=== PATIENT | female | born 1950 | race Caucasian/White ===

== ENCOUNTER 2017-01-13 18:08 | Inpatient (IN) | payer OTHER, MEDICARE ==
[2017-01-13] VITALS (9 sets, daily range): BP systolic 81–109; BP diastolic 54–76; PULSE 100–119; RESP 22–26; TEMP 99.2; O2SAT 84–100
[~2017-01-13] VITALS: Ht 162.6 cm; Wt 91.0 kg
--- NOTE | 2017-01-13 18:31 | PD ---
HPI Chief Complaint: Respiratory Distress Time Seen by Provider: 18:31 Travel History International Travel<30 days: No Contact w/Intl Traveler<30days: No Traveled to known affect area: No History of Present Illness HPI 66-year-old female came to the emergency room with history of shortness of breath. Patient has had 2 hospitalizations at [facility] each for over a week and was recently sent to [facility] where she started developing shortness of breath. Her oxygen saturation was 84% on room air. She was brought in getting oxygen via nonrebreather. She is unable to finish a sentence and one breath. No history of chest pain. Her temperature in the ER was 99.9. Patient is tachycardic. She is awake however and answering questions. She appears to be in distress. Going through the paperwork that came from the rehabilitation patient recently has been diagnosed with UTI. Also chest x-ray done yesterday which showed a pneumonia. Her white count was 18,000 from a blood work that was done yesterday. [facility] Past Medical History Narrative Medical List of her past medical, surgical, social and family history was reviewed from the paperwork that was [facility] from the [facility]. Social History Tobacco Use: No Allergies-Medications (Allergen,Severity, Reaction): Coded Allergies: Contrast Media (Verified Allergy, Severe, respiratory distress, 01/13/17) Penicillin (Verified Allergy, Intermediate, rash, 01/13/17) Uncoded Allergies: cefepime (Allergy, Intermediate, Rash, 01/15/17) pruritic rash Comments List of her allergies reviewed from the nursing note. Reported Meds & Prescriptions Reported Meds & Active Scripts Active Reported Hydroxyzine HCl 25 Mg Tab 25 Mg PO Q6HR PRN 7 Days Nystatin Liq 100,000 unit/ml Susp 5 Ml SWISH-SWAL QID Start: 01/14/2017 x5 days Acidophilus (Lactobacillus Acidophilus) 1 Each Tablet 1 Tab PO BID 5 Days Duoneb (Ipratropium-Albuterol Neb) 0.5-2.5 Mg/3 Ml Neb 3 Ml NEB Q4HR PRN Levaquin (Levofloxacin) 500 Mg Tablet 500 Mg PO DAILY 5 Days Azithromycin 500 Mg Tab 500 Mg PO DAILY Hydrocortisone Topical 1% Cream 1 Applic TOPICAL BID Apply to rash on chest and groin Losartan-Hydrochlorothiazide 50-12.5 Mg Tab 2 Tab PO DAILY Diphenhydramine (Diphenhydramine HCl) 25 Mg Cap 25 Mg PO Q8HR PRN Ativan (Lorazepam) 0.5 Mg Tab 0.5 Mg PO Q8H 7 Days Ventolin Hfa 18 GM Inh (Albuterol Sulfate) 90 Mcg/Act Aer 2 Puff INH Q6H PRN Dulcolax Supp (Bisacodyl) 10 Mg Supp 10 Mg RECTAL IN AM PRN Milk of Magnesia Liq (Magnesium Hydroxide) 400 Mg/5 Ml Susp 30 Ml PO HS PRN Tylenol (Acetaminophen) 325 Mg Tab 650 Mg PO Q4H PRN Enema Disposable (Sodium Phosphates) 1 Ramandeep Ramandeep 1 Applic RECTAL ONCE PRN Citroma Liq (Magnesium Citrate) 300 Ml Liq 296 Ml PO IN AM PRN Lowry (Hydrocodone-Acetaminophen) 10-325 Mg Tab 1 Tab PO Q4H PRN 3 Days Pravastatin 40 Mg Tab 40 Mg PO DAILY Narrative Medication Awaiting for the nurse to do the med reconciliation. Review of Systems Except as stated in HPI: all other systems reviewed are Neg Physical Exam Narrative GENERAL: Awake, alert, significant respiratory distress, anxious SKIN: Focused skin assessment warm/dry. HEAD: Atraumatic. Normocephalic. EYES: Pupils equal and round. No scleral icterus. No injection or drainage. ENT: No nasal bleeding or discharge. Mucous membranes pink and moist. NECK: Trachea midline. No JVD. CARDIOVASCULAR: Regular rate and rhythm. Tachycardia. No murmur appreciated. RESPIRATORY: Moderate respiratory distress. Tachypnea. Decreased air entry bilaterally with fine crackles . GASTROINTESTINAL: Abdomen soft, non-tender, nondistended. Hepatic and splenic margins not palpable. MUSCULOSKELETAL: No obvious deformities. No clubbing. No cyanosis. No edema. NEUROLOGICAL: Awake and alert. No obvious cranial nerve deficits. Motor grossly within normal limits. Normal speech. PSYCHIATRIC: Appropriate mood and affect; insight and judgment normal. Data Data Last Documented VS Orders Complete Blood Count With Diff (01/13/17 18:38) Comprehensive Metabolic Panel (01/13/17 18:38) Lactic Acid Sepsis Protocol (01/13/17 18:38) Urinalysis - C+S If Indicated (01/13/17 18:38) Blood Culture (01/13/17 18:38) Chest, Single Ap (01/13/17 18:38) Blood Glucose (7/3/17 18:38) Ecg Monitoring (01/13/17 18:38) Iv Access Insert/Monitor (01/13/17 18:38) Oximetry (01/13/17 18:38) Oxygen Administration (01/13/17 18:38) Vancomycin Inj (Vancomycin Inj) (01/13/17 18:38) Aztreonam Inj (Azactam Inj) (01/13/17 18:38) Azithromycin Inj (Zithromax Inj) (01/13/17 18:38) Sodium Chlor 0.9% 1000 Ml Inj (Ns 1000 M (01/13/17 18:45) Sodium Chlor 0.9% 1000 Ml Inj (Ns 1000 M (01/13/17 18:45) Arterial Blood Gas (Abg) (01/13/17 ) Acetaminophen (Tylenol) (01/13/17 18:45) Urine Culture (01/13/17 20:08) Admit Order (Ed Use Only) (01/13/17 20:56) MDM Medical Decision Making Medical Screen Exam Complete: Yes Emergency Medical Condition: Yes Medical Record Reviewed: Yes Differential Diagnosis Pneumonia, sepsis, UTI Narrative Course 6:51 PM I started her on sepsis protocol. Awaiting for the blood test results to come back. Case will be signed over to the oncoming ER physician. Patient will require admission given her hypoxia and her clinical condition. Procedures EKG Prior to Arrival: Jos Driver MD Jan 13, 2017 18:31
[2017-01-13] MEDS ORDERED: AZITHROMYCIN INJ 500 MG in SODIUM CHLOR 0.9% 250 ML INJ 250 ML IV STA (18:38)
[2017-01-13] MEDS ORDERED: AZTREONAM INJ 2,000 MG in SODIUM CHLORIDE 0.9% INJ 100 ML IV STA (18:38)
[2017-01-13] MEDS ORDERED: VANCOMYCIN INJ 1 MG in SODIUM CHLOR 0.9% 250 ML INJ 250 ML IV STA (18:38)
[2017-01-13] MEDS ORDERED: ACETAMINOPHEN 325 MG TAB PO ONE (18:45)
[2017-01-13] MEDS ORDERED: SODIUM CHLOR 0.9% 1000 ML INJ 1,000 ML IV ONE ×2 (18:45)
[2017-01-13] MEDS ORDERED: DULC10SU3 RECTAL (19:15)
[2017-01-13] MEDS ORDERED: PRAV40TA2 PO (19:15)
[2017-01-13] MEDS ORDERED: HYDR-3366 PO (19:15)
[2017-01-13] MEDS ORDERED: LACTTAB5 PO (19:15)
[2017-01-13] MEDS ORDERED: LEVA500T20 PO (19:15)
[2017-01-13] MEDS ORDERED: DIPH25CA PO (19:15)
[2017-01-13] MEDS ORDERED: AZIT500T2 PO (19:15)
[2017-01-13] MEDS ORDERED: NYST1000 SWISH-SWAL (19:15)
[2017-01-13] MEDS ORDERED: IPRASOL NEB (19:15)
[2017-01-13] MEDS ORDERED: HYDR1CRE TOPICAL (19:15)
[2017-01-13] MEDS ORDERED: VENTAER INH (19:15)
[2017-01-13] MEDS ORDERED: HYDR-3133 PO (19:15)
[2017-01-13] MEDS ORDERED: TYLE325T PO (19:15)
[2017-01-13] MEDS ORDERED: LORA-392 PO (19:15)
[2017-01-13] MEDS ORDERED: MILKSUS PO (19:15)
[2017-01-13] MEDS ORDERED: CITRSOL4 PO (19:15)
[2017-01-13] MEDS ORDERED: LOSA50TA2 PO (19:15)
[2017-01-13] MEDS ORDERED: ENEMENE5 RECTAL (19:15)
[2017-01-13 19:26] LABS: AUTOMATED NEUTROPHIL # 20.4 TH/MM3 (1.8-7.7); BASOPHIL % 0.2 % (0.0-2.0); EOSINOPHIL # 0.3 TH/MM3 (0-0.4); EOSINOPHIL % 1.4 % (0.0-4.0); HEMATOCRIT 30.1 % (35.0-46.0); LYMPH % 4.6 % (9.0-44.0); MEAN CELL VOLUME 82.8 FL (80.0-100.0); MEAN CORPUSCULAR HEMOGLOBIN 26.9 PG (27.0-34.0); MEAN CORPUSCULAR HGB CONC 32.5 % (32.0-36.0); MONO % 2.5 % (0.0-8.0); NEUT % 91.3 % (16.0-70.0); PLATELET COUNT 254 TH/MM3 (150-450); RED BLOOD COUNT 3.63 MIL/MM3 (4.00-5.30); RED CELL DISTRIBUTION WIDTH 14.7 % (11.6-17.2); WHITE BLOOD COUNT 22.4 TH/MM3 (4.0-11.0)
[2017-01-13 19:29] LABS: HEMO FLAGS AUTO DIFF
--- NOTE | 2017-01-13 19:31 | PD ---
Physical Exam Narrative General: The patient is a well-developed well-nourished female, with some conversational dyspnea noted, otherwise in no acute distress. Head and Neck exam: Head is normocephalic atraumatic. Eyes: EOMI, pupils are equal round and reactive to light. Nose: Midline septum with pink mucous membranes Mouth: Dentition unremarkable. Moist mucus membranes. Posterior oropharynx is not erythematous. No tonsillar hypertrophy. Uvula midline. Airway patent. Neck: No palpable lymphadenopathy. No nuchal rigidity. No thyromegaly. Cardiovascular: Sinus tachycardia in the low 100s to 1 teens without murmurs, gallops, or rubs. No pulse deficit to the extremities and simultaneous auscultation and palpation of her radial artery. Lungs: Crackles audible in bilateral lung bases, no wheezes or rhonchi audible. Patient has a frequent dry sounding cough on exam. Abdomen: Soft, without tenderness to palpation in all 4 quadrants of the abdomen. No guarding, rebound, or rigidity. Normal bowel sounds are audible. No tenderness on palpation of McBurney's point. Extremities: No clubbing, cyanosis, or edema. 2+ pulses in all 4 extremities. No calf tenderness on palpation. Back: No costovertebral angle tenderness to palpation. Neurologic Exam: Grossly nonfocal. Skin Exam: The patient has erythematous papules noted along her chest, upper back, abdomen, legs that appear consistent with urticaria. She reports that she 's had this rash over the last couple of weeks. She reports that it is itchy. Intact skin that is warm and dry. Data Data Last Documented VS Vital Signs Date Time Temp Pulse Resp B/P Pulse Ox O2 Delivery O2 Flow Rate FiO2 01/13/17 19:23 111 24 98/70 100 Non-Rebreather 01/13/17 18:47 99.2 01/13/17 18:47 15 Orders Complete Blood Count With Diff (01/13/17 18:38) Comprehensive Metabolic Panel (01/13/17 18:38) Lactic Acid Sepsis Protocol (01/13/17 18:38) Urinalysis - C+S If Indicated (01/13/17 18:38) Blood Culture (01/13/17 18:38) Chest, Single Ap (01/13/17 18:38) Blood Glucose (01/13/17 18:38) Ecg Monitoring (01/13/17 18:38) Iv Access Insert/Monitor (01/13/17 18:38) Oximetry (01/13/17 18:38) Oxygen Administration (01/13/17 18:38) Vancomycin Inj (Vancomycin Inj) (01/13/17 18:38) Aztreonam Inj (Azactam Inj) (01/13/17 18:38) Azithromycin Inj (Zithromax Inj) (01/13/17 18:38) Sodium Chlor 0.9% 1000 Ml Inj (Ns 1000 M (01/13/17 18:45) Sodium Chlor 0.9% 1000 Ml Inj (Ns 1000 M (01/13/17 18:45) Arterial Blood Gas (Abg) (01/13/17 ) Acetaminophen (Tylenol) (01/13/17 18:45) Urine Culture (01/13/17 20:08) Admit Order (Ed Use Only) (01/13/17 20:56) Labs Laboratory Tests Test 01/13/17 01/13/17 18:45 20:08 White Blood Count 22.4 TH/MM3 Red Blood Count 3.63 MIL/MM3 Hemoglobin 9.8 GM/DL Hematocrit 30.1 % Mean Corpuscular Volume 82.8 FL Mean Corpuscular Hemoglobin 26.9 PG Mean Corpuscular Hemoglobin 32.5 % Concent Red Cell Distribution Width 14.7 % Platelet Count 254 TH/MM3 Mean Platelet Volume 8.9 FL Neutrophils (%) (Auto) 91.3 % Lymphocytes (%) (Auto) 4.6 % Monocytes (%) (Auto) 2.5 % Eosinophils (%) (Auto) 1.4 % Basophils (%) (Auto) 0.2 % Neutrophils # (Auto) 20.4 TH/MM3 Lymphocytes # (Auto) 1.0 TH/MM3 Monocytes # (Auto) 0.6 TH/MM3 Eosinophils # (Auto) 0.3 TH/MM3 Basophils # (Auto) 0.0 TH/MM3 CBC Comment AUTO DIFF Differential Total Cells 100 Counted Neutrophils % (Manual) 79 % Band Neutrophils % 9 % Lymphocytes % 7 % Monocytes % 1 % Eosinophils % 2 % Neutrophils # (Manual) 20.2 TH/MM3 Metamyelocytes 2 % Differential Comment FINAL DIFF MANUAL Platelet Estimate NORMAL Platelet Morphology Comment NORMAL Red Cell Morphology Comment NORMAL Sodium Level 135 MEQ/L Potassium Level 3.7 MEQ/L Chloride Level 96 MEQ/L Carbon Dioxide Level 28.1 MEQ/L Anion Gap 11 MEQ/L Blood Urea Nitrogen 42 MG/DL Creatinine 1.35 MG/DL Estimat Glomerular Filtration 39 ML/MIN Rate Random Glucose 108 MG/DL Calcium Level 8.6 MG/DL Total Bilirubin 0.5 MG/DL Aspartate Amino Transf 158 U/L (AST/SGOT) Alanine Aminotransferase 264 U/L (ALT/SGPT) Alkaline Phosphatase 200 U/L Total Protein 6.5 GM/DL Albumin 2.1 GM/DL Urine Color RED Urine Turbidity CLOUDY Urine pH 5.5 Urine Specific [place] 1.021 Urine Protein 100 mg/dL Urine Glucose (UA) NEG mg/dL Urine Ketones NEG mg/dL Urine Occult Blood LARGE Urine Nitrite NEG Urine Bilirubin NEG Urine Urobilinogen 2.0 MG/DL Urine Leukocyte Esterase LARGE Urine RBC /hpf Urine WBC /hpf Urine Squamous Epithelial 15 /hpf Cells Urine Transitional Epithelial 3 /hpf Cells Urine Amorphous Sediment RARE Urine Bacteria OCC /hpf Urine Hyaline Casts 10 /lpf Urine Mucus MANY /lpf Urine Yeast (Budding) MANY Microscopic Urinalysis Comment CATH-CULTURE IND Lactic Acid Level 1.7 mmol/L [facility] Medical Record Reviewed: Yes Supervised Visit with SADIQ: No Interpretation(s) Last Impressions Chest X-Ray 01/13/17 1378 Signed Impressions: Service Date/Time: Friday, January 13, 2017 18:51 - CONCLUSION: Patchy bilateral areas of peripheral partially consolidative infiltrate in both lungs. No evidence of pleural effusion. Walter Lopez MD Narrative Course During the course of the patients emergency department visit, the patients history, examination, and differential diagnosis were reviewed with the patient. The patient had IV access obtained and blood work sent for analysis. The patient was placed on a washhouse hand with oximetry and blood pressure monitoring. An ECG was ordered. A sepsis workup was started with a suspected service source of pneumonia. The patient was initially provided a 2 L normal saline IV fluid bolus, Azactam, azithromycin, and vancomycin was started given the patient's penicillin allergy. The patients laboratory studies were reviewed and remarkable for a white count of 22.4, hemoglobin 9.8, platelets 254 with a left shift, neutrophil predominance at 91.3, CMP is remarkable for sodium of 135, chloride 96, BUN 42, creatinine 1.35, glucose 108, AST 158, ALT 264, alkaline phosphatase 200, albumin 2.1, lactic acid 1.7, urinalysis shows 100 protein, large occult blood, large leukocyte esterase, innumerable rbc's and wbc's, 15 squamous epithelial cells, occasional bacteria many yeast culture indicated. The patient has had a chronic indwelling Mercedes catheter and also has a history of recently diagnosed bladder cancer. We will await further culture of the urine in order to decide on further treatment measures. Radiology studies were reviewed and remarkable for patchy bilateral areas of for full partially consolidated infiltrate in both lungs, no evidence of pleural effusion. The patients results were discussed with the patient, including the plan of care. I explained that further testing and/ or monitoring is indicated based on the patients history, examination, and/ or laboratory findings. Therefore, I recommended admission for additional evaluation. The patient expressed understanding and was agreeable with this plan. The patient was admitted to the hospital in guarded condition and [facility] Sepsis Criteria SIRS Criteria (2 or more): Heart rate over 90, RR > 20 or PaCO2 < 32, WBC > 33746, < 4000 or > 10% bands Sepsis Criteria (SIRS+source): Infect source susp/known Criteria Outcome: Meets SIRS criteria, Meets sepsis criteria Physician Communication Physician Communication The patient's case is discussed with Dr. Knight who did agree to admit the patient for further evaluation and treatment at this time. Diagnosis Primary Impression: Sepsis Qualified Code: A41.9 - Sepsis, due to unspecified organism Additional Impression: Pneumonia Qualified Code: J18.9 - Pneumonia of both lungs due to infectious organism, unspecified part of lung Admitting Information Admitting Physician Requests: Admit Jeanie Chadwick MD Jan 13, 2017 19:31
--- NOTE | 2017-01-13 19:41 | RADRPT ---
EXAM DATE/TIME: 01/13/2017 18:51 [place] COMPARISON: No previous studies available for comparison. INDICATIONS : Shortness of breath. MEDICAL HISTORY : None. SURGICAL HISTORY : None. ENCOUNTER: Initial ACUITY: 1 day PAIN SCORE: 5/10 LOCATION: Bilateral chest FINDINGS: The examination is abnormal, demonstrating patchy areas of partially consolidative and partially inte rstitial infiltrates in the peripheral one third of both lungs. No evidence of peribronchial thicken ing. The heart is normal size. Both hemidiaphragms are well delineated. CONCLUSION: Patchy bilateral areas of peripheral partially consolidative infiltrate in both lungs. No evidence o f pleural effusion. Walter Lopez MD on January 13, 2017 at 19:37 Board Certified Radiologist. This report was verified electronically.
[2017-01-13 20:01] LABS: ALT (GPT) 264 U/L (10-53); AST (GOT) 158 U/L (15-37); BICARBONATE 28.1 MEQ/L (21.0-32.0); BLOOD UREA NITROGEN 42 MG/DL (7-18); GLOMERULAR FILTRATION RATE 39 ML/MIN (>89)
[2017-01-13 20:12] LABS: BANDS 9 % (0-6); EOSINOPHILS 2 % (0-4); METAMYELOCYTES 2 % (0-1); NEUTROPHIL # MANUAL DIFF 20.2 TH/MM3 (1.8-7.7); POLYS (SEG NEUTROPHILS) 79 % (16-70); WBC DIFF SAMPLE 100
[2017-01-13 20:13] LABS: PLATELET ESTIMATE SMEAR NORMAL (NORMAL); PLATELET MORPHOLOGY NORMAL (NORMAL); SCAN/DIFF FINAL DIFF MANUAL
[2017-01-13 20:37] LABS: ALKALINE PHOSPHATASE 200 U/L (45-117); ANION GAP 11 MEQ/L (5-15); CHLORIDE 96 MEQ/L (98-107); POTASSIUM 3.7 MEQ/L (3.5-5.1); SODIUM (NA) 135 MEQ/L (136-145); TOTAL BILIRUBIN ADULT 0.5 MG/DL (0.2-1.0)
[2017-01-13 20:39] LABS: BACTERIA, URINE OCC /hpf; BLOOD, URINE LARGE (NEG); GLUCOSE,URINE NEG (NEG); HYALINE CAST, URINE 10 /lpf (RARE); KETONE, URINE NEG (NEG); MUCUS URINE MANY /lpf (OCC); NITRITE,URINE NEG (NEG); PH, URINE 5.5 (5.0-8.5); SQUAMOUS EPITHELIAL CELL URINE 15 /hpf (0-5); TRANSITIONAL EPI CELLS, URINE 3 /hpf; URINE COLOR RED (YELLW/STRAW)
[2017-01-13 20:40] LABS: COMMENT (UR) CATH-CULTURE IND; CULTURE IF INDICATED CATH CULTURE IND
[2017-01-13] MEDS: DOCUSATE SODIUM 50 MG/SENNA 8.6 MG TAB PO SCH (21:00)
[2017-01-13] MEDS ORDERED: SODIUM CHLORIDE 0.9% FLUSH 10 ML FLUSH IV FLUSH PRN (21:00)
[2017-01-13] MEDS ORDERED: ONDANSETRON HCL 4 MG/2 ML VIAL IVP PRN (21:00)
[2017-01-13] MEDS ORDERED: SENNOSIDES 8.6 MG TAB PO PRN (21:00)
[2017-01-13] MEDS ORDERED: BISACODYL 10 MG SUPP RECTAL PRN (21:00)
[2017-01-13] MEDS ORDERED: ACETAMINOPHEN 325 MG TAB PO PRN (21:00)
[2017-01-13] MEDS ORDERED: MAGNESIUM HYDROXIDE SUSP 30 ML CUP PO PRN (21:00)
[2017-01-13] MEDS ORDERED: Vancomycin Consult Pharmacy 1 EA OTHER SCH (21:00)
[2017-01-13] MEDS ORDERED: LACTULOSE SYRUP 20 GM/30 ML CUP PO PRN (21:00)
[2017-01-13] MEDS: NYSTATIN SUSP 500,000 U/5 ML CUP SWISH-SWAL SCH (21:00)
--- NOTE | 2017-01-13 21:11 | HHI.HP ---
HPI Service [facility] Primary Care Physician Unknown Admission Diagnosis Pneumonia failed outpatient management Diagnoses: (1) Sepsis Diagnosis: Principal (2) PNA (pneumonia) Diagnosis: Principal (3) UTI (urinary tract infection) Diagnosis: Principal (4) Renal insufficiency Diagnosis: Principal Travel History International Travel<30 Days: No Contact w/Intl Traveler <30 Da: No Traveled to Known Affected Are: No History of Present Illness This is a 66-year-old female with a PMH of HTN and Bladder CA who was sent to the ER from [facility] secondary to complaints of SOB. Patient recently hospitalized on 2 separate occasions to for similar complaints, found to have PNA, currently on treatment w/ Levaquin/Zithro at Rehab. Today, pt w/ worsening SOB. Upon EMS arrival, noted to be hypoxic w/ O2 sat 85%, Temp 99.9. On arrival, BP 95/68, HR 119, O2 sat 84% on RA, Temp 99.2. Currently on NRM w/ O2 sat 100%, BP 109/76, HR 108. WBC 22.4, bandemia 9%. Creatinine 1.35 , no previous labs for comparison. Lactic acid normal at 1.7. Mild elevated. UA positive for UTI, hematuria, chronic secondary to Bladder CA. CXR with patchy bilateral areas of consolidation. S/p Blood Cultures/Urine Culture, Vanc /Azactam/Zithro in ER. Review of Systems Except as stated in HPI: all other systems reviewed are Neg ROS: 14 point review of systems otherwise negative. Past Family Social History Past Medical History PMH: HTN and Bladder CA Past Surgical History PAST SURGICAL HISTORY: Mastectomy, Left Elbow Surgery Allergies: Coded Allergies: Contrast Media (Verified Allergy, Severe, respiratory distress, 01/13/17) Penicillin (Verified Allergy, Intermediate, rash, 01/13/17) Family History PAST FAMILY HISTORY: Reviewed. No h/o DM or CAD Social History PAST SOCIAL HISTORY: Negative for alcohol, tobacco or drugs. Physical Exam Vital Signs Vital Signs Date Time Temp Pulse Resp B/P Pulse Ox O2 Delivery O2 Flow Rate FiO2 01/13/17 19:23 111 24 98/70 100 Non-Rebreather 01/13/17 18:47 99.2 119 22 95/68 100 Non-Rebreather 01/13/17 18:47 100 Non-Rebreather 15 01/13/17 18:32 99.2 119 24 95/68 100 Non-Rebreather 01/13/17 18:32 119 24 100 Non-Rebreather 01/13/17 18:29 99.2 119 24 95/68 84 Physical Exam PE: GENERAL: Pleasant middle-aged white female in no acute distress, currently on NRM, dyspnea w/ speech. HEENT: PERRLA, EOMI. No scleral icterus or conjunctival pallor. No lid lag or facial droop. CARDIOVASCULAR: Regular rate and rhythm. No obvious murmurs to auscultation. No chest tenderness to palpation. RESPIRATORY: No obvious rhonchi or wheezing. Clear to auscultation. Decreased breath sounds equal bilaterally. GASTROINTESTINAL: Abdomen soft, non-tender, nondistended. BS normal. MUSCULOSKELETAL: Extremities without clubbing, cyanosis, or edema. No obvious deformities. NEUROLOGICAL: Awake, alert and oriented x4. No focal neurologic deficits. Moving both upper and lower extremities spontaneously. Laboratory Laboratory Tests Test 01/13/17 01/13/17 18:45 20:08 White Blood Count 22.4 Red Blood Count 3.63 Hemoglobin 9.8 Hematocrit 30.1 Mean Corpuscular Volume 82.8 Mean Corpuscular Hemoglobin 26.9 Mean Corpuscular Hemoglobin 32.5 Concent Red Cell Distribution Width 14.7 Platelet Count 254 Mean Platelet Volume 8.9 Neutrophils (%) (Auto) 91.3 Lymphocytes (%) (Auto) 4.6 Monocytes (%) (Auto) 2.5 Eosinophils (%) (Auto) 1.4 Basophils (%) (Auto) 0.2 Neutrophils # (Auto) 20.4 Lymphocytes # (Auto) 1.0 Monocytes # (Auto) 0.6 Eosinophils # (Auto) 0.3 Basophils # (Auto) 0.0 CBC Comment AUTO DIFF Differential Total Cells 100 Counted Neutrophils % (Manual) 79 Band Neutrophils % 9 Lymphocytes % 7 Monocytes % 1 Eosinophils % 2 Neutrophils # (Manual) 20.2 Metamyelocytes 2 Differential Comment FINAL DIFF MANUAL Platelet Estimate NORMAL Platelet Morphology Comment NORMAL Red Cell Morphology Comment NORMAL Sodium Level 135 Potassium Level 3.7 Chloride Level 96 Carbon Dioxide Level 28.1 Anion Gap 11 Blood Urea Nitrogen 42 Creatinine 1.35 Estimat Glomerular Filtration 39 Rate Random Glucose 108 Calcium Level 8.6 Total Bilirubin 0.5 Aspartate Amino Transf 158 (AST/SGOT) Alanine Aminotransferase 264 (ALT/SGPT) Alkaline Phosphatase 200 Total Protein 6.5 Albumin 2.1 Urine Color RED Urine Turbidity CLOUDY Urine pH 5.5 Urine Specific [place] 1.021 Urine Protein 100 Urine Glucose (UA) NEG Urine Ketones NEG Urine Occult Blood LARGE Urine Nitrite NEG Urine Bilirubin NEG Urine Urobilinogen 2.0 Urine Leukocyte Esterase LARGE Urine RBC Urine WBC Urine Squamous Epithelial 15 Cells Urine Transitional Epithelial 3 Cells Urine Amorphous Sediment RARE Urine Bacteria OCC Urine Hyaline Casts 10 Urine Mucus MANY Urine Yeast (Budding) MANY Microscopic Urinalysis Comment CATH-CULTURE IND Lactic Acid Level 1.7 Date/Time Procedure Status Source Growth 01/13/17 20:08 Urine Culture Received Urine Catheterized Urine Pending 01/13/17 18:50 Aerobic Blood Culture Received Blood Peripheral Pending 01/13/17 18:50 Anaerobic Blood Culture Received Blood Peripheral Pending Result Diagram: 01/13/17 [id number] Assessment and Plan Problem List: (1) Sepsis ICD Code: A41.9 Status: Acute (2) PNA (pneumonia) ICD Code: J18.9 Status: Acute (3) UTI (urinary tract infection) ICD Code: N39.0 Status: Acute (4) Renal insufficiency ICD Code: N28.9 Status: Acute Assessment and Plan A/P: 1. Sepsis: Temp 99.9, HR 111, WBC 22.1, Bandemia 9%. Lactic Acid normal. Source-PNA/UTI. S/p Blood/Urine Cultures, Vanc/Azactam/Zithro in ER. Follow up cultures, continue w/ IV Abx, IVF for hydration. 2. PNA: Recurrent. Multiple admissions to for recurrent PNA, currently on Levaquin/Zithro PO at Rehab, Failed Outpt Tx, continue w/ IV Abx, DuoNeb q4 and q2hr prn. Continue O2 as needed, wean as tolerated. 3. UTI: U/a w/ UTI, however h/o Bladder CA w/ recurrent UTI/Hematuria. Will continue w/ IV Abx, follow cultures to eval for true infection. 4. Renal Insufficiency: Creatinine 1.35, no previous labs for comparison. IVF for hydration, repeat labs in am. 5. DVT Prophylaxis: SCD/Teds. 6. Social work for d/c planning as needed. 7. Case discussed w/ ER physician at length. Physician Certification 2 Midnight Certification Type: Admission for Inpatient Services Order for Inpatient Services The services are ordered in accordance with Medicare regulations or non- Medicare payer requirements, as applicable. In the case of services not specified as inpatient-only, they are appropriately provided as inpatient services in accordance with the 2-midnight benchmark. Estimated LOS (days): 2 days is the estimated time the patient will need to remain in the hospital, assuming treatment plan goals are met and no additional complications. Post-Hospital Plan: Not yet determined Problem Qualifiers (1) Sepsis: Qualified Code: A41.9 - Sepsis, due to unspecified organism Vivian Knight MD Jan 13, 2017 21:11
[2017-01-13] MEDS ORDERED: RESP: ALBUTEROL 2.5 MG/IPRATROPIUM 0.5 MG NEB (PRN) NEB (21:15)
[2017-01-13] MEDS ORDERED: VANCOMYCIN 1,000 MG/NS 250 ML IV ONE ×4 (22:00→23:30)
[2017-01-13] MEDS ORDERED: CHLORHEXIDINE GLUCONATE 2 % 1 PACK (2 CLOTHS)(extra cloths) TOPICAL PRN (22:15)
[2017-01-13] MEDS: LORazepam 0.5 MG TAB PO SCH (23:04)
[2017-01-13] MEDS: SODIUM CHLOR 0.9% 1000 ML INJ 1,000 ML IV SCH (23:05)
[2017-01-13] MEDS: SODIUM CHLORIDE 0.9% FLUSH 10 ML FLUSH IV FLUSH SCH (23:06)
[2017-01-13 23:24] LABS: BLOOD GAS BASE EXCESS 2.3 mmol/L (-2-2); BLOOD GAS CARBOXYHEMOGLOBIN 1.1 % (0-4); BLOOD GAS HCO3 25 mmol/L (22-26); BLOOD GAS METHEMOGLOBIN 0.5 % (0-2); BLOOD GAS O2 HGB SATURATION 98 % (90-100); BLOOD GAS OXYGEN CONTENT 13.5 Vol % (12.0-20.0); BLOOD GAS PCO2 31 mmHg (38-42); BLOOD GAS PO2 235 mmHG (61-120); BLOOD GAS TOTAL HGB 9.4 G/DL (12.0-16.0); TEMP CORR TO 98.6
[2017-01-13 23:25] LABS: CRITICAL VALUE YES; DRAW SITE RT RADIAL; FIO2 100 %; LITER FLOW 15 L/M; NUMBER OF ARTERIAL PUNCTURES 1; OXYGEN DEVICE NRB; STAT YES; ULNAR PULSE PRESENT
[2017-01-14] VITALS (14 sets, daily range): BP systolic 91–112; BP diastolic 59–71; PULSE 97–109; RESP 23–32; TEMP 98.2–99; O2SAT 88–100
[2017-01-14] MEDS: POTASSIUM CHLORIDE INJ 10 MEQ in DEXT 5%-NACL 0.9% 1000 ML INJ 1,000 ML IV SCH (01:00)
[2017-01-14] MEDS: CHLORHEXIDINE GLUCONATE 2 % 1 PACK (2 CLOTHS)(taper/protocol) TOPICAL SCH ×2 (01:18→23:30)
[2017-01-14] MEDS ORDERED: FAMOTIDINE 20 MG TAB PO ONE (02:00)
[2017-01-14 05:27] LABS: AUTOMATED NEUTROPHIL # 18.9 TH/MM3 (1.8-7.7); BASOPHIL % 0.1 % (0.0-2.0); EOSINOPHIL # 0.3 TH/MM3 (0-0.4); EOSINOPHIL % 1.6 % (0.0-4.0); HEMATOCRIT 26.1 % (35.0-46.0); LYMPH % 2.2 % (9.0-44.0); LYMPHOCYTE # 0.4 TH/MM3 (1.0-4.8); MEAN CELL VOLUME 83.1 FL (80.0-100.0); MEAN CORPUSCULAR HGB CONC 32.5 % (32.0-36.0); MONO % 2.1 % (0.0-8.0); PLATELET COUNT 199 TH/MM3 (150-450); RED BLOOD COUNT 3.15 MIL/MM3 (4.00-5.30); RED CELL DISTRIBUTION WIDTH 14.9 % (11.6-17.2); WHITE BLOOD COUNT 20.1 TH/MM3 (4.0-11.0)
[2017-01-14 05:30] LABS: HEMO FLAGS AUTO DIFF
[2017-01-14 06:10] LABS: ALKALINE PHOSPHATASE 158 U/L (45-117); ALT (GPT) 206 U/L (10-53); ANION GAP 8 MEQ/L (5-15); AST (GOT) 138 U/L (15-37); BICARBONATE 27.6 MEQ/L (21.0-32.0); BLOOD UREA NITROGEN 33 MG/DL (7-18); CHLORIDE 106 MEQ/L (98-107); GLOMERULAR FILTRATION RATE 59 ML/MIN (>89); POTASSIUM 3.3 MEQ/L (3.5-5.1); SODIUM (NA) 142 MEQ/L (136-145); TOTAL BILIRUBIN ADULT 0.4 MG/DL (0.2-1.0)
[2017-01-14] MEDS: RESP: ALBUTEROL 2.5 MG/IPRATROPIUM 0.5 MG NEB (SCH) NEB ×4 (07:25→19:57)
[2017-01-14 07:27] LABS: BANDS 14 % (0-6); EOSINOPHILS 1 % (0-4); METAMYELOCYTES 1 % (0-1); MYELOCYTES 2 % (0-0); NEUTROPHIL # MANUAL DIFF 19.7 TH/MM3 (1.8-7.7); POLYS (SEG NEUTROPHILS) 81 % (16-70); WBC DIFF SAMPLE 100
[2017-01-14 07:28] LABS: SCAN/DIFF FINAL DIFF MANUAL
[2017-01-14] MEDS: PRAVASTATIN SOD 40 MG TAB PO SCH (08:03)
[2017-01-14] MEDS: CEFEPIME INJ 1,000 MG in SODIUM CHLORIDE 0.9% INJ 100 ML IV SCH ×2 (08:03→20:30)
[2017-01-14] MEDS: LORazepam 0.5 MG TAB PO SCH ×3 (08:03→20:30)
[2017-01-14] MEDS: DOCUSATE SODIUM 50 MG/SENNA 8.6 MG TAB PO SCH ×2 (08:04→20:30)
[2017-01-14] MEDS: NYSTATIN SUSP 500,000 U/5 ML CUP SWISH-SWAL SCH ×4 (08:04→20:29)
[2017-01-14] MEDS: SODIUM CHLORIDE 0.9% FLUSH 10 ML FLUSH IV FLUSH SCH ×2 (08:04→20:30)
[2017-01-14] MEDS: SODIUM CHLOR 0.9% 1000 ML INJ 1,000 ML IV SCH (08:06)
[2017-01-14] MEDS: VANCOMYCIN INJ 1,250 MG in SODIUM CHLOR 0.9% 250 ML INJ 250 ML IV SCH ×2 (11:55→23:29)
--- NOTE | 2017-01-14 11:56 | HHI.PR ---
Subjective Remarks feeling better, no difficulty swallowing, "food better than [facility]" on home 02- having some minimal dry cough history of bladder cancer- on chronic mcgee got some records from OP- CT scan of chest October 2016-- right upper lobe nodule - PET scan done but no report on record - LFTs normal from OP 10/2016 Objective Vitals Vital Signs Date Time Temp Pulse Resp B/P Pulse Ox O2 Delivery O2 Flow Rate FiO2 01/14/17 10:00 103 01/14/17 08:00 98.4 109 27 91/60 99 01/14/17 08:00 109 01/14/17 07:31 95 Nasal Cannula 5.00 01/14/17 06:00 100 01/14/17 04:00 98.9 99 32 111/71 100 01/14/17 04:00 99 01/14/17 02:00 97 01/14/17 00:00 100 01/14/17 00:00 99.0 100 23 112/67 88 01/13/17 22:30 100 01/13/17 22:00 105 01/13/17 21:52 99.2 108 24 109/76 100 01/13/17 21:13 104 26 81/54 100 Non-Rebreather 01/13/17 19:23 111 24 98/70 100 Non-Rebreather 01/13/17 19:20 100 Non-Rebreather 15.00 01/13/17 18:47 99.2 119 22 95/68 100 Non-Rebreather 01/13/17 18:47 100 Non-Rebreather 15 01/13/17 18:32 99.2 119 24 95/68 100 Non-Rebreather 01/13/17 18:32 119 24 100 Non-Rebreather 01/13/17 18:29 99.2 119 24 95/68 84 I/O 01/13/17 01/13/17 01/13/17 01/14/17 01/14/17 01/14/17 07:00 15:00 23:00 07:00 15:00 23:00 Intake Total 251 ml 1236 ml Output Total 250 ml 1100 ml Balance 1 ml 136 ml Intake Oral 100 ml 150 ml IV Total 151 ml 1086 ml Output Urine Total 250 ml 1100 ml Result Diagram: 01/14/17 0434 01/14/17 0434 Imaging Last Impressions Chest X-Ray 01/13/17 1838 Signed Impressions: Service Date/Time: Friday, January 13, 2017 18:51 - CONCLUSION: Patchy bilateral areas of peripheral partially consolidative infiltrate in both lungs. No evidence of pleural effusion. Walter Lopez MD Objective Remarks awake and alert no acute distress anicteric lungs- no wheezes, decreased breath sounds regular rhythm- abdomen soft nontender extremities no edema mcgee in place Urinary Catheter: Yes Assessment to: Continue Mcgee insert reason: Obstruction/Retention Date of Insertion: Jan 11, 2017 A/P Problem List: (1) Sepsis ICD Code: A41.9 Status: Acute (2) PNA (pneumonia) ICD Code: J18.9 Status: Acute (3) UTI (urinary tract infection) ICD Code: N39.0 Status: Acute (4) Renal insufficiency ICD Code: N28.9 Status: Acute Assessment and Plan 66 years old female recently diagnosed with Bladder cancer Sepsis: Lactic Acid normal. Source-PNA/UTI. S/p Blood/Urine Cultures, Acute Respiratory failure on chronic- increase Fi02 requirement- place on Venti mask to keep sats greater than 90%. get stat ABG PNA: Recurrent. Multiple admissions to for recurrent PNA, currently on Levaquin/Zithro PO at Rehab, Failed Outpt Tx, continue w/ IV Abx, DuoNeb q4 and q2hr prn. Continue O2 as needed, Consult Dr. Ivory- known to him Last CT thorax showed upper right upper nodule- PET scan was done but second page of final report not available get a repeat CT- to evaluate UTI: U/a w/ UTI, h/o Bladder CA w/ recurrent UTI/Hematuria. with History of Bladder Cancer Will continue w/ IV Abx- Vanco/Cefepime follow cultures - pending- ID consult FF by Dr. Kaiser as OP states was referred to an Oncologist - she will have family bring in info- sounds like referred to Dr. Corbett -ff by Oncology-. cannot get treatment started with Pneumonia Renal Insufficiency: Creatinine 1.35, no previous labs for comparison. IVF for hydration, ff Elevated LFTs- secondary to sepsis cannot r/o mets - her last labs from 10/2016- normal LFTS -states she had a recent CTscan done at [place]- - only chest CT done -will try to get results if not repeat here ff labs Oncology consult DVT Prophylaxis: SCD/Teds. - Yasnox had several CTs done as OP- recently [place] - will try to get records Problem Qualifiers (1) Sepsis: Qualified Code: A41.9 - Sepsis, due to unspecified organism Paul Cummings MD Jan 14, 2017 11:56
[2017-01-14] MEDS ORDERED: POTASSIUM CHLOR 10 MEQ PREMIX 100 ML IV ONE (12:00)
[2017-01-14] MEDS ORDERED: NS + KCL 20 MEQ INJ 1,000 ML IV SCH (12:00)
[2017-01-14] MEDS ORDERED: POTASSIUM CHLORIDE 20 MEQ CONTROLLED RELEASE TAB PO ONE ×2 (21:00)
[2017-01-15] VITALS (19 sets, daily range): BP systolic 81–108; BP diastolic 55–73; PULSE 88–109; RESP 20–25; TEMP 97.9–98.8; O2SAT 83–100
[2017-01-15] MEDS: LORazepam 0.5 MG TAB PO SCH ×3 (06:14→22:09)
[2017-01-15 06:22] LABS: AUTOMATED NEUTROPHIL # 19.7 TH/MM3 (1.8-7.7); BASOPHIL % 0.1 % (0.0-2.0); EOSINOPHIL # 0.5 TH/MM3 (0-0.4); EOSINOPHIL % 2.1 % (0.0-4.0); HEMATOCRIT 26.9 % (35.0-46.0); LYMPH % 3.5 % (9.0-44.0); LYMPHOCYTE # 0.7 TH/MM3 (1.0-4.8); MEAN CELL VOLUME 83.9 FL (80.0-100.0); MEAN CORPUSCULAR HEMOGLOBIN 26.4 PG (27.0-34.0); MEAN CORPUSCULAR HGB CONC 31.4 % (32.0-36.0); MONO % 2.7 % (0.0-8.0); NEUT % 91.6 % (16.0-70.0); PLATELET COUNT 177 TH/MM3 (150-450); RED BLOOD COUNT 3.21 MIL/MM3 (4.00-5.30); RED CELL DISTRIBUTION WIDTH 14.9 % (11.6-17.2); WHITE BLOOD COUNT 21.6 TH/MM3 (4.0-11.0)
[2017-01-15 06:24] LABS: HEMO FLAGS AUTO DIFF
[2017-01-15 06:45] LABS: BICARBONATE 25.8 MEQ/L (21.0-32.0); POTASSIUM 3.6 MEQ/L (3.5-5.1); TOTAL BILIRUBIN ADULT 0.4 MG/DL (0.2-1.0)
[2017-01-15 08:19] LABS: BANDS 2 % (0-6); EOSINOPHILS 1 % (0-4); METAMYELOCYTES 1 % (0-1); NEUTROPHIL # MANUAL DIFF 21.4 TH/MM3 (1.8-7.7); PLATELET ESTIMATE SMEAR NORMAL (NORMAL); PLATELET MORPHOLOGY NORMAL (NORMAL); POLYS (SEG NEUTROPHILS) 96 % (16-70); SCAN/DIFF FINAL DIFF MANUAL; WBC DIFF SAMPLE 100
[2017-01-15] MEDS: DOCUSATE SODIUM 50 MG/SENNA 8.6 MG TAB PO SCH ×2 (08:20→21:00)
[2017-01-15] MEDS: CEFEPIME INJ 1,000 MG in SODIUM CHLORIDE 0.9% INJ 100 ML IV SCH (08:20)
[2017-01-15] MEDS: SODIUM CHLORIDE 0.9% FLUSH 10 ML FLUSH IV FLUSH SCH ×2 (08:20→21:05)
[2017-01-15] MEDS: PRAVASTATIN SOD 40 MG TAB PO SCH (08:20)
[2017-01-15] MEDS: RESP: ALBUTEROL 2.5 MG/IPRATROPIUM 0.5 MG NEB (SCH) NEB ×4 (09:05→20:22)
[2017-01-15] MEDS ORDERED: PHARMACY ORDERED LAB ONE (10:45)
[2017-01-15] MEDS: VANCOMYCIN INJ 1,250 MG in SODIUM CHLOR 0.9% 250 ML INJ 250 ML IV SCH (10:47)
[2017-01-15] MEDS: NYSTATIN SUSP 500,000 U/5 ML CUP SWISH-SWAL SCH ×4 (10:47→21:05)
[2017-01-15] MEDS: POTASSIUM CHLORIDE INJ 10 MEQ in DEXT 5%-NACL 0.9% 1000 ML INJ 1,000 ML IV SCH ×2 (10:48→12:45)
--- NOTE | 2017-01-15 16:15 | HHI.PR ---
Subjective Remarks patient desaturates easily-- cough thick whitish Objective Vitals Vital Signs Date Time Temp Pulse Resp B/P Pulse Ox O2 Delivery O2 Flow Rate FiO2 01/15/17 14:00 100 01/15/17 12:00 98.3 93 95/65 100 01/15/17 12:00 93 01/15/17 11:00 96 01/15/17 11:00 96 99/62 100 01/15/17 10:00 107 01/15/17 10:00 107 94/69 96 01/15/17 09:09 97 Partial Rebreather 12.00 01/15/17 09:01 97 01/15/17 09:00 105 95 01/15/17 09:00 105 01/15/17 08:00 96 Nasal Cannula 5.00 01/15/17 08:00 88 01/15/17 08:00 98.8 88 22 93/64 96 01/15/17 06:00 94 01/15/17 04:00 98.3 101 25 108/73 92 01/15/17 04:00 101 01/15/17 02:00 101 01/15/17 00:00 98.0 100 23 106/67 93 01/15/17 00:00 100 01/14/17 22:00 108 01/14/17 20:00 99 01/14/17 20:00 98.2 99 26 101/65 100 01/14/17 19:57 93 High Flow Nasal Cannula 5.00 01/14/17 19:00 92 Nasal Cannula 6.00 01/14/17 18:00 105 I/O 01/14/17 01/14/17 01/14/17 01/15/17 01/15/17 01/15/17 07:00 15:00 23:00 07:00 15:00 23:00 Intake Total 1236 ml 734 ml 260 ml 780 ml 1177 ml Output Total 1100 ml 475 ml 400 ml 375 ml 375 ml Balance 136 ml 259 ml -140 ml 405 ml 802 ml Intake Oral 150 ml 240 ml 150 ml 100 ml 150 ml IV Total 1086 ml 494 ml 110 ml 680 ml 1027 ml Output Urine Total 1100 ml 475 ml 400 ml 375 ml 375 ml # Bowel Movements 0 Result Diagram: 01/15/17 0606 01/15/17 0606 Imaging Last Impressions Chest X-Ray 01/13/17 1838 Signed Impressions: Service Date/Time: Friday, January 13, 2017 18:51 - CONCLUSION: Patchy bilateral areas of peripheral partially consolidative infiltrate in both lungs. No evidence of pleural effusion. Walter Lopez MD Objective Remarks awake and alert no acute distress anicteric lungs- no wheezes, decreased breath sounds regular rhythm- abdomen soft nontender extremities no edema mcgee in place Urinary Catheter: No Mcgee insert reason: Prolonged Immobilization Date of Insertion: Jan 11, 2017 A/P Problem List: (1) Sepsis ICD Code: A41.9 Status: Acute (2) PNA (pneumonia) ICD Code: J18.9 Status: Acute (3) UTI (urinary tract infection) ICD Code: N39.0 Status: Acute (4) Renal insufficiency ICD Code: N28.9 Status: Acute Assessment and Plan 66 years old female recently diagnosed with Bladder cancer Acute Respiratory failure- increase Fi02 requiremnt- good sats at 50% consult her corrective therapist- Dr. Ivory Sepsis: Source-PNA/UTI. PNA: Recurrent. Multiple admissions to for recurrent PNA, currently on Levaquin/Zithro PO at Rehab, Failed Outpt Tx, continue w/ IV Abx, DuoNeb q4 and q2hr prn. ID consult UTI: U/a w/ UTI, h/o Bladder CA w/ recurrent UTI- now Funguria Will continue w/ IV Abx- Vanco/Cefepime follow cultures - pending FF by Dr. Kaiser as OP states was referred to an Oncologist - she will have family bring in info- sounds like referred to Dr. Corbett-ff by Oncology-. -ID consult Renal Insufficiency: Creatinine 1.35, no previous labs for comparison. IVF for hydration, ff Elevated LFTs- secondary to sepsis cannot r/o mets -states she had a recent CTscan done at [place] -will try to get results if not repeat here f-get CT of abdomen pelvis and lungs DC statins Oncology consult= Dr. Corbett GI consult - difficulty swallowing + elevated LFTs DVT Prophylaxis: SCD/Teds. - Lovenox had several CTs done as OP- recently [place] - will try to get records Problem Qualifiers (1) Sepsis: Qualified Code: A41.9 - Sepsis, due to unspecified organism Paul Cummings MD Jan 15, 2017 16:15
[2017-01-15 16:48] LABS: BLOOD GAS BASE EXCESS 0.3 mmol/L (-2-2); BLOOD GAS CARBOXYHEMOGLOBIN 1.6 % (0-4); BLOOD GAS HCO3 24 mmol/L (22-26); BLOOD GAS METHEMOGLOBIN 0.9 % (0-2); BLOOD GAS O2 HGB SATURATION 86 % (90-100); BLOOD GAS OXYGEN CONTENT 9.5 Vol % (12.0-20.0); BLOOD GAS PCO2 32 mmHg (38-42); BLOOD GAS PO2 52 mmHg (61-120); BLOOD GAS TOTAL HGB 7.8 G/DL (12.0-16.0); CRITICAL VALUE YES; OXYGEN DEVICE Venti Mask; TEMP CORR TO 98.6
[2017-01-15 16:49] LABS: DRAW SITE RT RADIAL; FIO2 50 %; LITER FLOW 6 L/M; NUMBER OF ARTERIAL PUNCTURES 1; STAT NO; ULNAR PULSE PRESENT
[2017-01-15] MEDS: ENOXAPARIN SODIUM 40 MG/0.4 ML SYRINGE SQ SCH (17:03)
--- NOTE | 2017-01-15 17:46 | PD.ID.CON ---
History of Present Illness Service ID Consult Requested By Dr Cummings Reason for Consult PNA Primary Care Physician Unknown Diagnoses: History of Present Illness 66 yo female a former smoker, quit few mos ago pt was hospitalized in [facility] recently with peumonia she was treated with abx and released to rehab on Levaquine/azithrobut developped resp distress was sent to ER She has patchy infilatrates on CXR She requires non rebreather and stil appears short of breath No fever, + significantr lewukocytosis She is unable to expectorate She also co itchy rash, h/o PCN allergy She was recently diagnosed with bladder cancer, but has not been sstarted on chemo yet Review of Systems Respiratory: COMPLAINS OF: Cough, Shortness of breath Genitourinary: COMPLAINS OF: Hematuria Integumentary: COMPLAINS OF: Pruritus, Rash Except as stated in HPI: all other systems reviewed are Neg Past Family Social History Allergies: Coded Allergies: Contrast Media (Verified Allergy, Severe, respiratory distress, 01/13/17) Penicillin (Verified Allergy, Intermediate, rash, 01/13/17) Past Medical History HTN and Bladder CA Past Surgical History Mastectomy, Left Elbow Surgery Active Ordered Medications Medications where reviewed in EMR Antibiotics Include: vancomycin cefepime Family History Reviewed. NOn contributory Social History tobacco + 1 ppd since 20s, until October 2016 Negative for alcohol, or drugs. Physical Exam Vital Signs Vital Signs Date Time Temp Pulse Resp B/P Pulse Ox O2 Delivery O2 Flow Rate FiO2 01/15/17 16:00 90 01/15/17 16:00 98.7 90 20 105/64 99 01/15/17 15:00 91 94/55 93 01/15/17 14:00 100 01/15/17 14:00 100 81/57 90 01/15/17 13:00 109 95/63 83 01/15/17 12:00 98.3 93 95/65 100 01/15/17 12:00 93 01/15/17 11:00 96 01/15/17 11:00 96 99/62 100 01/15/17 10:00 107 01/15/17 10:00 107 94/69 96 01/15/17 09:09 97 Partial Rebreather 12.00 01/15/17 09:01 97 01/15/17 09:00 105 95 01/15/17 09:00 105 01/15/17 08:00 96 Nasal Cannula 5.00 01/15/17 08:00 88 01/15/17 08:00 98.8 88 22 93/64 96 01/15/17 06:00 94 01/15/17 04:00 98.3 101 25 108/73 92 01/15/17 04:00 101 01/15/17 02:00 101 01/15/17 00:00 98.0 100 23 106/67 93 01/15/17 00:00 100 01/14/17 22:00 108 01/14/17 20:00 99 01/14/17 20:00 98.2 99 26 101/65 100 01/14/17 19:57 93 High Flow Nasal Cannula 5.00 01/14/17 19:00 92 Nasal Cannula 6.00 01/14/17 18:00 105 Physical Exam CONSTITUTIONAL/GENERAL: This is an adequately nourished patient, in no apparent distress. TUBES/LINES/DRAINS: SKIN: No jaundice, , or lesions. . Skin temperature appropriate. Not diaphoretic. Diffuse macular rash, confluent on abdomen but salso prominiet on torso, upper and lower extremeties; + pruritic HEAD: Atraumatic. Normocephalic. EYES: Pupils equal and round and reactive. Extraocular motions intact. No scleral icterus. No injection or drainage. Fundi not examined. ENT: Hearing grossly normal. Nose without bleeding or purulent drainage. Oral mucosae dry without visible erythema, exudates, masses, or lesions. Por dentition NECK: Trachea midline. Supple, nontender. CARDIOVASCULAR: Regular rate and rhythm without murmurs, gallops, or rubs. No JVD. Peripheral pulses symmetric. RESPIRATORY/CHEST: Symmetric, unlabored respirations. Breath sounds equal bilaterally. Scattered rhonchi. to auscultation. GASTROINTESTINAL: Abdomen soft, non-tender, nondistended. No hepato-splenomegaly , or palpable masses. No guarding. Bowel sounds present. GENITOURINARY: Without palpable bladder distension. Mcgee catheter in place with fairly clear urine MUSCULOSKELETAL: Extremities without clubbing, cyanosis, or edema. No joint tenderness or effusion noted. No calf tenderness. No mottling or clubbing. LYMPHATICS: No palpable cervical axillae or supraclavicular adenopathy. NEUROLOGICAL: Awake and alert. Motor and sensory grossly within normal limits. Follows commands. Clear speech Moves all extremities. PSYCHIATRIC: No obvious anxiety/depression. no apparent hallucinations or other psychotic thought process. Laboratory Laboratory Tests Test 01/15/17 01/15/17 01/15/17 06:06 10:40 16:34 White Blood Count 21.6 Red Blood Count 3.21 Hemoglobin 8.5 Hematocrit 26.9 Mean Corpuscular Volume 83.9 Mean Corpuscular Hemoglobin 26.4 Mean Corpuscular Hemoglobin 31.4 Concent Red Cell Distribution Width 14.9 Platelet Count 177 Mean Platelet Volume 8.5 Neutrophils (%) (Auto) 91.6 Lymphocytes (%) (Auto) 3.5 Monocytes (%) (Auto) 2.7 Eosinophils (%) (Auto) 2.1 Basophils (%) (Auto) 0.1 Neutrophils # (Auto) 19.7 Lymphocytes # (Auto) 0.7 Monocytes # (Auto) 0.6 Eosinophils # (Auto) 0.5 Basophils # (Auto) 0.0 CBC Comment AUTO DIFF Differential Total Cells 100 Counted Neutrophils % (Manual) 96 Band Neutrophils % 2 Eosinophils % 1 Neutrophils # (Manual) 21.4 Metamyelocytes 1 Differential Comment FINAL DIFF MANUAL Platelet Estimate NORMAL Platelet Morphology Comment NORMAL Red Cell Morphology Comment NORMAL Sodium Level 142 Potassium Level 3.6 Chloride Level 108 Carbon Dioxide Level 25.8 Anion Gap 8 Blood Urea Nitrogen 21 Creatinine 0.63 Estimat Glomerular Filtration 94 Rate Random Glucose 117 Calcium Level 7.2 Protein Corrected Calcium 8.0 Total Bilirubin 0.4 Aspartate Amino Transf 56 (AST/SGOT) Alanine Aminotransferase 132 (ALT/SGPT) Alkaline Phosphatase 136 Total Protein 5.6 Albumin 1.7 Vancomycin Level Trough 21.9 Blood Gas Puncture Site RT RADIAL Blood Gas Patient Temperature 98.6 Blood Gas HCO3 24 Blood Gas Base Excess 0.3 Blood Gas Oxygen Saturation 86 Arterial Blood pH 7.48 Arterial Blood Partial 32 Pressure CO2 Arterial Blood Partial 52 Pressure O2 Arterial Blood Oxygen Content 9.5 Arterial Blood 1.6 Carboxyhemoglobin Arterial Blood Methemoglobin 0.9 Blood Gas Hemoglobin 7.8 Oxygen Delivery Device Venti Mask Blood Gas Liter Flow 6 Blood Gas Inspired Oxygen 50 Date/Time Procedure Status Source Growth 01/13/17 20:08 Urine Culture - Preliminary Resulted Urine Catheterized Urine Yeast-Id To Follow 01/13/17 18:50 Aerobic Blood Culture - Preliminary Resulted Blood Peripheral NO GROWTH IN 2 DAYS 01/13/17 18:50 Anaerobic Blood Culture - Preliminary Resulted Blood Peripheral NO GROWTH IN 2 DAYS Result Diagram: 01/15/17 0606 01/15/17 0606 Imaging Last Impressions Chest X-Ray 01/13/17 1838 Signed Impressions: Service Date/Time: Friday, January 13, 2017 18:51 - CONCLUSION: Patchy bilateral areas of peripheral partially consolidative infiltrate in both lungs. No evidence of pleural effusion. Walter Lopez MD Assessment and Plan Assessment and Plan PNA, multilobar, severe, causing hypoxia requiring NRB recent hospitalisation Recurrent PNA Failing abx tx Pruriric rash suspicios for abx reaction (allergic to PCN) Bladder CA, not on chemo yet Funguria, in chronic mcgee pt, gilbert loyola colonisation, doubt clin significane - mcgee about 1 wk REC'S: -dc cefepime - start Meropenem - cont azithro - cont vancomycin - CT chest - add cefepime to allergies Discussed Condition With Fara Amaro MD Jan 15, 2017 17:46
[2017-01-15] MEDS ORDERED: MISCELLANEOUS PHARMACY INFORMATION XX PRN (18:15)
[2017-01-15] MEDS ORDERED: ASP: Documented allergy to Penicillins or Cephalosporins PRN (18:15)
[2017-01-15] MEDS ORDERED: CALCIUM CARBONATE 500 MG CHEWABLE TAB CHEW PRN (18:15)
[2017-01-15] MEDS: AZITHROMYCIN INJ 500 MG in SODIUM CHLOR 0.9% 250 ML INJ 250 ML IV SCH (18:52)
--- NOTE | 2017-01-15 20:44 | MB ---
cc: ELISEO GAMA DATE OF CONSULTATION 01/15/[address] Vivian Knight REASON FOR CONSULTATION Pneumonia. HISTORY OF PRESENT ILLNESS Ms. Alford is a 66-year-old female who is known to me from her previous admission at [facility], recently admitted there for pneumonia. The patient was treated with antibiotic and she was discharged on 3 liters nasal cannula to [facility] about a week ago. The patient states that while she was in the snf she has started getting worse. Her appetite was poor, did not have any fever or chills, was getting more short of breath and her oxygen saturation was getting worse. The patient was brought to [facility]. She had a chest x-ray done which shows patchy bilateral area of peripheral partially consolidated infiltrate in the lung. LABORATORY DATA Her CBC showed WBC 21.6, hemoglobin 8.5, hematocrit 26.9, MCV 83, platelet count 177, sodium 142, potassium 3.6, chloride 108 CO2 25, BUN 21, creatinine 0.63. Blood gas on 100% mask showed pH 7.53, PO2 31 and pO2 235. She is weaned down to Partial rebreather mask. PAST MEDICAL HISTORY Significant for history of COPD, hypertension, history of CA of the bladder. Past history of mastectomy, left elbow surgery. MEDICATIONS She is currently takin. Vancomycin 1.25 grams q. 18-hour. 2. Lovenox 40 milligrams a day. 3. Potassium supplement. 4. Cefepime 1 gram q. 12-hour. 5. Albuterol/Atrovent nebulizer treatment. 6. Lorazepam 0.5 milligrams p.r.n. 7. Hydrocodone p.r.n. 8. Lactulose p.r.n. 9. Nystatin swish and swallow. ALLERGIES SHE IS ALLERGIC TO PENICILLIN AND CONTRAST MEDIA. SOCIAL HISTORY She is . She has no history of smoking or alcohol abuse. FAMILY HISTORY Noncontributory. REVIEW OF SYSTEMS She feels weak and tired. She is on non-rebreather mask, has cough, small amount of sputum production. Her weight is stable. PHYSICAL EXAMINATION GENERAL: Elderly female on non-rebreather mask saturating 100%. VITAL SIGNS: Blood pressure 94/55, heart rate 91, respirations 18, temperature 98.7. HEENT: Examination pupils are equal and reactive to light. Oral mucosa, nasal mucosa normal. NECK: Supple. JVP not raised. LUNGS: She has bilateral scattered rales. CARDIOVASCULAR: S1-S2 normal. ABDOMEN: Benign. EXTREMITIES: No edema. IMPRESSION 1. Sepsis. 2. Leukocytosis. 3. Bilateral patchy lung infiltrate. The patient was recently treated with pneumonia, possible she has residual of the lung infiltrate. 4. Lung nodule. She recently had a PET scan done at [place], 1.5 cm right lower lobe nodule, was not seen on the previous CT scan ,likely inflammatory process. 5. History of CA of the bladder. 6. Renal insufficiency. Continue antibiotics cefepime and vancomycin. Wean her oxygen to keep the saturation greater than 90%. Continue aerosol treatments, subcu Lovenox, wait for cultures. Further treatment will depend on the course in the hospital. Thank you Dr. Vivian Knight for this consultation. MD JUAN JOSE Martinez/LAUREN /6:09 PM /8:27 PM MTDTootie
[2017-01-15] MEDS: MEROPENEM INJ 1,000 MG in SODIUM CHLORIDE 0.9% INJ 100 ML IV SCH (21:05)
[2017-01-15] MEDS: PANTOPRAZOLE SOD 40 MG DELAYED RELEASE TAB PO SCH (21:05)
[2017-01-16] VITALS (14 sets, daily range): BP systolic 92–120; BP diastolic 60–73; PULSE 93–115; RESP 23–29; TEMP 98.1–98.7; O2SAT 95–100
[2017-01-16] MEDS: ACETAMINOPHEN/HYDROcodone 325 MG/5 MG TAB PO PRN ×2 (00:29→21:00)
[2017-01-16] MEDS: CHLORHEXIDINE GLUCONATE 2 % 1 PACK (2 CLOTHS)(taper/protocol) TOPICAL SCH (04:00)
[2017-01-16] MEDS: POTASSIUM CHLORIDE INJ 10 MEQ in DEXT 5%-NACL 0.9% 1000 ML INJ 1,000 ML IV SCH ×2 (04:43→17:37)
[2017-01-16] MEDS: MEROPENEM INJ 1,000 MG in SODIUM CHLORIDE 0.9% INJ 100 ML IV SCH ×3 (04:43→21:00)
[2017-01-16 05:18] LABS: AUTOMATED NEUTROPHIL # 18.3 TH/MM3 (1.8-7.7); BASOPHIL % 0.2 % (0.0-2.0); EOSINOPHIL # 0.7 TH/MM3 (0-0.4); EOSINOPHIL % 3.3 % (0.0-4.0); HEMATOCRIT 24.6 % (35.0-46.0); HEMO FLAGS DIFF FINAL; LYMPH % 3.4 % (9.0-44.0); LYMPHOCYTE # 0.7 TH/MM3 (1.0-4.8); MEAN CELL VOLUME 83.8 FL (80.0-100.0); MEAN CORPUSCULAR HEMOGLOBIN 26.5 PG (27.0-34.0); MEAN CORPUSCULAR HGB CONC 31.7 % (32.0-36.0); MONO % 3.3 % (0.0-8.0); NEUT % 89.8 % (16.0-70.0); PLATELET COUNT 149 TH/MM3 (150-450); RED BLOOD COUNT 2.94 MIL/MM3 (4.00-5.30); WHITE BLOOD COUNT 20.4 TH/MM3 (4.0-11.0)
[2017-01-16 05:50] LABS: BICARBONATE 27.9 MEQ/L (21.0-32.0); CALCIUM-PROTEIN CORRECTED 8.3 MG/DL (8.5-10.1); TOTAL BILIRUBIN ADULT 0.3 MG/DL (0.2-1.0)
[2017-01-16 05:54] LABS: POTASSIUM 2.9 MEQ/L (3.5-5.1)
[2017-01-16] MEDS ORDERED: POTASSIUM CHLORIDE 25 MEQ EFFERVESCENT TAB PO ONE (06:30)
[2017-01-16] MEDS: LORazepam 0.5 MG TAB PO SCH ×3 (06:38→21:21)
[2017-01-16] MEDS: POTASSIUM CHLOR 20 MEQ PREMIX 100 ML IV SCH ×2 (06:39→07:48)
[2017-01-16] MEDS: VANCOMYCIN INJ 1,250 MG in SODIUM CHLOR 0.9% 250 ML INJ 250 ML IV SCH (06:39)
[2017-01-16] MEDS: DOCUSATE SODIUM 50 MG/SENNA 8.6 MG TAB PO SCH ×2 (07:48→21:00)
[2017-01-16] MEDS: PANTOPRAZOLE SOD 40 MG DELAYED RELEASE TAB PO SCH (07:48)
[2017-01-16] MEDS: SODIUM CHLORIDE 0.9% FLUSH 10 ML FLUSH IV FLUSH SCH ×2 (07:48→21:22)
[2017-01-16] MEDS: NYSTATIN SUSP 500,000 U/5 ML CUP SWISH-SWAL SCH ×4 (07:48→21:21)
[2017-01-16] MEDS: RESP: ALBUTEROL 2.5 MG/IPRATROPIUM 0.5 MG NEB (SCH) NEB ×4 (08:14→19:35)
--- NOTE | 2017-01-16 10:00 | HHI.PR ---
Addendum to Inpatient Note Additional Information Pt was seen and examined full note to follow Fara Palomares MD Jan 16, 2017 10:00
--- NOTE | 2017-01-16 10:34 | RADRPT ---
EXAM DATE/TIME: 01/16/2017 10:16 [facility] COMPARISON: CHEST SINGLE AP, January 13, 2017, 18:51. INDICATIONS : Bladder cancer, possible metastatic disease. RADIATION DOSE: 6.15 CTDIvol (mGy) MEDICAL HISTORY : Hypertension. Carcinoma, bladder. SURGICAL HISTORY : None. ENCOUNTER: Initial ACUITY: 1 day PAIN SCALE: 6/10 LOCATION: Bilateral chest TECHNIQUE: Volumetric scanning of the chest was performed. Using automated exposure control and adjustment of t he mA and/or kV according to patient size, radiation dose was kept as low as reasonably achievable to obtain optimal diagnostic quality images. DICOM format image data is available electronically for r eview and comparison. FINDINGS: LUNGS: There is extensive areas of parenchymal consolidation throughout both lungs. There are scattered diff use interstitial infiltrates throughout both lungs. The areas of parenchymal consolidation are predom inantly along the peripheral aspect of both lungs. There also appears to be central lobar emphysema. PLEURAE: No evidence of pleural effusions. MEDIASTINUM: The heart and great vessels demonstrate no acute abnormality. There is no mediastinal or hilar lymph adenopathy. Heart size mildly prominent. AXILLAE: Within normal limits. No lymphadenopathy. MUSCULOSKELETAL: Within normal limits for patient age. MISCELLANEOUS: The visualized upper abdominal organs demonstrate no acute abnormality. CONCLUSION: Extensive scattered areas of parenchymal consolidation are seen throughout both lung lucas predomina tely along the peripheral aspect of both lungs. There are also scattered bilateral interstitial infil trates. These infiltrates appear to be overlying central lobar emphysema. Madi Marvin MD on January 16, 2017 at 10:29 Board Certified Radiologist. This report was verified electronically.
--- NOTE | 2017-01-16 11:55 | HHI.IDPN ---
Subjective Subjective Remarks pt remains on 100% non breather improved itching , rash fading Antibiotics meropenem ceci lino Past Medical History bladder ca Allergies: Coded Allergies: Contrast Media (Verified Allergy, Severe, respiratory distress, 01/13/17) Penicillin (Verified Allergy, Intermediate, rash, 01/13/17) Uncoded Allergies: cefepime (Allergy, Intermediate, Rash, 01/15/17) pruritic rash Objective . Vital Signs Date Time Temp Pulse Resp B/P Pulse Ox O2 Delivery O2 Flow Rate FiO2 01/16/17 08:00 98.5 107 25 120/73 96 01/16/17 08:00 107 01/16/17 07:00 100 Non-Rebreather 12.00 01/16/17 06:00 99 01/16/17 04:00 95 01/16/17 04:00 98.3 95 117/71 100 01/16/17 02:00 97 01/16/17 00:00 98.1 93 114/73 99 01/16/17 00:00 93 01/15/17 22:00 102 01/15/17 20:23 100 Partial Rebreather 12.00 01/15/17 20:00 104 01/15/17 20:00 97.9 104 104/64 83 01/15/17 19:00 93 Nasal Cannula 6.00 01/15/17 18:00 97 01/15/17 16:00 90 01/15/17 16:00 98.7 90 20 105/64 99 01/15/17 15:00 91 94/55 93 01/15/17 14:00 100 01/15/17 14:00 100 81/57 90 01/15/17 13:00 109 95/63 83 01/15/17 12:00 98.3 93 95/65 100 01/15/17 12:00 93 01/15/17 01/15/17 01/16/17 14:59 22:59 06:59 Intake Total 1177 ml 1075 ml 979 ml Output Total 375 ml 350 ml 325 ml Balance 802 ml 725 ml 654 ml Intake Oral 150 ml 240 ml 100 ml IV Total 1027 ml 835 ml 879 ml Output Urine Total 375 ml 350 ml 325 ml # Voids 1 # Bowel Movements 0 . Laboratory Tests Test 01/15/17 01/16/17 06:06 04:11 White Blood Count 21.6 TH/MM3 20.4 TH/MM3 Red Blood Count 3.21 MIL/MM3 2.94 MIL/MM3 Hemoglobin 8.5 GM/DL 7.8 GM/DL Hematocrit 26.9 % 24.6 % Mean Corpuscular Volume 83.9 FL 83.8 FL Mean Corpuscular Hemoglobin 26.4 PG 26.5 PG Mean Corpuscular Hemoglobin 31.4 % 31.7 % Concent Red Cell Distribution Width 14.9 % 15.0 % Platelet Count 177 TH/MM3 149 TH/MM3 Mean Platelet Volume 8.5 FL 8.7 FL Neutrophils (%) (Auto) 91.6 % 89.8 % Lymphocytes (%) (Auto) 3.5 % 3.4 % Monocytes (%) (Auto) 2.7 % 3.3 % Eosinophils (%) (Auto) 2.1 % 3.3 % Basophils (%) (Auto) 0.1 % 0.2 % Neutrophils # (Auto) 19.7 TH/MM3 18.3 TH/MM3 Lymphocytes # (Auto) 0.7 TH/MM3 0.7 TH/MM3 Monocytes # (Auto) 0.6 TH/MM3 0.7 TH/MM3 Eosinophils # (Auto) 0.5 TH/MM3 0.7 TH/MM3 Basophils # (Auto) 0.0 TH/MM3 0.0 TH/MM3 CBC Comment AUTO DIFF DIFF FINAL Differential Total Cells 100 Counted Neutrophils % (Manual) 96 % Band Neutrophils % 2 % Eosinophils % 1 % Neutrophils # (Manual) 21.4 TH/MM3 Metamyelocytes 1 % Differential Comment FINAL DIFF MANUAL Platelet Estimate NORMAL Platelet Morphology Comment NORMAL Red Cell Morphology Comment NORMAL Laboratory Tests Test 01/15/17 01/16/17 06:06 04:11 Sodium Level 142 MEQ/L 144 MEQ/L Potassium Level 3.6 MEQ/L 2.9 MEQ/L Chloride Level 108 MEQ/L 109 MEQ/L Carbon Dioxide Level 25.8 MEQ/L 27.9 MEQ/L Anion Gap 8 MEQ/L 7 MEQ/L Blood Urea Nitrogen 21 MG/DL 13 MG/DL Creatinine 0.63 MG/DL 0.49 MG/DL Estimat Glomerular Filtration 94 ML/MIN 126 ML/MIN Rate Random Glucose 117 MG/DL 134 MG/DL Calcium Level 7.2 MG/DL 7.3 MG/DL Protein Corrected Calcium 8.0 MG/DL 8.3 MG/DL Total Bilirubin 0.4 MG/DL 0.3 MG/DL Aspartate Amino Transf 56 U/L 61 U/L (AST/SGOT) Alanine Aminotransferase 132 U/L 103 U/L (ALT/SGPT) Alkaline Phosphatase 136 U/L 116 U/L Total Protein 5.6 GM/DL 5.2 GM/DL Albumin 1.7 GM/DL 1.6 GM/DL Microbiology Date/Time Procedure Status Source Growth 01/13/17 18:45 Aerobic Blood Culture - Preliminary Resulted Blood Peripheral NO GROWTH IN 3 DAYS 01/13/17 18:45 Anaerobic Blood Culture - Preliminary Resulted Blood Peripheral NO GROWTH IN 3 DAYS 01/13/17 18:50 Aerobic Blood Culture - Preliminary Resulted Blood Peripheral NO GROWTH IN 3 DAYS 01/13/17 18:50 Anaerobic Blood Culture - Preliminary Resulted Blood Peripheral NO GROWTH IN 3 DAYS 01/13/17 20:08 Urine Culture - Final Complete Urine Catheterized Urine Kajal Glabrata 01/15/17 18:39 Influenza Types A,B Antigen (FLORI) - Final Complete Nasal Washing NEGATIVE FOR FLU A AND B ANTIGEN.... 01/15/17 18:39 Legionella Antigen - Final Complete Urine Random Urine PRESUMPTIVE NEGATIVE FOR LEGIONELLA P... 01/15/17 18:39 Streptococcus pneumoniae Antigen (M - Final Complete Urine Random Urine PRESUMPTIVE NEGATIVE FOR STREPTOCOCCU... Imaging Last Impressions Chest CT 01/15/17 0000 Signed Impressions: Service Date/Time: January 10:16 - CONCLUSION: Extensive scattered areas of parenchymal consolidation are seen throughout both lung lucas predominately along the peripheral aspect of both lungs. There are also scattered bilateral interstitial infiltrates. These infiltrates appear to be overlying central lobar emphysema. Madi Marvin MD Chest X-Ray 01/13/17 1838 Signed Impressions: Service Date/Time: Friday, January 13, 2017 18:51 - CONCLUSION: Patchy bilateral areas of peripheral partially consolidative infiltrate in both lungs. No evidence of pleural effusion. Walter Lopez MD Physical Exam CONSTITUTIONAL/GENERAL: This is an adequately nourished patient, in mild resp apparent distress. TUBES/LINES/DRAINS: SKIN: No jaundice, , or lesions. . Skin temperature appropriate. Not diaphoretic. Diffuse macular rash, confluent on abdomen much less prominent HEAD: Atraumatic. Normocephalic. EYES: Pupils equal and round and reactive. No scleral icterus. No injection or drainage. Fundi not examined. ENT: Hearing grossly normal. Nose without bleeding or purulent drainage. Oral mucosae dry without visible erythema, exudates, masses, or lesions. Poor dentition CARDIOVASCULAR: Regular rate and rhythm without murmurs, gallops, or rubs. No JVD. Peripheral pulses symmetric. RESPIRATORY/CHEST: Symmetric, unlabored respirations. Breath sounds equal bilaterally. Scattered rhonchi to auscultation. GASTROINTESTINAL: Abdomen soft, non-tender, nondistended. No hepato-splenomegaly , or palpable masses. No guarding. Bowel sounds present. GENITOURINARY: Without palpable bladder distension. Mcgee catheter in place with fairly clear urine MUSCULOSKELETAL: Extremities without clubbing, cyanosis, or edema. No joint tenderness or effusion noted. No calf tenderness. No mottling or clubbing. LYMPHATICS: No palpable cervical axillae or supraclavicular adenopathy. NEUROLOGICAL: Lethargic, but arousable Motor and sensory grossly within normal limits. Follows commands. Clear speech Moves all extremities. PSYCHIATRIC: No obvious anxiety/depression. no apparent hallucinations or other psychotic thought process. Assessment & Plan Remarks PNA, multilobar, severe, causing hypoxia requiring NRB recent hospitalisation Recurrent PNA Failing abx tx Pruriric rash suspicios for abx reaction (allergic to PCN) - improving after cefepime stopped Bladder CA, not on chemo yet Funguria, in chronic mcgee pt, gilbert just colonisation, doubt clin significane - mcgee about 1 wk REC'S: -cont Meropenem - cont azithro - cont vancomycin - CT chest - follow sputum clx monitor rash dw RN Fara Palomares MD Jan 16, 2017 11:55
--- NOTE | 2017-01-16 14:40 | PD.CONS ---
HPI History of Present Illness This is a 66 year old woman admitted to ICU for treatment of her pneumonia. She was receiving outpatient treatment but became worse and now is on a non rebreather mask. She is short of breath at rest. She does report she can feel something when she swallows and this has been present for a few weeks. Denies actual pain on swallowing. She has diagnosis of cancer of bladder with local extension through the bladder. CT chest abdomen and pelvis done today to check for mets. Denies abdominal pain. Has had colonoscopy in the past. Reports GERD in the past but denies prior EGD or dilatation. ROS: reports does not feel good. No headache, sore throat. No chest pain, abdominal pain. Pos for blood in urine. Otherwise complete ros is negative.[]. PFSH Past Medical History PMH: HTN and Bladder CA Past Surgical History PAST SURGICAL HISTORY: Mastectomy, Left Elbow Surgery Coded Allergies: Contrast Media (Verified Allergy, Severe, respiratory distress, 01/13/17) Penicillin (Verified Allergy, Intermediate, rash, 01/13/17) Uncoded Allergies: cefepime (Allergy, Intermediate, Rash, 01/15/17) pruritic rash Medications Current Medications Medications (Trade) Dose Ordered Sig/Ed Route Start Time Stop Time Status Last Admin (Vancomycin Consult Pharmacy) 0 ml @ 0 mls/hr UNSCH OTHER 01/13/17 21:00 (NS Flush) 2 ml UNSCH PRN IV FLUSH 01/13/17 21:00 (NS Flush) 2 ml BID IV FLUSH 01/13/17 21:00 01/16/17 07:48 (Zofran Inj) 4 mg Q6H PRN IVP 01/13/17 21:00 01/14/17 01:18 (Tylenol) 650 mg Q6H PRN PO 01/13/17 21:00 (Howell 5-325 Mg) 1 tab Q4H PRN PO 01/13/17 21:00 01/16/17 00:29 (Morphine Inj) 2 mg Q3H PRN IV 01/13/17 21:00 (Arianna-Colace) 1 tab BID PO 01/13/17 21:00 01/16/17 07:48 (Milk Of Magnesia Liq) 30 ml Q12H PRN PO 01/13/17 21:00 (Senokot) 17.2 mg Q12H PRN PO 01/13/17 21:00 (Dulcolax Supp) 10 mg DAILY PRN RECTAL 01/13/17 21:00 (Lactulose Liq) 30 ml DAILY PRN PO 01/13/17 21:00 (Ativan) 0.5 mg Q8H PO 01/13/17 22:00 01/16/17 08:39 (Mycostatin Liq) 5 ml QID SWISH-SWAL 01/13/17 21:00 01/16/17 12:47 Miscellaneous Information Patient in critical care unit? Ass... Q361D .XX 01/13/17 22:15 (Chlorhexidine 2% Cloth) 3 pack DAILY@04 TOPICAL 01/14/17 04:00 01/18/17 04:01 01/16/17 04:00 Chlorhexidine Gluconate 3 pack 3 pack UNSCH PRN TOPICAL 01/13/17 22:15 01/18/17 22:13 Potassium Chloride 10 meq/ Dextrose/Sodium Chloride 1,005 ml @ 83 mls/hr Q12H7M IV 01/14/17 18:00 01/16/17 04:43 (Vancomycin Inj/ NS 250 ml Inj) 262.5 ml @ 250 mls/hr Q18H IV 01/16/17 06:00 01/16/17 06:39 Miscellaneous Information SPECIFIC LAB TO BE DRAWN:VANCOMYCIN TROUGH DATE TO... ONCE ONCE .XX 01/18/17 11:45 01/18/17 11:46 (Lovenox Inj) 40 mg Q24H SQ 01/15/17 17:00 01/15/17 17:03 (Protonix) 40 mg DAILY PO 01/15/17 20:00 01/16/17 07:48 Calcium Carbonate 500 mg 500 mg Q6HR PRN CHEW 01/15/17 18:15 01/16/17 00:28 Meropenem 1000 mg/ Sodium Chloride 100 ml @ 200 mls/hr Q8H IV 01/15/17 20:00 01/16/17 12:47 (Zithromax Inj/ NS 250 ml Inj) 250 ml @ 250 mls/hr Q24H IV 01/15/17 18:00 01/15/17 18:52 (Ativan) 0.5 mg Q8H PRN PO 01/16/17 10:30 Family History PAST FAMILY HISTORY: Reviewed. No h/o DM or CAD Social History PAST SOCIAL HISTORY: Negative for alcohol, tobacco or drugs. GI Exam Vitals I&O Vital Signs Date Time Temp Pulse Resp B/P Pulse Ox O2 Delivery O2 Flow Rate FiO2 01/16/17 12:00 111 01/16/17 12:00 98.7 111 24 107/64 99 01/16/17 10:00 101 01/16/17 08:00 98.5 107 25 120/73 96 01/16/17 08:00 107 01/16/17 07:00 100 Non-Rebreather 12.00 01/16/17 06:00 99 01/16/17 04:00 95 01/16/17 04:00 98.3 95 117/71 100 01/16/17 02:00 97 01/16/17 00:00 98.1 93 114/73 99 01/16/17 00:00 93 01/15/17 22:00 102 01/15/17 20:23 100 Partial Rebreather 12.00 01/15/17 20:00 104 01/15/17 20:00 97.9 104 104/64 83 01/15/17 19:00 93 Nasal Cannula 6.00 01/15/17 18:00 97 01/15/17 16:00 90 01/15/17 16:00 98.7 90 20 105/64 99 01/15/17 15:00 91 94/55 93 I/O 01/15/17 01/15/17 01/15/17 01/16/17 01/16/17 01/16/17 06:59 14:59 22:59 06:59 14:59 22:59 Intake Total 1040 ml 1177 ml 1075 ml 979 ml Output Total 775 ml 375 ml 350 ml 325 ml Balance 265 ml 802 ml 725 ml 654 ml Intake Oral 250 ml 150 ml 240 ml 100 ml IV Total 790 ml 1027 ml 835 ml 879 ml Output Urine Total 775 ml 375 ml 350 ml 325 ml # Voids 1 # Bowel Movements 0 Laboratory Test 01/15/17 01/16/17 16:34 04:11 Blood Gas Puncture Site RT RADIAL Blood Gas Patient Temperature 98.6 Blood Gas HCO3 24 mmol/L Blood Gas Base Excess 0.3 mmol/L Blood Gas Oxygen Saturation 86 % Arterial Blood pH 7.48 Arterial Blood Partial 32 mmHg Pressure CO2 Arterial Blood Partial 52 mmHg Pressure O2 Arterial Blood Oxygen Content 9.5 Vol % Arterial Blood 1.6 % Carboxyhemoglobin Arterial Blood Methemoglobin 0.9 % Blood Gas Hemoglobin 7.8 G/DL Oxygen Delivery Device Venti Mask Blood Gas Liter Flow 6 L/M Blood Gas Inspired Oxygen 50 % White Blood Count 20.4 TH/MM3 Red Blood Count 2.94 MIL/MM3 Hemoglobin 7.8 GM/DL Hematocrit 24.6 % Mean Corpuscular Volume 83.8 FL Mean Corpuscular Hemoglobin 26.5 PG Mean Corpuscular Hemoglobin 31.7 % Concent Red Cell Distribution Width 15.0 % Platelet Count 149 TH/MM3 Mean Platelet Volume 8.7 FL Neutrophils (%) (Auto) 89.8 % Lymphocytes (%) (Auto) 3.4 % Monocytes (%) (Auto) 3.3 % Eosinophils (%) (Auto) 3.3 % Basophils (%) (Auto) 0.2 % Neutrophils # (Auto) 18.3 TH/MM3 Lymphocytes # (Auto) 0.7 TH/MM3 Monocytes # (Auto) 0.7 TH/MM3 Eosinophils # (Auto) 0.7 TH/MM3 Basophils # (Auto) 0.0 TH/MM3 CBC Comment DIFF FINAL Differential Comment Sodium Level 144 MEQ/L Potassium Level 2.9 MEQ/L Chloride Level 109 MEQ/L Carbon Dioxide Level 27.9 MEQ/L Anion Gap 7 MEQ/L Blood Urea Nitrogen 13 MG/DL Creatinine 0.49 MG/DL Estimat Glomerular Filtration 126 ML/MIN Rate Random Glucose 134 MG/DL Calcium Level 7.3 MG/DL Protein Corrected Calcium 8.3 MG/DL Total Bilirubin 0.3 MG/DL Aspartate Amino Transf 61 U/L (AST/SGOT) Alanine Aminotransferase 103 U/L (ALT/SGPT) Alkaline Phosphatase 116 U/L Total Protein 5.2 GM/DL Albumin 1.6 GM/DL Date/Time Procedure Status Source Growth 01/15/17 18:39 Legionella Antigen - Final Complete Urine Random Urine PRESUMPTIVE NEGATIVE FOR LEGIONELLA P... 01/15/17 18:39 Streptococcus pneumoniae Antigen (M - Final Complete Urine Random Urine PRESUMPTIVE NEGATIVE FOR STREPTOCOCCU... 01/15/17 18:39 Influenza Types A,B Antigen (FLORI) - Final Complete Nasal Washing NEGATIVE FOR FLU A AND B ANTIGEN.... 01/13/17 20:08 Urine Culture - Final Complete Urine Catheterized Urine Kaity Glabrata 01/13/17 18:50 Aerobic Blood Culture - Preliminary Resulted Blood Peripheral NO GROWTH IN 3 DAYS 01/13/17 18:50 Anaerobic Blood Culture - Preliminary Resulted Blood Peripheral NO GROWTH IN 3 DAYS Physical Examination HEENT: Pupils round and reactive to light; normocephalic; atraumatic; no jaundice. Throat is clear. NECK: Neck is supple, no JVD, no lymphadenopathy. CHEST: respirations are labored and she is SOB at rest. CARDIAC: Regular rate and rhythm with no murmur gallop or rubs. ABDOMEN: Soft, nondistended, nontender; no hepatosplenomegaly; bowel sounds are present in all four quadrants. EXTREMITIES: No clubbing, cyanosis, or edema. SKIN: Normal; no rash; no jaundice. 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 Assessment and Plan Plan Impression: Dysphagia but too SOB to swallow much anyway. She has kaity in urine. Could have kaity in esophagus. Abnormal LFTs of uncertain significance. Improving. Bladder cancer. rule out mets Bilateral pneumonia with borderline respiratory failure. Plan: - Await results of CT. May need US of abdomen, gallbladder - She is not needing EGD at this time - Consider IV nutrition - Follow LFTs. Bobby Tse MD Jan 16, 2017 14:40
--- NOTE | 2017-01-16 15:52 | HHI.PR ---
Subjective Remarks Follow-up for respiratory failure secondary to pneumonia Patient was put on the nonrebreather last night. She has been stable with nonrebreather. Patient stated that she feels the same. She still feels shortness of breathing but it has not worsened. She stated that she feels like it has improved a little bit. Positive for a cough that is mostly dry. She says she feels congested but has a hard time coughing it up. Her is at the bedside. Nurses at the bedside too. Objective Vitals Vital Signs Date Time Temp Pulse Resp B/P Pulse Ox O2 Delivery O2 Flow Rate FiO2 01/16/17 14:00 113 01/16/17 12:00 111 01/16/17 12:00 98.7 111 24 107/64 99 01/16/17 10:00 101 01/16/17 08:00 98.5 107 25 120/73 96 01/16/17 08:00 107 01/16/17 07:00 100 Non-Rebreather 12.00 01/16/17 06:00 99 01/16/17 04:00 95 01/16/17 04:00 98.3 95 117/71 100 01/16/17 02:00 97 01/16/17 00:00 98.1 93 114/73 99 01/16/17 00:00 93 01/15/17 22:00 102 01/15/17 20:23 100 Partial Rebreather 12.00 01/15/17 20:00 104 01/15/17 20:00 97.9 104 104/64 83 01/15/17 19:00 93 Nasal Cannula 6.00 01/15/17 18:00 97 01/15/17 16:00 90 01/15/17 16:00 98.7 90 20 105/64 99 I/O 01/15/17 01/15/17 01/15/17 01/16/17 01/16/17 01/16/17 07:00 15:00 23:00 07:00 15:00 23:00 Intake Total 780 ml 1177 ml 1075 ml 979 ml 1102 ml Output Total 375 ml 375 ml 350 ml 325 ml 500 ml Balance 405 ml 802 ml 725 ml 654 ml 602 ml Intake Oral 100 ml 150 ml 240 ml 100 ml 90 ml IV Total 680 ml 1027 ml 835 ml 879 ml 1012 ml Output Urine Total 375 ml 375 ml 350 ml 325 ml 500 ml # Voids 1 # Bowel Movements 0 0 Result Diagram: 01/16/1741001/16/17410 Objective Remarks GENERAL: mild increase RR. on NRB SKIN: Warm and dry. HEAD: Normocephalic. EYES: No scleral icterus. No injection or drainage. NECK: Supple, trachea midline. No JVD or lymphadenopathy. CARDIOVASCULAR: Regular rate and rhythm without murmurs, gallops, or rubs. RESPIRATORY: Diffuse bilateral crackles. No accessory muscle use. GASTROINTESTINAL: Abdomen soft, non-tender, nondistended. MUSCULOSKELETAL: No cyanosis, or edema. BACK: Nontender without obvious deformity. No CVA tenderness. Medications and IVs Current Medications Vancomycin HCl 1 mg/Sodium Chloride 250 ml @ 250 mls/hr ONCE STAT IV Last administered on 01/13/17 21:09; Start 01/13/17 at 18:38; Stop 01/13/17 at 19:37; Status DC Aztreonam 2000 mg/ Sodium Chloride 100 ml @ 200 mls/hr ONCE STAT IV Last administered on 01/13/17 20:35; Start 01/13/17 at 18:38; Stop 01/13/17 at 19:07; Status DC Azithromycin 500 mg/Sodium Chloride 250 ml @ 250 mls/hr ONCE STAT IV Last administered on 01/13/17 19:22; Start 01/13/17 at 18:38; Stop 01/13/17 at 19:37; Status DC Sodium Chloride 1,000 ml @ 999 mls/hr BOLUS ONCE IV Last administered on 19:13; Start 01/13/17 at 18:45; Stop 01/13/17 at 19:45; Status DC Sodium Chloride (NS 1000 ml Inj) 1,000 ml @ 999 mls/hr BOLUS ONCE IV Last administered on 01/13/17 19:13; Start 01/13/17 at 18:45; Stop 01/13/17 at 19:45; Status DC Acetaminophen 650 mg 650 mg ONCE ONCE PO Last administered on 01/13/17 19:22; Start 01/13/17 at 18:45; Stop 01/13/17 at 18:46; Status DC Pharmacy Profile Note 0 ml @ 0 mls/hr UNSCH OTHER ; Start 01/13/17 at 21:00 Cefepime HCl 1000 mg/Sodium Chloride 100 ml @ 200 mls/hr Q12H IV Last administered on 01/15/17 08:20; Start 01/14/17 at 09:00; Stop 01/15/17 at 18:11; Status DC Sodium Chloride (NS 1000 ml Inj) 1,000 ml @ 100 mls/hr Q10H IV Last administered on 01/14/17 08:06; Start 01/13/17 at 21:30; Stop 01/14/17 at 12:01; Status DC Sodium Chloride (NS Flush) 2 ml UNSCH PRN IV FLUSH FLUSH AFTER USING IV ACCESS ; Start 01/13/17 at 21:00 Sodium Chloride (NS Flush) 2 ml BID IV FLUSH Last administered on 01/16/17 07: 48; Start 01/13/17 at 21:00 Ondansetron HCl (Zofran Inj) 4 mg Q6H PRN IVP NAUSEA OR VOMITING Last administered on 01/14/17 01:18; Start 01/13/17 at 21:00 Acetaminophen (Tylenol) 650 mg Q6H PRN PO FEVER/PAIN SCALE 1 TO 2 Last administered on 01/16/17 14:44; Start 01/13/17 at 21:00 Acetaminophen/ Hydrocodone Bitart (Geronimo 5-325 Mg) 1 tab Q4H PRN PO PAIN SCALE 3 TO 5 Last administered on 01/16/17 00:29; Start 01/13/17 at 21:00 Morphine Sulfate (Morphine Inj) 2 mg Q3H PRN IV Pain 6-10; Start 01/13/17 at 21: 00 Senna/Docusate Sodium (Arianna-Colace) 1 tab BID PO Last administered on 01/16/17 07:48; Start 01/13/17 at 21:00 Magnesium Hydroxide (Milk Of Magnesia Liq) 30 ml Q12H PRN PO MILD - MODERATE CONSTIPATION; Start 01/13/17 at 21:00 Sennosides (Senokot) 17.2 mg Q12H PRN PO MODERATE - SEVERE CONSTIPATION; Start 01/13/17 at 21:00 Bisacodyl (Dulcolax Supp) 10 mg DAILY PRN RECTAL SEVERE CONSITIPATION; Start at 21:00 Lactulose (Lactulose Liq) 30 ml DAILY PRN PO SEVERE CONSITIPATION; Start at 21:00 Lorazepam (Ativan) 0.5 mg Q8H PO Last administered on 01/16/17 08:39; Start 01/13/17 at 22:00 Nystatin (Mycostatin Liq) 5 ml QID SWISH-SWAL Last administered on 01/16/17 12 :47; Start 01/13/17 at 21:00 Pravastatin Sodium (Pravachol) 40 mg DAILY PO Last administered on 01/15/17 08: 20; Start 01/14/17 at 09:00; Stop 01/15/17 at 16:23; Status DC Albuterol/ Ipratropium (Duoneb Neb) 1 ampule Q4HR WHILE AWAKE NEB NEB Last administered on 01/16/17 08:14; Start 01/14/17 at 08:00 Albuterol/ Ipratropium 1 ampule 1 ampule Q2HR NEB PRN NEB SOB/WHEEZING Last administered on 01/13/17 21:26; Start 01/13/17 at 21:15 Vancomycin HCl/ Sodium Chloride (Vancomycin Inj/ NS 250 ml Inj) 250 ml @ 250 mls/hr ONCE ONCE IV ; Start 01/13/17 at 22:00; Stop 01/13/17 at 22:59; Status Cancel Miscellaneous Information Patient in critical care unit? Ass... Q361D .XX ; Start 01/13/17 at 22:15 Chlorhexidine Gluconate (Chlorhexidine 2% Cloth) 3 pack DAILY@04 TOPICAL Last administered on 01/16/17 04:00; Start 01/14/17 at 04:00; Stop 01/18/17 at 04:01 Chlorhexidine Gluconate 3 pack 3 pack UNSCH PRN TOPICAL HYGIENIC CARE; Start at 22:15; Stop 01/18/17 at 22:13 Vancomycin HCl/ Sodium Chloride (Vancomycin Inj/ NS 250 ml Inj) 250 ml @ 250 mls/hr ONCE ONCE IV Last administered on 01/13/17 23:40; Start 01/13/17 at 23: 30; Stop 01/14/17 at 00:29; Status DC Famotidine 20 mg 20 mg ONCE ONCE PO Last administered on 01/14/17 02:01; Start 01/14/17 at 02:00; Stop 01/14/17 at 02:01; Status DC Vancomycin HCl/ Sodium Chloride (Vancomycin Inj/ NS 250 ml Inj) 262.5 ml @ 250 mls/hr Q12H IV Last administered on 01/15/17 10:47; Start 01/14/17 at 11:00; Stop 01/15/17 at 12:53; Status DC Miscellaneous Information SPECIFIC LAB TO BE DRAWN:VANCOMYCIN TROUGH DATE TO... ONCE ONCE .XX Last administered on 01/15/17 10:40; Start 01/15/17 at 10:45; Stop 01/15/17 at 10:46; Status DC Potassium Chloride 100 ml @ 100 mls/hr BOLUS ONCE IV Last administered on 01/14 13:33; Start 01/14/17 at 12:00; Stop 01/14/17 at 12:59; Status DC Potassium Chloride/Sodium Chloride (NS + KCl 20 Meq Inj) 1,000 ml @ 100 mls/hr Q10H IV Last administered on 01/14/17 13:34; Start 01/14/17 at 12:00; Stop at 18:06; Status DC Potassium Chloride 20 meq 20 meq ONCE ONCE PO ; Start 01/14/17 at 21:00; Stop at 21:01; Status Cancel Potassium Chloride/Dextrose/ Sodium Chloride (KCl Inj/D5W-NS 1000 ml Inj) 1,005 ml @ 83 mls/hr Q12H7M IV Last administered on 01/16/17 04:43; Start 01/14/17 at 18:00 Potassium Chloride 20 meq 20 meq ONCE ONCE PO Last administered on 01/14/17 20 :30; Start 01/14/17 at 21:00; Stop 01/14/17 at 21:01; Status DC Vancomycin HCl/ Sodium Chloride (Vancomycin Inj/ NS 250 ml Inj) 262.5 ml @ 250 mls/hr Q18H IV Last administered on 01/16/17 06:39; Start 01/16/17 at 06:00 Miscellaneous Information SPECIFIC LAB TO BE DRAWN:VANCOMYCIN TROUGH DATE TO... ONCE ONCE .XX ; Start 01/18/17 at 11:45; Stop 01/18/17 at 11:46 Enoxaparin Sodium (Lovenox Inj) 40 mg Q24H SQ Last administered on 01/15/17 17: 03; Start 01/15/17 at 17:00 Pantoprazole Sodium (Protonix) 40 mg DAILY PO Last administered on 01/16/17 07: 48; Start 01/15/17 at 20:00 Calcium Carbonate (Tums Chew) 500 mg Q6HR PRN CHEW heartburn Last administered on 01/16/17 00:28; Start 01/15/17 at 18:15 Miscellaneous Medication (ASP Crit: Doc allergy to Penicillin/ Cephalosp) 1 UNSCH X1 PRN .XX PHARMACY DOCUMENTATION; Start 01/15/17 at 18:15; Stop 01/16/17 at 18:14 Miscellaneous Medication 1 1 UNSCH X1 PRN XX PHARMACY DOCUMENTATION; Start 01/15 at 18:15; Stop 01/16/17 at 18:14 Meropenem 1000 mg/ Sodium Chloride 100 ml @ 200 mls/hr Q8H IV Last administered on 01/16/17 12:47; Start 01/15/17 at 20:00 Azithromycin/ Sodium Chloride (Zithromax Inj/ NS 250 ml Inj) 250 ml @ 250 mls/ hr Q24H IV Last administered on 01/15/17 18:52; Start 01/15/17 at 18:00 Potassium Bicarb/ Potassium Chloride 50 meq 50 meq ONCE ONCE PO Last administered on 01/16/17 06:38; Start 01/16/17 at 06:30; Stop 01/16/17 at 06:32; Status DC Potassium Chloride (KCl 20 Meq Premix Inj) 100 ml @ 50 mls/hr Q2H IV Last administered on 01/16/17 07:48; Start 01/16/17 at 06:30; Stop 01/16/17 at 10:29; Status DC Lorazepam (Ativan) 0.5 mg Q8H PRN PO anxiety; Start 01/16/17 at 10:30 Date of Insertion: Jan 11, 2017 A/P Problem List: (1) Sepsis ICD Code: A41.9 Status: Acute (2) PNA (pneumonia) ICD Code: J18.9 Status: Acute (3) UTI (urinary tract infection) ICD Code: N39.0 Status: Acute (4) Renal insufficiency ICD Code: N28.9 Status: Acute Assessment and Plan 76 years old female recently diagnosed with Bladder cancer who presented with shortness of breathing Acute Respiratory failure with hypoxia -Worsening and now on nonrebreather. 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 -Supplement with oxygen and treat pneumonia. -Extensive time was spent on CODE STATUS and patient stated that she would want to be intubated if needed. Her and nurse were at the bedside during the conversation. Multi lobar pneumonia -Failed initial treatment. -Infectious disease consulted and managing. -CT scan the chest showed -Per infectious disease continue meropenem, azithromycin, vancomycin. Follow sputum culture. Patient had no rashes cefepime which was discontinued. Sepsis: -Source-PNA -Hemodynamically she is stable but she did require more oxygen. -See treatment as above. UTI - U/a w/ UTI, h/o Bladder CA w/ recurrent UTI- now Funguria -Per infectious disease most likely colonized. No treatment indicated. Renal Insufficiency - Creatinine 1.35, no previous labs for comparison. IVF for hydration, ff -Continue to follow. Strict ins and outs. Avoid nephrotoxins. Dysphagia -GI consulted. -May be secondary to Kajal. Elevated LFTs. -Per GI rule out metastases. Pending CT scan. -Continue to follow LFTs. DVT Prophylaxis: SCD/Teds. - Lovenox Discharge Planning Patient is now on nonrebreather. Will need to continue to monitor in the [facility]. Patient stated if needed she does want to be intubated. Problem Qualifiers (1) Sepsis: Qualified Code: A41.9 - Sepsis, due to unspecified organism Kathleen Wooten MD Jan 16, 2017 15:52
[2017-01-16] MEDS: ENOXAPARIN SODIUM 40 MG/0.4 ML SYRINGE SQ SCH (16:09)
[2017-01-16] MEDS: LORazepam 0.5 MG TAB PO PRN (16:09)
[2017-01-16] MEDS: AZITHROMYCIN INJ 500 MG in SODIUM CHLOR 0.9% 250 ML INJ 250 ML IV SCH (17:37)
--- NOTE | 2017-01-16 18:44 | HHI.PR ---
Subjective Remarks 66 YOWF with Bilat ,Pn,RF ,On NRB Mild discomfort Cough with minimal sp No fever CT Chest Bilat extensive parenchymal infilt Objective Vital Signs Vital Signs Date Time Temp Pulse Resp B/P Pulse Ox O2 Delivery O2 Flow Rate FiO2 01/16/17 16:54 100 Partial Rebreather 12.00 01/16/17 16:00 113 01/16/17 14:00 113 01/16/17 12:00 111 01/16/17 12:00 98.7 111 24 107/64 99 01/16/17 10:00 101 01/16/17 08:00 98.5 107 25 120/73 96 01/16/17 08:00 107 01/16/17 07:00 100 Non-Rebreather 12.00 01/16/17 06:00 99 01/16/17 04:00 95 01/16/17 04:00 98.3 95 117/71 100 01/16/17 02:00 97 01/16/17 00:00 98.1 93 114/73 99 01/16/17 00:00 93 01/15/17 22:00 102 01/15/17 20:23 100 Partial Rebreather 12.00 01/15/17 20:00 104 01/15/17 20:00 97.9 104 104/64 83 01/15/17 19:00 93 Nasal Cannula 6.00 I/O 01/15/17 01/15/17 01/15/17 01/16/17 01/16/17 01/16/17 07:00 15:00 23:00 07:00 15:00 23:00 Intake Total 780 ml 1177 ml 1075 ml 979 ml 1102 ml Output Total 375 ml 375 ml 350 ml 325 ml 500 ml Balance 405 ml 802 ml 725 ml 654 ml 602 ml Intake Oral 100 ml 150 ml 240 ml 100 ml 90 ml IV Total 680 ml 1027 ml 835 ml 879 ml 1012 ml Output Urine Total 375 ml 375 ml 350 ml 325 ml 500 ml # Voids 1 # Bowel Movements 0 0 Result Diagram: 01/16/1741001/16/17410 Objective Remarks GENERAL: MBMN WF, mild sob SKIN: Warm and dry. HEAD: Normocephalic. EYES: No scleral icterus. No injection or drainage. NECK: Supple, trachea midline. No JVD or lymphadenopathy. CARDIOVASCULAR: Regular rate and rhythm without murmurs, gallops, or rubs. RESPIRATORY: Breath sounds equal bilaterally. No accessory muscle use. bilat rales GASTROINTESTINAL: Abdomen soft, non-tender, nondistended. MUSCULOSKELETAL: No cyanosis, or edema. BACK: Nontender without obvious deformity. No CVA tenderness. A/P Assessment and Plan Resp Failure Hypoxia Bialt extensive Pneumonia leucocytosis Anxiety PLAN: PRB mask, wean 02 to keep sat >90% Aerosol nebs Abx Myron Case Meropenam ID Following. Monitor CBC Jose Ivory MD Jan 16, 2017 18:44
[2017-01-16] MEDS: FAMOTIDINE 20 MG TAB PO SCH (21:21)
[2017-01-17] VITALS (42 sets, daily range): BP systolic 67–129; BP diastolic 48–79; PULSE 107–132; RESP 16–39; TEMP 98.3–99.4; O2SAT 78–100
[2017-01-17] MEDS: VANCOMYCIN INJ 1,250 MG in SODIUM CHLOR 0.9% 250 ML INJ 250 ML IV SCH (01:42)
[2017-01-17] MEDS: LORazepam 0.5 MG TAB PO PRN (02:09)
[2017-01-17] MEDS: CHLORHEXIDINE GLUCONATE 2 % 1 PACK (2 CLOTHS)(taper/protocol) TOPICAL SCH (04:00)
--- NOTE | 2017-01-17 05:29 | MB ---
cc: [facility] PRO DATE OF 1950. DATE OF CONSULTATION January 16, 2017 REASON FOR CONSULTATION Patient with a history of muscle invasive bladder cancer who is admitted with pneumonia and respiratory distress. CHIEF COMPLAINT Shortness of breath. HISTORY OF PRESENT ILLNESS Ms. 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 She had presented with gross hematuria in early 2016. This was sometime in October of 2016. She underwent a noncontrast CT scan which identified a questionable bladder mass. The patient underwent evaluation by Urology and cystoscopy which confirmed a bladder mass and she underwent TURBT. She has had a PET/CT scan sometime in November of 2016 which did not show any metastatic disease. The patient was referred to Oncology but she could not follow up in the clinic since she developed pneumonia and was admitted to the hospital. The patient also has a past history of breast cancer and has had a lumpectomy. The patient now presented to the hospital at [place] with respiratory distress. She was at a rehab facility. She was found to be hypoxic and had a temperature of 99.9. She was hypotensive. She had leukocytosis with bandemia. UA was also positive for UTI. The patient was admitted to the hospital. She was started on antibiotics. She has bilateral patchy infiltrates on imaging. Oncology has been consulted to make further recommendations regarding her diagnosis of bladder cancer. REVIEW OF SYSTEMS A comprehensive 14-point review of systems was completed which is negative except as described in the HPI. PAST MEDICAL HISTORY 1. History of muscle invasive bladder cancer. 2. Hypertension. 3. COPD. 4. History of tobacco abuse. PAST SURGICAL HISTORY 1. Breast surgery. 2. Left elbow surgery. MEDICATIONS Inpatient medications were reviewed - 1. Pepcid 20 mg p.o. b.i.d. 1. Ativan 0.5 mg p.o. q.8 hours p.r.n. 2. Vancomycin 1250 mg IV q.18 hours. 3. Meropenem 1 gram IV q.8 hours. 4. Tums 500 mg q.6 hours p.r.n. 5. Azithromycin and 500 mg IV q.24 hours. 6. Lovenox 40 mg subcu 24 hours. 7. DuoNebs q.4 hours p.r.n. 8. Tylenol 650 p.o. q.6 hours p.r.n. 9. [place] 5/325 p.o. q.4 hours p.r.n. 10. Morphine sulfate 2 mg IV daily 3 hours p.r.n. 11. Senna Docusate 1 tablet p.o. b.i.d. 12. Milk of magnesia 30 cc p.o. q.12 hours p.r.n. 13. Senokot 17.2 mg p.o. q.12 hours p.r.n. 14. Dulcolax 10 mg given rectally. 15. Lactulose 30 cc p.o. daily p.r.n. 16. Nystatin 5 cc q.i.d. ALLERGIES SHE IS ALLERGIC TO CONTRAST MEDIA. PENICILLIN. CEFEPIME. PHYSICAL EXAMINATION VITAL SIGNS: Blood pressure is 92/64, pulse is 100, temperature is 98.5, O2 sats are 100% on partial rebreather. GENERAL: Elderly female who is in moderate distress. Currently non-rebreather mask in place. HEENT: Pupils are equal, round, react to light. EOMI. No oral thrush. No oral lesions. NECK: Supple. No JVD, no bruits. CHEST: Has bilateral scattered rhonchi and wheezing on expiration. CARDIAC: S1, S2, tachycardiac. ABDOMEN: Soft, nontender, nondistended. Bowel sounds are present. EXTREMITIES: Without any edema, erythema or cyanosis. SKIN: Without any petechiae lesion or bruises. NEURO: No focal deficits. PSYCHIATRIC: Mood and affect is appropriate. LABORATORY DATA WBC 20.4, hemoglobin 7.8, MCV is 83.8, platelet count 149. Serum chemistries show sodium of 144, potassium 2.9, chloride 109, BUN 13, creatinine 0.49, GFR is 126, calcium is 7.3, corrected calcium is 8.3, total bilirubin 0.3, AST 61, ALT is 103, alk phos is 116, total protein is 5.2, albumin is 1.6. IMAGING STUDIES CT of the chest was reviewed. There are extensive scattered areas of parenchymal consolidation throughout both lungs predominantly along the peripheral aspect of both lungs. There are scattered bilateral interstitial infiltrates. ASSESSMENT AND PLAN This is a 66-year-old female has a diagnosis of muscle invasive bladder cancer, history of tobacco abuse and COPD, history of recurrent UTIs was is being admitted with respiratory distress and has bilateral pneumonia. 1. Extensive bilateral pneumonia and acute respiratory distress currently being managed by primary team as well as pulmonary. She is on multiple antibiotics. 2. Invasive bladder cancer status post TURBT. I have reviewed the PET scan and there was no evidence of metastatic disease. This was back in November. Unfortunately the patient was unable to follow up in the oncology clinic. I would recommend obtaining a CT of the abdomen and pelvis with contrast. Non-metastatic Muscle invasive urothelial cancer is treated with neoadjuvant chemotherapy followed by surgery. This will be addressed in the outpatient setting. The patient is currently malnourished, has multiple medical issues that need to be acutely addressed. 3. Anemia with a hemoglobin of 7.8, MCV is 82.8. We will obtain anemia studies, check a stool Hemoccult. Check hemolysis profile. 4. Transaminitis likely due to sepsis but we also need to make sure there is no metastatic disease. We will obtain abdominal imaging once the patient is more stable. 5. Severe malnutrition with albumin of 1.6. We need to consider TPN. She has minimal oral intake at this time. We will obtain dietary consult. 6. Deconditioning. The patient was in a rehab facility. She will need physical therapy once she is stable. Thank you for allowing me to participate in the care of this patient. I will continue to follow this patient along. MD BERTHA Ovalles/DOMONIQUE /11:10 PM /5:17 AM SHAUNA
[2017-01-17] MEDS: MEROPENEM INJ 1,000 MG in SODIUM CHLORIDE 0.9% INJ 100 ML IV SCH ×3 (05:37→20:59)
[2017-01-17] MEDS: LORazepam 0.5 MG TAB PO SCH ×3 (05:37→22:00)
[2017-01-17] MEDS: ACETAMINOPHEN/HYDROcodone 325 MG/5 MG TAB PO PRN (05:54)
[2017-01-17 07:11] LABS: HEMATOCRIT 25.7 % (35.0-46.0); MEAN CELL VOLUME 83.7 FL (80.0-100.0); MEAN CORPUSCULAR HEMOGLOBIN 26.3 PG (27.0-34.0); MEAN CORPUSCULAR HGB CONC 31.4 % (32.0-36.0); PLATELET COUNT 147 TH/MM3 (150-450); RED BLOOD COUNT 3.07 MIL/MM3 (4.00-5.30); RED CELL DISTRIBUTION WIDTH 14.8 % (11.6-17.2); REVIEW FLAG FINAL; WHITE BLOOD COUNT 23.6 TH/MM3 (4.0-11.0)
[2017-01-17 07:15] LABS: BICARBONATE 25.8 MEQ/L (21.0-32.0); INDIRECT BILIRUBIN 0.4 MG/DL (0.0-0.8); POTASSIUM 3.9 MEQ/L (3.5-5.1); TOTAL BILIRUBIN ADULT 0.5 MG/DL (0.2-1.0)
[2017-01-17] MEDS: RESP: ALBUTEROL 2.5 MG/IPRATROPIUM 0.5 MG NEB (SCH) NEB ×4 (08:10→20:00)
[2017-01-17] MEDS: DOCUSATE SODIUM 50 MG/SENNA 8.6 MG TAB PO SCH ×2 (09:00→21:00)
[2017-01-17] MEDS: SODIUM CHLORIDE 0.9% FLUSH 10 ML FLUSH IV FLUSH SCH ×2 (09:00→21:00)
[2017-01-17] MEDS: FAMOTIDINE 20 MG TAB PO SCH ×2 (09:23→21:00)
[2017-01-17] MEDS: NYSTATIN SUSP 500,000 U/5 ML CUP SWISH-SWAL SCH ×4 (09:23→23:33)
--- NOTE | 2017-01-17 09:50 | HHI.PR ---
Subjective Remarks Follow-up for mu-ism failure Patient stated her breathing is the same. Patient has tachycardia. Patient stated she does have anxiety. She stated that her breathing would be better if we placed a nasal cannula and nonrebreather same time. Otherwise no other complaints. Objective Vitals Vital Signs Date Time Temp Pulse Resp B/P Pulse Ox O2 Delivery O2 Flow Rate FiO2 01/17/17 08:10 96 Partial Rebreather 10.00 01/17/17 06:00 124 01/17/17 04:00 116 01/17/17 04:00 98.4 116 31 97/65 98 01/17/17 02:00 109 01/17/17 00:00 98.3 109 25 76/49 100 01/17/17 00:00 109 01/16/17 22:00 112 01/16/17 20:00 115 01/16/17 20:00 98.2 115 29 116/60 95 01/16/17 19:38 99 Partial Rebreather 12.00 01/16/17 19:00 98 Non-Rebreather 12.00 01/16/17 18:00 114 01/16/17 16:54 100 Partial Rebreather 12.00 01/16/17 16:00 98.5 110 23 92/64 100 01/16/17 16:00 113 01/16/17 14:00 113 01/16/17 12:00 111 01/16/17 12:00 98.7 111 24 107/64 99 01/16/17 10:00 101 I/O 01/16/17 01/16/17 01/16/17 01/17/17 01/17/17 01/17/17 07:00 15:00 23:00 07:00 15:00 23:00 Intake Total 979 ml 1102 ml 882 ml 944 ml Output Total 325 ml 500 ml 350 ml 350 ml Balance 654 ml 602 ml 532 ml 594 ml Intake Oral 100 ml 90 ml 150 ml 150 ml IV Total 879 ml 1012 ml 732 ml 794 ml Output Urine Total 325 ml 500 ml 350 ml 350 ml # Bowel Movements 0 1 Result Diagram: 01/17/17 0615 01/17/17 0615 Imaging Last Impressions Chest CT 01/15/17 0000 Signed Impressions: Service Date/Time: January 10:16 - CONCLUSION: Extensive scattered areas of parenchymal consolidation are seen throughout both lung lucas predominately along the peripheral aspect of both lungs. There are also scattered bilateral interstitial infiltrates. These infiltrates appear to be overlying central lobar emphysema. Madi Marvin MD Chest X-Ray 01/13/17 1838 Signed Impressions: Service Date/Time: Friday, January 13, 2017 18:51 - CONCLUSION: Patchy bilateral areas of peripheral partially consolidative infiltrate in both lungs. No evidence of pleural effusion. Walter Lopez MD Objective Remarks GENERAL:increase in WOB on NRB SKIN: Warm and dry. HEAD: Normocephalic. EYES: No scleral icterus. No injection or drainage. NECK: Supple, trachea midline. No JVD or lymphadenopathy. CARDIOVASCULAR: Regular rate and rhythm without murmurs, gallops, or rubs. RESPIRATORY: Diffuse bilateral crackles. No accessory muscle use. GASTROINTESTINAL: Abdomen soft, non-tender, nondistended. MUSCULOSKELETAL: No cyanosis, or edema. BACK: Nontender without obvious deformity. No CVA tenderness. Medications and IVs Current Medications Vancomycin HCl 1 mg/Sodium Chloride 250 ml @ 250 mls/hr ONCE STAT IV Last administered on 01/13/17 21:09; Start 01/13/17 at 18:38; Stop 01/13/17 at 19:37; Status DC Aztreonam 2000 mg/ Sodium Chloride 100 ml @ 200 mls/hr ONCE STAT IV Last administered on 01/13/17 20:35; Start 01/13/17 at 18:38; Stop 01/13/17 at 19:07; Status DC Azithromycin 500 mg/Sodium Chloride 250 ml @ 250 mls/hr ONCE STAT IV Last administered on 01/13/17 19:22; Start 01/13/17 at 18:38; Stop 01/13/17 at 19:37; Status DC Sodium Chloride 1,000 ml @ 999 mls/hr BOLUS ONCE IV Last administered on 19:13; Start 01/13/17 at 18:45; Stop 01/13/17 at 19:45; Status DC Sodium Chloride (NS 1000 ml Inj) 1,000 ml @ 999 mls/hr BOLUS ONCE IV Last administered on 01/13/17 19:13; Start 01/13/17 at 18:45; Stop 01/13/17 at 19:45; Status DC Acetaminophen 650 mg 650 mg ONCE ONCE PO Last administered on 01/13/17 19:22; Start 01/13/17 at 18:45; Stop 01/13/17 at 18:46; Status DC Pharmacy Profile Note 0 ml @ 0 mls/hr UNSCH OTHER ; Start 01/13/17 at 21:00 Cefepime HCl 1000 mg/Sodium Chloride 100 ml @ 200 mls/hr Q12H IV Last administered on 01/15/17 08:20; Start 01/14/17 at 09:00; Stop 01/15/17 at 18:11; Status DC Sodium Chloride (NS 1000 ml Inj) 1,000 ml @ 100 mls/hr Q10H IV Last administered on 01/14/17 08:06; Start 01/13/17 at 21:30; Stop 01/14/17 at 12:01; Status DC Sodium Chloride (NS Flush) 2 ml UNSCH PRN IV FLUSH FLUSH AFTER USING IV ACCESS ; Start 01/13/17 at 21:00 Sodium Chloride (NS Flush) 2 ml BID IV FLUSH Last administered on 01/17/17 09: 00; Start 01/13/17 at 21:00 Ondansetron HCl (Zofran Inj) 4 mg Q6H PRN IVP NAUSEA OR VOMITING Last administered on 01/14/17 01:18; Start 01/13/17 at 21:00 Acetaminophen (Tylenol) 650 mg Q6H PRN PO FEVER/PAIN SCALE 1 TO 2 Last administered on 01/16/17 14:44; Start 01/13/17 at 21:00 Acetaminophen/ Hydrocodone Bitart ([place] 5-325 Mg) 1 tab Q4H PRN PO PAIN SCALE 3 TO 5 Last administered on 01/17/17 05:54; Start 01/13/17 at 21:00 Morphine Sulfate (Morphine Inj) 2 mg Q3H PRN IV Pain 6-10; Start 01/13/17 at 21: 00 Senna/Docusate Sodium (Arianna-Colace) 1 tab BID PO Last administered on 01/16/17 07:48; Start 01/13/17 at 21:00 Magnesium Hydroxide (Milk Of Magnesia Liq) 30 ml Q12H PRN PO MILD - MODERATE CONSTIPATION; Start 01/13/17 at 21:00 Sennosides (Senokot) 17.2 mg Q12H PRN PO MODERATE - SEVERE CONSTIPATION; Start 01/13/17 at 21:00 Bisacodyl (Dulcolax Supp) 10 mg DAILY PRN RECTAL SEVERE CONSITIPATION; Start at 21:00 Lactulose (Lactulose Liq) 30 ml DAILY PRN PO SEVERE CONSITIPATION; Start at 21:00 Lorazepam (Ativan) 0.5 mg Q8H PO Last administered on 01/17/17 05:37; Start 01/13/17 at 22:00 Nystatin (Mycostatin Liq) 5 ml QID SWISH-SWAL Last administered on 01/17/17 09 :23; Start 01/13/17 at 21:00 Pravastatin Sodium (Pravachol) 40 mg DAILY PO Last administered on 01/15/17 08: 20; Start 01/14/17 at 09:00; Stop 01/15/17 at 16:23; Status DC Albuterol/ Ipratropium (Duoneb Neb) 1 ampule Q4HR WHILE AWAKE NEB NEB Last administered on 01/17/17 08:10; Start 01/14/17 at 08:00 Albuterol/ Ipratropium 1 ampule 1 ampule Q2HR NEB PRN NEB SOB/WHEEZING Last administered on 01/13/17 21:26; Start 01/13/17 at 21:15 Vancomycin HCl/ Sodium Chloride (Vancomycin Inj/ NS 250 ml Inj) 250 ml @ 250 mls/hr ONCE ONCE IV ; Start 01/13/17 at 22:00; Stop 01/13/17 at 22:59; Status Cancel Miscellaneous Information Patient in critical care unit? Ass... Q361D .XX ; Start 01/13/17 at 22:15 Chlorhexidine Gluconate (Chlorhexidine 2% Cloth) 3 pack DAILY@04 TOPICAL Last administered on 01/17/17 04:00; Start 01/14/17 at 04:00; Stop 01/18/17 at 04:01 Chlorhexidine Gluconate 3 pack 3 pack UNSCH PRN TOPICAL HYGIENIC CARE; Start at 22:15; Stop 01/18/17 at 22:13 Vancomycin HCl/ Sodium Chloride (Vancomycin Inj/ NS 250 ml Inj) 250 ml @ 250 mls/hr ONCE ONCE IV Last administered on 01/13/17 23:40; Start 01/13/17 at 23: 30; Stop 01/14/17 at 00:29; Status DC Famotidine 20 mg 20 mg ONCE ONCE PO Last administered on 01/14/17 02:01; Start 01/14/17 at 02:00; Stop 01/14/17 at 02:01; Status DC Vancomycin HCl/ Sodium Chloride (Vancomycin Inj/ NS 250 ml Inj) 262.5 ml @ 250 mls/hr Q12H IV Last administered on 01/15/17 10:47; Start 01/14/17 at 11:00; Stop 01/15/17 at 12:53; Status DC Miscellaneous Information SPECIFIC LAB TO BE DRAWN:VANCOMYCIN TROUGH DATE TO... ONCE ONCE .XX Last administered on 01/15/17 10:40; Start 01/15/17 at 10:45; Stop 01/15/17 at 10:46; Status DC Potassium Chloride 100 ml @ 100 mls/hr BOLUS ONCE IV Last administered on 01/14 13:33; Start 01/14/17 at 12:00; Stop 01/14/17 at 12:59; Status DC Potassium Chloride/Sodium Chloride (NS + KCl 20 Meq Inj) 1,000 ml @ 100 mls/hr Q10H IV Last administered on 01/14/17 13:34; Start 01/14/17 at 12:00; Stop at 18:06; Status DC Potassium Chloride 20 meq 20 meq ONCE ONCE PO ; Start 01/14/17 at 21:00; Stop at 21:01; Status Cancel Potassium Chloride/Dextrose/ Sodium Chloride (KCl Inj/D5W-NS 1000 ml Inj) 1,005 ml @ 83 mls/hr Q12H7M IV Last administered on 01/16/17 17:37; Start 01/14/17 at 18:00 Potassium Chloride 20 meq 20 meq ONCE ONCE PO Last administered on 01/14/17 20 :30; Start 01/14/17 at 21:00; Stop 01/14/17 at 21:01; Status DC Vancomycin HCl/ Sodium Chloride (Vancomycin Inj/ NS 250 ml Inj) 262.5 ml @ 250 mls/hr Q18H IV Last administered on 01/17/17 01:42; Start 01/16/17 at 06:00 Miscellaneous Information SPECIFIC LAB TO BE DRAWN:VANCOMYCIN TROUGH DATE TO... ONCE ONCE .XX ; Start 01/18/17 at 11:45; Stop 01/18/17 at 11:46 Enoxaparin Sodium (Lovenox Inj) 40 mg Q24H SQ Last administered on 01/16/17 16: 09; Start 01/15/17 at 17:00 Pantoprazole Sodium (Protonix) 40 mg DAILY PO Last administered on 01/16/17 07: 48; Start 01/15/17 at 20:00; Stop 01/16/17 at 15:50; Status DC Calcium Carbonate (Tums Chew) 500 mg Q6HR PRN CHEW heartburn Last administered on 01/16/17 00:28; Start 01/15/17 at 18:15 Miscellaneous Medication (ASP Crit: Doc allergy to Penicillin/ Cephalosp) 1 UNSCH X1 PRN .XX PHARMACY DOCUMENTATION; Start 01/15/17 at 18:15; Stop 01/16/17 at 18:14; Status DC Miscellaneous Medication 1 1 UNSCH X1 PRN XX PHARMACY DOCUMENTATION; Start 01/15 at 18:15; Stop 01/16/17 at 18:14; Status DC Meropenem 1000 mg/ Sodium Chloride 100 ml @ 200 mls/hr Q8H IV Last administered on 01/17/17 05:37; Start 01/15/17 at 20:00 Azithromycin/ Sodium Chloride (Zithromax Inj/ NS 250 ml Inj) 250 ml @ 250 mls/ hr Q24H IV Last administered on 01/16/17 17:37; Start 01/15/17 at 18:00 Potassium Bicarb/ Potassium Chloride 50 meq 50 meq ONCE ONCE PO Last administered on 01/16/17 06:38; Start 01/16/17 at 06:30; Stop 01/16/17 at 06:32; Status DC Potassium Chloride (KCl 20 Meq Premix Inj) 100 ml @ 50 mls/hr Q2H IV Last administered on 01/16/17 07:48; Start 01/16/17 at 06:30; Stop 01/16/17 at 10:29; Status DC Lorazepam (Ativan) 0.5 mg Q8H PRN PO anxiety Last administered on 01/17/17 02: 09; Start 01/16/17 at 10:30 Famotidine (Pepcid) 20 mg BID PO Last administered on 01/17/17 09:23; Start 01/16/17 at 21:00 Date of Insertion: Jan 11, 2017 A/P Problem List: (1) Sepsis ICD Code: A41.9 Status: Acute (2) PNA (pneumonia) ICD Code: J18.9 Status: Acute (3) UTI (urinary tract infection) ICD Code: N39.0 Status: Acute (4) Renal insufficiency ICD Code: N28.9 Status: Acute Assessment and Plan 76 years old female recently diagnosed with Bladder cancer who presented with shortness of breathing Acute Respiratory failure with hypoxia -on nonrebreather with increase RR. ? exacerbated by her anxiety, but need to be cautious with anxiolytics -CT scan of chest showed extensive scattered areas of parenchymal consolidation are seen throughout both lung lucas predominately along the peripheral aspect of both lungs. There are also scattered bilateral interstitial infiltrates. These infiltrates appear to be overlying central lobar emphysema. -Tuna Purse Seiner and infectious disease following. -Supplement with oxygen and treat pneumonia. -d/w intensive care physician Dr. Robles in regards to possible intubation since WOB has increase. -Will continue with current management. Multi lobar pneumonia -Failed initial treatment. -Infectious disease consulted and managing. -Per infectious disease continue meropenem, azithromycin, vancomycin. Follow sputum culture. Patient had no rashes cefepime which was discontinued. Sepsis: -Source-PNA -Hemodynamically she is stable but she did require more oxygen. -See treatment as above. UTI -U/a w/ UTI, h/o Bladder CA w/ recurrent UTI- now Funguria -Per infectious disease most likely colonized. No treatment indicated. Renal Insufficiency - Creatinine 1.35. Due to dehydration. Resolved. Dysphagia -GI consulted. -May be secondary to Kajal. Elevated LFTs. -GI is following. -Improving. May be due to hypoperfusion. -Will get a liver ultrasound. DVT Prophylaxis: SCD/Teds. - Lovenox Discharge Planning Patient continues to require a nonrebreather and respiratory failure. She needs close monitoring in the [facility]. Problem Qualifiers (1) Sepsis: Qualified Code: A41.9 - Sepsis, due to unspecified organism Kathleen Wooten MD Jan 17, 2017 09:50
[2017-01-17] MEDS: POTASSIUM CHLORIDE INJ 10 MEQ in DEXT 5%-NACL 0.9% 1000 ML INJ 1,000 ML IV SCH ×2 (10:13→18:42)
--- NOTE | 2017-01-17 13:43 | PD.ONC.PN ---
Subjective Subjective Remarks Afebrile overnight. Patient feeling weak, tired. NO family members at bedside. Had some orange juice this AM, but nothing else. Has been NPO for U/S liver today. Objective Data Date Time Temp Pulse Resp B/P Pulse Ox O2 Delivery O2 Flow Rate FiO2 01/17/17 08:10 96 Partial Rebreather 10.00 01/17/17 06:00 124 01/17/17 04:00 116 01/17/17 04:00 98.4 116 31 97/65 98 01/17/17 02:00 109 01/17/17 00:00 98.3 109 25 76/49 100 01/17/17 00:00 109 01/16/17 22:00 112 01/16/17 20:00 115 01/16/17 20:00 98.2 115 29 116/60 95 01/16/17 19:38 99 Partial Rebreather 12.00 01/16/17 19:00 98 Non-Rebreather 12.00 01/16/17 18:00 114 01/16/17 16:54 100 Partial Rebreather 12.00 01/16/17 16:00 98.5 110 23 92/64 100 01/16/17 16:00 113 01/16/17 14:00 113 01/17/17 01/17/17 01/17/17 07:00 15:00 23:00 Intake Total 944 ml Output Total 350 ml Balance 594 ml Result Diagram: 01/17/17 0615 01/17/17 0615 Laboratory Results Laboratory Tests Test 01/17/17 06:15 White Blood Count 23.6 TH/MM3 Red Blood Count 3.07 MIL/MM3 Hemoglobin 8.1 GM/DL Hematocrit 25.7 % Mean Corpuscular Volume 83.7 FL Mean Corpuscular Hemoglobin 26.3 PG Mean Corpuscular Hemoglobin 31.4 % Concent Red Cell Distribution Width 14.8 % Platelet Count 147 TH/MM3 Mean Platelet Volume 9.7 FL Sodium Level 143 MEQ/L Potassium Level 3.9 MEQ/L Chloride Level 110 MEQ/L Carbon Dioxide Level 25.8 MEQ/L Anion Gap 7 MEQ/L Blood Urea Nitrogen 13 MG/DL Creatinine 0.53 MG/DL Estimat Glomerular Filtration 115 ML/MIN Rate Random Glucose 118 MG/DL Calcium Level 7.8 MG/DL Total Bilirubin 0.5 MG/DL Direct Bilirubin 0.1 MG/DL Indirect Bilirubin 0.4 MG/DL Aspartate Amino Transf 35 U/L (AST/SGOT) Alanine Aminotransferase 84 U/L (ALT/SGPT) Alkaline Phosphatase 123 U/L Total Protein 5.5 GM/DL Albumin 1.7 GM/DL Culture Results Microbiology Date/Time Procedure Status Source Growth 01/15/17 18:39 Influenza Types A,B Antigen (FLORI) - Final Complete Nasal Washing NEGATIVE FOR FLU A AND B ANTIGEN.... 01/15/17 18:39 Legionella Antigen - Final Complete Urine Random Urine PRESUMPTIVE NEGATIVE FOR LEGIONELLA P... 01/15/17 18:39 Streptococcus pneumoniae Antigen (M - Final Complete Urine Random Urine PRESUMPTIVE NEGATIVE FOR STREPTOCOCCU... Administered Medications Medications (Trade) Dose Ordered Sig/Ed Route PRN Reason Start Time Stop Time Status Last Admin Dose Admin Sodium Chloride (NS Flush) 2 ml BID IV FLUSH 01/13/17 21:00 01/17/17 09:00 Ondansetron HCl (Zofran Inj) 4 mg Q6H PRN IVP NAUSEA OR VOMITING 01/13/17 21:00 01/14/17 01:18 Acetaminophen (Tylenol) 650 mg Q6H PRN PO FEVER/PAIN SCALE 1 TO 2 01/13/17 21:00 01/16/17 14:44 Acetaminophen/ Hydrocodone Bitart ([place] 5-325 Mg) 1 tab Q4H PRN PO PAIN SCALE 3 TO 5 01/13/17 21:00 01/17/17 05:54 Senna/Docusate Sodium (Arianna-Colace) 1 tab BID PO 01/13/17 21:00 01/16/17 07:48 Lorazepam (Ativan) 0.5 mg Q8H PO 01/13/17 22:00 01/17/17 05:37 Nystatin (Mycostatin Liq) 5 ml QID SWISH-SWAL 01/13/17 21:00 01/17/17 12:29 Chlorhexidine Gluconate 3 pack 3 pack DAILY@04 TOPICAL 01/14/17 04:00 01/18/17 04:01 01/17/17 04:00 Potassium Chloride 10 meq/ Dextrose/Sodium Chloride 1,005 ml @ 83 mls/hr Q12H7M IV 01/14/17 18:00 01/17/17 10:13 Vancomycin HCl/ Sodium Chloride (Vancomycin Inj/ NS 250 ml Inj) 262.5 ml @ 250 mls/hr Q18H IV 01/16/17 06:00 01/17/17 01:42 Enoxaparin Sodium (Lovenox Inj) 40 mg Q24H SQ 01/15/17 17:00 01/16/17 16:09 Calcium Carbonate 500 mg 500 mg Q6HR PRN CHEW heartburn 01/15/17 18:15 01/16/17 00:28 Meropenem 1000 mg/ Sodium Chloride 100 ml @ 200 mls/hr Q8H IV 01/15/17 20:00 01/17/17 12:29 Azithromycin/ Sodium Chloride (Zithromax Inj/ NS 250 ml Inj) 250 ml @ 250 mls/hr Q24H IV 01/15/17 18:00 01/16/17 17:37 Lorazepam (Ativan) 0.5 mg Q8H PRN PO anxiety 01/16/17 10:30 01/17/17 02:09 Famotidine (Pepcid) 20 mg BID PO 01/16/17 21:00 01/17/17 09:23 Objective Remarks GENERAL: Frail female upright in bed, on partial rebreather. SKIN: Warm and dry. HEAD: Normocephalic. EYES: No injection or drainage. NECK: Supple, trachea midline. CARDIOVASCULAR: +S1/S2 RESPIRATORY: anterior lucas with scattered rhonchi GASTROINTESTINAL: Abdomen soft, non-tender, nondistended. EXTREMITIES: No cyanosis NEUROLOGICAL: No obvious focal deficit. Awake, alert, and oriented x3. Assessment/Plan Problem List: (1) Bladder cancer Status: Acute Plan: --Invasive bladder cancer status post TURBT. --PET scan showed no evidence of metastatic disease. --CT abdomen and pelvis with contrast. --Non-metastatic Muscle invasive urothelial cancer is treated with neoadjuvant chemotherapy followed by surgery--> will be addressed in the outpatient setting. (2) PNA (pneumonia) Status: Acute Plan: --Extensive bilateral pneumonia and acute respiratory distress currently being managed by primary team as well as pulmonary. --on multiple antibiotics. (3) Normocytic anemia Status: Acute Plan: --stool Hemoccult pending --Check hemolysis profile. --check iron and B12 profiles (4) Transaminitis Status: Acute Plan: --likely due to sepsis but we also need to make sure there is no metastatic disease. --liver ultrasound pending. (5) Malnourished Status: Acute Plan: --low albumin --may need TPN --has minimal oral intake at this time. --dietary consult. Assessment 66y/o female with a history of muscle invasive bladder cancer who is admitted with pneumonia and respiratory distress. h/o muscle invasive bladder cancer. Hypertension. COPD. History of tobacco abuse. Plan 1. await stool Hemoccult 2. continue antibiotics 3. await liver ultrasound 4. order anemia workup Attending Statement The exam, history, and the medical decision-making described in the above note were completed with the assistance of the mid-level provider. I reviewed and agree with the findings presented. I attest that I had a [id number] encounter with the patient on the same day, and personally performed and documented my assessment and findings in the medical record. short of breath when talks. on rebreather mask anemia studies pending. will transfuse [address] abdo and pelvis to assess for metastatic disease continue supportive care/treatment for pneumonia/respiratory distress d/w Madeleine Pratt Jan 17, 2017 13:42 Malik Corbett MD Jan 18, 2017 03:06
[2017-01-17 15:35] LABS: LDH SERUM 506 U/L (84-246); TRANSFERRIN IRON PROFILE 101 MG/DL (200-360)
--- NOTE | 2017-01-17 15:52 | HHI.GIFU ---
Subjective Remarks Resting in bed. No n/v. States she is not eating much, but more because of her difficulty breathing than actual dysphagia. Objective Vitals I&O Vital Signs Date Time Temp Pulse Resp B/P Pulse Ox O2 Delivery O2 Flow Rate FiO2 01/17/17 08:10 96 Partial Rebreather 10.00 01/17/17 06:00 124 01/17/17 04:00 116 01/17/17 04:00 98.4 116 31 97/65 98 01/17/17 02:00 109 01/17/17 00:00 98.3 109 25 76/49 100 01/17/17 00:00 109 01/16/17 22:00 112 01/16/17 20:00 115 01/16/17 20:00 98.2 115 29 116/60 95 01/16/17 19:38 99 Partial Rebreather 12.00 01/16/17 19:00 98 Non-Rebreather 12.00 01/16/17 18:00 114 01/16/17 16:54 100 Partial Rebreather 12.00 01/16/17 16:00 98.5 110 23 92/64 100 01/16/17 16:00 113 I/O 01/16/17 01/16/17 01/16/17 01/17/17 01/17/17 01/17/17 07:00 15:00 23:00 07:00 15:00 23:00 Intake Total 979 ml 1102 ml 882 ml 944 ml Output Total 325 ml 500 ml 350 ml 350 ml Balance 654 ml 602 ml 532 ml 594 ml Intake Oral 100 ml 90 ml 150 ml 150 ml IV Total 879 ml 1012 ml 732 ml 794 ml Output Urine Total 325 ml 500 ml 350 ml 350 ml # Bowel Movements 0 1 Laboratory Laboratory Tests Test 01/17/17 06:15 White Blood Count 23.6 Red Blood Count 3.07 Hemoglobin 8.1 Hematocrit 25.7 Mean Corpuscular Volume 83.7 Mean Corpuscular Hemoglobin 26.3 Mean Corpuscular Hemoglobin 31.4 Concent Red Cell Distribution Width 14.8 Platelet Count 147 Mean Platelet Volume 9.7 Sodium Level 143 Potassium Level 3.9 Chloride Level 110 Carbon Dioxide Level 25.8 Anion Gap 7 Blood Urea Nitrogen 13 Creatinine 0.53 Estimat Glomerular Filtration 115 Rate Random Glucose 118 Calcium Level 7.8 Total Bilirubin 0.5 Direct Bilirubin 0.1 Indirect Bilirubin 0.4 Aspartate Amino Transf 35 (AST/SGOT) Alanine Aminotransferase 84 (ALT/SGPT) Alkaline Phosphatase 123 Total Protein 5.5 Albumin 1.7 Date/Time Procedure Status Source Growth 01/15/17 18:39 Legionella Antigen - Final Complete Urine Random Urine PRESUMPTIVE NEGATIVE FOR LEGIONELLA P... 01/15/17 18:39 Streptococcus pneumoniae Antigen (M - Final Complete Urine Random Urine PRESUMPTIVE NEGATIVE FOR STREPTOCOCCU... 01/15/17 18:39 Influenza Types A,B Antigen (FLORI) - Final Complete Nasal Washing NEGATIVE FOR FLU A AND B ANTIGEN.... 01/13/17 20:08 Urine Culture - Final Complete Urine Catheterized Urine Kaity Glabrata 01/13/17 18:50 Aerobic Blood Culture - Preliminary Resulted Blood Peripheral NO GROWTH IN 4 DAYS 01/13/17 18:50 Anaerobic Blood Culture - Preliminary Resulted Blood Peripheral NO GROWTH IN 4 DAYS Imaging Last Impressions Chest CT 01/15/17 0000 Signed Impressions: Service Date/Time: January 10:16 - CONCLUSION: Extensive scattered areas of parenchymal consolidation are seen throughout both lung lucas predominately along the peripheral aspect of both lungs. There are also scattered bilateral interstitial infiltrates. These infiltrates appear to be overlying central lobar emphysema. Madi Marvin MD Chest X-Ray 01/13/17 1838 Signed Impressions: Service Date/Time: Friday, January 13, 2017 18:51 - CONCLUSION: Patchy bilateral areas of peripheral partially consolidative infiltrate in both lungs. No evidence of pleural effusion. Walter Lopez MD Physical Exam HEENT: Normocephalic; atraumatic CHEST: Resp. shallow, labored at rest. Diminished. Partial nonrebreather mask. CARDIAC: ST- 118 ABDOMEN: Soft, nondistended, nontender; no hepatosplenomegaly; bowel sounds are present in all four quadrants. EXTREMITIES: Generalized edema. SKIN: Normal; no rash; no jaundice. PUBLIC WORKS INSPECTOR: Lethargic, oriented Assessment and Plan Plan ASSESSMENT: - Dysphagia. GI consulted for dysphagia. She reports that she is not eating much, but not so much because of dysphagia, but because of her shortness of breath. She states she gets tired just from speaking. She states her throat is sore, but she is not having painful swallowing. Dysphagia but too SOB to swallow much anyway. She has kaity in urine. Could have kaity in esophagus. Nystatin, Pepcid. - Abnormal LFTs of uncertain significance. Improving. - Bilateral pneumonia with borderline respiratory failure. Chest X-Ray (01/13/17) ----> Patchy bilateral areas of peripheral partially consolidative infiltrate in both lungs. No evidence of pleural effusion. Chest CT (01/15/17)----> Extensive scattered areas of parenchymal consolidation are seen throughout both lung lucas predominately along the peripheral aspect of both lungs. There are also scattered bilateral interstitial infiltrates. These infiltrates appear to be overlying central lobar emphysema. Vanco, Meropenem, Azithromycin, nebs, - Hx Bladder cancer. Plan: - Cont. DOT, add ensure - Cont. pepcid - Cont. nystatin - She is not needing EGD at this time - Consider IV nutrition - Pt not able to have egd at this time secondary to respiratory status. - Pt seen and examined by Dr. Tse and myself and this note is written on his behalf Noy Schroeder Jan 17, 2017 15:52
[2017-01-17 15:59] LABS: FERRITIN 653 NG/ML (8-252)
[2017-01-17] MEDS ORDERED: DIATRIZOATE MEGLUM/DIATRIZOATE SOD 9 ML CUP PO ONE (16:03)
[2017-01-17] MEDS: ENOXAPARIN SODIUM 40 MG/0.4 ML SYRINGE SQ SCH (17:08)
[2017-01-17] MEDS: AZITHROMYCIN INJ 500 MG in SODIUM CHLOR 0.9% 250 ML INJ 250 ML IV SCH (17:08)
--- NOTE | 2017-01-17 17:35 | RADRPT ---
EXAM DATE/TIME: 01/17/2017 17:05 [facility] COMPARISON: No previous studies available for comparison. INDICATIONS : Increased lab values. Exam is limited by the patient's inability to cooperate. MEDICAL HISTORY : Hypertension. Reoccuring pneumonia. Cough. Dyspnea. Anxiety. Claustrophobia. Bladder cancer. SURGICAL HISTORY : Left lumpectomy. Left elbow surgery. Indwelling catheter. ENCOUNTER: Initial ACUITY: 1 day PAIN SCORE: 0/10 LOCATION: Bilateral upper quadrant MEASUREMENTS: LIVER: 13.9 cm length COMMON DUCT: 2 mm RIGHT KIDNEY: 10.0 x 5.3 x 4.4 cm SPLEEN: 9.6 cm length FINDINGS: LIVER: Grossly free of focal defects. COMMON DUCT: No intraluminal mass or stone visualized. GALLBLADDER: Contains no stones, demonstrates no wall thickening or pericholecystic fluid. PANCREAS: Poor visualization. RIGHT KIDNEY: No hydronephrosis, stone or mass. SPLEEN: No focal lesion. CONCLUSION: There is no intrahepatic biliary duct dilatation. Liver is grossly free of focal defects. London Frazier MD FACR on January 17, 2017 at 17:31 Board Certified Radiologist. This report was verified electronically.
--- NOTE | 2017-01-17 17:42 | HHI.PR ---
Subjective Remarks 66 YOWF with Bilat ,Pn,RF ,On NRB Mild discomfort Cough with minimal sp No fever CT Chest Bilat extensive parenchymal infilt Desaturates easily, anxious Objective Vital Signs Vital Signs Date Time Temp Pulse Resp B/P Pulse Ox O2 Delivery O2 Flow Rate FiO2 01/17/17 15:27 122 01/17/17 15:00 122 01/17/17 14:32 117 01/17/17 14:00 114 01/17/17 13:30 120 01/17/17 13:00 115 01/17/17 12:00 109 01/17/17 12:00 Non-Rebreather 12.00 01/17/17 11:13 107 01/17/17 11:00 110 01/17/17 10:00 116 01/17/17 09:00 112 01/17/17 08:10 96 Partial Rebreather 10.00 01/17/17 08:00 Non-Rebreather 12.00 01/17/17 08:00 116 01/17/17 06:00 124 01/17/17 04:00 116 01/17/17 04:00 98.4 116 31 97/65 98 01/17/17 02:00 109 01/17/17 00:00 98.3 109 25 76/49 100 01/17/17 00:00 109 01/16/17 22:00 112 01/16/17 20:00 115 01/16/17 20:00 98.2 115 29 116/60 95 01/16/17 19:38 99 Partial Rebreather 12.00 01/16/17 19:00 98 Non-Rebreather 12.00 01/16/17 18:00 114 I/O 01/16/17 01/16/17 01/16/17 01/17/17 01/17/17 01/17/17 07:00 15:00 23:00 07:00 15:00 23:00 Intake Total 979 ml 1102 ml 882 ml 944 ml Output Total 325 ml 500 ml 350 ml 350 ml Balance 654 ml 602 ml 532 ml 594 ml Intake Oral 100 ml 90 ml 150 ml 150 ml IV Total 879 ml 1012 ml 732 ml 794 ml Output Urine Total 325 ml 500 ml 350 ml 350 ml # Bowel Movements 0 1 Result Diagram: 01/17/17 0615 01/17/17 0615 Objective Remarks GENERAL: MBMN WF, mild sob SKIN: Warm and dry. HEAD: Normocephalic. EYES: No scleral icterus. No injection or drainage. NECK: Supple, trachea midline. No JVD or lymphadenopathy. CARDIOVASCULAR: Regular rate and rhythm without murmurs, gallops, or rubs. RESPIRATORY: Breath sounds equal bilaterally. No accessory muscle use. bilat rales GASTROINTESTINAL: Abdomen soft, non-tender, nondistended. MUSCULOSKELETAL: No cyanosis, or edema. BACK: Nontender without obvious deformity. No CVA tenderness. A/P Assessment and Plan Resp Failure Hypoxia Bialt extensive Pneumonia leucocytosis Anxiety PLAN: PRB mask, wean 02 to keep sat >90% Aerosol nebs Abx Vanco, Zithro, Meropenam ID Following. Monitor CBC Check cultures. Jose Ivory MD Jan 17, 2017 17:42
[2017-01-17] MEDS: MORPHINE SULFATE 4 MG/ML INJ IV PRN (18:19)
[2017-01-17 18:38] LABS: BLOOD GAS CARBOXYHEMOGLOBIN 1.2 % (0-4); BLOOD GAS HCO3 17 mmol/L (22-26); BLOOD GAS METHEMOGLOBIN 1.1 % (0-2); BLOOD GAS O2 HGB SATURATION 96 % (90-100); BLOOD GAS OXYGEN CONTENT 11.1 Vol % (12.0-20.0); BLOOD GAS PCO2 30 mmHg (38-42); BLOOD GAS PO2 123 mmHg (61-120); BLOOD GAS TOTAL HGB 8.1 G/DL (12.0-16.0); CRITICAL VALUE NO; DRAW SITE RT RADIAL; FIO2 100 %; LITER FLOW 15 L/M; NUMBER OF ARTERIAL PUNCTURES 1; STAT YES; TEMP CORR TO 98.6; ULNAR PULSE PRESENT
[2017-01-17] MEDS ORDERED: MIDAZOLAM HCL 5 MG/ML VIAL (1 ML) ONE (18:59)
[2017-01-17] MEDS ORDERED: ROCURONIUM INJ 50 MG/5 ML VIAL IV ONE (19:00)
[2017-01-17] MEDS ORDERED: ROCURONIUM INJ 50 MG/5 ML VIAL ONE (19:00)
[2017-01-17] MEDS ORDERED: NOREPINEPHRINE-DEXTROSE DRIP 250 ML IV ONE (19:09)
[2017-01-17 19:34] LABS: APTT (PATIENT) 22.8 SEC (24.3-30.1); INTERNATIONAL NORMALIZED RATIO 1.2 RATIO; PROTHROMBIN TIME - PATIENT 13.8 SEC (9.8-11.6)
[2017-01-17] MEDS ORDERED: NOREPINEPHRINE-DEXTROSE DRIP 250 ML IV SCH (19:45)
[2017-01-17] MEDS ORDERED: TERBUTALINE INJ 1 MG/ML AMP SQ PRN ×2 (19:45→22:00)
[2017-01-17] MEDS ORDERED: MORPHINE SULFATE 4 MG/ML INJ IV PUSH PRN (19:45)
--- NOTE | 2017-01-17 19:50 | PD.CONS ---
[facility] Service Critical Care Medicine Consult Requested By [facility] Reason for Consult Hypoxemic Respiratory Failure Primary Care Physician Unknown History of Present Illness 66 y/o woman with pneumonia and worsening oxygenation. Now with evidence of marginal peripheral perfusion and deteriorating gas diffusion. She will need aggressive hydration, further impairing gas exchange. Requires intubation at this time. Review of Systems ROS SOB, tired Past Family Social History Allergies: Coded Allergies: Contrast Media (Verified Allergy, Severe, respiratory distress, 01/13/17) Penicillin (Verified Allergy, Intermediate, rash, 01/13/17) Uncoded Allergies: cefepime (Allergy, Intermediate, Rash, 01/15/17) pruritic rash Physical Exam Vital Signs Vital Signs Date Time Temp Pulse Resp B/P Pulse Ox O2 Delivery O2 Flow Rate FiO2 01/17/17 19:20 100 100 01/17/17 15:27 122 01/17/17 15:00 122 01/17/17 14:32 117 01/17/17 14:00 114 01/17/17 13:30 120 01/17/17 13:00 115 01/17/17 12:00 109 01/17/17 12:00 Non-Rebreather 12.00 01/17/17 11:13 107 01/17/17 11:00 110 01/17/17 10:00 116 01/17/17 09:00 112 01/17/17 08:10 96 Partial Rebreather 10.00 01/17/17 08:00 Non-Rebreather 12.00 01/17/17 08:00 116 01/17/17 06:00 124 01/17/17 04:00 116 01/17/17 04:00 98.4 116 31 97/65 98 01/17/17 02:00 109 01/17/17 00:00 98.3 109 25 76/49 100 01/17/17 00:00 109 01/16/17 22:00 112 01/16/17 20:00 115 01/16/17 20:00 98.2 115 29 116/60 95 Physical Exam Gen: Ill-appearing, anxious. Head: Normal. Neck: Supple, patent. Lungs: Diffuse rhonchi, good air movement, labored. Heart: NL S1S2, neck veins flat. tachycardia Abdomen: Soft, ND, NT, quiet. Extremities: Tepid Skin: Lightly mottled Neuro: Exhausted, moves 4 limbs spontaneously. Conversant. In distress. Laboratory Laboratory Tests Test 01/17/17 01/17/17 01/17/17 06:15 18:30 19:00 White Blood Count 23.6 Red Blood Count 3.07 Hemoglobin 8.1 Hematocrit 25.7 Mean Corpuscular Volume 83.7 Mean Corpuscular Hemoglobin 26.3 Mean Corpuscular Hemoglobin 31.4 Concent Red Cell Distribution Width 14.8 Platelet Count 147 Mean Platelet Volume 9.7 Haptoglobin 415 Sodium Level 143 Potassium Level 3.9 Chloride Level 110 Carbon Dioxide Level 25.8 Anion Gap 7 Blood Urea Nitrogen 13 Creatinine 0.53 Estimat Glomerular Filtration 115 Rate Random Glucose 118 Calcium Level 7.8 Iron Level 65 Total Iron Binding Capacity 141 Percent Iron Saturation 46.0 Ferritin 653 Total Bilirubin 0.5 Direct Bilirubin 0.1 Indirect Bilirubin 0.4 Aspartate Amino Transf 35 (AST/SGOT) Alanine Aminotransferase 84 (ALT/SGPT) Alkaline Phosphatase 123 Lactate Dehydrogenase 506 Total Protein 5.5 Albumin 1.7 Vitamin B12 Level GREATER THAN 2000 Blood Gas Puncture Site RT RADIAL Blood Gas Patient Temperature 98.6 Blood Gas HCO3 17 Blood Gas Base Excess -7.0 Blood Gas Oxygen Saturation 96 Arterial Blood pH 7.38 Arterial Blood Partial 30 Pressure CO2 Arterial Blood Partial 123 Pressure O2 Arterial Blood Oxygen Content 11.1 Arterial Blood 1.2 Carboxyhemoglobin Arterial Blood Methemoglobin 1.1 Blood Gas Hemoglobin 8.1 Oxygen Delivery Device Non-Rebreathing Mask Blood Gas Liter Flow 15 Blood Gas Inspired Oxygen 100 Prothrombin Time 13.8 Prothromb Time International 1.2 Ratio Activated Partial 22.8 Thromboplast Time Fibrinogen 484 Date/Time Procedure Status Source Growth 01/17/17 15:55 Gram Stain Received Sputum Expectorated Sputum Pending 01/17/17 15:55 Sputum Culture Received Sputum Expectorated Sputum Pending 01/15/17 18:39 Legionella Antigen - Final Complete Urine Random Urine PRESUMPTIVE NEGATIVE FOR LEGIONELLA P... 01/15/17 18:39 Streptococcus pneumoniae Antigen (M - Final Complete Urine Random Urine PRESUMPTIVE NEGATIVE FOR STREPTOCOCCU... 01/15/17 18:39 Influenza Types A,B Antigen (FLORI) - Final Complete Nasal Washing NEGATIVE FOR FLU A AND B ANTIGEN.... 01/13/17 20:08 Urine Culture - Final Complete Urine Catheterized Urine Kajla Glabrata 01/13/17 18:50 Aerobic Blood Culture - Preliminary Resulted Blood Peripheral NO GROWTH IN 4 DAYS 01/13/17 18:50 Anaerobic Blood Culture - Preliminary Resulted Blood Peripheral NO GROWTH IN 4 DAYS Result Diagram: 01/17/1761401/17/[address] Chest: Diffuse juanita consolidation Assessment and Plan Assessment and Plan Assessment: 1. Hypoxemic Respiratory Failure. 2. Bilateral pneumonia. 3. Dehydration. 4. Metabolic Acidosis. 5. Septic Shock. 6. LV/RV dysfunction. Plan: 1. PRVC vent mode. 2/ Place CVL. 3. Hydrate to CVP. 4. Levophed to keep MAP > 65. 5. Lactic acid. 6. Produce urine > 30/hr 7. Protonix. 8. Lovenox DVT px. 9. Sputum C&S. Overall impression: Critically ill with severe sepsis, metabolic acidosis, and hypoxemic respiratory failure. Deteriorating status, requiring levophed support. Update: Cardiac decompensation with elevated CVP and hypotension, worsening metabolic acidosis. Due to sustained tachycardia I'll taper levophed, start vasopressin and / or neosynephrine, and try to trickle in some milrinone for presumed RV failure (and possible LV dysfunction). Critical Care 45 mins aside from procedures Titi Mayers MD Jan 17, 2017 19:50 Titi Mayers MD Jan 17, 2017 19:50
--- NOTE | 2017-01-17 19:55 | HHI.IDPN ---
Subjective Subjective Remarks progressive hypoxia leading to complete resp faillure now intubated and on vent afebrile no secretions observed during intubation CXR with large consolidations Antibiotics meropenem ceci lino Past Medical History bladder ca Allergies: Coded Allergies: Contrast Media (Verified Allergy, Severe, respiratory distress, 01/13/17) Penicillin (Verified Allergy, Intermediate, rash, 01/13/17) Uncoded Allergies: cefepime (Allergy, Intermediate, Rash, 01/15/17) pruritic rash Objective . Vital Signs Date Time Temp Pulse Resp B/P Pulse Ox O2 Delivery O2 Flow Rate FiO2 01/17/17 19:20 100 100 01/17/17 15:27 122 01/17/17 15:00 122 01/17/17 14:32 117 01/17/17 14:00 114 01/17/17 13:30 120 01/17/17 13:00 115 01/17/17 12:00 109 01/17/17 12:00 Non-Rebreather 12.00 01/17/17 11:13 107 01/17/17 11:00 110 01/17/17 10:00 116 01/17/17 09:00 112 01/17/17 08:10 96 Partial Rebreather 10.00 01/17/17 08:00 Non-Rebreather 12.00 01/17/17 08:00 116 01/17/17 06:00 124 01/17/17 04:00 116 01/17/17 04:00 98.4 116 31 97/65 98 01/17/17 02:00 109 01/17/17 00:00 98.3 109 25 76/49 100 01/17/17 00:00 109 01/16/17 22:00 112 01/16/17 20:00 115 01/16/17 20:00 98.2 115 29 116/60 95 01/16/17 01/16/17 01/17/17 15:00 23:00 07:00 Intake Total 1102 ml 882 ml 944 ml Output Total 500 ml 350 ml 350 ml Balance 602 ml 532 ml 594 ml Intake Oral 90 ml 150 ml 150 ml IV Total 1012 ml 732 ml 794 ml Output Urine Total 500 ml 350 ml 350 ml # Bowel Movements 0 1 . Laboratory Tests Test 01/16/17 01/17/17 04:11 06:15 White Blood Count 20.4 TH/MM3 23.6 TH/MM3 Red Blood Count 2.94 MIL/MM3 3.07 MIL/MM3 Hemoglobin 7.8 GM/DL 8.1 GM/DL Hematocrit 24.6 % 25.7 % Mean Corpuscular Volume 83.8 FL 83.7 FL Mean Corpuscular Hemoglobin 26.5 PG 26.3 PG Mean Corpuscular Hemoglobin 31.7 % 31.4 % Concent Red Cell Distribution Width 15.0 % 14.8 % Platelet Count 149 TH/MM3 147 TH/MM3 Mean Platelet Volume 8.7 FL 9.7 FL Neutrophils (%) (Auto) 89.8 % Lymphocytes (%) (Auto) 3.4 % Monocytes (%) (Auto) 3.3 % Eosinophils (%) (Auto) 3.3 % Basophils (%) (Auto) 0.2 % Neutrophils # (Auto) 18.3 TH/MM3 Lymphocytes # (Auto) 0.7 TH/MM3 Monocytes # (Auto) 0.7 TH/MM3 Eosinophils # (Auto) 0.7 TH/MM3 Basophils # (Auto) 0.0 TH/MM3 CBC Comment DIFF FINAL Differential Comment Haptoglobin 415 MG/DL Laboratory Tests Test 01/16/17 01/17/17 04:11 06:15 Sodium Level 144 MEQ/L 143 MEQ/L Potassium Level 2.9 MEQ/L 3.9 MEQ/L Chloride Level 109 MEQ/L 110 MEQ/L Carbon Dioxide Level 27.9 MEQ/L 25.8 MEQ/L Anion Gap 7 MEQ/L 7 MEQ/L Blood Urea Nitrogen 13 MG/DL 13 MG/DL Creatinine 0.49 MG/DL 0.53 MG/DL Estimat Glomerular Filtration 126 ML/MIN 115 ML/MIN Rate Random Glucose 134 MG/DL 118 MG/DL Calcium Level 7.3 MG/DL 7.8 MG/DL Protein Corrected Calcium 8.3 MG/DL Total Bilirubin 0.3 MG/DL 0.5 MG/DL Aspartate Amino Transf 61 U/L 35 U/L (AST/SGOT) Alanine Aminotransferase 103 U/L 84 U/L (ALT/SGPT) Alkaline Phosphatase 116 U/L 123 U/L Total Protein 5.2 GM/DL 5.5 GM/DL Albumin 1.6 GM/DL 1.7 GM/DL Iron Level 65 MCG/DL Total Iron Binding Capacity 141 MCG/DL Percent Iron Saturation 46.0 % Ferritin 653 NG/ML Direct Bilirubin 0.1 MG/DL Indirect Bilirubin 0.4 MG/DL Lactate Dehydrogenase 506 U/L Vitamin B12 Level GREATER THAN 2000 PG/ML Microbiology Date/Time Procedure Status Source Growth 01/15/17 18:39 Influenza Types A,B Antigen (FLORI) - Final Complete Nasal Washing NEGATIVE FOR FLU A AND B ANTIGEN.... 01/15/17 18:39 Legionella Antigen - Final Complete Urine Random Urine PRESUMPTIVE NEGATIVE FOR LEGIONELLA P... 01/15/17 18:39 Streptococcus pneumoniae Antigen (M - Final Complete Urine Random Urine PRESUMPTIVE NEGATIVE FOR STREPTOCOCCU... 01/17/17 15:55 Gram Stain Received Sputum Expectorated Sputum Pending 01/17/17 15:55 Sputum Culture Received Sputum Expectorated Sputum Pending Imaging Last Impressions Liver Ultrasound 01/17/17 0000 Signed Impressions: Service Date/Time: Tuesday, January 17, 2017 17:05 - CONCLUSION: There is no intrahepatic biliary duct dilatation. Liver is grossly free of focal defects. London Frazier MD FACR Chest CT 01/15/17 0000 Signed Impressions: Service Date/Time: January 10:16 - CONCLUSION: Extensive scattered areas of parenchymal consolidation are seen throughout both lung lucas predominately along the peripheral aspect of both lungs. There are also scattered bilateral interstitial infiltrates. These infiltrates appear to be overlying central lobar emphysema. Madi Marvin MD Chest X-Ray 01/13/17 1838 Signed Impressions: Service Date/Time: Friday, January 13, 2017 18:51 - CONCLUSION: Patchy bilateral areas of peripheral partially consolidative infiltrate in both lungs. No evidence of pleural effusion. Walter Lopez MD Physical Exam CONSTITUTIONAL/GENERAL: This is an adequately nourished patient, in mild resp apparent distress. TUBES/LINES/DRAINS: SKIN: No jaundice, , or lesions. . Skin temperature appropriate. Not diaphoretic. Diffuse pale macular rash, confluent on abdomen much less prominent HEAD: Atraumatic. Normocephalic. EYES: No scleral icterus. No injection or drainage. Fundi not examined. ENT: Poor dentition CARDIOVASCULAR: Regular rate and rhythm without murmurs, gallops, or rubs. No JVD. Peripheral pulses symmetric. RESPIRATORY/CHEST: Symmetric, labored respirations. Breath sounds equal bilaterally. Scattered rhonchi to auscultation. diminished BS b/b GASTROINTESTINAL: Abdomen soft, non-tender, nondistended. No hepato-splenomegaly , or palpable masses. No guarding. Bowel sounds present. GENITOURINARY: Without palpable bladder distension. Mcgee catheter in place with fairly clear urine MUSCULOSKELETAL: Extremities without clubbing, cyanosis, + diffuse 2+ edema. + mild mottling NEUROLOGICAL: Lethargic to obtunded PSYCHIATRIC: unable to assess Assessment & Plan Remarks PNA, multilobar, severe, recent hospitalisation Recurrent PNA Acute VDRF Pruriric rash suspicios for abx reaction (allergic to PCN) - improving after cefepime stopped but not completely resolcved Bladder CA, not on chemo yet Funguria, in chronic mcgee pt, gilbert just colonisation, doubt clin significane - mcgee about 1 wk REC'S: -cont Meropenem - cont azithro - dc vancomycin - start zyvox untill clx are back - follow sputum clx (scant amount of sputum was obtained) monitor rash dw Fara Dennis MD Jan 17, 2017 19:54
[2017-01-17] MEDS ORDERED: MIDAZOLAM HCL 5 MG/ML VIAL (1 ML) IM ONE (20:00)
[2017-01-17 20:41] LABS: BLOOD GAS VENOUS BASE EXCESS -9.1 mmol/L (-2-2); BLOOD GAS VENOUS HCO3 18 mmol/L (22-26); BLOOD GAS VENOUS O2 CONTENT 7.1 Vol % (9.0-17.0); BLOOD GAS VENOUS O2 HGB SAT 68 % (70-76); BLOOD GAS VENOUS PCO2 52 mmHg (44-48); BLOOD GAS VENOUS PO2 49 mmHg (35-40); BLOOD GAS VENOUS pH 7.17 (7.360-7.400); CRITICAL VALUE YES; OXYGEN DEVICE VENTILATOR; TEMP CORR TO 98.6
[2017-01-17] MEDS: PROPOFOL 1000 MG/100 ML INJ 100 ML IV SCH (20:57)
[2017-01-17] MEDS: CHLORHEXIDINE 0.12% (ORAL KIT) 15 ML CUP MT SCH (20:59)
--- NOTE | 2017-01-17 21:35 | RADRPT ---
EXAM DATE/TIME: 01/17/2017 20:23 [place] COMPARISON: CHEST SINGLE AP, January 13, 2017, 18:51. INDICATIONS : Central line placement. MEDICAL HISTORY : None. SURGICAL HISTORY : None. ENCOUNTER: Initial ACUITY: 3 days PAIN SCORE: 0/10 LOCATION: Bilateral chest FINDINGS: ET tube is at the shahriar. Central venous catheter is in good position. Patchy airspace disease is s een both lungs with increasing consolidative changes in the left base. CONCLUSION: 1. Support apparatus in good position. 2. Increasing consolidative changes particularly left base London Frazier MD FACR on January 17, 2017 at 21:20 Board Certified Radiologist. This report was verified electronically.
[2017-01-17 21:44] LABS: FIO2 100 %
[2017-01-17 21:45] LABS: DRAW SITE SCV; STAT YES
[2017-01-17] MEDS ORDERED: MILRINONE INJ 20 MG in SODIUM CHLORIDE 0.9% INJ 80 ML IV SCH (22:01)
[2017-01-17] MEDS ORDERED: SODIUM BICARBONATE 8.4% INJ 50 MEQ/50 ML SYR IV PUSH ONE (22:15)
[2017-01-17 23:00] LABS: LACTIC ACID GHOST NOT REPORTABLE
[2017-01-17 23:05] LABS: BLOOD GAS BASE EXCESS -2.7 mmol/L (-2-2); BLOOD GAS HCO3 22 mmol/L (22-26); BLOOD GAS METHEMOGLOBIN 1.2 % (0-2); BLOOD GAS O2 HGB SATURATION 97 % (90-100); BLOOD GAS OXYGEN CONTENT 15.3 Vol % (12.0-20.0); BLOOD GAS PCO2 42 mmHg (38-42); BLOOD GAS PO2 207 mmHg (61-120); BLOOD GAS TOTAL HGB 10.9 G/DL (12.0-16.0); CRITICAL VALUE NO; DRAW SITE ART LINE; FIO2 75 %; OXYGEN DEVICE VENTILATOR; STAT YES; TEMP CORR TO 98.6
--- NOTE | 2017-01-17 23:29 | PD.PROCEDR ---
Procedure Note Procedure DX: Septic Shock (A41.9) OP: 1. Orotracheal Intubation (92185) 2. Insertion Left Subclavian Central Venous Line (36426) 3. Insertion Right Common Femoral Arterial Line (33633) Procedure: Time out performed. Bag mask ventilation. Versed 5 mg and rocuronium 50 mg iv. Intubated orally with 8.0 tube. Position confirmed with CO2 detection , breath sounds, sats 100%. Left chest prepped and draped. Left subclavian vein cannulated and wire easily advanced. Catheter passed over wire to 18 cm. Lumens aspirated and flushed. Dressing applied. Right groin prepped and draped. Right common femoral artery cannulated and wire advanced. Cannula passed over wire to 13 cm. Good waveform observed. CXR with ET tube at shahriar, tube withdrawn 2 cm with good juanita breath sounds. Central line in good position. Titi Mayers MD Jan 17, 2017 23:29
[2017-01-17] MEDS: SODIUM BICARBONATE 8.4% INJ 150 MEQ in DEXTROSE 5% IN WATE 1000ML INJ 1,000 ML IV SCH ×2 (23:31)
[2017-01-17] MEDS: PHENYLEPHRINE INJ 160 MG in DEXTROSE 5% IN WATE 500 ML INJ 484 ML IV SCH ×2 (23:32)
[2017-01-17] MEDS: VASOPRESSIN INJ 40 UNITS in DEXTROSE 5% IN WATER 100ML INJ 98 ML IV SCH ×2 (23:33)
[2017-01-17] MEDS: LINEZOLID 600 MG PREMIX 300 ML IV SCH (23:34)
[2017-01-17] MEDS: HYDROCORTISONE SOD SUCCINATE 100 MG VIAL IV PUSH SCH (23:36)
[2017-01-18] VITALS (29 sets, daily range): BP systolic 77–147; BP diastolic 48–93; PULSE 89–108; RESP 16–31; TEMP 98–99.2; O2SAT 92–100
[2017-01-18] MEDS: CHLORHEXIDINE GLUCONATE 2 % 1 PACK (2 CLOTHS)(taper/protocol) TOPICAL SCH (04:00)
[2017-01-18 04:23] LABS: BICARBONATE 29.6 MEQ/L (21.0-32.0); POTASSIUM 3.5 MEQ/L (3.5-5.1)
[2017-01-18 04:32] LABS: MEAN CELL VOLUME 82.7 FL (80.0-100.0); MEAN CORPUSCULAR HEMOGLOBIN 26.7 PG (27.0-34.0); MEAN CORPUSCULAR HGB CONC 32.3 % (32.0-36.0); PLATELET COUNT 81 TH/MM3 (150-450); RED BLOOD COUNT 2.53 MIL/MM3 (4.00-5.30); RED CELL DISTRIBUTION WIDTH 15.2 % (11.6-17.2); WHITE BLOOD COUNT 27.8 TH/MM3 (4.0-11.0)
[2017-01-18 04:41] LABS: REVIEW FLAG FINAL
[2017-01-18 04:42] LABS: CALCIUM-PROTEIN CORRECTED 8.3 MG/DL (8.5-10.1); HEMATOCRIT 20.9 % (35.0-46.0)
[2017-01-18] MEDS: LORazepam 0.5 MG TAB PO SCH ×3 (06:00→23:02)
[2017-01-18] MEDS: HYDROCORTISONE SOD SUCCINATE 100 MG VIAL IV PUSH SCH ×4 (06:17→23:02)
[2017-01-18] MEDS: MEROPENEM INJ 1,000 MG in SODIUM CHLORIDE 0.9% INJ 100 ML IV SCH ×3 (06:17→19:48)
[2017-01-18] MEDS: POTASSIUM CHLORIDE INJ 10 MEQ in DEXT 5%-NACL 0.9% 1000 ML INJ 1,000 ML IV SCH (06:18)
[2017-01-18] MEDS: RESP: ALBUTEROL 2.5 MG/IPRATROPIUM 0.5 MG NEB (SCH) NEB ×4 (07:12→22:02)
--- NOTE | 2017-01-18 08:51 | ECHRPT ---
Indication: Heart failure, unspecified CONCLUSIONS The left ventricular systolic function is normal with an estimated ejection fraction in the range of 60-65%. Wall thickness is normal. Normal left ventricular size. There is a flattened septum in diastole consistent with right ventricle volume overload. There is mild to moderate tricuspid valve regurgitation. The estimated pulmonary arterial pressure is 48 mmHg. BP: / HR: 97 Rhythm: Sinus MEASUREMENTS (Male / Female) Normal Values Technical Quality:Fair 2D ECHO LV Diastolic Diameter PLAX 3.0 cm 4.2 - 5.9 / 3.9 - 5.3 cm LV Systolic Diameter PLAX 2.1 cm IVS Diastolic Thickness 1.0 cm 0.6 - 1.0 / 0.6 - 0.9 cm LVPW Diastolic Thickness 1.0 cm 0.6 - 1.0 / 0.6 - 0.9 cm LV Relative Wall Thickness 0.6 LVOT Diameter 1.8 cm M-MODE Aortic Root Diameter MM 3.0 cm LA Systolic Diameter MM 2.9 cm LA Ao Ratio MM 1.0 AV Cusp Separation MM 2.2 cm DOPPLER AV Peak Velocity 100.0 cm/s AV Peak Gradient 4.0 mmHg LVOT Peak Velocity 99.7 cm/s LVOT Peak Gradient 4.0 mmHg AV Area Cont Eq pk 2.5 cm Mitral E Point Velocity 62.2 cm/s Mitral A Point Velocity 82.4 cm/s Mitral E to A Ratio 0.8 LV E' Lateral Velocity 11.9 cm/s Mitral E to LV E' Lateral Ratio 5.2 LV E' Septal Velocity 8.6 cm/s Mitral E to LV E' Septal Ratio 7.2 TR Peak Velocity 307.0 cm/s TR Peak Gradient 37.7 mmHg PV Peak Velocity 110.0 cm/s PV Peak Gradient 4.8 mmHg FINDINGS LEFT VENTRICLE The left ventricular systolic function is normal with an estimated ejection fraction in the range of 60-65%. Wall thickness is normal. Normal left ventricular size. There is a flattened septum in diastole consistent with right ventricle volume overload. RIGHT VENTRICLE Normal right ventricular size and systolic function. LEFT ATRIUM The left atrial size is normal. RIGHT ATRIUM The right atrial size is normal. ATRIAL SEPTUM Normal atrial septal thickness without atrial level shunting by limited color doppler interrogation. AORTA The aortic root and proximal ascending aorta are normal in size on limited imaging. MITRAL VALVE Structurally normal mitral valve. No mitral valve stenosis or regurgitation. AORTIC VALVE Trileaflet aortic valve. No aortic valve stenosis or regurgitation. TRICUSPID VALVE There is mild to moderate tricuspid valve regurgitation. The estimated pulmonary arterial pressure is 48 mmHg. PULMONARY VALVE Trivial pulmonary valve regurgitation. The pulmonary valve is not well visualized. VESSELS The inferior vena cava is normal in size. PERICARDIUM No pericardial effusion. Sergio Conroy MD (Electronically Signed) Final Date:18 January 2017 08:50
[2017-01-18] MEDS: PROPOFOL 1000 MG/100 ML INJ 100 ML IV SCH ×2 (09:10→14:26)
[2017-01-18] MEDS: CHLORHEXIDINE 0.12% (ORAL KIT) 15 ML CUP MT SCH ×2 (09:11→19:49)
[2017-01-18] MEDS: LINEZOLID 600 MG PREMIX 300 ML IV SCH ×2 (09:11→19:48)
[2017-01-18] MEDS: FAMOTIDINE 20 MG TAB PO SCH (09:12)
[2017-01-18] MEDS: DOCUSATE SODIUM 50 MG/SENNA 8.6 MG TAB PO SCH ×2 (09:12→19:47)
[2017-01-18] MEDS: SODIUM CHLORIDE 0.9% FLUSH 10 ML FLUSH IV FLUSH SCH ×2 (09:12→19:48)
[2017-01-18] MEDS: NYSTATIN SUSP 500,000 U/5 ML CUP SWISH-SWAL SCH ×4 (09:12→19:47)
[2017-01-18] MEDS: LORazepam 0.5 MG TAB PO PRN (09:13)
--- NOTE | 2017-01-18 10:12 | HHI.CCPN ---
Subjective Remarks/Hospital Course 66 y/o woman with pneumonia and worsening oxygenation. Now with evidence of marginal peripheral perfusion and deteriorating gas diffusion. She will need aggressive hydration, further impairing gas exchange. Requires intubation at this time. 01/18/17: Patient remains very critically ill. She is currently on milrinone and vasopressin, Mark trac shows cardiac output 4 L cardiac index 2.2 with inotropes. A bedside echo shows RV dilation, with septal flattening in diastole indicating right ventricular fluid overload. This is most likely secondary to multilobar pneumonia/ARDS, PE appears less likely. Patient is oliguric, 100 mL urine output in the last 4 hours. WBC count has increased to 27.8 hemoglobin dropped to 6.8. Receiving 2 units of PRBC. Receiving meropenem and azithromycin. Zyvox added. Also Micafungin added for C Glabrata in urine Objective Vital Signs Date Time Temp Pulse Resp B/P Pulse Ox O2 Delivery O2 Flow Rate FiO2 01/18/17 07:12 100 45 01/18/17 06:00 94 01/18/17 04:00 99.1 20 112/73 117/73 01/17/17 20:00 Mechanical Ventilator 01/17/17 12:00 12.00 Intake and Output 01/17/17 01/17/17 01/18/17 08:00 16:00 00:00 Intake Total 944 ml 1004 ml 880 ml Output Total 350 ml 300 ml 150 ml Balance 594 ml 704 ml 730 ml Result Diagram: 01/18/17 0334 01/18/17 0334 Other Results Microbiology Date/Time Procedure Status Source Growth 01/15/17 18:39 Influenza Types A,B Antigen (FLORI) - Final Complete Nasal Washing NEGATIVE FOR FLU A AND B ANTIGEN.... 01/15/17 18:39 Legionella Antigen - Final Complete Urine Random Urine PRESUMPTIVE NEGATIVE FOR LEGIONELLA P... 01/15/17 18:39 Streptococcus pneumoniae Antigen (M - Final Complete Urine Random Urine PRESUMPTIVE NEGATIVE FOR STREPTOCOCCU... Laboratory Tests Test 01/17/17 01/17/17 01/17/17 18:30 20:25 22:45 Blood Gas Puncture Site RT RADIAL SCV ART LINE Blood Gas Patient Temperature 98.6 98.6 98.6 Blood Gas HCO3 17 mmol/L 22 mmol/L (22-26) (22-26) Blood Gas Base Excess -7.0 mmol/L -2.7 mmol/L (-2-2) (-2-2) Blood Gas Oxygen Saturation 96 % (90-100) 97 % (90-100) Arterial Blood pH 7.38 7.34 (7.380-7.420) (7.380-7.420) Arterial Blood Partial 30 mmHg (38-42) 42 mmHg (38-42) Pressure CO2 Arterial Blood Partial 123 mmHg 207 mmHg Pressure O2 (61-120) (61-120) Arterial Blood Oxygen Content 11.1 Vol % 15.3 Vol % (12.0-20.0) (12.0-20.0) Arterial Blood 1.2 % (0-4) 1.0 % (0-4) Carboxyhemoglobin Arterial Blood Methemoglobin 1.1 % (0-2) 1.2 % (0-2) Blood Gas Hemoglobin 8.1 G/DL 10.9 G/DL (12.0-16.0) (12.0-16.0) Oxygen Delivery Device Non-Rebreathing VENTILATOR VENTILATOR Mask Blood Gas Liter Flow 15 L/M Blood Gas Inspired Oxygen 100 % 100 % 75 % Venous Blood pH 7.17 (7.360-7.400) Venous Blood Partial Pressure 52 mmHg (44-48) CO2 Venous Blood Partial Pressure 49 mmHg (35-40) O2 Venous Blood HCO3 18 mmol/L (22-26) Venous Blood Oxygen Saturation 68 % (70-76) Venous Blood Oxygen Content 7.1 Vol % (9.0-17.0) Venous Blood Base Excess -9.1 mmol/L (-2-2) Blood Gas Ventilator Setting COMMENT COMMENT Imaging CT Chest: Diffuse juanita consolidation Objective Remarks Gen: Critically ill elderly female, sedated with propofol Head: Normal. ENT: Orotracheally intubated Neck: Supple, patent. Lungs: Diffuse rhonchi, and crackles good air movement, on PRBC mode of ventilation Heart: NL S1S2, tachycardic hypotensive on vasopressin and milrinone. Bedside echo RV dilated with septal flattening Abdomen: Soft, ND, NT, quiet. Extremities: Peripheral pulses are weak, poorly perfused Skin: Skin mottled Neuro: Intubated sedated. On sedation lightening able to wake up follow commands Urinary Catheter: Yes Assessment to: Continue Date of Insertion: Jan 11, 2017 A/P Assessment and Plan Assessment: Acute hypoxemic respiratory failure. ARDS Septic and cardiogenic shock RV dilation/dysfunction on echo Bilateral multilobar pneumonia. Metabolic Acidosis secondary to lactic acidosis COPD Anemia requiring transfusion Thrombocytopenia Invasive bladder cancer status post TURBT Plan: Neuro: - Propofol for sedation and ventilator synchrony - Start sedation vacation in 24 hours Resp: - PRVC vent mode, low tidal volume ventilation - DuoNeb every 6 hours and when necessary - IV hydrocortisone 50 mg every 6 hours - Ventilator bundle CVS: - Initiate flow track monitoring - Titrate milrinone to target cardiac index more than 2.2 - Vasopressin and Jay-Synephrine as needed to keep map above 65. Did not tolerate Levophed - RV dysfunction is most likely secondary to severe pneumonia/ARDS. PE seems unlikely - Formal echo pending - Serial troponin GI: - Nothing by mouth, IV famotidine - Start tube feeds in 24 hours if hemodynamics have improved : - Acute kidney insufficiency secondary to severe sepsis and shock - Monitor intake output, Mercedes catheter - Avoid nephrotoxic drugs - Target urine output > 30/hr HEME: - 2 units PRBC today - Thrombocytopenia most likely secondary to sepsis - Dr. Corbett Oncologist following for bladder cancer ID: - Repeat blood urine and sputum cultures, septic shock most likely from severe pneumonia - Continue azithromycin and meropenem. Add Zyvox and Micafungin - Urine culture 01/13 C Glabrata Endo: - Electrolyte replacement per protocol, sliding scale insulin Prophylaxis: - Famotidine. Hold Lovenox due to anemia requiring transfusion Overall impression: Critically ill with severe sepsis, metabolic acidosis, and hypoxemic respiratory failure. Requiring multiple vasopressors and inotropes on blood transfusions to maintain map and urine output. CCT 78 MIN Tra Benjamin MD Jan 18, 2017 10:12
[2017-01-18] MEDS ORDERED: LINEZOLID 600 MG PREMIX 300 ML IV SCH (10:15)
[2017-01-18] MEDS ORDERED: FAMOTIDINE 20 MG/2 ML VIAL IV PUSH SCH (10:15)
--- NOTE | 2017-01-18 10:34 | RADRPT ---
EXAM DATE/TIME: 01/18/2017 10:09 [facility] COMPARISON: No previous studies available for comparison. INDICATIONS : Respiratory distress. MEDICAL HISTORY : None. SURGICAL HISTORY : None. ENCOUNTER: Initial ACUITY: 1 day PAIN SCORE: Non-responsive. LOCATION: Bilateral chest FINDINGS: A single view of the chest demonstrates the endotracheal tube, left subclavian central line and nasog astric tube are in good position. Diffuse patchy airspace disease throughout the lungs. No visible pn eumothorax.. The cardiomediastinal contours are unremarkable. Osseous structures are intact. CONCLUSION: Patchy airspace disease is unchanged. Tubes and catheters in good position. Major John MD on January 18, 2017 at 10:32 Board Certified Radiologist. This report was verified electronically.
[2017-01-18] MEDS: INSULIN NovoLIN REGULAR SUPPLEMENTAL SCALE SQ SCH ×4 (10:45→22:45)
[2017-01-18] MEDS ORDERED: diphenhydrAMINE HCL 50 MG/ML VIAL IV PUSH SCH (11:00)
[2017-01-18] MEDS ORDERED: PHARMACY ORDERED LAB ONE (11:45)
[2017-01-18] MEDS: VASOPRESSIN INJ 40 UNITS in DEXTROSE 5% IN WATER 100ML INJ 98 ML IV SCH ×2 (11:55)
[2017-01-18] MEDS: FAMOTIDINE 20 MG/2 ML VIAL IV PUSH SCH ×2 (11:56→23:02)
[2017-01-18] MEDS ORDERED: MILRINONE INJ 20 MG in SODIUM CHLORIDE 0.9% INJ 80 ML IV SCH (12:00)
[2017-01-18] MEDS: MILRINONE INJ 20 MG in SODIUM CHLORIDE 0.9% INJ 80 ML IV SCH ×3 (12:08→23:02)
[2017-01-18] MEDS ORDERED: BUMETANIDE INJ 1 MG/4 ML VIAL IV PUSH ONE (12:15)
[2017-01-18] MEDS ORDERED: SODIUM CHLOR 0.9% 1000 ML INJ 1,000 ML IV ONE (12:30)
[2017-01-18 12:58] LABS: BLOOD GAS VENOUS BASE EXCESS 5.6 mmol/L (-2-2); BLOOD GAS VENOUS HCO3 30 mmol/L (22-26); BLOOD GAS VENOUS O2 CONTENT 7.7 Vol % (9.0-17.0); BLOOD GAS VENOUS O2 HGB SAT 55 % (70-76); BLOOD GAS VENOUS PCO2 48 mmHg (44-48); BLOOD GAS VENOUS PO2 30 mmHg (35-40); BLOOD GAS VENOUS pH 7.41 (7.360-7.400); CRITICAL VALUE NO; OXYGEN DEVICE VENTILATOR; TEMP CORR TO 98.6
[2017-01-18 12:59] LABS: DRAW SITE CENTRAL LINE; FIO2 40 %; STAT NO; VENT SETTINGS PRVC/AC 500/22
[2017-01-18 13:01] LABS: BLOOD GAS BASE EXCESS 3.3 mmol/L (-2-2); BLOOD GAS CARBOXYHEMOGLOBIN 1.8 % (0-4); BLOOD GAS HCO3 27 mmol/L (22-26); BLOOD GAS METHEMOGLOBIN 1.6 % (0-2); BLOOD GAS O2 HGB SATURATION 92 % (90-100); BLOOD GAS OXYGEN CONTENT 12.6 Vol % (12.0-20.0); BLOOD GAS PCO2 37 mmHg (38-42); BLOOD GAS PO2 70 mmHg (61-120); BLOOD GAS TOTAL HGB 9.7 G/DL (12.0-16.0); CRITICAL VALUE NO; OXYGEN DEVICE VENTILATOR; TEMP CORR TO 98.6
[2017-01-18 13:02] LABS: DRAW SITE ART LINE; FIO2 40 %; STAT NO; VENT SETTINGS PRVC/AC 500/22/
--- NOTE | 2017-01-18 13:57 | HHI.GIFU ---
Subjective Remarks Patient is critically ill, she is sedated on a vent. worsening WBC, and a drop in hgb, no obvious bleeding per nurse. She has received blood (Doreen Vargas) Objective Vitals I&O Vital Signs Date Time Temp Pulse Resp B/P Pulse Ox O2 Delivery O2 Flow Rate FiO2 01/18/17 12:00 97 103/74 106/63 01/18/17 12:00 40 01/18/17 11:09 98 40 01/18/17 08:00 50 01/18/17 07:12 100 45 01/18/17 06:00 94 01/18/17 04:00 96 01/18/17 04:00 99.1 96 20 112/73 100 117/73 01/18/17 04:00 50 01/18/17 02:45 100 22 114/83 100 126/78 01/18/17 02:30 100 17 129/80 100 01/18/17 02:15 101 19 138/84 100 01/18/17 02:00 100 01/18/17 02:00 100 24 138/93 100 147/87 01/18/17 01:45 101 20 143/86 100 01/18/17 01:30 103 20 127/88 100 138/82 01/18/17 01:27 99 50 01/18/17 01:15 104 16 125/73 100 01/18/17 01:00 106 16 109/67 100 110/64 01/18/17 00:45 108 17 94/52 100 01/18/17 00:30 106 22 91/50 100 01/18/17 00:15 99.2 108 20 97/51 99 01/18/17 00:00 108 21 77/53 99 96/48 01/18/17 00:00 108 01/17/17 23:45 111 30 107/58 99 01/17/17 23:30 108 23 78/56 98 104/53 01/17/17 23:15 108 25 112/60 98 01/17/17 23:00 109 23 89/57 100 110/59 01/17/17 22:41 112 27 103/67 100 01/17/17 22:30 114 29 89/59 100 01/17/17 22:12 100 75 01/17/17 22:12 122 28 71/51 100 01/17/17 22:00 122 27 67/51 100 01/17/17 22:00 122 01/17/17 21:41 126 31 110/74 100 01/17/17 21:30 124 30 77/59 100 01/17/17 21:22 124 29 83/48 100 01/17/17 21:15 129 32 100 01/17/17 21:00 129 32 86/60 100 01/17/17 20:45 130 32 100 01/17/17 20:30 130 31 100 01/17/17 20:15 130 22 100 01/17/17 20:03 129 16 111/58 100 01/17/17 20:00 129 01/17/17 20:00 100 Mechanical Ventilator 100 01/17/17 19:45 130 16 100 01/17/17 19:30 132 21 90/65 99 01/17/17 19:20 100 100 01/17/17 19:15 122 36 79 01/17/17 19:00 123 39 78 01/17/17 18:00 120 01/17/17 16:00 126 01/17/17 16:00 99.4 126 36 129/79 98 01/17/17 15:27 122 01/17/17 15:00 122 01/17/17 14:32 117 01/17/17 14:00 114 I/O 01/17/17 01/17/17 01/17/17 01/18/17 01/18/17 01/18/17 07:00 15:00 23:00 07:00 15:00 23:00 Intake Total 944 ml 1004 ml 2170 ml Output Total 350 ml 300 ml 325 ml Balance 594 ml 704 ml 1845 ml Intake Oral 150 ml 150 ml IV Total 794 ml 854 ml 2170 ml Output Urine Total 350 ml 300 ml 325 ml # Bowel Movements 0 Laboratory Laboratory Tests Test 01/17/17 01/17/17 01/17/17 01/17/17 18:30 19:00 20:25 20:36 Blood Gas Puncture Site RT RADIAL SCV Blood Gas Patient Temperature 98.6 98.6 Blood Gas HCO3 17 Blood Gas Base Excess -7.0 Blood Gas Oxygen Saturation 96 Arterial Blood pH 7.38 Arterial Blood Partial 30 Pressure CO2 Arterial Blood Partial 123 Pressure O2 Arterial Blood Oxygen Content 11.1 Arterial Blood 1.2 Carboxyhemoglobin Arterial Blood Methemoglobin 1.1 Blood Gas Hemoglobin 8.1 Oxygen Delivery Device Non-Rebreathing VENTILATOR Mask Blood Gas Liter Flow 15 Blood Gas Inspired Oxygen 100 100 Prothrombin Time 13.8 Prothromb Time International 1.2 Ratio Activated Partial 22.8 Thromboplast Time Fibrinogen 484 B-Type Natriuretic Peptide 1017 Venous Blood pH 7.17 Venous Blood Partial Pressure 52 CO2 Venous Blood Partial Pressure 49 O2 Venous Blood HCO3 18 Venous Blood Oxygen Saturation 68 Venous Blood Oxygen Content 7.1 Venous Blood Base Excess -9.1 Blood Gas Ventilator Setting COMMENT Lactic Acid Level 6.4 Troponin I 0.13 Test 01/17/17 01/18/17 01/18/17 01/18/17 22:45 00:16 03:34 07:11 Blood Gas Puncture Site ART LINE Blood Gas Patient Temperature 98.6 Blood Gas HCO3 22 Blood Gas Base Excess -2.7 Blood Gas Oxygen Saturation 97 Arterial Blood pH 7.34 Arterial Blood Partial 42 Pressure CO2 Arterial Blood Partial 207 Pressure O2 Arterial Blood Oxygen Content 15.3 Arterial Blood 1.0 Carboxyhemoglobin Arterial Blood Methemoglobin 1.2 Blood Gas Hemoglobin 10.9 Oxygen Delivery Device VENTILATOR Blood Gas Ventilator Setting COMMENT Blood Gas Inspired Oxygen 75 Lactic Acid Level 4.9 White Blood Count 27.8 Red Blood Count 2.53 Hemoglobin 6.8 Hematocrit 20.9 Mean Corpuscular Volume 82.7 Mean Corpuscular Hemoglobin 26.7 Mean Corpuscular Hemoglobin 32.3 Concent Red Cell Distribution Width 15.2 Platelet Count 81 Mean Platelet Volume 8.4 Sodium Level 146 Potassium Level 3.5 Chloride Level 109 Carbon Dioxide Level 29.6 Anion Gap 7 Blood Urea Nitrogen 23 Creatinine 0.93 Estimat Glomerular Filtration 60 Rate Random Glucose 257 Calcium Level 7.2 Protein Corrected Calcium 8.3 Total Protein 5.0 Blood Type O POSITIVE O POSITIVE Antibody Screen NEGATIVE Crossmatch Leukocyte-Reduced Leukocyte-Reduced Red Blood Red Blood Cells Cells Blood Bank Comment Test 01/18/17 01/18/17 01/18/17 11:00 12:50 12:55 Lactic Acid Level 2.3 Troponin I 0.08 Blood Gas Puncture Site CENTRAL LINE ART LINE Blood Gas Patient Temperature 98.6 98.6 Venous Blood pH 7.41 Venous Blood Partial Pressure 48 CO2 Venous Blood Partial Pressure 30 O2 Venous Blood HCO3 30 Venous Blood Oxygen Saturation 55 Venous Blood Oxygen Content 7.7 Venous Blood Base Excess 5.6 Oxygen Delivery Device VENTILATOR VENTILATOR Blood Gas Ventilator Setting PRVC/AC 500/22 PRVC/AC 500/22/ Blood Gas Inspired Oxygen 40 40 Blood Gas HCO3 27 Blood Gas Base Excess 3.3 Blood Gas Oxygen Saturation 92 Arterial Blood pH 7.47 Arterial Blood Partial 37 Pressure CO2 Arterial Blood Partial 70 Pressure O2 Arterial Blood Oxygen Content 12.6 Arterial Blood 1.8 Carboxyhemoglobin Arterial Blood Methemoglobin 1.6 Blood Gas Hemoglobin 9.7 Date/Time Procedure Status Source Growth 01/18/17 11:20 Urine Culture Received Urine Catheterized Urine Pending 01/17/17 15:55 Gram Stain - Final Resulted Sputum Expectorated Sputum 01/17/17 15:55 Sputum Culture - Preliminary Resulted Sputum Expectorated Sputum NO GROWTH IN 24 HOURS. 01/15/17 18:39 Legionella Antigen - Final Complete Urine Random Urine PRESUMPTIVE NEGATIVE FOR LEGIONELLA P... 01/15/17 18:39 Streptococcus pneumoniae Antigen (M - Final Complete Urine Random Urine PRESUMPTIVE NEGATIVE FOR STREPTOCOCCU... 01/15/17 18:39 Influenza Types A,B Antigen (FLORI) - Final Complete Nasal Washing NEGATIVE FOR FLU A AND B ANTIGEN.... 01/13/17 20:08 Urine Culture - Final Complete Urine Catheterized Urine Kaity [place] 01/13/17 18:50 Aerobic Blood Culture - Final Complete Blood Peripheral NO GROWTH IN 5 DAYS 01/13/17 18:50 Anaerobic Blood Culture - Final Complete Blood Peripheral NO GROWTH IN 5 DAYS Imaging Last Impressions Chest X-Ray 01/18/17 0000 Signed Impressions: Service Date/Time: Wednesday, January 18, 2017 10:09 - CONCLUSION: Patchy airspace disease is unchanged. Tubes and catheters in good position. Major John MD Liver Ultrasound 01/17/17 0000 Signed Impressions: Service Date/Time: Tuesday, January 17, 2017 17:05 - CONCLUSION: There is no intrahepatic biliary duct dilatation. Liver is grossly free of focal defects. London Frazier MD FACR Chest CT 01/15/17 0000 Signed Impressions: Service Date/Time: January 10:16 - CONCLUSION: Extensive scattered areas of parenchymal consolidation are seen throughout both lung lucas predominately along the peripheral aspect of both lungs. There are also scattered bilateral interstitial infiltrates. These infiltrates appear to be overlying central lobar emphysema. Madi Marvin MD Physical Exam HEENT: Normocephalic; atraumatic CHEST: Resp. crackles and rhonchi intubated CARDIAC: tachycardiac ABDOMEN: Soft, nondistended, nontender; no hepatosplenomegaly; bowel sounds are present in all four quadrants. EXTREMITIES: Generalized edema. SKIN: Normal; no rash; no jaundice. MEDIC TECHNICIAN: sedated on a vent (Doreen Vargas) Assessment and Plan Plan ASSESSMENT: - Dysphagia. GI consulted for dysphagia. She reports that she is not eating much, but not so much because of dysphagia, but because of her shortness of breath. She states she gets tired just from speaking. She states her throat is sore, but she is not having painful swallowing. Dysphagia but too SOB to swallow much anyway. She has kaity in urine. Could have kaity in esophagus. Nystatin, Pepcid. - Abnormal LFTs of uncertain significance. Improving. - Bilateral pneumonia with borderline respiratory failure. Chest X-Ray (01/13/17) ----> Patchy bilateral areas of peripheral partially consolidative infiltrate in both lungs. No evidence of pleural effusion. Chest CT (01/15/17)----> Extensive scattered areas of parenchymal consolidation are seen throughout both lung lucas predominately along the peripheral aspect of both lungs. There are also scattered bilateral interstitial infiltrates. These infiltrates appear to be overlying central lobar emphysema. Vanco, Meropenem, Azithromycin, nebs, - Hx Bladder cancer. 01/18/17- Patient was intubated last night, increase in WBC and drop in hgb, no active bleeding reported, Patient on pressors, not stable for invasive procedures Plan: - Diet per CCM - Cont. pepcid - Monitor hh - Transfuse as needed - Patient not stable for EGD at this time, she is on pressors, will consider once medically stable - Pt seen and examined by Dr. Flores and myself (Doreen Vargas) Physician Comments seen, examined agree with above going to ct abdomen/pelvis now if stools -c diff no bm since admission rash on lower extremities persistent , possible secondary cefepime (Nisha Flores MD) Doreen Vargas Jan 18, 2017 13:57 Nisha Flores MD Jan 18, 2017 18:15
[2017-01-18] MEDS: MICAFUNGIN INJ 100 MG in SODIUM CHLORIDE 0.9% INJ 100 ML IV SCH (14:27)
[2017-01-18 14:40] LABS: AUTOMATED NEUTROPHIL # 24.5 TH/MM3 (1.8-7.7); BASOPHIL # 0.1 TH/MM3 (0-0.2); BASOPHIL % 0.4 % (0.0-2.0); EOSINOPHIL # 0.1 TH/MM3 (0-0.4); EOSINOPHIL % 0.2 % (0.0-4.0); HEMATOCRIT 27.9 % (35.0-46.0); LYMPH % 4.1 % (9.0-44.0); LYMPHOCYTE # 1.1 TH/MM3 (1.0-4.8); MEAN CELL VOLUME 81.6 FL (80.0-100.0); MEAN CORPUSCULAR HGB CONC 34.4 % (32.0-36.0); MONO % 3.7 % (0.0-8.0); NEUT % 91.6 % (16.0-70.0); PLATELET COUNT 63 TH/MM3 (150-450); RED BLOOD COUNT 3.42 MIL/MM3 (4.00-5.30); RED CELL DISTRIBUTION WIDTH 14.1 % (11.6-17.2); WHITE BLOOD COUNT 26.7 TH/MM3 (4.0-11.0)
--- NOTE | 2017-01-18 14:48 | HHI.IDPN ---
Subjective Subjective Remarks Not doing well Anuric Remains on vent No sputum production On pressors, low dose nepsynephrine and vasopressine 0.04 Antibiotics meropenem azithro zyvox Past Medical History bladder ca Allergies: Coded Allergies: Contrast Media (Verified Allergy, Severe, respiratory distress, 01/13/17) Penicillin (Verified Allergy, Intermediate, rash, 01/13/17) Uncoded Allergies: cefepime (Allergy, Intermediate, Rash, 01/15/17) pruritic rash Objective . Vital Signs Date Time Temp Pulse Resp B/P Pulse Ox O2 Delivery O2 Flow Rate FiO2 01/18/17 12:00 97 103/74 106/63 01/18/17 12:00 40 01/18/17 11:09 98 40 01/18/17 08:00 50 01/18/17 07:12 100 45 01/18/17 06:00 94 01/18/17 04:00 96 01/18/17 04:00 99.1 96 20 112/73 100 117/73 01/18/17 04:00 50 01/18/17 02:45 100 22 114/83 100 126/78 01/18/17 02:30 100 17 129/80 100 01/18/17 02:15 101 19 138/84 100 01/18/17 02:00 100 01/18/17 02:00 100 24 138/93 100 147/87 01/18/17 01:45 101 20 143/86 100 01/18/17 01:30 103 20 127/88 100 138/82 01/18/17 01:27 99 50 01/18/17 01:15 104 16 125/73 100 01/18/17 01:00 106 16 109/67 100 110/64 01/18/17 00:45 108 17 94/52 100 01/18/17 00:30 106 22 91/50 100 01/18/17 00:15 99.2 108 20 97/51 99 01/18/17 00:00 108 21 77/53 99 96/48 01/18/17 00:00 108 01/17/17 23:45 111 30 107/58 99 01/17/17 23:30 108 23 78/56 98 104/53 01/17/17 23:15 108 25 112/60 98 01/17/17 23:00 109 23 89/57 100 110/59 01/17/17 22:41 112 27 103/67 100 01/17/17 22:30 114 29 89/59 100 01/17/17 22:12 100 75 01/17/17 22:12 122 28 71/51 100 01/17/17 22:00 122 27 67/51 100 01/17/17 22:00 122 01/17/17 21:41 126 31 110/74 100 01/17/17 21:30 124 30 77/59 100 01/17/17 21:22 124 29 83/48 100 01/17/17 21:15 129 32 100 01/17/17 21:00 129 32 86/60 100 01/17/17 20:45 130 32 100 01/17/17 20:30 130 31 100 01/17/17 20:15 130 22 100 01/17/17 20:03 129 16 111/58 100 01/17/17 20:00 129 01/17/17 20:00 100 Mechanical Ventilator 100 01/17/17 19:45 130 16 100 01/17/17 19:30 132 21 90/65 99 01/17/17 19:20 100 100 01/17/17 19:15 122 36 79 01/17/17 19:00 123 39 78 01/17/17 18:00 120 01/17/17 16:00 126 01/17/17 16:00 99.4 126 36 129/79 98 01/17/17 15:27 122 01/17/17 15:00 122 01/17/17 01/17/17 01/18/17 15:00 23:00 07:00 Intake Total 1004 ml 2170 ml Output Total 300 ml 325 ml Balance 704 ml 1845 ml Intake Oral 150 ml IV Total 854 ml 2170 ml Output Urine Total 300 ml 325 ml # Bowel Movements 0 . Laboratory Tests Test 01/17/17 01/18/17 06:15 03:34 White Blood Count 23.6 TH/MM3 27.8 TH/MM3 Red Blood Count 3.07 MIL/MM3 2.53 MIL/MM3 Hemoglobin 8.1 GM/DL 6.8 GM/DL Hematocrit 25.7 % 20.9 % Mean Corpuscular Volume 83.7 FL 82.7 FL Mean Corpuscular Hemoglobin 26.3 PG 26.7 PG Mean Corpuscular Hemoglobin 31.4 % 32.3 % Concent Red Cell Distribution Width 14.8 % 15.2 % Platelet Count 147 TH/MM3 81 TH/MM3 Mean Platelet Volume 9.7 FL 8.4 FL Haptoglobin 415 MG/DL Laboratory Tests Test 01/17/17 01/17/17 01/17/17 01/18/17 06:15 19:00 20:36 00:16 Sodium Level 143 MEQ/L Potassium Level 3.9 MEQ/L Chloride Level 110 MEQ/L Carbon Dioxide Level 25.8 MEQ/L Anion Gap 7 MEQ/L Blood Urea Nitrogen 13 MG/DL Creatinine 0.53 MG/DL Estimat Glomerular Filtration 115 ML/MIN Rate Random Glucose 118 MG/DL Calcium Level 7.8 MG/DL Iron Level 65 MCG/DL Total Iron Binding Capacity 141 MCG/DL Percent Iron Saturation 46.0 % Ferritin 653 NG/ML Total Bilirubin 0.5 MG/DL Direct Bilirubin 0.1 MG/DL Indirect Bilirubin 0.4 MG/DL Aspartate Amino Transf 35 U/L (AST/SGOT) Alanine Aminotransferase 84 U/L (ALT/SGPT) Alkaline Phosphatase 123 U/L Lactate Dehydrogenase 506 U/L Total Protein 5.5 GM/DL Albumin 1.7 GM/DL Vitamin B12 Level GREATER THAN 2000 PG/ML B-Type Natriuretic Peptide 1017 PG/ML Lactic Acid Level 6.4 mmol/L 4.9 mmol/L Troponin I 0.13 NG/ML Test 01/18/17 01/18/17 03:34 11:00 Sodium Level 146 MEQ/L Potassium Level 3.5 MEQ/L Chloride Level 109 MEQ/L Carbon Dioxide Level 29.6 MEQ/L Anion Gap 7 MEQ/L Blood Urea Nitrogen 23 MG/DL Creatinine 0.93 MG/DL Estimat Glomerular Filtration 60 ML/MIN Rate Random Glucose 257 MG/DL Calcium Level 7.2 MG/DL Protein Corrected Calcium 8.3 MG/DL Total Protein 5.0 GM/DL Lactic Acid Level 2.3 mmol/L Troponin I 0.08 NG/ML Microbiology Date/Time Procedure Status Source Growth 01/15/17 18:39 Influenza Types A,B Antigen (FLORI) - Final Complete Nasal Washing NEGATIVE FOR FLU A AND B ANTIGEN.... 01/15/17 18:39 Legionella Antigen - Final Complete Urine Random Urine PRESUMPTIVE NEGATIVE FOR LEGIONELLA P... 01/15/17 18:39 Streptococcus pneumoniae Antigen (M - Final Complete Urine Random Urine PRESUMPTIVE NEGATIVE FOR STREPTOCOCCU... 01/17/17 15:55 Gram Stain - Final Resulted Sputum Expectorated Sputum 01/17/17 15:55 Sputum Culture - Preliminary Resulted Sputum Expectorated Sputum NO GROWTH IN 24 HOURS. 01/18/17 11:20 Urine Culture Received Urine Catheterized Urine Pending Imaging Last Impressions Chest X-Ray 01/18/17 0000 Signed Impressions: Service Date/Time: Wednesday, January 18, 2017 10:09 - CONCLUSION: Patchy airspace disease is unchanged. Tubes and catheters in good position. Major John MD Liver Ultrasound 01/17/17 0000 Signed Impressions: Service Date/Time: Tuesday, January 17, 2017 17:05 - CONCLUSION: There is no intrahepatic biliary duct dilatation. Liver is grossly free of focal defects. London Frazier MD FACR Chest CT 01/15/17 0000 Signed Impressions: Service Date/Time: , January 16, 2017 10:16 - CONCLUSION: Extensive scattered areas of parenchymal consolidation are seen throughout both lung lucas predominately along the peripheral aspect of both lungs. There are also scattered bilateral interstitial infiltrates. These infiltrates appear to be overlying central lobar emphysema. Madi Marvin MD Physical Exam CONSTITUTIONAL/GENERAL: This is an adequately nourished patient, in mild resp apparent distress. TUBES/LINES/DRAINS: SKIN: No jaundice, , or lesions. . Skin temperature appropriate. Not diaphoretic. Diffuse pale macular rash, on abdomen arms and legs, unchanged since HEAD: Atraumatic. Normocephalic. EYES: No scleral icterus. No injection or drainage. Fundi not examined. ENT: Poor dentition CARDIOVASCULAR: Regular rate and rhythm without murmurs, gallops, or rubs. No JVD. Peripheral pulses symmetric. RESPIRATORY/CHEST: Symmetric, labored respirations. Breath sounds equal bilaterally. Clear to auscultation. No rhonchi GASTROINTESTINAL: Abdomen soft, appreas diffusely tender to palpation (grimacing ), moderately distended. No hepato-splenomegaly, or palpable masses. No guarding. Bowel sounds present. GENITOURINARY: Without palpable bladder distension. Mcgee catheter in place with scant amount of yellow urine MUSCULOSKELETAL: Extremities without clubbing, cyanosis, + diffuse 2+ edema. 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
[2017-01-18 14:57] LABS: HEMO FLAGS AUTO DIFF
[2017-01-18] MEDS ORDERED: DIATRIZOATE MEGLUM/DIATRIZOATE SOD 9 ML CUP PO ONE (15:15)
[2017-01-18] MEDS: ENOXAPARIN SODIUM 40 MG/0.4 ML SYRINGE SQ SCH (15:53)
[2017-01-18] MEDS: SODIUM BICARBONATE 8.4% INJ 150 MEQ in DEXTROSE 5% IN WATE 1000ML INJ 1,000 ML IV SCH ×2 (16:20)
[2017-01-18 16:22] LABS: BANDS 5 % (0-6); BASOPHILS 1 % (0-2); NEUTROPHIL # MANUAL DIFF 25.6 TH/MM3 (1.8-7.7); PLASMA CELLS 1 % (0-0); PLATELET ESTIMATE SMEAR LOW (NORMAL); PLATELET MORPHOLOGY NORMAL (NORMAL); POLYS (SEG NEUTROPHILS) 91 % (16-70); SCAN/DIFF FINAL DIFF MANUAL; WBC DIFF SAMPLE 100
[2017-01-18 16:24] LABS: BICARBONATE 29.5 MEQ/L (21.0-32.0); CALCIUM-PROTEIN CORRECTED 8.2 MG/DL (8.5-10.1); TOTAL BILIRUBIN ADULT 0.7 MG/DL (0.2-1.0)
[2017-01-18 16:27] LABS: POTASSIUM 2.8 MEQ/L (3.5-5.1)
[2017-01-18] MEDS: AZITHROMYCIN INJ 500 MG in SODIUM CHLOR 0.9% 250 ML INJ 250 ML IV SCH (17:18)
[2017-01-18] MEDS: POTASSIUM CHLOR 40 MEQ PREMIX 100 ML IV SCH ×2 (17:18→19:48)
[2017-01-18] MEDS ORDERED: POTASSIUM CHLORIDE 25 MEQ EFFERVESCENT TAB PO ONE (18:00)
--- NOTE | 2017-01-18 19:08 | HHI.PR ---
Subjective Remarks 4Went into respiratory failure last PM . Now intubated.On FIO2 40% . On pressors and sedated. CXR shows Bilateral infiltrates. Objective Vital Signs Date Time Temp Pulse Resp B/P Pulse Ox O2 Delivery O2 Flow Rate FiO2 01/18/17 18:00 95 01/18/17 18:00 95 98/78 106/66 01/18/17 16:00 97 01/18/17 16:00 98.0 92 22 106/75 93 110/65 01/18/17 16:00 40 01/18/17 15:36 92 40 01/18/17 14:00 96 01/18/17 12:00 97 103/74 106/63 01/18/17 12:00 40 01/18/17 12:00 98.5 97 31 103/74 97 106/63 01/18/17 12:00 97 01/18/17 11:09 98 40 01/18/17 10:00 104 01/18/17 08:00 98.7 100 26 91/62 100 100/60 01/18/17 08:00 100 01/18/17 08:00 50 01/18/17 07:12 100 45 01/18/17 07:00 99 Mechanical Ventilator 50 01/18/17 06:00 94 01/18/17 04:00 96 01/18/17 04:00 99.1 96 20 112/73 100 117/73 01/18/17 04:00 50 01/18/17 02:45 100 22 114/83 100 126/78 01/18/17 02:30 100 17 129/80 100 01/18/17 02:15 101 19 138/84 100 01/18/17 02:00 100 01/18/17 02:00 100 24 138/93 100 147/87 01/18/17 01:45 101 20 143/86 100 01/18/17 01:30 103 20 127/88 100 138/82 01/18/17 01:27 99 50 01/18/17 01:15 104 16 125/73 100 01/18/17 01:00 106 16 109/67 100 110/64 01/18/17 00:45 108 17 94/52 100 01/18/17 00:30 106 22 91/50 100 01/18/17 00:15 99.2 108 20 97/51 99 01/18/17 00:00 108 21 77/53 99 96/48 01/18/17 00:00 108 01/17/17 23:45 111 30 107/58 99 01/17/17 23:30 108 23 78/56 98 104/53 01/17/17 23:15 108 25 112/60 98 01/17/17 23:00 109 23 89/57 100 110/59 01/17/17 22:41 112 27 103/67 100 01/17/17 22:30 114 29 89/59 100 01/17/17 22:12 100 75 01/17/17 22:12 122 28 71/51 100 01/17/17 22:00 122 27 67/51 100 01/17/17 22:00 122 01/17/17 21:41 126 31 110/74 100 01/17/17 21:30 124 30 77/59 100 01/17/17 21:22 124 29 83/48 100 01/17/17 21:15 129 32 100 01/17/17 21:00 129 32 86/60 100 01/17/17 20:45 130 32 100 01/17/17 20:30 130 31 100 01/17/17 20:15 130 22 100 01/17/17 20:03 129 16 111/58 100 01/17/17 20:00 129 01/17/17 20:00 100 Mechanical Ventilator 100 01/17/17 19:45 130 16 100 01/17/17 19:30 132 21 90/65 99 01/17/17 19:20 100 100 01/17/17 19:15 122 36 79 01/17/17 19:00 123 39 78 I/O 01/17/17 01/17/17 01/17/17 01/18/17 01/18/17 01/18/17 07:00 15:00 23:00 07:00 15:00 23:00 Intake Total 944 ml 1004 ml 2170 ml 2560 ml Output Total 350 ml 300 ml 325 ml 270 ml Balance 594 ml 704 ml 1845 ml 2290 ml Intake Oral 150 ml 150 ml IV Total 794 ml 854 ml 2170 ml 2560 ml Output Urine Total 350 ml 300 ml 325 ml 270 ml # Bowel Movements 0 0 Result Diagram: 01/18/17 1408 01/18/17 1408 Objective Remarks PHYSICAL EXAMINATION GENERAL: Elderly female sedated and intubated . HEENT: Examination pupils are equal and reactive to light. Oral mucosa, nasal mucosa normal. NECK: Supple. JVP not raised. LUNGS: She has bilateral scattered rales. CARDIOVASCULAR: S1-S2 normal.No murmur. ABDOMEN: Benign.BS+. EXTREMITIES: No edema.Neuro : Sedated. Assessment and Plan Assessment and Plan IMPRESSION 1. Sepsis. 2. Leukocytosis. 3. Bilateral patchy lung infiltrate. Pneumonia/ARDS 4. Lung nodule. She recently had a PET scan done at [place], 1.5 cm right lower lobe nodule, was not seen on the previous CT scan ,likely inflammatory process. 5. History of CA of the bladder. 6. Renal insufficiency. 7. Cardiogenic Shock. Plan : 1. Vent support , FIO2 40 % 2. Cont Nebs qid duoneb 3. Antibiotics as ordered 4. CBC,CXR ,BMP in am 5. NG tube with Feeds 30CC 6. Wean Pressors Kris Gould MD Jan 18, 2017 19:08
[2017-01-18 20:16] LABS: BICARBONATE 25.1 MEQ/L (21.0-32.0); CALCIUM-PROTEIN CORRECTED 8.4 MG/DL (8.5-10.1); TOTAL BILIRUBIN ADULT 0.7 MG/DL (0.2-1.0)
[2017-01-18 20:19] LABS: POTASSIUM 2.8 MEQ/L (3.5-5.1)
--- NOTE | 2017-01-18 21:44 | RADRPT ---
EXAM DATE/TIME: 01/18/2017 21:05 [facility] COMPARISON: No previous studies available for comparison. INDICATIONS : Breast cancer; possible metastatic disease. Parenchymal consolidation the lungs seen on chest CT ORAL CONTRAST: Prescribed oral contrast ingested. RADIATION DOSE: 17.54 CTDIvol (mGy) MEDICAL HISTORY : Carcinoma, bladder. Carcinoma, breast. Hypertension. SURGICAL HISTORY : Mastectomy, bilateral. ENCOUNTER: Subsequent ACUITY: 1 week PAIN SCALE: 6/10 LOCATION: abdomen TECHNIQUE: Volumetric scanning of the abdomen and pelvis was performed. Using automated exposure control and ad justment of the mA and/or kV according to patient size, radiation dose was kept as low as reasonably achievable to obtain optimal diagnostic quality images. DICOM format image data is available electro nically for review and comparison. FINDINGS: The study is degraded by mild motion and streak artifact. LOWER LUNGS: Multiple small areas of parenchymal consolidation are present in both lung bases. There is no effusio n. LIVER: Homogeneous density without lesion. There is no dilation of the biliary tree. No calcified gallston es. The gallbladder is at the upper limits of normal in size. SPLEEN: Normal size without lesion. PANCREAS: Within normal limits. KIDNEYS: Normal in size and shape. There is no mass, stone, or hydronephrosis. ADRENAL GLANDS: Within normal limits. VASCULAR: There is no aortic aneurysm. BOWEL/MESENTERY: A nasogastric tube is in place with the tip in the proximal duodenum. There is mild gaseous distentio n portions of the transverse colon. Contrast is noted throughout the colon. There are several loops o f nondilated air-containing small bowel several small air-fluid levels.. There is no free intraperit lofton air or fluid. ABDOMINAL WALL: Within normal limits. RETROPERITONEUM: There is no lymphadenopathy. BLADDER: No wall thickening or mass. A Mercedes catheter is present in the bladder. REPRODUCTIVE: Within normal limits. INGUINAL: There is no lymphadenopathy or hernia. MUSCULOSKELETAL: Within normal limits for patient age. CONCLUSION: 1. Mildly nonspecific, nonobstructive bowel gas pattern 2. The gallbladder is at the upper limits of normal in size but otherwise unremarkable. 3. Areas of parenchymal consolidation again noted in the lung bases. Paul Lou MD on January 18, 2017 at 21:38 Board Certified Radiologist. This report was verified electronically.
[2017-01-19] VITALS (21 sets, daily range): BP systolic 82–146; BP diastolic 49–103; PULSE 82–110; RESP 16–22; TEMP 97.9–98.6; O2SAT 93–100
[2017-01-19] MEDS: PROPOFOL 1000 MG/100 ML INJ 100 ML IV SCH ×2 (00:39→07:32)
[2017-01-19] MEDS: INSULIN NovoLIN REGULAR SUPPLEMENTAL SCALE SQ SCH ×6 (02:45→22:45)
[2017-01-19] MEDS: MEROPENEM INJ 1,000 MG in SODIUM CHLORIDE 0.9% INJ 100 ML IV SCH ×3 (03:38→19:56)
[2017-01-19] MEDS: MILRINONE INJ 20 MG in SODIUM CHLORIDE 0.9% INJ 80 ML IV SCH ×4 (03:40→19:56)
[2017-01-19] MEDS: RESP: ALBUTEROL 2.5 MG/IPRATROPIUM 0.5 MG NEB (SCH) NEB ×4 (04:00→21:48)
[2017-01-19] MEDS: SODIUM BICARBONATE 8.4% INJ 150 MEQ in DEXTROSE 5% IN WATE 1000ML INJ 1,000 ML IV SCH ×4 (04:51→07:32)
[2017-01-19] MEDS: LORazepam 0.5 MG TAB PO SCH ×3 (04:51→22:58)
[2017-01-19] MEDS: HYDROCORTISONE SOD SUCCINATE 100 MG VIAL IV PUSH SCH ×3 (04:51→17:35)
--- NOTE | 2017-01-19 05:34 | RADRPT ---
EXAM DATE/TIME: 01/19/2017 04:09 [facility] COMPARISON: CHEST SINGLE AP, January 18, 2017, 10:09. INDICATIONS : Shortness of breath, possible pulmonary disease. MEDICAL HISTORY : Carcinoma, bladder. Carcinoma, breast. Hypertension. SURGICAL HISTORY : Mastectomy, bilateral. ENCOUNTER: Subsequent ACUITY: 2 days PAIN SCORE: Non-responsive. LOCATION: Bilateral chest FINDINGS: A single view of the chest demonstrates bilateral patchy airspace disease again seen. Heart mildly en larged. Endotracheal tube, nasogastric tube and left subclavian central line stable in position. Oss eous structures are intact. CONCLUSION: Bilateral patchy airspace disease. Manny Otto MD on January 19, 2017 at 5:32 Board Certified Radiologist. This report was verified electronically.
[2017-01-19 05:40] LABS: AUTOMATED NEUTROPHIL # 32.9 TH/MM3 (1.8-7.7); BASOPHIL # 0.1 TH/MM3 (0-0.2); BASOPHIL % 0.2 % (0.0-2.0); EOSINOPHIL % 0.1 % (0.0-4.0); LYMPH % 3.3 % (9.0-44.0); LYMPHOCYTE # 1.2 TH/MM3 (1.0-4.8); MEAN CELL VOLUME 81.6 FL (80.0-100.0); MEAN CORPUSCULAR HEMOGLOBIN 27.1 PG (27.0-34.0); MEAN CORPUSCULAR HGB CONC 33.2 % (32.0-36.0); NEUT % 93.4 % (16.0-70.0); PLATELET COUNT 58 TH/MM3 (150-450); RED BLOOD COUNT 3.56 MIL/MM3 (4.00-5.30); RED CELL DISTRIBUTION WIDTH 14.2 % (11.6-17.2); WHITE BLOOD COUNT 35.2 TH/MM3 (4.0-11.0)
[2017-01-19] MEDS: VASOPRESSIN INJ 40 UNITS in DEXTROSE 5% IN WATER 100ML INJ 98 ML IV SCH ×2 (05:41)
[2017-01-19 05:47] LABS: HEMO FLAGS AUTO DIFF
[2017-01-19 06:02] LABS: BICARBONATE 28.3 MEQ/L (21.0-32.0); MAGNESIUM 1.5 MG/DL (1.5-2.5); POTASSIUM 3.5 MEQ/L (3.5-5.1)
[2017-01-19 06:05] LABS: CALCIUM-PROTEIN CORRECTED 8.5 MG/DL (8.5-10.1); TOTAL BILIRUBIN ADULT 0.8 MG/DL (0.2-1.0)
[2017-01-19 06:27] LABS: BANDS 3 % (0-6); MYELOCYTES 2 % (0-0); NEUTROPHIL # MANUAL DIFF 34.1 TH/MM3 (1.8-7.7); POLYS (SEG NEUTROPHILS) 92 % (16-70); WBC DIFF SAMPLE 100
[2017-01-19 06:28] LABS: KERATOCYTES 2+ (NORMAL); PLATELET ESTIMATE SMEAR LOW (NORMAL); PLATELET MORPHOLOGY NORMAL (NORMAL); SCAN/DIFF FINAL DIFF MANUAL
[2017-01-19] MEDS: DOCUSATE SODIUM 50 MG/SENNA 8.6 MG TAB PO SCH ×2 (07:06→19:57)
[2017-01-19 07:14] LABS: BLOOD GAS BASE EXCESS 3.5 mmol/L (-2-2); BLOOD GAS CARBOXYHEMOGLOBIN 1.7 % (0-4); BLOOD GAS HCO3 27 mmol/L (22-26); BLOOD GAS METHEMOGLOBIN 1.2 % (0-2); BLOOD GAS O2 HGB SATURATION 87 % (90-100); BLOOD GAS OXYGEN CONTENT 12.2 Vol % (12.0-20.0); BLOOD GAS PCO2 36 mmHg (38-42); BLOOD GAS PO2 55 mmHg (61-120); TEMP CORR TO 98.6
[2017-01-19 07:16] LABS: CRITICAL VALUE YES
[2017-01-19 07:17] LABS: OXYGEN DEVICE VENTILATOR
[2017-01-19 07:18] LABS: DRAW SITE ART LINE; FIO2 40 %; VENT SETTINGS PRVC/AC
[2017-01-19 07:21] LABS: STAT YES
[2017-01-19 07:23] LABS: BLOOD GAS VENOUS BASE EXCESS 5.1 mmol/L (-2-2); BLOOD GAS VENOUS HCO3 29 mmol/L (22-26); BLOOD GAS VENOUS O2 CONTENT 9.3 Vol % (9.0-17.0); BLOOD GAS VENOUS O2 HGB SAT 51 % (70-76); BLOOD GAS VENOUS PCO2 44 mmHg (44-48); BLOOD GAS VENOUS PO2 28 mmHg (35-40); BLOOD GAS VENOUS pH 7.44 (7.360-7.400); CRITICAL VALUE YES; OXYGEN DEVICE VENTILATOR; TEMP CORR TO 98.6
[2017-01-19 07:24] LABS: DRAW SITE CENTRAL LINE; FIO2 40 %; STAT YES; VENT SETTINGS PRVC/AC
[2017-01-19] MEDS: PHENYLEPHRINE INJ 160 MG in DEXTROSE 5% IN WATE 500 ML INJ 484 ML IV SCH ×2 (07:32)
[2017-01-19] MEDS: LINEZOLID 600 MG PREMIX 300 ML IV SCH ×2 (07:33→19:56)
[2017-01-19] MEDS: ALBUMIN HUMAN 25% 25 GM/100 ML BAGP IV SCH ×2 (07:33→19:56)
[2017-01-19] MEDS: NYSTATIN SUSP 500,000 U/5 ML CUP SWISH-SWAL SCH ×4 (07:33→19:57)
[2017-01-19] MEDS: SODIUM CHLORIDE 0.9% FLUSH 10 ML FLUSH IV FLUSH SCH ×2 (07:34→19:57)
[2017-01-19] MEDS: CHLORHEXIDINE 0.12% (ORAL KIT) 15 ML CUP MT SCH ×2 (07:34→19:57)
[2017-01-19] MEDS ORDERED: metroNIDAZOLE 500 MG INJ 100 ML IV SCH (08:00)
[2017-01-19] MEDS ORDERED: ROCURONIUM INJ 50 MG/5 ML VIAL IV ONE (08:15)
--- NOTE | 2017-01-19 08:30 | HHI.CCPN ---
Subjective Remarks/Hospital Course 66 y/o woman with pneumonia and worsening oxygenation. Now with evidence of marginal peripheral perfusion and deteriorating gas diffusion. She will need aggressive hydration, further impairing gas exchange. Requires intubation at this time. 01/18/17: Patient remains very critically ill. She is currently on milrinone and vasopressin, Mark trac shows cardiac output 4 L cardiac index 2.2 with inotropes. A bedside echo shows RV dilation, with septal flattening in diastole indicating right ventricular fluid overload. This is most likely secondary to multilobar pneumonia/ARDS, PE appears less likely. Patient is oliguric, 100 mL urine output in the last 4 hours. WBC count has increased to 27.8 hemoglobin dropped to 6.8. Receiving 2 units of PRBC. Receiving meropenem and azithromycin. Zyvox added. Also Micafungin added for C Glabrata in urine 01/19/17: Remains intubated sedated, currently on milrinone 0.75 g per KG per minute, vasopressin at 0.04 units and Jay-Synephrine at 60 mcg/m. Urine output approximately 550 mL in 24 hours. Bedside echo shows persistent RV dilation/ dysfunction with septal flattening. Will add inhaled Flolan to improve RV, function and offload RV. WBC count 35.3 today. IV Flagyl added, check C. difficile. Bronchi in BAL today Objective Vital Signs Date Time Temp Pulse Resp B/P Pulse Ox O2 Delivery O2 Flow Rate FiO2 01/19/17 06:00 92 93/63 96/58 01/19/17 04:00 50 01/19/17 04:00 98.0 22 94 01/18/17 19:00 Mechanical Ventilator 01/17/17 12:00 12.00 Intake and Output 01/18/17 01/18/17 01/19/17 08:00 16:00 00:00 Intake Total 1290 ml 2560 ml 2589 ml Output Total 175 ml 270 ml 150 ml Balance 1115 ml 2290 ml 2439 ml Result Diagram: 01/19/17 0454 01/19/17 0454 Other Results Microbiology Date/Time Procedure Status Source Growth 01/18/17 20:30 Stool Occult Blood (FLORI) - Final Complete Stool Stool HEMOCCULT NEGATIVE Laboratory Tests Test 01/18/17 01/18/17 01/19/17 01/19/17 12:50 12:55 06:42 06:45 Blood Gas Puncture Site CENTRAL LINE ART LINE ART LINE CENTRAL LINE Blood Gas Patient Temperature 98.6 98.6 98.6 98.6 Venous Blood pH 7.41 7.44 (7.360-7.400) (7.360-7.400) Venous Blood Partial Pressure 48 mmHg (44-48) 44 mmHg (44-48) CO2 Venous Blood Partial Pressure 30 mmHg (35-40) 28 mmHg (35-40) O2 Venous Blood HCO3 30 mmol/L 29 mmol/L (22-26) (22-26) Venous Blood Oxygen Saturation 55 % (70-76) 51 % (70-76) Venous Blood Oxygen Content 7.7 Vol % 9.3 Vol % (9.0-17.0) (9.0-17.0) Venous Blood Base Excess 5.6 mmol/L 5.1 mmol/L (-2-2) (-2-2) Oxygen Delivery Device VENTILATOR VENTILATOR VENTILATOR VENTILATOR Blood Gas Ventilator Setting PRVC/AC 500/22 PRVC/AC PRVC/AC PRVC/AC 500/22/ Blood Gas Inspired Oxygen 40 % 40 % 40 % 40 % Blood Gas HCO3 27 mmol/L 27 mmol/L (22-26) (22-26) Blood Gas Base Excess 3.3 mmol/L 3.5 mmol/L (-2-2) (-2-2) Blood Gas Oxygen Saturation 92 % (90-100) 87 % (90-100) Arterial Blood pH 7.47 7.48 (7.380-7.420) (7.380-7.420) Arterial Blood Partial 37 mmHg (38-42) 36 mmHg (38-42) Pressure CO2 Arterial Blood Partial 70 mmHg 55 mmHg Pressure O2 (61-120) (61-120) Arterial Blood Oxygen Content 12.6 Vol % 12.2 Vol % (12.0-20.0) (12.0-20.0) Arterial Blood 1.8 % (0-4) 1.7 % (0-4) Carboxyhemoglobin Arterial Blood Methemoglobin 1.6 % (0-2) 1.2 % (0-2) Blood Gas Hemoglobin 9.7 G/DL 10.0 G/DL (12.0-16.0) (12.0-16.0) Imaging CT Chest: Diffuse juanita consolidation Objective Remarks Gen: Critically ill elderly female, sedated with propofol, intubated Head: Normal. ALVARO ENT: Orotracheally intubated Neck: Supple, patent. Lungs: Diffuse rhonchi, and crackles good air movement, on PRVC mode of ventilation Heart: NL S1S2, tachycardic hypotensive on vasopressin and milrinone. Repeat Bedside echo RV dilated with septal flattening Abdomen: Soft, ND, NT, quiet. Extremities: Peripheral pulses are weak, poorly perfused Skin: Skin mottled Neuro: Intubated sedated. On sedation lightening able to wake up follow commands weakly Date of Insertion: Jan 11, 2017 A/P Assessment and Plan Assessment: Acute hypoxemic respiratory failure. ARDS Septic and cardiogenic shock RV dilation/dysfunction on echo indicating RV volume overload Bilateral multilobar pneumonia Worsening leukocytosis Lactic acidosis COPD exacerbation Anemia requiring transfusion Thrombocytopenia Invasive bladder cancer status post TURBT Plan: Neuro: - Propofol for sedation and ventilator synchrony - Daily sedation vacation 7 neurochecks Resp: - PRVC vent mode, low tidal volume ventilation - DuoNeb every 6 hours and when necessary - IV hydrocortisone 50 mg every 6 hours - Ventilator bundle - Pulm Dr. Stafford - BAL planned today CVS: - Remains in cardiogenic and septic shock - Leave milrinone at 0.75 g per KG per minute to improve RV function. Start inhaled Flolan for RV offloading - Vasopressin and Jay-Synephrine as needed to keep map above 65. Attempt wean to DC Jay-Synephrine - RV dysfunction is most likely secondary to severe pneumonia/ARDS. PE seems unlikely, contrast allergy and oliguria make it difficult to do CTA, Check all EXT US - Formal echo shows RV volume overload - Serial troponin - IV albumin 25 g every 8 hours 2 days GI: - Nothing by mouth, IV famotidine - Start tube feeds with Jevity today - Having BM : - Acute kidney insufficiency secondary to severe sepsis and shock - Monitor intake output, Mercedes catheter - Avoid nephrotoxic drugs - Target urine output > 30/hr - DC Bicarb gtt HEME: - 2 units PRBC 01/18 - Thrombocytopenia most likely secondary to sepsis - Dr. Corbett Oncologist following for bladder cancer ID: - F/U blood urine and sputum cultures, septic shock most likely from severe pneumonia. - Urine Legionella and pneumococcal antigen, influenza negative to date - Continue azithromycin, meropenem, Zyvox and Micafungin. Add Flagyl, check C diff - Urine culture 01/13 C Glabrata - Bronch with BAL today Endo: - Electrolyte replacement per protocol, sliding scale insulin Prophylaxis: - IV Famotidine. Hold Lovenox due to anemia requiring transfusion, and thrombocytopenia Overall impression: Critically ill with severe sepsis, metabolic acidosis, and hypoxemic respiratory failure. Requiring multiple vasopressors and inotropes. Worsening leukocytosis and thrombocytopenia indicates worsening sepsis. RV dysfunction persists. Prognosis remained guarded CCT 50 MIN Tra Benajmin MD Jan 19, 2017 08:30
[2017-01-19] MEDS: BENEPROTEIN POWDER 1 PACK G-TUBE SCH ×3 (09:00→17:37)
[2017-01-19] MEDS ORDERED: VANCOMYCIN 500 MG VIAL (FOR ORAL USE ONLY) PO SCH (09:00)
[2017-01-19] MEDS: MIDAZOLAM 100 MG/ML INJ 100 ML IV SCH ×2 (09:00→16:38)
[2017-01-19 10:27] LABS: C. DIFF EPI 027 PRESUMPTIVE NEGATIVE (NEGATIVE); C. DIFF TOXIN PCR NEGATIVE (NEGATIVE)
[2017-01-19] MEDS: EPOPROSTENOL NEB SOLUTION 50 NG/KG/MIN 100 ML NEB SCH ×4 (10:29→18:16)
[2017-01-19] MEDS: FAMOTIDINE 20 MG/2 ML VIAL IV PUSH SCH ×2 (10:31→22:49)
--- NOTE | 2017-01-19 10:34 | RADRPT ---
EXAM DATE/TIME: 01/19/2017 09:35 [facility] COMPARISON: No previous studies available for comparison. INDICATIONS : Bilateral leg swelling. MEDICAL HISTORY : Hypertension. Pneumonia. Hematuria. Bladder cancer with indwelling catheter. Pruritis. SURGICAL HISTORY : Left lumpectomy. Left elbow surgery. ENCOUNTER: Initial ACUITY: 1 day PAIN SCORE: Non-responsive LOCATION: Bilateral legs. TECHNIQUE: Venous ultrasound of the left and right leg was performed from the inguinal ligament to the proximal calf. Real-time, color Doppler and spectral tracing, compression and augmentation techniques were us ed. FINDINGS: RIGHT LEG: There is normal compressibility of the deep venous system from the inguinal region to the proximal ca lf. No echogenic clot is seen in the lumen of the common femoral, femoral, popliteal, and posterior tibial veins. There is a normal response of the venous system to proximal and distal augmentation an d respiration. LEFT LEG: There is normal compressibility of the deep venous system from the inguinal region to the proximal ca lf. No echogenic clot is seen in the lumen of the common femoral, femoral, popliteal, and posterior tibial veins. There is a normal response of the venous system to proximal and distal augmentation an d respiration. CONCLUSION: Normal examination. Major John MD on January 19, 2017 at 10:33 Board Certified Radiologist. This report was verified electronically.
--- NOTE | 2017-01-19 10:37 | RADRPT ---
EXAM DATE/TIME: 01/19/2017 09:53 [facility] COMPARISON: No previous studies available for comparison. INDICATIONS : Bilateral arm swelling. MEDICAL HISTORY : Hypertension. Pneumonia. Hematuria. Bladder cancer with indwelling catheter. Pruritis. SURGICAL HISTORY : Left lumpectomy. Left elbow surgery. ENCOUNTER: Initial ACUITY: 1 day PAIN SCORE: Non-responsive LOCATION: Bilateral arms. FINDINGS: RIGHT UPPER EXTREMITY: There is a small amount of thrombus in the right cephalic vein proximally. There is spontaneous flow documented in the brachial, basilic, axillary, and subclavian veins. The vessels are compressible an d augmentation response is documented. No filling defects are seen. The flow is phasic with respira tion. Direction of flow in the jugular vein is caudal. LEFT UPPER EXTREMITY: A small amount of thrombus in the left cephalic vein distally . There is spontaneous flow documented in the brachial, basilic, axillary, and subclavian veins. The vessels are compressible and augment ation response is documented. No filling defects are seen. The flow is phasic with respiration. Di rection of flow in the jugular vein is caudal. CONCLUSION: Small amount of occlusive thrombus is seen bilaterally in each of the cephalic veins. The rest of the deep venous systems are unremarkable. Major John MD on January 19, 2017 at 10:35 Board Certified Radiologist. This report was verified electronically.
[2017-01-19] MEDS: MORPHINE SULFATE 4 MG/ML INJ IV PRN ×3 (11:40→22:50)
--- NOTE | 2017-01-19 12:44 | HHI.IDPN ---
Note Infectious Disease Note ID COVERAGE> Notes reviewed. Patient on the vent. Unresponsive. On vaso, neosynephrine. Oliguric. Had bronch earlier. WBC elevated. Antibiotics meropenem azithro zyvox Past Medical History bladder ca Allergies: Coded Allergies: Contrast Media (Verified Allergy, Severe, respiratory distress, 01/13/17) Penicillin (Verified Allergy, Intermediate, rash, 01/13/17) Uncoded Allergies: cefepime (Allergy, Intermediate, Rash, 01/15/17) pruritic rash Objective .Vital Signs Date Time Temp Pulse Resp B/P Pulse Ox O2 Delivery O2 Flow Rate FiO2 01/19/17 12:00 50 01/19/17 11:01 99 60 01/19/17 09:00 97 21 96/61 100 88/55 01/19/17 09:00 100 100 01/19/17 08:08 93 45 01/19/17 08:00 50 01/19/17 08:00 98.4 89 19 132/91 96 127/78 01/19/17 07:00 87 18 92/67 97 101/60 01/19/17 06:00 92 93/63 96/58 01/19/17 06:00 92 01/19/17 04:00 87 105/75 110/68 01/19/17 04:00 50 01/19/17 04:00 87 01/19/17 04:00 98.0 87 22 105/75 94 110/68 01/19/17 04:00 94 40 01/19/17 02:00 87 01/19/17 00:21 94 40 01/19/17 00:00 89 104/59 103/64 01/19/17 00:00 50 01/19/17 00:00 89 01/19/17 00:00 97.9 89 20 104/59 98 103/64 01/18/17 22:03 95 50 01/18/17 22:00 89 01/18/17 20:53 100 100 01/18/17 20:28 98 50 01/18/17 20:00 90 125/86 120/76 01/18/17 20:00 50 01/18/17 20:00 90 01/18/17 20:00 98.5 90 20 125/86 98 120/76 01/18/17 19:00 97 Mechanical Ventilator 50 7/8/17 18:00 95 01/18/17 18:00 95 98/78 106/66 01/18/17 16:00 97 01/18/17 16:00 98.0 92 22 106/75 93 110/65 01/18/17 16:00 40 01/18/17 15:36 92 40 01/18/17 14:00 96 Laboratory Tests Test 01/18/17 01/18/17 01/18/17 01/19/17 12:50 12:55 14:08 04:54 Blood Gas Puncture Site CENTRAL LINE ART LINE Blood Gas Patient Temperature 98.6 98.6 Venous Blood pH 7.41 Venous Blood Partial Pressure 48 mmHg CO2 Venous Blood Partial Pressure 30 mmHg O2 Venous Blood HCO3 30 mmol/L Venous Blood Oxygen Saturation 55 % Venous Blood Oxygen Content 7.7 Vol % Venous Blood Base Excess 5.6 mmol/L Oxygen Delivery Device VENTILATOR VENTILATOR Blood Gas Ventilator Setting PRVC/AC 500/22 PRVC/AC 500/22/ Blood Gas Inspired Oxygen 40 % 40 % Blood Gas HCO3 27 mmol/L Blood Gas Base Excess 3.3 mmol/L Blood Gas Oxygen Saturation 92 % Arterial Blood pH 7.47 Arterial Blood Partial 37 mmHg Pressure CO2 Arterial Blood Partial 70 mmHg Pressure O2 Arterial Blood Oxygen Content 12.6 Vol % Arterial Blood 1.8 % Carboxyhemoglobin Arterial Blood Methemoglobin 1.6 % Blood Gas Hemoglobin 9.7 G/DL White Blood Count 26.7 TH/MM3 35.2 TH/MM3 Red Blood Count 3.42 MIL/MM3 3.56 MIL/MM3 Hemoglobin 9.6 GM/DL 9.6 GM/DL Hematocrit 27.9 % 29.0 % Mean Corpuscular Volume 81.6 FL 81.6 FL Mean Corpuscular Hemoglobin 28.0 PG 27.1 PG Mean Corpuscular Hemoglobin 34.4 % 33.2 % Concent Red Cell Distribution Width 14.1 % 14.2 % Platelet Count 63 TH/MM3 58 TH/MM3 Mean Platelet Volume 9.9 FL 10.8 FL Neutrophils (%) (Auto) 91.6 % 93.4 % Lymphocytes (%) (Auto) 4.1 % 3.3 % Monocytes (%) (Auto) 3.7 % 3.0 % Eosinophils (%) (Auto) 0.2 % 0.1 % Basophils (%) (Auto) 0.4 % 0.2 % Neutrophils # (Auto) 24.5 TH/MM3 32.9 TH/MM3 Lymphocytes # (Auto) 1.1 TH/MM3 1.2 TH/MM3 Monocytes # (Auto) 1.0 TH/MM3 1.1 TH/MM3 Eosinophils # (Auto) 0.1 TH/MM3 0.0 TH/MM3 Basophils # (Auto) 0.1 TH/MM3 0.1 TH/MM3 CBC Comment AUTO DIFF AUTO DIFF Differential Total Cells 100 100 Counted Neutrophils % (Manual) 91 % 92 % Band Neutrophils % 5 % 3 % Lymphocytes % 1 % 1 % Monocytes % 1 % 2 % Basophils % 1 % Neutrophils # (Manual) 25.6 TH/MM3 34.1 TH/MM3 Differential Comment FINAL DIFF FINAL DIFF MANUAL MANUAL Plasma Cells 1 % Platelet Estimate LOW LOW Platelet Morphology Comment NORMAL NORMAL Red Cell Morphology Comment NORMAL Sodium Level 146 MEQ/L 141 MEQ/L Potassium Level 2.8 MEQ/L 3.5 MEQ/L Chloride Level 108 MEQ/L 104 MEQ/L Carbon Dioxide Level 29.5 MEQ/L 28.3 MEQ/L Anion Gap 9 MEQ/L 9 MEQ/L Blood Urea Nitrogen 22 MG/DL 26 MG/DL Creatinine 0.70 MG/DL 0.60 MG/DL Estimat Glomerular Filtration 83 ML/MIN 100 ML/MIN Rate Random Glucose 185 MG/DL 183 MG/DL Lactic Acid Level 2.2 mmol/L Calcium Level 6.8 MG/DL 7.1 MG/DL Protein Corrected Calcium 8.2 MG/DL 8.5 MG/DL Total Bilirubin 0.7 MG/DL 0.8 MG/DL Aspartate Amino Transf 205 U/L 75 U/L (AST/SGOT) Alanine Aminotransferase 115 U/L 93 U/L (ALT/SGPT) Alkaline Phosphatase 149 U/L 178 U/L Total Protein 4.5 GM/DL 4.6 GM/DL Albumin 1.4 GM/DL 1.5 GM/DL Random Vancomycin Level 10.0 COMMENT Myelocytes 2 % Keratocytes 2+ Magnesium Level 1.5 MG/DL Test 01/19/17 01/19/17 01/19/17 01/19/17 06:42 06:45 06:50 07:55 Blood Gas Puncture Site ART LINE CENTRAL LINE Blood Gas Patient Temperature 98.6 98.6 Blood Gas HCO3 27 mmol/L Blood Gas Base Excess 3.5 mmol/L Blood Gas Oxygen Saturation 87 % Arterial Blood pH 7.48 Arterial Blood Partial 36 mmHg Pressure CO2 Arterial Blood Partial 55 mmHg Pressure O2 Arterial Blood Oxygen Content 12.2 Vol % Arterial Blood 1.7 % Carboxyhemoglobin Arterial Blood Methemoglobin 1.2 % Blood Gas Hemoglobin 10.0 G/DL Oxygen Delivery Device VENTILATOR VENTILATOR Blood Gas Ventilator Setting PRVC/AC PRVC/AC Blood Gas Inspired Oxygen 40 % 40 % Venous Blood pH 7.44 Venous Blood Partial Pressure 44 mmHg CO2 Venous Blood Partial Pressure 28 mmHg O2 Venous Blood HCO3 29 mmol/L Venous Blood Oxygen Saturation 51 % Venous Blood Oxygen Content 9.3 Vol % Venous Blood Base Excess 5.1 mmol/L Lactic Acid Level 2.3 mmol/L Stool C. difficile Toxin (PCR) NEGATIVE Stl C. difficile Toxin PRESUMPTIVE Epiderm 027 NEGATIVE Imaging Chest X-Ray 01/19/17 0600 Signed Impressions: Service Date/Time: Thursday, January 19, 2017 04:09 - CONCLUSION: Bilateral patchy airspace disease. Manny Otto MD Upper Extremity Ultrasound 01/19/17 0000 Signed Impressions: Service Date/Time: Thursday, January 19, 2017 09:53 - CONCLUSION: Small amount of occlusive thrombus is seen bilaterally in each of the cephalic veins. The rest of the deep venous systems are unremarkable. Major John MD Lower Extremity Ultrasound 01/19/17 0000 Signed Impressions: Service Date/Time: Thursday, January 19, 2017 09:35 - CONCLUSION: Normal examination. Major John MD Chest X-Ray 01/18/17 0000 Signed Impressions: Service Date/Time: Wednesday, January 18, 2017 10:09 - CONCLUSION: Patchy airspace disease is unchanged. Tubes and catheters in good position. Major John MD Liver Ultrasound 01/17/17 0000 Signed Impressions: Service Date/Time: Tuesday, January 17, 2017 17:05 - CONCLUSION: There is no intrahepatic biliary duct dilatation. Liver is grossly free of focal defects. London Frazier MD FACR Chest CT 01/15/17 0000 Signed Impressions: Service Date/Time: January 10:16 - CONCLUSION: Extensive scattered areas of parenchymal consolidation are seen throughout both lung lucas predominately along the peripheral aspect of both lungs. There are also scattered bilateral interstitial infiltrates. These infiltrates appear to be overlying central lobar emphysema. Madi Marvin MD Physical Exam GENERAL: On the vent. No acute distress. Sedated. SKIN: No jaundice or lesions. Diffuse macular rash. HEENT: No scleral icterus. No injection or drainage. CARDIOVASCULAR: Regular rate and rhythm without murmurs, gallops, or rubs. No JVD. Peripheral pulses symmetric. RESPIRATORY/CHEST: Decreased BS, no rhonchi. GASTROINTESTINAL: Abdomen soft, non distended. GENITOURINARY: Mcgee catheter in place with scant amount of yellow urine MUSCULOSKELETAL: Extremities without clubbing, cyanosis, diffuse 2+ edema. 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 REC'S: -cont Meropenem - cont azithro -chk vancomycin level random - cont zyvox - cont micafungin - follow cultures monitor rash Mariusz Spencer MD Jan 19, 2017 12:44
[2017-01-19] MEDS: MICAFUNGIN INJ 100 MG in SODIUM CHLORIDE 0.9% INJ 100 ML IV SCH (12:56)
--- NOTE | 2017-01-19 13:39 | HHI.GIFU ---
Subjective Remarks Pt remains intubated/sedated. Pt is on pressors Oliguric. No GIB per nursing staff. (Sagrario Escobar) Objective Vitals I&O Vital Signs Date Time Temp Pulse Resp B/P Pulse Ox O2 Delivery O2 Flow Rate FiO2 01/19/17 12:00 50 01/19/17 12:00 91 01/19/17 12:00 98.1 91 20 101/70 95 82/49 01/19/17 11:01 99 60 01/19/17 10:00 110 01/19/17 09:00 97 21 96/61 100 88/55 01/19/17 09:00 100 100 01/19/17 08:08 93 45 01/19/17 08:00 50 01/19/17 08:00 98.4 89 19 132/91 96 127/78 01/19/17 08:00 89 01/19/17 07:00 96 Mechanical Ventilator 50 01/19/17 07:00 87 18 92/67 97 101/60 01/19/17 06:00 92 93/63 96/58 01/19/17 06:00 92 01/19/17 04:00 87 105/75 110/68 01/19/17 04:00 50 01/19/17 04:00 87 01/19/17 04:00 98.0 87 22 105/75 94 110/68 01/19/17 04:00 94 40 01/19/17 02:00 87 01/19/17 00:21 94 40 01/19/17 00:00 89 104/59 103/64 01/19/17 00:00 50 01/19/17 00:00 89 01/19/17 00:00 97.9 89 20 104/59 98 103/64 01/18/17 22:03 95 50 01/18/17 22:00 89 01/18/17 20:53 100 100 01/18/17 20:28 98 50 01/18/17 20:00 90 125/86 120/76 01/18/17 20:00 50 01/18/17 20:00 90 01/18/17 20:00 98.5 90 20 125/86 98 120/76 01/18/17 19:00 97 Mechanical Ventilator 50 01/18/17 18:00 95 01/18/17 18:00 95 98/78 106/66 7/8/17 16:00 97 01/18/17 16:00 98.0 92 22 106/75 93 110/65 01/18/17 16:00 40 01/18/17 15:36 92 40 01/18/17 14:00 96 I/O 01/18/17 01/18/17 01/18/17 01/19/17 01/19/17 01/19/17 07:00 15:00 23:00 07:00 15:00 23:00 Intake Total 2170 ml 2560 ml 2589 ml 862 ml Output Total 325 ml 270 ml 150 ml 150 ml Balance 1845 ml 2290 ml 2439 ml 712 ml IV Total 2170 ml 2560 ml 2589 ml 862 ml Output Urine Total 325 ml 270 ml 150 ml 150 ml # Bowel Movements 0 2 2 Laboratory Laboratory Tests Test 01/18/17 01/19/17 01/19/17 01/19/17 14:08 04:54 06:42 06:45 White Blood Count 26.7 35.2 Red Blood Count 3.42 3.56 Hemoglobin 9.6 9.6 Hematocrit 27.9 29.0 Mean Corpuscular Volume 81.6 81.6 Mean Corpuscular Hemoglobin 28.0 27.1 Mean Corpuscular Hemoglobin 34.4 33.2 Concent Red Cell Distribution Width 14.1 14.2 Platelet Count 63 58 Mean Platelet Volume 9.9 10.8 Neutrophils (%) (Auto) 91.6 93.4 Lymphocytes (%) (Auto) 4.1 3.3 Monocytes (%) (Auto) 3.7 3.0 Eosinophils (%) (Auto) 0.2 0.1 Basophils (%) (Auto) 0.4 0.2 Neutrophils # (Auto) 24.5 32.9 Lymphocytes # (Auto) 1.1 1.2 Monocytes # (Auto) 1.0 1.1 Eosinophils # (Auto) 0.1 0.0 Basophils # (Auto) 0.1 0.1 CBC Comment AUTO DIFF AUTO DIFF Differential Total Cells 100 100 Counted Neutrophils % (Manual) 91 92 Band Neutrophils % 5 3 Lymphocytes % 1 1 Monocytes % 1 2 Basophils % 1 Neutrophils # (Manual) 25.6 34.1 Differential Comment FINAL DIFF FINAL DIFF MANUAL MANUAL Plasma Cells 1 Platelet Estimate LOW LOW Platelet Morphology Comment NORMAL NORMAL Red Cell Morphology Comment NORMAL Sodium Level 146 141 Potassium Level 2.8 3.5 Chloride Level 108 104 Carbon Dioxide Level 29.5 28.3 Anion Gap 9 9 Blood Urea Nitrogen 22 26 Creatinine 0.70 0.60 Estimat Glomerular Filtration 83 100 Rate Random Glucose 185 183 Lactic Acid Level 2.2 Calcium Level 6.8 7.1 Protein Corrected Calcium 8.2 8.5 Total Bilirubin 0.7 0.8 Aspartate Amino Transf 205 75 (AST/SGOT) Alanine Aminotransferase 115 93 (ALT/SGPT) Alkaline Phosphatase 149 178 Total Protein 4.5 4.6 Albumin 1.4 1.5 Random Vancomycin Level 10.0 Myelocytes 2 Keratocytes 2+ Magnesium Level 1.5 Blood Gas Puncture Site ART LINE CENTRAL LINE Blood Gas Patient Temperature 98.6 98.6 Blood Gas HCO3 27 Blood Gas Base Excess 3.5 Blood Gas Oxygen Saturation 87 Arterial Blood pH 7.48 Arterial Blood Partial 36 Pressure CO2 Arterial Blood Partial 55 Pressure O2 Arterial Blood Oxygen Content 12.2 Arterial Blood 1.7 Carboxyhemoglobin Arterial Blood Methemoglobin 1.2 Blood Gas Hemoglobin 10.0 Oxygen Delivery Device VENTILATOR VENTILATOR Blood Gas Ventilator Setting PRVC/AC PRVC/AC Blood Gas Inspired Oxygen 40 40 Venous Blood pH 7.44 Venous Blood Partial Pressure 44 CO2 Venous Blood Partial Pressure 28 O2 Venous Blood HCO3 29 Venous Blood Oxygen Saturation 51 Venous Blood Oxygen Content 9.3 Venous Blood Base Excess 5.1 Test 01/19/17 01/19/17 06:50 07:55 Lactic Acid Level 2.3 Stool C. difficile Toxin (PCR) NEGATIVE Stl C. difficile Toxin PRESUMPTIVE Epiderm 027 NEGATIVE Date/Time Procedure Status Source Growth 01/19/17 10:33 Fungal Smear Received Bronchial Washings Right Lower Lobe Pending 01/19/17 10:33 Fungal Culture Received Bronchial Washings Right Lower Lobe Pending 01/19/17 09:10 Gram Stain Received Bronchial Washings Right Lower Lobe Pending 01/19/17 09:10 Bronchial Culture Received Bronchial Washings Right Lower Lobe Pending 01/19/17 09:10 Acid Fast Stain Received Bronchial Washings Right Lower Lobe Pending 01/19/17 09:10 Mycobacterial Culture Received Bronchial Washings Right Lower Lobe Pending 01/18/17 20:30 Stool Occult Blood (FLORI) - Final Complete Stool Stool HEMOCCULT NEGATIVE 01/18/17 14:59 Aerobic Blood Culture - Preliminary Resulted Blood Peripheral NO GROWTH IN 1 DAY 01/18/17 14:59 Anaerobic Blood Culture - Preliminary Resulted Blood Peripheral NO GROWTH IN 1 DAY 01/18/17 11:20 Urine Culture - Preliminary Resulted Urine Catheterized Urine Yeast Species 01/18/17 11:20 Gram Stain - Final Resulted Sputum Endotracheal 01/18/17 11:20 Sputum Culture Resulted Sputum Endotracheal Pending 01/15/17 18:39 Legionella Antigen - Final Complete Urine Random Urine PRESUMPTIVE NEGATIVE FOR LEGIONELLA P... 01/15/17 18:39 Streptococcus pneumoniae Antigen (M - Final Complete Urine Random Urine PRESUMPTIVE NEGATIVE FOR STREPTOCOCCU... 01/15/17 18:39 Influenza Types A,B Antigen (FLORI) - Final Complete Nasal Washing NEGATIVE FOR FLU A AND B ANTIGEN.... Imaging Last Impressions Chest X-Ray 01/19/17 0600 Signed Impressions: Service Date/Time: Thursday, January 19, 2017 04:09 - CONCLUSION: Bilateral patchy airspace disease. Manny Otto MD Upper Extremity Ultrasound 01/19/17 0000 Signed Impressions: Service Date/Time: Thursday, January 19, 2017 09:53 - CONCLUSION: Small amount of occlusive thrombus is seen bilaterally in each of the cephalic veins. The rest of the deep venous systems are unremarkable. Major John MD Lower Extremity Ultrasound 01/19/17 0000 Signed Impressions: Service Date/Time: Thursday, January 19, 2017 09:35 - CONCLUSION: Normal examination. Major John MD Abdomen/Pelvis CT 01/18/17 0000 Signed Impressions: Service Date/Time: Wednesday, January 18, 2017 21:05 - CONCLUSION: 1. Mildly nonspecific, nonobstructive bowel gas pattern 2. The gallbladder is at the upper limits of normal in size but otherwise unremarkable. 3. Areas of parenchymal consolidation again noted in the lung bases. Paul Lou MD Liver Ultrasound 01/17/17 0000 Signed Impressions: Service Date/Time: Tuesday, January 17, 2017 17:05 - CONCLUSION: There is no intrahepatic biliary duct dilatation. Liver is grossly free of focal defects. London Frazier MD FACR Chest CT 01/15/17 0000 Signed Impressions: Service Date/Time: January 10:16 - CONCLUSION: Extensive scattered areas of parenchymal consolidation are seen throughout both lung lucas predominately along the peripheral aspect of both lungs. There are also scattered bilateral interstitial infiltrates. These infiltrates appear to be overlying central lobar emphysema. Madi Marvin MD Physical Exam HEENT: Normocephalic; atraumatic. OETT in place. CHEST: Resp. crackles and rhonchi, intubated CARDIAC: Regular ABDOMEN: Decreased BS, soft, nondistended, nontender EXTREMITIES: Generalized edema. SKIN: Normal; no rash; no jaundice. NEUROLOGY MANAGER: sedated on a vent (Sagrario Escobar) Assessment and Plan Plan ASSESSMENT: - Dysphagia. GI consulted for dysphagia. She reports that she is not eating much, but not so much because of dysphagia, but because of her shortness of breath. She states she gets tired just from speaking. She states her throat is sore, but she is not having painful swallowing. Dysphagia but too SOB to swallow much anyway. She has kaity in urine. Could have kaity in esophagus. Nystatin, Pepcid. - Abnormal LFTs of uncertain significance. Improving. - VDRF/Bilateral pneumonia. Chest X-Ray (01/13/17)----> Patchy bilateral areas of peripheral partially consolidative infiltrate in both lungs. No evidence of pleural effusion. Chest CT (01/15/17)----> Extensive scattered areas of parenchymal consolidation are seen throughout both lung lucas predominately along the peripheral aspect of both lungs. There are also scattered bilateral interstitial infiltrates. These infiltrates appear to be overlying central lobar emphysema. Pt was intubated on 01/18/17. Patient on pressors, on milrinone, vasopressin and Jay-Synephrine. IV Flagyl added, Vanco, Meropenem, Azithromycin, nebs. WBC count increased to 35 (01/19). Pt had bronch on 01/19 with cultures/washings are pending. - Hx Bladder cancer. Plan: - Cont. Pepcid - Cont. antifungals - Monitor H/H - Monitor LFTs - ID following - CCM following - Pulmonary following - Transfuse as needed - Patient is critically ill and not stable for EGD at this time, she is on pressors, will consider once medically stable - Pt seen and examined by myself and Dr. Flores and this note was written on her behalf. (Sagrario Escobar) Physician Comments seen, examined agree with above lfts improving possible secondary hypotension, sepsis -improving (Nisha Flores MD) Sagrario Escobar Jan 19, 2017 13:39 Nisha Flores MD Jan 19, 2017 15:19
--- NOTE | 2017-01-19 13:57 | PD.PROCEDR ---
Procedure Note Procedure Procedure: Diagnostic Fiberoptic Bronchoscopy Diagnosis: ARDS Indications: Worsening sepsis Consent: Written consent was obtained Anesthesia: Propofol IV, Rocuronium IV Description of the Procedure: The patient was sedated and mechanically ventilated. The patient was placed on 100% FIO2 and a volume control mode of ventilation. The fiberoptic bronchoscopy was inserted via oral endotracheal tube. The trachea, right and left mainstem bronchi, and sub-segmental bronchi were evaluated. The endobronchial anatomy was normal. BAL performed in right lower lobe and then LLL. There was moderate amount of yellow secretions in bilateral lower lobes with some inflammation. Findings: Mild moderate yellow secretions in the right and left lower lobe The patient tolerated the procedure well with no hemodynamic instability or hypoxia. There were no immediate complications noted. There was no blood loss. Tra Benjamin MD Jan 19, 2017 13:57
--- NOTE | 2017-01-19 14:31 | HHI.PR ---
Subjective Remarks Went into respiratory failure last PM . Now intubated.On FIO2 40% . On pressors and sedated.Had bronchoscopy done for lavage . CXR shows Bilateral infiltrates. On flolan Objective Vital Signs Date Time Temp Pulse Resp B/P Pulse Ox O2 Delivery O2 Flow Rate FiO2 01/19/17 12:00 50 01/19/17 12:00 91 01/19/17 12:00 98.1 91 20 101/70 95 82/49 01/19/17 11:01 99 60 01/19/17 10:00 110 01/19/17 09:00 97 21 96/61 100 88/55 01/19/17 09:00 100 100 01/19/17 08:08 93 45 01/19/17 08:00 50 01/19/17 08:00 98.4 89 19 132/91 96 127/78 01/19/17 08:00 89 01/19/17 07:00 96 Mechanical Ventilator 50 01/19/17 07:00 87 18 92/67 97 101/60 01/19/17 06:00 92 93/63 96/58 01/19/17 06:00 92 01/19/17 04:00 87 105/75 110/68 01/19/17 04:00 50 01/19/17 04:00 87 01/19/17 04:00 98.0 87 22 105/75 94 110/68 01/19/17 04:00 94 40 01/19/17 02:00 87 01/19/17 00:21 94 40 01/19/17 00:00 89 104/59 103/64 01/19/17 00:00 50 01/19/17 00:00 89 01/19/17 00:00 97.9 89 20 104/59 98 103/64 01/18/17 22:03 95 50 01/18/17 22:00 89 01/18/17 20:53 100 100 01/18/17 20:28 98 50 01/18/17 20:00 90 125/86 120/76 01/18/17 20:00 50 01/18/17 20:00 90 01/18/17 20:00 98.5 90 20 125/86 98 120/76 01/18/17 19:00 97 Mechanical Ventilator 50 01/18/17 18:00 95 01/18/17 18:00 95 98/78 106/66 01/18/17 16:00 97 01/18/17 16:00 98.0 92 22 106/75 93 110/65 01/18/17 16:00 40 01/18/17 15:36 92 40 I/O 01/18/17 01/18/17 01/18/17 01/19/17 01/19/17 01/19/17 07:00 15:00 23:00 07:00 15:00 23:00 Intake Total 2170 ml 2560 ml 2589 ml 862 ml Output Total 325 ml 270 ml 150 ml 150 ml Balance 1845 ml 2290 ml 2439 ml 712 ml IV Total 2170 ml 2560 ml 2589 ml 862 ml Output Urine Total 325 ml 270 ml 150 ml 150 ml # Bowel Movements 0 2 2 Result Diagram: 01/19/17 0454 01/19/17 0454 Objective Remarks PHYSICAL EXAMINATION GENERAL: Elderly female sedated and intubated . HEENT: Examination pupils are equal. Oral mucosa, nasal mucosa normal. NECK: Supple. JVP not raised. LUNGS: She has bilateral scattered crackles and wheezes CARDIOVASCULAR: S1-S2 normal.No murmur. ABDOMEN: Benign.BS+. EXTREMITIES: 1 + edema.Neuro : Sedated. Assessment and Plan Assessment and Plan IMPRESSION 1. Sepsis. 2. Leukocytosis. 3. Bilateral patchy lung infiltrate. Pneumonia/ARDS 4. Lung nodule. She recently had a PET scan done at [place], 1.5 cm right lower lobe nodule, was not seen on the previous CT scan ,likely inflammatory process. 5. History of CA of the bladder. 6. Renal insufficiency. 7. Cardiogenic Shock. Plan : 1. Vent support , FIO2 50 %, PEEP 5 2. Cont Nebs qid duoneb 3. Antibiotics as ordered 4. Continue Pressors and wean 5. NG tube with Feeds 30CC 6. Await Cultures from Bronchoscopy. 7. CXR,CBC,BMP in am Kris Gould MD Jan 19, 2017 14:31
[2017-01-19] MEDS: ENOXAPARIN SODIUM 40 MG/0.4 ML SYRINGE SQ SCH (16:37)
[2017-01-19] MEDS: AZITHROMYCIN INJ 500 MG in SODIUM CHLOR 0.9% 250 ML INJ 250 ML IV SCH (17:36)
[2017-01-19] MEDS ORDERED: BUMETANIDE INJ 1 MG/4 ML VIAL IV PUSH ONE (18:30)
[2017-01-19 18:49] LABS: HEMATOCRIT 27.4 % (35.0-46.0); MEAN CELL VOLUME 81.4 FL (80.0-100.0); MEAN CORPUSCULAR HEMOGLOBIN 26.8 PG (27.0-34.0); PLATELET COUNT 51 TH/MM3 (150-450); RED BLOOD COUNT 3.36 MIL/MM3 (4.00-5.30); RED CELL DISTRIBUTION WIDTH 14.2 % (11.6-17.2); WHITE BLOOD COUNT 34.7 TH/MM3 (4.0-11.0)
[2017-01-19 18:59] LABS: REVIEW FLAG AUTO DIFF
[2017-01-19] MEDS ORDERED: FONDAPARINUX SODIUM 2.5 MG/0.5 ML SYRINGE SQ ONE (19:00)
[2017-01-19 19:07] LABS: BICARBONATE 29.5 MEQ/L (21.0-32.0); POTASSIUM 3.5 MEQ/L (3.5-5.1)
[2017-01-19 19:28] LABS: CALCIUM-PROTEIN CORRECTED 8.2 MG/DL (8.5-10.1)
[2017-01-20] VITALS (23 sets, daily range): BP systolic 98–144; BP diastolic 60–97; PULSE 94–130; RESP 16–34; TEMP 98.4–100.4; O2SAT 90–100
[2017-01-20] MEDS: VASOPRESSIN INJ 40 UNITS in DEXTROSE 5% IN WATER 100ML INJ 98 ML IV SCH ×4 (00:10→15:53)
[2017-01-20] MEDS: HYDROCORTISONE SOD SUCCINATE 100 MG VIAL IV PUSH SCH ×4 (00:11→17:50)
[2017-01-20] MEDS: EPOPROSTENOL NEB SOLUTION 50 NG/KG/MIN 100 ML NEB SCH ×6 (02:44→15:52)
[2017-01-20] MEDS: MEROPENEM INJ 1,000 MG in SODIUM CHLORIDE 0.9% INJ 100 ML IV SCH ×3 (02:44→21:59)
[2017-01-20] MEDS: INSULIN NovoLIN REGULAR SUPPLEMENTAL SCALE SQ SCH ×6 (02:45→22:45)
[2017-01-20] MEDS: MILRINONE INJ 20 MG in SODIUM CHLORIDE 0.9% INJ 80 ML IV SCH ×3 (02:46→14:49)
[2017-01-20] MEDS: MORPHINE SULFATE 4 MG/ML INJ IV PRN (02:47)
[2017-01-20] MEDS: RESP: ALBUTEROL 2.5 MG/IPRATROPIUM 0.5 MG NEB (SCH) NEB ×4 (04:06→20:56)
[2017-01-20] MEDS: LORazepam 0.5 MG TAB PO SCH ×3 (04:52→22:00)
[2017-01-20] MEDS: MIDAZOLAM 100 MG/ML INJ 100 ML IV SCH (04:53)
[2017-01-20 05:32] LABS: AUTOMATED NEUTROPHIL # 36.9 TH/MM3 (1.8-7.7); BASOPHIL # 0.1 TH/MM3 (0-0.2); BASOPHIL % 0.2 % (0.0-2.0); EOSINOPHIL # 0.1 TH/MM3 (0-0.4); EOSINOPHIL % 0.2 % (0.0-4.0); HEMATOCRIT 28.7 % (35.0-46.0); LYMPH % 4.9 % (9.0-44.0); MEAN CELL VOLUME 83.4 FL (80.0-100.0); MEAN CORPUSCULAR HEMOGLOBIN 26.6 PG (27.0-34.0); MEAN CORPUSCULAR HGB CONC 31.9 % (32.0-36.0); MONO % 3.4 % (0.0-8.0); NEUT % 91.3 % (16.0-70.0); PLATELET COUNT 46 TH/MM3 (150-450); RED BLOOD COUNT 3.44 MIL/MM3 (4.00-5.30); RED CELL DISTRIBUTION WIDTH 14.8 % (11.6-17.2); WHITE BLOOD COUNT 40.4 TH/MM3 (4.0-11.0)
[2017-01-20 05:42] LABS: HEMO FLAGS AUTO DIFF
[2017-01-20 05:56] LABS: BICARBONATE 31.3 MEQ/L (21.0-32.0); MAGNESIUM 1.5 MG/DL (1.5-2.5); POTASSIUM 3.5 MEQ/L (3.5-5.1)
[2017-01-20 05:59] LABS: CALCIUM-PROTEIN CORRECTED 8.3 MG/DL (8.5-10.1); TOTAL BILIRUBIN ADULT 1.3 MG/DL (0.2-1.0)
[2017-01-20] MEDS ORDERED: BUMETANIDE INJ 1 MG/4 ML VIAL IV PUSH ONE ×3 (06:00→12:00)
[2017-01-20 06:48] LABS: BANDS 19 % (0-6); CORRECTED NUCLEATED RBC 1 /100 WBC (0-0); METAMYELOCYTES 2 % (0-1); MYELOCYTES 2 % (0-0); POLYS (SEG NEUTROPHILS) 71 % (16-70); WBC DIFF SAMPLE 100
[2017-01-20 06:49] LABS: PLATELET ESTIMATE SMEAR LOW (NORMAL); PLATELET MORPHOLOGY ENLARGED (NORMAL)
[2017-01-20 06:50] LABS: SCAN/DIFF FINAL DIFF MANUAL
--- NOTE | 2017-01-20 06:54 | RADRPT ---
EXAM DATE/TIME: 01/20/2017 04:29 [facility] COMPARISON: CHEST SINGLE AP, January 19, 2017, 4:09. INDICATIONS : Shortness of breath, possible pulmonary disease. MEDICAL HISTORY : Carcinoma, bladder. Carcinoma, breast. Hypertension. SURGICAL HISTORY : Mastectomy, bilateral. ENCOUNTER: Subsequent ACUITY: 3 days PAIN SCORE: Non-responsive. LOCATION: Bilateral chest FINDINGS: A single view of the chest demonstrates the endotracheal tube, nasogastric tube and left subclavian c entral line are in good position. There diffuse bilateral patchy infiltrates throughout the lungs. Th e heart is enlarged. No visible pneumothorax is seen. Osseous structures are intact. CONCLUSION: Diffuse patchy infiltrates are unchanged. Tubes and catheters are in good position. Major John MD on January 20, 2017 at 6:52 Board Certified Radiologist. This report was verified electronically.
[2017-01-20] MEDS ORDERED: POTASSIUM CHLORIDE 25 MEQ EFFERVESCENT TAB PO PRN (08:00)
[2017-01-20] MEDS ORDERED: POTASSIUM PHOSPHATE MONOBASIC 500 MG TAB PO/TUBE PRN (08:00)
[2017-01-20] MEDS ORDERED: POTASSIUM PHOSPHATE MONOBASIC 500 MG TAB PO PRN (08:00)
[2017-01-20] MEDS ORDERED: MAGNESIUM OXIDE 400 MG TAB PO PRN (08:00)
[2017-01-20] MEDS ORDERED: MAGNESIUM SULFATE INJ 2 GM in SODIUM CHLORIDE 0.9% INJ 96 ML IV PRN (08:00)
[2017-01-20] MEDS ORDERED: SODIUM PHOSPHATE INJ 30 MMOL in SODIUM CHLOR 0.9% 250 ML INJ 240 ML IV PRN (08:00)
[2017-01-20] MEDS ORDERED: POTASSIUM PHOSPHATE INJ 30 MMOL in SODIUM CHLOR 0.9% 250 ML INJ 250 ML IV PRN (08:00)
[2017-01-20] MEDS ORDERED: POTASSIUM CHLOR 20 MEQ PREMIX 100 ML IV PRN ×2 (08:00)
[2017-01-20] MEDS ORDERED: POTASSIUM CHLOR 40 MEQ PREMIX 100 ML IV PRN (08:00)
[2017-01-20] MEDS ORDERED: MAGNESIUM SULFATE INJ 4 GM in SODIUM CHLORIDE 0.9% INJ 92 ML IV PRN (08:00)
--- NOTE | 2017-01-20 08:06 | HHI.CCPN ---
Subjective Remarks/Hospital Course 66 y/o woman with pneumonia and worsening oxygenation. Now with evidence of marginal peripheral perfusion and deteriorating gas diffusion. She will need aggressive hydration, further impairing gas exchange. Requires intubation at this time. 01/18/17: Patient remains very critically ill. She is currently on milrinone and vasopressin, Mark trac shows cardiac output 4 L cardiac index 2.2 with inotropes. A bedside echo shows RV dilation, with septal flattening in diastole indicating right ventricular fluid overload. This is most likely secondary to multilobar pneumonia/ARDS, PE appears less likely. Patient is oliguric, 100 mL urine output in the last 4 hours. WBC count has increased to 27.8 hemoglobin dropped to 6.8. Receiving 2 units of PRBC. Receiving meropenem and azithromycin. Zyvox added. Also Micafungin added for C Glabrata in urine 01/19/17: Remains intubated sedated, currently on milrinone 0.75 g per KG per minute, vasopressin at 0.04 units and Jay-Synephrine at 60 mcg/m. Urine output approximately 550 mL in 24 hours. Bedside echo shows persistent RV dilation/ dysfunction with septal flattening. Will add inhaled Flolan to improve RV, function and offload RV. WBC count 35.3 today. IV Flagyl added, check C. difficile. Bronchi in BAL today 01/20 Patient is sedated with Versed and intubated. On Neosyn 50mics, Vasopressin , Milrinone and Flolan. Afebrile. Objective Vital Signs Date Time Temp Pulse Resp B/P Pulse Ox O2 Delivery O2 Flow Rate FiO2 01/20/17 06:00 94 130/97 144/89 01/20/17 04:06 99 45 01/20/17 04:00 98.6 20 01/19/17 19:00 Mechanical Ventilator 01/17/17 12:00 12.00 Intake and Output 01/19/17 01/19/17 01/20/17 08:00 16:00 00:00 Intake Total 862 ml 1038 ml 1351 ml Output Total 150 ml 115 ml 525 ml Balance 712 ml 923 ml 826 ml Result Diagram: 01/20/17 0446 01/20/17 0446 Other Results Laboratory Tests Test 01/19/17 01/19/17 01/20/17 07:55 17:40 04:46 Stool C. difficile Toxin (PCR) NEGATIVE Stl C. difficile Toxin PRESUMPTIVE Epiderm 027 NEGATIVE White Blood Count 34.7 TH/MM3 40.4 TH/MM3 Red Blood Count 3.36 MIL/MM3 3.44 MIL/MM3 Hemoglobin 9.0 GM/DL 9.1 GM/DL Hematocrit 27.4 % 28.7 % Mean Corpuscular Volume 81.4 FL 83.4 FL Mean Corpuscular Hemoglobin 26.8 PG 26.6 PG Mean Corpuscular Hemoglobin 33.0 % 31.9 % Concent Red Cell Distribution Width 14.2 % 14.8 % Platelet Count 51 TH/MM3 46 TH/MM3 Mean Platelet Volume 12.7 FL 11.9 FL Sodium Level 140 MEQ/L 140 MEQ/L Potassium Level 3.5 MEQ/L 3.5 MEQ/L Chloride Level 103 MEQ/L 100 MEQ/L Carbon Dioxide Level 29.5 MEQ/L 31.3 MEQ/L Anion Gap 8 MEQ/L 9 MEQ/L Blood Urea Nitrogen 29 MG/DL 28 MG/DL Creatinine 0.62 MG/DL 0.75 MG/DL Estimat Glomerular Filtration 96 ML/MIN 77 ML/MIN Rate Random Glucose 149 MG/DL 186 MG/DL Calcium Level 7.0 MG/DL 7.2 MG/DL Protein Corrected Calcium 8.2 MG/DL 8.3 MG/DL Total Protein 4.8 GM/DL 5.1 GM/DL Neutrophils (%) (Auto) 91.3 % Lymphocytes (%) (Auto) 4.9 % Monocytes (%) (Auto) 3.4 % Eosinophils (%) (Auto) 0.2 % Basophils (%) (Auto) 0.2 % Neutrophils # (Auto) 36.9 TH/MM3 Lymphocytes # (Auto) 2.0 TH/MM3 Monocytes # (Auto) 1.4 TH/MM3 Eosinophils # (Auto) 0.1 TH/MM3 Basophils # (Auto) 0.1 TH/MM3 CBC Comment AUTO DIFF Differential Total Cells 100 Counted Neutrophils % (Manual) 71 % Band Neutrophils % 19 % Lymphocytes % 3 % Monocytes % 3 % Neutrophils # (Manual) 38.0 TH/MM3 Metamyelocytes 2 % Myelocytes 2 % Nucleated Red Blood Cells 1 /100 WBC Differential Comment FINAL DIFF MANUAL Platelet Estimate LOW Platelet Morphology Comment ENLARGED Magnesium Level 1.5 MG/DL Total Bilirubin 1.3 MG/DL Aspartate Amino Transf 65 U/L (AST/SGOT) Alanine Aminotransferase 72 U/L (ALT/SGPT) Alkaline Phosphatase 217 U/L Albumin 2.5 GM/DL Imaging Last Impressions Chest X-Ray 01/20/17 0600 Signed Impressions: Service Date/Time: Friday, January 20, 2017 04:29 - CONCLUSION: Diffuse patchy infiltrates are unchanged. Tubes and catheters are in good position. Major John MD Upper Extremity Ultrasound 01/19/17 0000 Signed Impressions: Service Date/Time: Thursday, January 19, 2017 09:53 - CONCLUSION: Small amount of occlusive thrombus is seen bilaterally in each of the cephalic veins. The rest of the deep venous systems are unremarkable. Major John MD Lower Extremity Ultrasound 01/19/17 0000 Signed Impressions: Service Date/Time: Thursday, January 19, 2017 09:35 - CONCLUSION: Normal examination. Major John MD Abdomen/Pelvis CT 01/18/17 0000 Signed Impressions: Service Date/Time: Wednesday, January 18, 2017 21:05 - CONCLUSION: 1. Mildly nonspecific, nonobstructive bowel gas pattern 2. The gallbladder is at the upper limits of normal in size but otherwise unremarkable. 3. Areas of parenchymal consolidation again noted in the lung bases. Paul Lou MD Liver Ultrasound 01/17/17 0000 Signed Impressions: Service Date/Time: Tuesday, January 17, 2017 17:05 - CONCLUSION: There is no intrahepatic biliary duct dilatation. Liver is grossly free of focal defects. London Frazier MD FACR Chest CT 01/15/17 0000 Signed Impressions: Service Date/Time: January 10:16 - CONCLUSION: Extensive scattered areas of parenchymal consolidation are seen throughout both lung lucas predominately along the peripheral aspect of both lungs. There are also scattered bilateral interstitial infiltrates. These infiltrates appear to be overlying central lobar emphysema. Madi Marvin MD Objective Remarks Gen: Critically ill elderly female, sedated with Versed, intubated Head: Normal. ALVARO ENT: Orotracheally intubated Neck: Supple, patent. Lungs: Diffuse rhonchi, and crackles good air movement, on PRVC mode of ventilation Heart: NL S1S2, tachycardic Abdomen: Soft, ND, NT, Extremities: No c/c/e Neuro: Intubated sedated. On sedation lightening able to wake up follow commands weakly Date of Insertion: Jan 11, 2017 A/P Assessment and Plan Assessment: Acute hypoxemic respiratory failure. ARDS Septic and cardiogenic shock RV dilation/dysfunction on echo indicating RV volume overload Bilateral multilobar pneumonia Worsening leukocytosis Lactic acidosis COPD exacerbation Anemia requiring transfusion Thrombocytopenia Invasive bladder cancer status post TURBT Plan: Neuro: - Versed drip for sedation and ventilator synchrony - Daily sedation vacation. Monitor neuro status. Resp: - PRVC vent mode, Continue with vent support keep sat >92% -Increase RR 20, decrease TV 450, Increase PEEP 10 ( low TV ventilation) - DuoNeb every 6 hours and when necessary . Check ABG - IV hydrocortisone 50 mg every 6 hours - Ventilator bundle - Pulm Dr. Stafford -s/p bronch with BAL 01/19 follow up on BAL results CVS: - Remains in cardiogenic and septic shock - .Flolan for RV offloading - Vasopressin and Jay-Synephrine as needed to keep map above 65. Wean off pressors. Check VBG - Echo showed EF 60-65%, normal RV size and function, flattening septum in diastole reflecting RV volume overload. GI: - IV famotidine - Jevity 1.5@45ml/hr - Having BM : - Monitor renal function, I/O's, electrolytes replacement per protocol. -Diurese with Bumex 2mg x1 followed by Bumex drip 0.5mg/hr x 7 hrs then d/c. HEME: - 2 units PRBC 01/18 - Thrombocytopenia most likely secondary to sepsis- HIT panel pending - Dr. Corbett Oncologist following for bladder cancer -Doppler US UE: Small amount of occlusive thrombus is seen bilaterally in each of the cephalic veins. -Doppler US LE: No DVT ID: - F/U blood urine and sputum cultures, septic shock most likely from severe pneumonia. - Urine Legionella and pneumococcal antigen, influenza negative to date - Continue azithromycin, meropenem, Zyvox, Micafungin. Flagyl, C diff negative 01/19. ID is following - Urine culture 01/13 C Glabrata, 01/18 Yeast species - s/p Bronch with BAL 01/19 follow up on BAL results Endo: - Electrolyte replacement per protocol, sliding scale insulin Prophylaxis: - IV Famotidine. Hold Lovenox due to anemia requiring transfusion, and thrombocytopenia Lines: Left subclavian, Right Femoral Art line Overall impression: Critically ill with severe sepsis, metabolic acidosis, and hypoxemic respiratory failure. Requiring multiple vasopressors and inotropes. Worsening leukocytosis and thrombocytopenia indicates worsening sepsis. Prognosis remained guarded CCT 30 MIN Aleyda Cabrera MD Jan 20, 2017 08:06
[2017-01-20] MEDS: BENEPROTEIN POWDER 1 PACK G-TUBE SCH ×3 (09:00→17:49)
[2017-01-20] MEDS: NYSTATIN SUSP 500,000 U/5 ML CUP SWISH-SWAL SCH ×4 (09:04→21:47)
[2017-01-20] MEDS: DOCUSATE SODIUM 50 MG/SENNA 8.6 MG TAB PO SCH ×2 (09:05→21:47)
[2017-01-20] MEDS: SODIUM CHLORIDE 0.9% FLUSH 10 ML FLUSH IV FLUSH SCH ×2 (09:05→21:46)
[2017-01-20] MEDS: LINEZOLID 600 MG PREMIX 300 ML IV SCH ×2 (09:05→21:46)
[2017-01-20] MEDS: ALBUMIN HUMAN 25% 25 GM/100 ML BAGP IV SCH ×2 (09:05→21:45)
[2017-01-20] MEDS: CHLORHEXIDINE 0.12% (ORAL KIT) 15 ML CUP MT SCH ×2 (09:06→21:14)
[2017-01-20 09:41] LABS: BLOOD GAS BASE EXCESS 3.3 mmol/L (-2-2); BLOOD GAS CARBOXYHEMOGLOBIN 1.4 % (0-4); BLOOD GAS HCO3 28 mmol/L (22-26); BLOOD GAS METHEMOGLOBIN 0.9 % (0-2); BLOOD GAS O2 HGB SATURATION 90 % (90-100); BLOOD GAS OXYGEN CONTENT 14.8 Vol % (12.0-20.0); BLOOD GAS PCO2 47 mmHg (38-42); BLOOD GAS PO2 63 mmHg (61-120); BLOOD GAS TOTAL HGB 11.8 G/DL (12.0-16.0); CRITICAL VALUE NO; OXYGEN DEVICE VENTILATOR; TEMP CORR TO 98.6
[2017-01-20 09:42] LABS: FIO2 55 %; VENT SETTINGS PRVC/AC
[2017-01-20 09:43] LABS: DRAW SITE RT FEMORAL; NUMBER OF ARTERIAL PUNCTURES 0; STAT NO; ULNAR PULSE PRESENT
[2017-01-20 09:45] LABS: BLOOD GAS VENOUS BASE EXCESS 3.5 mmol/L (-2-2); BLOOD GAS VENOUS HCO3 29 mmol/L (22-26); BLOOD GAS VENOUS O2 CONTENT 6.3 Vol % (9.0-17.0); BLOOD GAS VENOUS O2 HGB SAT 41 % (70-76); BLOOD GAS VENOUS PCO2 56 mmHg (44-48); BLOOD GAS VENOUS PO2 27 mmHg (35-40); BLOOD GAS VENOUS pH 7.34 (7.360-7.400); TEMP CORR TO 98.6
[2017-01-20 09:46] LABS: CRITICAL VALUE YES; OXYGEN DEVICE VENTILATOR
[2017-01-20 09:47] LABS: DRAW SITE RT FEMORAL; FIO2 55 %; STAT NO; VENT SETTINGS PRVC/AC
[2017-01-20] MEDS: FAMOTIDINE 20 MG/2 ML VIAL IV PUSH SCH ×2 (11:13→22:14)
--- NOTE | 2017-01-20 12:15 | HHI.GIFU ---
Subjective Remarks Resting in bed. Sedated on the ventilator- tachypneic and mildly labored on ventilator. Low grade temps overnight. Objective Vitals I&O Vital Signs Date Time Temp Pulse Resp B/P Pulse Ox O2 Delivery O2 Flow Rate FiO2 01/20/17 10:29 90 55 01/20/17 10:00 114 01/20/17 10:00 55 01/20/17 09:00 107 01/20/17 08:00 97 01/20/17 08:00 50 01/20/17 08:00 99.3 97 17 122/86 91 126/79 01/20/17 07:55 91 50 01/20/17 07:00 91 Mechanical Ventilator 55 01/20/17 07:00 97 01/20/17 06:00 94 130/97 144/89 01/20/17 06:00 94 01/20/17 04:06 99 45 01/20/17 04:00 98.6 95 20 108/80 100 116/76 01/20/17 04:00 95 01/20/17 04:00 45 01/20/17 04:00 95 108/80 116/76 01/20/17 01:28 94 45 01/20/17 00:00 97 01/20/17 00:00 97 98/69 100/60 01/20/17 00:00 98.4 97 16 98/69 93 100/60 01/20/17 00:00 45 01/19/17 22:00 90 01/19/17 20:58 96 45 01/19/17 20:00 45 01/19/17 20:00 89 01/19/17 20:00 98.6 86 18 146/103 95 130/82 01/19/17 20:00 89 146/103 130/82 01/19/17 19:00 94 Mechanical Ventilator 45 01/19/17 18:00 100 128/71 100/61 01/19/17 18:00 100 01/19/17 16:00 55 01/19/17 16:00 98.2 85 16 119/83 99 111/68 01/19/17 16:00 85 01/19/17 15:26 98 55 01/19/17 15:00 87 20 112/70 96 92/57 01/19/17 14:00 82 18 111/79 96 97/62 01/19/17 14:00 82 01/19/17 13:00 82 17 106/65 95 I/O 01/19/17 01/19/17 01/19/17 01/20/17 01/20/17 01/20/17 07:00 15:00 23:00 07:00 15:00 23:00 Intake Total 862 ml 1038 ml 1351 ml 1000 ml Output Total 150 ml 115 ml 525 ml 400 ml Balance 712 ml 923 ml 826 ml 600 ml IV Total 862 ml 938 ml 997 ml 660 ml Tube Feeding 154 ml 240 ml Albumin 100 ml 100 ml Other 100 ml 100 ml Output Urine Total 150 ml 115 ml 525 ml 400 ml # Bowel Movements 2 1 1 1 Laboratory Laboratory Tests Test 01/19/17 01/20/17 01/20/17 17:40 04:46 08:33 White Blood Count 34.7 40.4 Red Blood Count 3.36 3.44 Hemoglobin 9.0 9.1 Hematocrit 27.4 28.7 Mean Corpuscular Volume 81.4 83.4 Mean Corpuscular Hemoglobin 26.8 26.6 Mean Corpuscular Hemoglobin 33.0 31.9 Concent Red Cell Distribution Width 14.2 14.8 Platelet Count 51 46 Mean Platelet Volume 12.7 11.9 Sodium Level 140 140 Potassium Level 3.5 3.5 Chloride Level 103 100 Carbon Dioxide Level 29.5 31.3 Anion Gap 8 9 Blood Urea Nitrogen 29 28 Creatinine 0.62 0.75 Estimat Glomerular Filtration 96 77 Rate Random Glucose 149 186 Calcium Level 7.0 7.2 Protein Corrected Calcium 8.2 8.3 Total Protein 4.8 5.1 Neutrophils (%) (Auto) 91.3 Lymphocytes (%) (Auto) 4.9 Monocytes (%) (Auto) 3.4 Eosinophils (%) (Auto) 0.2 Basophils (%) (Auto) 0.2 Neutrophils # (Auto) 36.9 Lymphocytes # (Auto) 2.0 Monocytes # (Auto) 1.4 Eosinophils # (Auto) 0.1 Basophils # (Auto) 0.1 CBC Comment AUTO DIFF Differential Total Cells 100 Counted Neutrophils % (Manual) 71 Band Neutrophils % 19 Lymphocytes % 3 Monocytes % 3 Neutrophils # (Manual) 38.0 Metamyelocytes 2 Myelocytes 2 Nucleated Red Blood Cells 1 Differential Comment FINAL DIFF MANUAL Platelet Estimate LOW Platelet Morphology Comment ENLARGED Phosphorus Level 1.8 Magnesium Level 1.5 Total Bilirubin 1.3 Aspartate Amino Transf 65 (AST/SGOT) Alanine Aminotransferase 72 (ALT/SGPT) Alkaline Phosphatase 217 Albumin 2.5 Blood Gas Puncture Site RT FEMORAL Blood Gas Patient Temperature 98.6 Blood Gas HCO3 28 Blood Gas Base Excess 3.3 Blood Gas Oxygen Saturation 90 Arterial Blood pH 7.39 Arterial Blood Partial 47 Pressure CO2 Arterial Blood Partial 63 Pressure O2 Arterial Blood Oxygen Content 14.8 Arterial Blood 1.4 Carboxyhemoglobin Arterial Blood Methemoglobin 0.9 Venous Blood pH 7.34 Venous Blood Partial Pressure 56 CO2 Venous Blood Partial Pressure 27 O2 Venous Blood HCO3 29 Venous Blood Oxygen Saturation 41 Venous Blood Oxygen Content 6.3 Venous Blood Base Excess 3.5 Blood Gas Hemoglobin 11.8 Oxygen Delivery Device VENTILATOR Blood Gas Ventilator Setting PRVC/AC Blood Gas Inspired Oxygen 55 Date/Time Procedure Status Source Growth 01/19/17 10:33 Fungal Smear Received Bronchial Washings Right Lower Lobe Pending 01/19/17 10:33 Fungal Culture Received Bronchial Washings Right Lower Lobe Pending 01/19/17 09:10 Gram Stain - Final Resulted Bronchial Washings Right Lower Lobe 01/19/17 09:10 Bronchial Culture Resulted Bronchial Washings Right Lower Lobe Pending 01/19/17 09:10 Fungal Smear - Final Resulted Bronchial Washings Right Lower Lobe NO FUNGAL ELEMENTS SEEN. 01/19/17 09:10 Fungal Culture Resulted Bronchial Washings Right Lower Lobe Pending 01/19/17 09:10 Acid Fast Stain Received Bronchial Washings Right Lower Lobe Pending 01/19/17 09:10 Mycobacterial Culture Received Bronchial Washings Right Lower Lobe Pending 01/18/17 20:30 Stool Occult Blood (FLORI) - Final Complete Stool Stool HEMOCCULT NEGATIVE 01/18/17 14:59 Aerobic Blood Culture - Preliminary Resulted Blood Peripheral NO GROWTH IN 2 DAYS 01/18/17 14:59 Anaerobic Blood Culture - Preliminary Resulted Blood Peripheral NO GROWTH IN 2 DAYS 01/18/17 11:20 Urine Culture - Final Complete Urine Catheterized Urine Kaity Glabrata Kaity Albicans 01/15/17 18:39 Legionella Antigen - Final Complete Urine Random Urine PRESUMPTIVE NEGATIVE FOR LEGIONELLA P... 01/15/17 18:39 Streptococcus pneumoniae Antigen (M - Final Complete Urine Random Urine PRESUMPTIVE NEGATIVE FOR STREPTOCOCCU... 01/15/17 18:39 Influenza Types A,B Antigen (FLORI) - Final Complete Nasal Washing NEGATIVE FOR FLU A AND B ANTIGEN.... Imaging Last Impressions Chest X-Ray 01/20/17 0600 Signed Impressions: Service Date/Time: Friday, January 20, 2017 04:29 - CONCLUSION: Diffuse patchy infiltrates are unchanged. Tubes and catheters are in good position. Major John MD Upper Extremity Ultrasound 01/19/17 0000 Signed Impressions: Service Date/Time: Thursday, January 19, 2017 09:53 - CONCLUSION: Small amount of occlusive thrombus is seen bilaterally in each of the cephalic veins. The rest of the deep venous systems are unremarkable. Major John MD Lower Extremity Ultrasound 01/19/17 0000 Signed Impressions: Service Date/Time: Thursday, January 19, 2017 09:35 - CONCLUSION: Normal examination. Major John MD Abdomen/Pelvis CT 01/18/17 0000 Signed Impressions: Service Date/Time: Wednesday, January 18, 2017 21:05 - CONCLUSION: 1. Mildly nonspecific, nonobstructive bowel gas pattern 2. The gallbladder is at the upper limits of normal in size but otherwise unremarkable. 3. Areas of parenchymal consolidation again noted in the lung bases. Paul Lou MD Liver Ultrasound 01/17/17 0000 Signed Impressions: Service Date/Time: Tuesday, January 17, 2017 17:05 - CONCLUSION: There is no intrahepatic biliary duct dilatation. Liver is grossly free of focal defects. London Frazier MD FACR Chest CT 01/15/17 0000 Signed Impressions: Service Date/Time: January 10:16 - CONCLUSION: Extensive scattered areas of parenchymal consolidation are seen throughout both lung lucas predominately along the peripheral aspect of both lungs. There are also scattered bilateral interstitial infiltrates. These infiltrates appear to be overlying central lobar emphysema. Madi Marvin MD Physical Exam HEENT: Normocephalic; atraumatic. OETT in place. CHEST: Resp. crackles and rhonchi, intubated CARDIAC: ST ABDOMEN: Decreased BS, soft, nondistended, nontender EXTREMITIES: Generalized edema. SKIN: Normal; no rash; no jaundice. OPTOMETRIST: sedated on a vent Assessment and Plan Plan ASSESSMENT: - Dysphagia. GI consulted for dysphagia. Prior to intubation, she reported that she is not eating much, but not so much because of dysphagia, but because of her shortness of breath. She also reported a sore throat, but denied painful swallowing. She has kaity in urine. ? Kaity esophagitis. Nystatin, Pepcid. - Abnormal LFTs of uncertain significance. LFTs improved, T. Bili 1.3, AST 65, ALT 72, Alk Phosph 217. - VDRF/Bilateral pneumonia/ARDS. Chest X-Ray (01/13/17)----> Patchy bilateral areas of peripheral partially consolidative infiltrate in both lungs. No evidence of pleural effusion. Chest CT (01/15/17)----> Extensive scattered areas of parenchymal consolidation are seen throughout both lung lucas predominately along the peripheral aspect of both lungs. There are also scattered bilateral interstitial infiltrates. These infiltrates appear to be overlying central lobar emphysema. Pt was intubated on 01/18/17. Micafungin, Zyvox, Meropenem, Azithromycin. Worsening WBC count 40.4. Pt had bronch on 01/19 with cultures/washings are pending. - Hx Bladder cancer. Plan: - Okay for TF - Cont. Pepcid - Cont. Abx - Monitor H/H - Monitor LFTs - ID following - CCM following - Pulmonary following - Transfuse as needed - Patient is critically ill and not stable for EGD at this time, she is on pressors, will consider once medically stable - Pt seen and examined by myself and Dr. Tse and this note was written on his behalf. Noy Schroeder Jan 20, 2017 12:15
--- NOTE | 2017-01-20 12:52 | PD.ONC.PN ---
Subjective Subjective Remarks Afebrile overnight. Patient intubated, sedated and on multiple pressors. Objective Data Date Time Temp Pulse Resp B/P Pulse Ox O2 Delivery O2 Flow Rate FiO2 01/20/17 12:00 115 108/65 102/61 01/20/17 12:00 115 01/20/17 12:00 55 01/20/17 12:00 99.2 115 32 108/65 95 102/61 01/20/17 11:00 108 01/20/17 10:29 90 55 01/20/17 10:00 114 01/20/17 10:00 55 01/20/17 09:00 107 01/20/17 08:00 97 01/20/17 08:00 50 01/20/17 08:00 97 122/86 126/79 01/20/17 08:00 99.3 97 17 122/86 91 126/79 01/20/17 07:55 91 50 01/20/17 07:00 91 Mechanical Ventilator 55 01/20/17 07:00 97 01/20/17 06:00 94 130/97 144/89 01/20/17 06:00 94 01/20/17 04:06 99 45 01/20/17 04:00 98.6 95 20 108/80 100 116/76 01/20/17 04:00 95 01/20/17 04:00 45 01/20/17 04:00 95 108/80 116/76 01/20/17 01:28 94 45 01/20/17 00:00 97 01/20/17 00:00 97 98/69 100/60 01/20/17 00:00 98.4 97 16 98/69 93 100/60 01/20/17 00:00 45 01/19/17 22:00 90 01/19/17 20:58 96 45 01/19/17 20:00 45 01/19/17 20:00 89 01/19/17 20:00 98.6 86 18 146/103 95 130/82 01/19/17 20:00 89 146/103 130/82 01/19/17 19:00 94 Mechanical Ventilator 45 01/19/17 18:00 100 128/71 100/61 01/19/17 18:00 100 01/19/17 16:00 55 01/19/17 16:00 98.2 85 16 119/83 99 111/68 01/19/17 16:00 85 01/19/17 15:26 98 55 01/19/17 15:00 87 20 112/70 96 92/57 01/19/17 14:00 82 18 111/79 96 97/62 01/19/17 14:00 82 01/19/17 13:00 82 17 106/65 95 01/20/17 01/20/17 01/20/17 07:00 15:00 23:00 Intake Total 1000 ml Output Total 400 ml Balance 600 ml Result Diagram: 01/20/17 0446 01/20/17 0446 Laboratory Results Laboratory Tests Test 01/19/17 01/20/17 01/20/17 17:40 04:46 08:33 White Blood Count 34.7 TH/MM3 40.4 TH/MM3 Red Blood Count 3.36 MIL/MM3 3.44 MIL/MM3 Hemoglobin 9.0 GM/DL 9.1 GM/DL Hematocrit 27.4 % 28.7 % Mean Corpuscular Volume 81.4 FL 83.4 FL Mean Corpuscular Hemoglobin 26.8 PG 26.6 PG Mean Corpuscular Hemoglobin 33.0 % 31.9 % Concent Red Cell Distribution Width 14.2 % 14.8 % Platelet Count 51 TH/MM3 46 TH/MM3 Mean Platelet Volume 12.7 FL 11.9 FL Sodium Level 140 MEQ/L 140 MEQ/L Potassium Level 3.5 MEQ/L 3.5 MEQ/L Chloride Level 103 MEQ/L 100 MEQ/L Carbon Dioxide Level 29.5 MEQ/L 31.3 MEQ/L Anion Gap 8 MEQ/L 9 MEQ/L Blood Urea Nitrogen 29 MG/DL 28 MG/DL Creatinine 0.62 MG/DL 0.75 MG/DL Estimat Glomerular Filtration 96 ML/MIN 77 ML/MIN Rate Random Glucose 149 MG/DL 186 MG/DL Calcium Level 7.0 MG/DL 7.2 MG/DL Protein Corrected Calcium 8.2 MG/DL 8.3 MG/DL Total Protein 4.8 GM/DL 5.1 GM/DL Neutrophils (%) (Auto) 91.3 % Lymphocytes (%) (Auto) 4.9 % Monocytes (%) (Auto) 3.4 % Eosinophils (%) (Auto) 0.2 % Basophils (%) (Auto) 0.2 % Neutrophils # (Auto) 36.9 TH/MM3 Lymphocytes # (Auto) 2.0 TH/MM3 Monocytes # (Auto) 1.4 TH/MM3 Eosinophils # (Auto) 0.1 TH/MM3 Basophils # (Auto) 0.1 TH/MM3 CBC Comment AUTO DIFF Differential Total Cells 100 Counted Neutrophils % (Manual) 71 % Band Neutrophils % 19 % Lymphocytes % 3 % Monocytes % 3 % Neutrophils # (Manual) 38.0 TH/MM3 Metamyelocytes 2 % Myelocytes 2 % Nucleated Red Blood Cells 1 /100 WBC Differential Comment FINAL DIFF MANUAL Platelet Estimate LOW Platelet Morphology Comment ENLARGED Phosphorus Level 1.8 MG/DL Magnesium Level 1.5 MG/DL Total Bilirubin 1.3 MG/DL Aspartate Amino Transf 65 U/L (AST/SGOT) Alanine Aminotransferase 72 U/L (ALT/SGPT) Alkaline Phosphatase 217 U/L Albumin 2.5 GM/DL Blood Gas Puncture Site RT FEMORAL Blood Gas Patient Temperature 98.6 Blood Gas HCO3 28 mmol/L Blood Gas Base Excess 3.3 mmol/L Blood Gas Oxygen Saturation 90 % Arterial Blood pH 7.39 Arterial Blood Partial 47 mmHg Pressure CO2 Arterial Blood Partial 63 mmHg Pressure O2 Arterial Blood Oxygen Content 14.8 Vol % Arterial Blood 1.4 % Carboxyhemoglobin Arterial Blood Methemoglobin 0.9 % Venous Blood pH 7.34 Venous Blood Partial Pressure 56 mmHg CO2 Venous Blood Partial Pressure 27 mmHg O2 Venous Blood HCO3 29 mmol/L Venous Blood Oxygen Saturation 41 % Venous Blood Oxygen Content 6.3 Vol % Venous Blood Base Excess 3.5 mmol/L Blood Gas Hemoglobin 11.8 G/DL Oxygen Delivery Device VENTILATOR Blood Gas Ventilator Setting PRVC/AC Blood Gas Inspired Oxygen 55 % Culture Results Microbiology Date/Time Procedure Status Source Growth 01/17/17 15:55 Gram Stain - Final Complete Sputum Expectorated Sputum 01/17/17 15:55 Sputum Culture - Final Complete Sputum Expectorated Sputum NO GROWTH IN 48 HOURS. 01/18/17 11:20 Gram Stain - Final Complete Sputum Endotracheal 01/18/17 11:20 Sputum Culture - Final Complete Sputum Endotracheal NO GROWTH IN 48 HOURS. 01/18/17 11:20 Urine Culture - Final Complete Urine Catheterized Urine Kajal Glabrata Kajal Albicans 01/18/17 14:50 Aerobic Blood Culture - Preliminary Resulted Blood Peripheral NO GROWTH IN 2 DAYS 01/18/17 14:50 Anaerobic Blood Culture - Preliminary Resulted Blood Peripheral NO GROWTH IN 2 DAYS 01/18/17 14:59 Aerobic Blood Culture - Preliminary Resulted Blood Peripheral NO GROWTH IN 2 DAYS 01/18/17 14:59 Anaerobic Blood Culture - Preliminary Resulted Blood Peripheral NO GROWTH IN 2 DAYS 01/18/17 20:30 Stool Occult Blood (FLORI) - Final Complete Stool Stool HEMOCCULT NEGATIVE 01/19/17 09:10 Gram Stain - Final Resulted Bronchial Washings Left Lower Lobe 01/19/17 09:10 Bronchial Culture Resulted Bronchial Washings Left Lower Lobe Pending 01/19/17 09:10 Gram Stain - Final Resulted Bronchial Washings Right Lower Lobe 01/19/17 09:10 Bronchial Culture Resulted Bronchial Washings Right Lower Lobe Pending 01/19/17 09:10 Acid Fast Stain Received Bronchial Washings Left Lower Lobe Pending 01/19/17 09:10 Mycobacterial Culture Received Bronchial Washings Left Lower Lobe Pending 01/19/17 09:10 Acid Fast Stain Received Bronchial Washings Right Lower Lobe Pending 01/19/17 09:10 Mycobacterial Culture Received Bronchial Washings Right Lower Lobe Pending 01/19/17 09:10 Fungal Smear - Final Resulted Bronchial Washings Left Lower Lobe NO FUNGAL ELEMENTS SEEN. 01/19/17 09:10 Fungal Culture Resulted Bronchial Washings Left Lower Lobe Pending 01/19/17 09:10 Fungal Smear - Final Resulted Bronchial Washings Right Lower Lobe NO FUNGAL ELEMENTS SEEN. 01/19/17 09:10 Fungal Culture Resulted Bronchial Washings Right Lower Lobe Pending 01/19/17 10:33 Fungal Smear Received Bronchial Washings Right Lower Lobe Pending 01/19/17 10:33 Fungal Culture Received Bronchial Washings Right Lower Lobe Pending Imaging Studies Last 24 hours Impressions Chest X-Ray 01/20/17 0600 Signed Impressions: Service Date/Time: Friday, January 20, 2017 04:29 - CONCLUSION: Diffuse patchy infiltrates are unchanged. Tubes and catheters are in good position. Major John MD Administered Medications Medications (Trade) Dose Ordered Sig/Ed Route PRN Reason Start Time Stop Time Status Last Admin Dose Admin Sodium Chloride (NS Flush) 2 ml UNSCH PRN IV FLUSH FLUSH AFTER USING IV ACCESS 01/13/17 21:00 01/19/17 07:34 Sodium Chloride (NS Flush) 2 ml BID IV FLUSH 01/13/17 21:00 01/20/17 09:05 Ondansetron HCl (Zofran Inj) 4 mg Q6H PRN IVP NAUSEA OR VOMITING 01/13/17 21:00 01/14/17 01:18 Acetaminophen (Tylenol) 650 mg Q6H PRN PO FEVER/PAIN SCALE 1 TO 2 01/13/17 21:00 01/16/17 14:44 Morphine Sulfate (Morphine Inj) 2 mg Q3H PRN IV Pain 6-10 01/13/17 21:00 01/20/17 02:47 Senna/Docusate Sodium (Arianna-Colace) 1 tab BID PO 01/13/17 21:00 01/20/17 09:05 Lorazepam (Ativan) 0.5 mg Q8H PO 01/13/17 22:00 01/20/17 04:52 Nystatin (Mycostatin Liq) 5 ml QID SWISH-SWAL 01/13/17 21:00 01/20/17 09:04 Calcium Carbonate 500 mg 500 mg Q6HR PRN CHEW heartburn 01/15/17 18:15 01/16/17 00:28 Meropenem 1000 mg/ Sodium Chloride 100 ml @ 200 mls/hr Q8H IV 01/15/17 20:00 01/20/17 11:13 Azithromycin/ Sodium Chloride (Zithromax Inj/ NS 250 ml Inj) 250 ml @ 250 mls/hr Q24H IV 01/15/17 18:00 01/19/17 17:36 Lorazepam (Ativan) 0.5 mg Q8H PRN PO anxiety 01/16/17 10:30 01/18/17 09:13 Chlorhexidine Gluconate (Peridex 0.12% Liq) 15 ml BID@08,20 MT 01/17/17 20:00 01/20/17 09:06 Morphine Sulfate 4 mg 4 mg Q3H PRN IV PUSH any pain 01/17/17 19:45 01/17/17 23:51 Linezolid 300 ml @ 300 mls/hr Q12H IV 01/17/17 21:00 01/20/17 09:05 Vasopressin 40 units/Dextrose 100 ml @ 6 mls/hr [id number] IV 01/17/17 21:59 01/20/17 00:10 Phenylephrine HCl/ Dextrose (Neosynephrine Inj/D5W 500 ml Inj) 500 ml @ 0 mls/hr TITRATE IV 01/17/17 22:00 01/19/17 07:32 Hydrocortisone Sodium Succinate (SoluCORTEF INJ) 50 mg Q6HR IV PUSH 01/18/17 00:00 01/20/17 11:10 Famotidine (Pepcid Inj) 20 mg Q12H IV PUSH 01/18/17 11:00 01/20/17 11:13 Insulin Human Regular 1 1 Q4H SQ 01/18/17 10:45 01/20/17 10:45 Milrinone Lactate 20 mg/Sodium Chloride 100 ml @ 17.1 mls/hr [id number] IV 01/18/17 12:08 01/20/17 09:07 Micafungin Sodium/ Sodium Chloride (Mycamine Inj/NS Inj) 100 ml @ 100 mls/hr Q24H IV 01/18/17 14:00 01/19/17 12:56 Albumin Human (Albumin 25% Inj) 25 gm Q12H IV 01/19/17 08:00 01/21/17 07:59 01/20/17 09:05 Protein 1 pack 1 pack TID [id number] 01/19/17 09:00 01/20/17 09:00 Midazolam HCl 100 ml @ 0 mls/hr TITRATE IV 01/19/17 08:30 01/20/17 04:53 Epoprostenol Sodium 62.5 ml/ Sodium Chloride 100 ml @ 8 mls/hr Q8H NEB 01/19/17 09:00 01/20/17 02:44 Magnesium Sulfate 2 gm/Sodium Chloride 100 ml @ 50 mls/hr UNSCH PRN IV For Magnesium 1.2 - 1.6 mg/dL 01/20/17 08:00 01/20/17 09:04 Bumetanide (Bumex Inj) 100 ml @ 2 mls/hr CONTINUOUS IV 01/20/17 13:00 01/20/17 12:12 Objective Remarks GENERAL: Elderly female intubated, sedated supine in bed. SKIN: Warm and dry. HEAD: Normocephalic. EYES: No injection or drainage. NECK: Supple, trachea midline. CARDIOVASCULAR: +S1/S2 RESPIRATORY: anterior lucas with scattered rhonchi, on mechanical ventilation. GASTROINTESTINAL: Abdomen soft, non-distended EXTREMITIES: No cyanosis; +anasarca NEUROLOGICAL: intubated sedated. Assessment/Plan Problem List: (1) Bladder cancer Status: Acute Plan: --Invasive bladder cancer status post TURBT. --PET scan showed no evidence of metastatic disease. --CT abdomen and pelvis with contrast. --Non-metastatic Muscle invasive urothelial cancer is treated with neoadjuvant chemotherapy followed by surgery--> will be addressed in the outpatient setting. (2) PNA (pneumonia) Status: Acute Plan: --Extensive bilateral pneumonia and acute respiratory distress currently being managed by primary team as well as pulmonary. --on multiple antibiotics. (3) Normocytic anemia Status: Acute Plan: --stool Hemoccult negative --LDH elevated, haptoglobin also elevated, no sign of hemolysis --s/p 2 units pRBC on 01/18 --ferritin significantly elevated (4) Transaminitis Status: Acute Plan: --likely due to sepsis but we also need to make sure there is no metastatic disease. --liver ultrasound WNL --CT ab/pelvis: only showed consolidation in lung bases. (5) Malnourished Status: Acute Plan: --low albumin --currently receiving TF--Jevity 1.5 (6) Thrombocytopenia Status: Acute Plan: --d/t sepsis, DIC Assessment 66y/o female with a history of muscle invasive bladder cancer who is admitted with pneumonia and respiratory distress. h/o muscle invasive bladder cancer. Hypertension. COPD. History of tobacco abuse. Plan 1. continue antibiotics 2. monitor CBC 3. await HIT Attending Statement The exam, history, and the medical decision-making described in the above note were completed with the assistance of the mid-level provider. I reviewed and agree with the findings presented. I attest that I had a [id number] encounter with the patient on the same day, and personally performed and documented my assessment and findings in the medical record. patient is critically ill. has acute respiratory failure and is currently intubated Thrombocytopenia due to sepsis and DIC Transfuse Cryoprecipitate to keep Fibrinogen > 170 Coagulopathy due to malnutrition and sepsis --Give Vitamin K prn to keep INR less than 1.4. Will give Vitamin K, 5 mg orally once. Anemia due to acute illness. Transfuse to to keep Hb > 8--stool heme-occult negative check daily DIC panel, LDH and Haptoglobin. T. bili up. check Jen test d/w Madeleine Pratt Jan 20, 2017 12:52 Malik Corbett MD Jan 20, 2017 22:38
[2017-01-20] MEDS ORDERED: BUMETANIDE INJ 100 ML IV SCH (13:00)
[2017-01-20 13:18] LABS: BLOOD GAS BASE EXCESS 2.6 mmol/L (-2-2); BLOOD GAS CARBOXYHEMOGLOBIN 1.6 % (0-4); BLOOD GAS HCO3 27 mmol/L (22-26); BLOOD GAS O2 HGB SATURATION 91 % (90-100); BLOOD GAS OXYGEN CONTENT 11.7 Vol % (12.0-20.0); BLOOD GAS PCO2 43 mmHg (38-42); BLOOD GAS PO2 69 mmHg (61-120); BLOOD GAS TOTAL HGB 9.2 G/DL (12.0-16.0); TEMP CORR TO 98.6
[2017-01-20 13:19] LABS: CRITICAL VALUE NO; OXYGEN DEVICE VENTILATOR
[2017-01-20] MEDS: fentaNYL DRIP 250 ML IV SCH (13:20)
[2017-01-20 13:21] LABS: DRAW SITE RT FEMORAL; FIO2 55 %; NUMBER OF ARTERIAL PUNCTURES 0; STAT NO; ULNAR PULSE PRESENT; VENT SETTINGS PRVC/AC
[2017-01-20 13:53] LABS: HEPARIN AB OD 0.228 O.D. (0.000-0.300); HEPARIN INDUCED PLATELET AB NEGATIVE (NEGATIVE)
[2017-01-20] MEDS: POTASSIUM CHLOR 40 MEQ PREMIX 100 ML IV PRN ×2 (14:37→16:53)
[2017-01-20] MEDS: MICAFUNGIN INJ 100 MG in SODIUM CHLORIDE 0.9% INJ 100 ML IV SCH (14:37)
[2017-01-20] MEDS: AZITHROMYCIN INJ 500 MG in SODIUM CHLOR 0.9% 250 ML INJ 250 ML IV SCH (17:49)
[2017-01-20 19:09] LABS: BLOOD GAS BASE EXCESS 1.6 mmol/L (-2-2); BLOOD GAS CARBOXYHEMOGLOBIN 1.2 % (0-4); BLOOD GAS HCO3 26 mmol/L (22-26); BLOOD GAS O2 HGB SATURATION 94 % (90-100); BLOOD GAS OXYGEN CONTENT 12.5 Vol % (12.0-20.0); BLOOD GAS PCO2 43 mmHg (38-42); BLOOD GAS PO2 82 mmHg (61-120); BLOOD GAS TOTAL HGB 9.4 G/DL (12.0-16.0); CRITICAL VALUE NO; OXYGEN DEVICE VENTILATOR; TEMP CORR TO 98.6
[2017-01-20 19:10] LABS: DRAW SITE RM; FIO2 45 %; NUMBER OF ARTERIAL PUNCTURES 0; STAT NO; ULNAR PULSE PRESENT
--- NOTE | 2017-01-20 19:45 | HHI.PR ---
Subjective Remarks 66 YOWF with Bilat ,Pn,RF ,On NRB No fever CT Chest Bilat extensive parenchymal infilt Desaturates easily, anxious Pt intubated, off sedation, does't respond On Neosyn, Milrinone Objective Vital Signs Vital Signs Date Time Temp Pulse Resp B/P Pulse Ox O2 Delivery O2 Flow Rate FiO2 01/20/17 18:00 122 01/20/17 17:00 128 01/20/17 16:00 100.4 130 34 99/63 95 105/64 01/20/17 16:00 45 01/20/17 16:00 130 99/63 105/64 01/20/17 16:00 130 01/20/17 15:50 94 45 01/20/17 15:30 94 45 01/20/17 15:00 127 01/20/17 14:00 128 01/20/17 12:00 115 108/65 102/61 01/20/17 12:00 115 01/20/17 12:00 55 01/20/17 12:00 99.2 115 32 108/65 95 102/61 01/20/17 11:00 108 01/20/17 10:29 90 55 01/20/17 10:00 114 01/20/17 10:00 55 01/20/17 09:00 107 01/20/17 08:00 97 01/20/17 08:00 50 01/20/17 08:00 97 122/86 126/79 01/20/17 08:00 99.3 97 17 122/86 91 126/79 01/20/17 07:55 91 50 01/20/17 07:00 91 Mechanical Ventilator 55 01/20/17 07:00 97 01/20/17 06:00 94 130/97 144/89 01/20/17 06:00 94 01/20/17 04:06 99 45 01/20/17 04:00 98.6 95 20 108/80 100 116/76 01/20/17 04:00 95 01/20/17 04:00 45 01/20/17 04:00 95 108/80 116/76 01/20/17 01:28 94 45 01/20/17 00:00 97 01/20/17 00:00 97 98/69 100/60 01/20/17 00:00 98.4 97 16 98/69 93 100/60 01/20/17 00:00 45 01/19/17 22:00 90 01/19/17 20:58 96 45 01/19/17 20:00 45 01/19/17 20:00 89 01/19/17 20:00 98.6 86 18 146/103 95 130/82 01/19/17 20:00 89 146/103 130/82 I/O 01/19/17 01/19/17 01/19/17 01/20/17 01/20/17 01/20/17 07:00 15:00 23:00 07:00 15:00 23:00 Intake Total 862 ml 1038 ml 1351 ml 1000 ml 1724 ml Output Total 150 ml 115 ml 525 ml 400 ml 1600.0 ml Balance 712 ml 923 ml 826 ml 600 ml 124.0 ml IV Total 862 ml 938 ml 997 ml 660 ml 1034 ml Tube Feeding 154 ml 240 ml 460 ml Albumin 100 ml 100 ml 50 ml Tube Irrigant 180 ml Other 100 ml 100 ml Output Urine Total 150 ml 115 ml 525 ml 400 ml 1350 ml Tube Feeding Residual Discard 250.0 ml # Bowel Movements 2 1 1 1 Result Diagram: 01/20/17 0446 01/20/17 1300 Objective Remarks GENERAL: MBMN WF, mild sob SKIN: Warm and dry. HEAD: Normocephalic. EYES: No scleral icterus. No injection or drainage. NECK: Supple, trachea midline. No JVD or lymphadenopathy. CARDIOVASCULAR: Regular rate and rhythm without murmurs, gallops, or rubs. RESPIRATORY: Breath sounds equal bilaterally. No accessory muscle use. bilat rales GASTROINTESTINAL: Abdomen soft, non-tender, nondistended. MUSCULOSKELETAL: No cyanosis, or edema. BACK: Nontender without obvious deformity. No CVA tenderness. A/P Assessment and Plan Resp Failure, on Vent septic and cardiogenic shock Hypoxia Bialt extensive Pneumonia leucocytosis PLAN: Vent support Aerosol nebs Abx Vanco, Zithro, Meropenam Milrinone and vasopressin to support BP On Flolan Jose Ivory MD Jan 20, 2017 19:45
--- NOTE | 2017-01-20 19:49 | HHI.IDPN ---
Subjective Subjective Remarks Not doing well Anuric Remains on vent Minimal sputum production On pressors, low dose nepsynephrine and vasopressine 0.04 Clincially deteriorating Antibiotics meropenem azithro zyvox Past Medical History bladder ca Allergies: Coded Allergies: Contrast Media (Verified Allergy, Severe, respiratory distress, 01/13/17) Penicillin (Verified Allergy, Intermediate, rash, 01/13/17) Uncoded Allergies: cefepime (Allergy, Intermediate, Rash, 01/15/17) pruritic rash Objective . Vital Signs Date Time Temp Pulse Resp B/P Pulse Ox O2 Delivery O2 Flow Rate FiO2 01/20/17 18:00 122 01/20/17 17:00 128 01/20/17 16:00 100.4 130 34 99/63 95 105/64 01/20/17 16:00 45 01/20/17 16:00 130 99/63 105/64 01/20/17 16:00 130 01/20/17 15:50 94 45 01/20/17 15:30 94 45 01/20/17 15:00 127 01/20/17 14:00 128 01/20/17 12:00 115 108/65 102/61 01/20/17 12:00 115 01/20/17 12:00 55 01/20/17 12:00 99.2 115 32 108/65 95 102/61 01/20/17 11:00 108 01/20/17 10:29 90 55 01/20/17 10:00 114 01/20/17 10:00 55 01/20/17 09:00 107 01/20/17 08:00 97 01/20/17 08:00 50 01/20/17 08:00 97 122/86 126/79 01/20/17 08:00 99.3 97 17 122/86 91 126/79 01/20/17 07:55 91 50 01/20/17 07:00 91 Mechanical Ventilator 55 01/20/17 07:00 97 01/20/17 06:00 94 130/97 144/89 01/20/17 06:00 94 01/20/17 04:06 99 45 01/20/17 04:00 98.6 95 20 108/80 100 116/76 01/20/17 04:00 95 01/20/17 04:00 45 01/20/17 04:00 95 108/80 116/76 01/20/17 01:28 94 45 01/20/17 00:00 97 01/20/17 00:00 97 98/69 100/60 01/20/17 00:00 98.4 97 16 98/69 93 100/60 01/20/17 00:00 45 01/19/17 22:00 90 01/19/17 20:58 96 45 01/19/17 20:00 45 01/19/17 20:00 89 01/19/17 20:00 98.6 86 18 146/103 95 130/82 01/19/17 20:00 89 146/103 130/82 01/19/17 01/19/17 01/20/17 15:00 23:00 07:00 Intake Total 1038 ml 1351 ml 1000 ml Output Total 115 ml 525 ml 400 ml Balance 923 ml 826 ml 600 ml IV Total 938 ml 997 ml 660 ml Tube Feeding 154 ml 240 ml Albumin 100 ml 100 ml Other 100 ml 100 ml Output Urine Total 115 ml 525 ml 400 ml # Bowel Movements 1 1 1 . Laboratory Tests Test 01/19/17 01/19/17 01/20/17 04:54 17:40 04:46 White Blood Count 35.2 TH/MM3 34.7 TH/MM3 40.4 TH/MM3 Red Blood Count 3.56 MIL/MM3 3.36 MIL/MM3 3.44 MIL/MM3 Hemoglobin 9.6 GM/DL 9.0 GM/DL 9.1 GM/DL Hematocrit 29.0 % 27.4 % 28.7 % Mean Corpuscular Volume 81.6 FL 81.4 FL 83.4 FL Mean Corpuscular Hemoglobin 27.1 PG 26.8 PG 26.6 PG Mean Corpuscular Hemoglobin 33.2 % 33.0 % 31.9 % Concent Red Cell Distribution Width 14.2 % 14.2 % 14.8 % Platelet Count 58 TH/MM3 51 TH/MM3 46 TH/MM3 Mean Platelet Volume 10.8 FL 12.7 FL 11.9 FL Neutrophils (%) (Auto) 93.4 % 91.3 % Lymphocytes (%) (Auto) 3.3 % 4.9 % Monocytes (%) (Auto) 3.0 % 3.4 % Eosinophils (%) (Auto) 0.1 % 0.2 % Basophils (%) (Auto) 0.2 % 0.2 % Neutrophils # (Auto) 32.9 TH/MM3 36.9 TH/MM3 Lymphocytes # (Auto) 1.2 TH/MM3 2.0 TH/MM3 Monocytes # (Auto) 1.1 TH/MM3 1.4 TH/MM3 Eosinophils # (Auto) 0.0 TH/MM3 0.1 TH/MM3 Basophils # (Auto) 0.1 TH/MM3 0.1 TH/MM3 CBC Comment AUTO DIFF AUTO DIFF Differential Total Cells 100 100 Counted Neutrophils % (Manual) 92 % 71 % Band Neutrophils % 3 % 19 % Lymphocytes % 1 % 3 % Monocytes % 2 % 3 % Neutrophils # (Manual) 34.1 TH/MM3 38.0 TH/MM3 Myelocytes 2 % 2 % Differential Comment FINAL DIFF FINAL DIFF MANUAL MANUAL Platelet Estimate LOW LOW Platelet Morphology Comment NORMAL ENLARGED Keratocytes 2+ Metamyelocytes 2 % Nucleated Red Blood Cells 1 /100 WBC Laboratory Tests Test 01/19/17 01/19/17 01/19/17 01/20/17 04:54 06:50 17:40 04:46 Sodium Level 141 MEQ/L 140 MEQ/L 140 MEQ/L Potassium Level 3.5 MEQ/L 3.5 MEQ/L 3.5 MEQ/L Chloride Level 104 MEQ/L 103 MEQ/L 100 MEQ/L Carbon Dioxide Level 28.3 MEQ/L 29.5 MEQ/L 31.3 MEQ/L Anion Gap 9 MEQ/L 8 MEQ/L 9 MEQ/L Blood Urea Nitrogen 26 MG/DL 29 MG/DL 28 MG/DL Creatinine 0.60 MG/DL 0.62 MG/DL 0.75 MG/DL Estimat Glomerular Filtration 100 ML/MIN 96 ML/MIN 77 ML/MIN Rate Random Glucose 183 MG/DL 149 MG/DL 186 MG/DL Calcium Level 7.1 MG/DL 7.0 MG/DL 7.2 MG/DL Protein Corrected Calcium 8.5 MG/DL 8.2 MG/DL 8.3 MG/DL Magnesium Level 1.5 MG/DL 1.5 MG/DL Total Bilirubin 0.8 MG/DL 1.3 MG/DL Aspartate Amino Transf 75 U/L 65 U/L (AST/SGOT) Alanine Aminotransferase 93 U/L 72 U/L (ALT/SGPT) Alkaline Phosphatase 178 U/L 217 U/L Total Protein 4.6 GM/DL 4.8 GM/DL 5.1 GM/DL Albumin 1.5 GM/DL 2.5 GM/DL Lactic Acid Level 2.3 mmol/L Phosphorus Level 1.8 MG/DL Test 01/20/17 13:00 Potassium Level 2.9 MEQ/L Microbiology Date/Time Procedure Status Source Growth 01/18/17 11:20 Gram Stain - Final Complete Sputum Endotracheal 01/18/17 11:20 Sputum Culture - Final Complete Sputum Endotracheal NO GROWTH IN 48 HOURS. 01/18/17 11:20 Urine Culture - Final Complete Urine Catheterized Urine Kajal Glabrata Kajal Albicans 01/18/17 14:50 Aerobic Blood Culture - Preliminary Resulted Blood Peripheral NO GROWTH IN 2 DAYS 01/18/17 14:50 Anaerobic Blood Culture - Preliminary Resulted Blood Peripheral NO GROWTH IN 2 DAYS 01/18/17 14:59 Aerobic Blood Culture - Preliminary Resulted Blood Peripheral NO GROWTH IN 2 DAYS 01/18/17 14:59 Anaerobic Blood Culture - Preliminary Resulted Blood Peripheral NO GROWTH IN 2 DAYS 01/18/17 20:30 Stool Occult Blood (FLORI) - Final Complete Stool Stool HEMOCCULT NEGATIVE 01/19/17 09:10 Gram Stain - Final Resulted Bronchial Washings Left Lower Lobe 01/19/17 09:10 Bronchial Culture - Preliminary Resulted Bronchial Washings Left Lower Lobe NO GROWTH IN 24 HOURS. 01/19/17 09:10 Gram Stain - Final Resulted Bronchial Washings Right Lower Lobe 01/19/17 09:10 Bronchial Culture - Preliminary Resulted Bronchial Washings Right Lower Lobe NO GROWTH IN 24 HOURS. 01/19/17 09:10 Acid Fast Stain Received Bronchial Washings Left Lower Lobe Pending 01/19/17 09:10 Mycobacterial Culture Received Bronchial Washings Left Lower Lobe Pending 01/19/17 09:10 Acid Fast Stain Received Bronchial Washings Right Lower Lobe Pending 01/19/17 09:10 Mycobacterial Culture Received Bronchial Washings Right Lower Lobe Pending 01/19/17 09:10 Fungal Smear - Final Resulted Bronchial Washings Left Lower Lobe NO FUNGAL ELEMENTS SEEN. 01/19/17 09:10 Fungal Culture Resulted Bronchial Washings Left Lower Lobe Pending 01/19/17 09:10 Fungal Smear - Final Resulted Bronchial Washings Right Lower Lobe NO FUNGAL ELEMENTS SEEN. 01/19/17 09:10 Fungal Culture Resulted Bronchial Washings Right Lower Lobe Pending 01/19/17 10:33 Fungal Smear Received Bronchial Washings Right Lower Lobe Pending 01/19/17 10:33 Fungal Culture Received Bronchial Washings Right Lower Lobe Pending Imaging Last Impressions Chest X-Ray 01/20/17 0600 Signed Impressions: Service Date/Time: Friday, January 20, 2017 04:29 - CONCLUSION: Diffuse patchy infiltrates are unchanged. Tubes and catheters are in good position. Major John MD Upper Extremity Ultrasound 01/19/17 0000 Signed Impressions: Service Date/Time: Thursday, January 19, 2017 09:53 - CONCLUSION: Small amount of occlusive thrombus is seen bilaterally in each of the cephalic veins. The rest of the deep venous systems are unremarkable. Major John MD Lower Extremity Ultrasound 01/19/17 0000 Signed Impressions: Service Date/Time: Thursday, January 19, 2017 09:35 - CONCLUSION: Normal examination. Major John MD Abdomen/Pelvis CT 01/18/17 0000 Signed Impressions: Service Date/Time: Wednesday, January 18, 2017 21:05 - CONCLUSION: 1. Mildly nonspecific, nonobstructive bowel gas pattern 2. The gallbladder is at the upper limits of normal in size but otherwise unremarkable. 3. Areas of parenchymal consolidation again noted in the lung bases. Paul Lou MD Liver Ultrasound 01/17/17 0000 Signed Impressions: Service Date/Time: Tuesday, January 17, 2017 17:05 - CONCLUSION: There is no intrahepatic biliary duct dilatation. Liver is grossly free of focal defects. London Frazier MD FACR Chest CT 01/15/17 0000 Signed Impressions: Service Date/Time: January 10:16 - CONCLUSION: Extensive scattered areas of parenchymal consolidation are seen throughout both lung lucas predominately along the peripheral aspect of both lungs. There are also scattered bilateral interstitial infiltrates. These infiltrates appear to be overlying central lobar emphysema. Madi Marvin MD Physical Exam CONSTITUTIONAL/GENERAL: This is an adequately nourished patient, in mild resp apparent distress. TUBES/LINES/DRAINS: SKIN: No jaundice, , or lesions. . Skin temperature appropriate. Not diaphoretic. Diffuse pale macular rash, on abdomen arms and legs, unchanged since yday HEAD: Atraumatic. Normocephalic. EYES: No scleral icterus. No injection or drainage. Fundi not examined. ENT: Poor dentition CARDIOVASCULAR: Regular rate and rhythm without murmurs, gallops, or rubs. No JVD. Peripheral pulses symmetric. Well perfused RESPIRATORY/CHEST: Symmetric, labored respirations. Breath sounds equal bilaterally. Clear to auscultation. No rhonchi GASTROINTESTINAL: Abdomen soft, no reaction to palpation (grimacing), moderately distended. No hepato-splenomegaly, or palpable masses. No guarding. Bowel sounds present. GENITOURINARY: Without palpable bladder distension. Mcgee catheter in place with scant amount of yellow urine MUSCULOSKELETAL: Extremities without clubbing, cyanosis, + diffuse 2+ edema. 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, likley just colonisation, doubt clin significane - mcgee about 1 wk Suspected new sepsis (worseing leukocytosis, hypotension, lactic acidosis, multi organ failure - MARTHA, acute VDRF) Acute throbocuytopenia Acute anemia Pt is cricically ill and unstable, clinically deteriorating Abx associated diarrhea, c.diff negative REC'S: -cont Meropenem - cont azithro - dc vancomycin - cont zyvox - cont micafungin - add high dose FLuconazole - chk UA/clx - follow sputum clx (scant amount of sputum was obtained) blood clx urine clx monitor rash dw Dr Sourav quarles RN Fara Palomares MD Jan 20, 2017 19:49
[2017-01-20 21:20] LABS: APTT (PATIENT) 30.3 SEC (24.3-30.1); INTERNATIONAL NORMALIZED RATIO 1.4 RATIO; PROTHROMBIN TIME - PATIENT 15.2 SEC (9.8-11.6)
[2017-01-20 21:49] LABS: MAGNESIUM 1.8 MG/DL (1.5-2.5); POTASSIUM 3.4 MEQ/L (3.5-5.1)
[2017-01-20] MEDS: FLUCONAZOLE 400 MG PREMIX BAG 200 ML IV SCH (22:13)
[2017-01-20] MEDS ORDERED: PHYTONADIONE 5 MG TAB PO ONE (22:45)
[2017-01-21] VITALS (27 sets, daily range): BP systolic 78–124; BP diastolic 47–86; PULSE 105–126; RESP 16–45; TEMP 98.5–100.4; O2SAT 92–98
[2017-01-21] MEDS: MILRINONE INJ 20 MG in SODIUM CHLORIDE 0.9% INJ 80 ML IV SCH ×5 (00:29→22:02)
[2017-01-21] MEDS: HYDROCORTISONE SOD SUCCINATE 100 MG VIAL IV PUSH SCH ×4 (00:32→17:20)
[2017-01-21] MEDS: INSULIN NovoLIN REGULAR SUPPLEMENTAL SCALE SQ SCH ×6 (02:40→22:51)
[2017-01-21] MEDS: EPOPROSTENOL NEB SOLUTION 50 NG/KG/MIN 100 ML NEB SCH ×6 (03:36→16:18)
[2017-01-21 03:48] LABS: AUTOMATED NEUTROPHIL # 37.9 TH/MM3 (1.8-7.7); BASOPHIL # 0.1 TH/MM3 (0-0.2); BASOPHIL % 0.2 % (0.0-2.0); EOSINOPHIL # 0.1 TH/MM3 (0-0.4); EOSINOPHIL % 0.2 % (0.0-4.0); HEMATOCRIT 27.4 % (35.0-46.0); LYMPH % 11.2 % (9.0-44.0); LYMPHOCYTE # 5.1 TH/MM3 (1.0-4.8); MEAN CELL VOLUME 82.9 FL (80.0-100.0); MEAN CORPUSCULAR HEMOGLOBIN 26.7 PG (27.0-34.0); MEAN CORPUSCULAR HGB CONC 32.2 % (32.0-36.0); MONO % 4.5 % (0.0-8.0); NEUT % 83.9 % (16.0-70.0); PLATELET COUNT 23 TH/MM3 (150-450); RED CELL DISTRIBUTION WIDTH 14.9 % (11.6-17.2); WHITE BLOOD COUNT 45.2 TH/MM3 (4.0-11.0)
[2017-01-21 04:09] LABS: BICARBONATE 30.9 MEQ/L (21.0-32.0); CALCIUM-PROTEIN CORRECTED 7.9 MG/DL (8.5-10.1); MAGNESIUM 1.7 MG/DL (1.5-2.5); TOTAL BILIRUBIN ADULT 1.8 MG/DL (0.2-1.0)
[2017-01-21 04:12] LABS: POTASSIUM 2.9 MEQ/L (3.5-5.1)
[2017-01-21] MEDS: RESP: ALBUTEROL 2.5 MG/IPRATROPIUM 0.5 MG NEB (SCH) NEB ×4 (04:14→20:07)
[2017-01-21] MEDS: POTASSIUM CHLOR 40 MEQ PREMIX 100 ML IV PRN ×4 (04:50→20:26)
[2017-01-21] MEDS: MEROPENEM INJ 1,000 MG in SODIUM CHLORIDE 0.9% INJ 100 ML IV SCH ×3 (04:53→20:27)
[2017-01-21 05:02] LABS: HEMO FLAGS AUTO DIFF
[2017-01-21 05:09] LABS: BANDS 18 % (0-6); CORRECTED NUCLEATED RBC 13 /100 WBC (0-0); KERATOCYTES OCC (NORMAL); MYELOCYTES 7 % (0-0); NEUTROPHIL # MANUAL DIFF 41.1 TH/MM3 (1.8-7.7); PLATELET ESTIMATE SMEAR LOW (NORMAL); PLATELET MORPHOLOGY ENLARGED (NORMAL); POLYS (SEG NEUTROPHILS) 65 % (16-70); PROMYELOCYTES 1 % (0-0); SCAN/DIFF FINAL DIFF MANUAL; WBC DIFF SAMPLE 100
[2017-01-21 05:10] LABS: STOMATOCYTES 1+ (NORMAL)
[2017-01-21] MEDS: LORazepam 0.5 MG TAB PO SCH ×3 (06:00→22:00)
[2017-01-21] MEDS: PHENYLEPHRINE INJ 160 MG in DEXTROSE 5% IN WATE 500 ML INJ 484 ML IV SCH ×2 (06:37)
[2017-01-21] MEDS ORDERED: BUMETANIDE INJ 100 ML IV SCH (08:00)
[2017-01-21] MEDS ORDERED: METOCLOPRAMIDE HCL 10 MG/2 ML VIAL IV PUSH PRN ×2 (08:15→23:00)
--- NOTE | 2017-01-21 08:22 | HHI.CCPN ---
Subjective Remarks/Hospital Course 66 y/o woman with pneumonia and worsening oxygenation. Now with evidence of marginal peripheral perfusion and deteriorating gas diffusion. She will need aggressive hydration, further impairing gas exchange. Requires intubation at this time. 01/18/17: Patient remains very critically ill. She is currently on milrinone and vasopressin, Mark trac shows cardiac output 4 L cardiac index 2.2 with inotropes. A bedside echo shows RV dilation, with septal flattening in diastole indicating right ventricular fluid overload. This is most likely secondary to multilobar pneumonia/ARDS, PE appears less likely. Patient is oliguric, 100 mL urine output in the last 4 hours. WBC count has increased to 27.8 hemoglobin dropped to 6.8. Receiving 2 units of PRBC. Receiving meropenem and azithromycin. Zyvox added. Also Micafungin added for C Glabrata in urine 01/19/17: Remains intubated sedated, currently on milrinone 0.75 g per KG per minute, vasopressin at 0.04 units and Jay-Synephrine at 60 mcg/m. Urine output approximately 550 mL in 24 hours. Bedside echo shows persistent RV dilation/ dysfunction with septal flattening. Will add inhaled Flolan to improve RV, function and offload RV. WBC count 35.3 today. IV Flagyl added, check C. difficile. Bronchi in BAL today 01/20 Patient is sedated with Versed and intubated. On Neosyn 50mics, Vasopressin , Milrinone and Flolan. Afebrile. 01/21 Patient remains sedated and intubated. On Bumex drip 0.5mg/hr and Neosyn. Off Vasopressin. On Milrinone and Flolan. Tmax 100.4 Objective Vital Signs Date Time Temp Pulse Resp B/P Pulse Ox O2 Delivery O2 Flow Rate FiO2 01/21/17 07:38 94 45 01/21/17 06:00 106 01/21/17 04:00 98.9 20 84/56 78/47 01/20/17 19:00 Mechanical Ventilator 01/17/17 12:00 12.00 Intake and Output 01/20/17 01/20/17 01/21/17 08:00 16:00 00:00 Intake Total 1000 ml 1724 ml 1200 ml Output Total 400 ml 1600.0 ml 650 ml Balance 600 ml 124.0 ml 550 ml Result Diagram: 01/21/17 0300 01/21/17 0300 Other Results Laboratory Tests Test 01/20/17 01/20/17 01/20/17 01/20/17 08:33 13:00 18:48 19:00 Blood Gas Puncture Site RT FEMORAL RT FEMORAL RM Blood Gas Patient Temperature 98.6 98.6 98.6 Blood Gas HCO3 28 mmol/L 27 mmol/L 26 mmol/L Blood Gas Base Excess 3.3 mmol/L 2.6 mmol/L 1.6 mmol/L Blood Gas Oxygen Saturation 90 % 91 % 94 % Arterial Blood pH 7.39 7.41 7.40 Arterial Blood Partial 47 mmHg 43 mmHg 43 mmHg Pressure CO2 Arterial Blood Partial 63 mmHg 69 mmHg 82 mmHg Pressure O2 Arterial Blood Oxygen Content 14.8 Vol % 11.7 Vol % 12.5 Vol % Arterial Blood 1.4 % 1.6 % 1.2 % Carboxyhemoglobin Arterial Blood Methemoglobin 0.9 % 1.0 % 1.0 % Venous Blood pH 7.34 Venous Blood Partial Pressure 56 mmHg CO2 Venous Blood Partial Pressure 27 mmHg O2 Venous Blood HCO3 29 mmol/L Venous Blood Oxygen Saturation 41 % Venous Blood Oxygen Content 6.3 Vol % Venous Blood Base Excess 3.5 mmol/L Blood Gas Hemoglobin 11.8 G/DL 9.2 G/DL 9.4 G/DL Oxygen Delivery Device VENTILATOR VENTILATOR VENTILATOR Blood Gas Ventilator Setting PRVC/AC PRVC/AC Blood Gas Inspired Oxygen 55 % 55 % 45 % Potassium Level 2.9 MEQ/L 3.9 MEQ/L Test 01/20/17 01/21/17 01/21/17 20:25 03:00 05:15 Prothrombin Time 15.2 SEC Prothromb Time International 1.4 RATIO Ratio Activated Partial 30.3 SEC Thromboplast Time Fibrinogen 212 mg/dL Sodium Level 139 MEQ/L 140 MEQ/L Potassium Level 3.4 MEQ/L 2.9 MEQ/L Chloride Level 100 MEQ/L 99 MEQ/L Carbon Dioxide Level 30.0 MEQ/L 30.9 MEQ/L Anion Gap 9 MEQ/L 10 MEQ/L Blood Urea Nitrogen 35 MG/DL 35 MG/DL Creatinine 0.88 MG/DL 0.93 MG/DL Estimat Glomerular Filtration 64 ML/MIN 60 ML/MIN Rate Random Glucose 136 MG/DL 141 MG/DL Calcium Level 7.0 MG/DL 7.1 MG/DL Protein Corrected Calcium 8.0 MG/DL 7.9 MG/DL Magnesium Level 1.8 MG/DL 1.7 MG/DL Total Protein 5.2 GM/DL 5.5 GM/DL White Blood Count 45.2 TH/MM3 Red Blood Count 3.30 MIL/MM3 Hemoglobin 8.8 GM/DL Hematocrit 27.4 % Mean Corpuscular Volume 82.9 FL Mean Corpuscular Hemoglobin 26.7 PG Mean Corpuscular Hemoglobin 32.2 % Concent Red Cell Distribution Width 14.9 % Platelet Count 23 TH/MM3 Mean Platelet Volume 9.2 FL Neutrophils (%) (Auto) 83.9 % Lymphocytes (%) (Auto) 11.2 % Monocytes (%) (Auto) 4.5 % Eosinophils (%) (Auto) 0.2 % Basophils (%) (Auto) 0.2 % Neutrophils # (Auto) 37.9 TH/MM3 Lymphocytes # (Auto) 5.1 TH/MM3 Monocytes # (Auto) 2.0 TH/MM3 Eosinophils # (Auto) 0.1 TH/MM3 Basophils # (Auto) 0.1 TH/MM3 CBC Comment AUTO DIFF Differential Total Cells 100 Counted Neutrophils % (Manual) 65 % Band Neutrophils % 18 % Lymphocytes % 6 % Monocytes % 3 % Neutrophils # (Manual) 41.1 TH/MM3 Myelocytes 7 % Promyelocytes 1 % Nucleated Red Blood Cells 13 /100 WBC Differential Comment FINAL DIFF MANUAL Platelet Estimate LOW Platelet Morphology Comment ENLARGED Stomatocytes 1+ Keratocytes OCC Phosphorus Level 3.3 MG/DL Total Bilirubin 1.8 MG/DL Aspartate Amino Transf 176 U/L (AST/SGOT) Alanine Aminotransferase 93 U/L (ALT/SGPT) Alkaline Phosphatase 225 U/L Albumin 3.1 GM/DL Direct Antiglobulin Test NEGATIVE (Jen) Imaging Last Impressions Chest X-Ray 01/20/17 0600 Signed Impressions: Service Date/Time: Friday, January 20, 2017 04:29 - CONCLUSION: Diffuse patchy infiltrates are unchanged. Tubes and catheters are in good position. Major John MD Upper Extremity Ultrasound 01/19/17 0000 Signed Impressions: Service Date/Time: Thursday, January 19, 2017 09:53 - CONCLUSION: Small amount of occlusive thrombus is seen bilaterally in each of the cephalic veins. The rest of the deep venous systems are unremarkable. Major John MD Lower Extremity Ultrasound 01/19/17 0000 Signed Impressions: Service Date/Time: Thursday, January 19, 2017 09:35 - CONCLUSION: Normal examination. Major John MD Abdomen/Pelvis CT 01/18/17 0000 Signed Impressions: Service Date/Time: Wednesday, January 18, 2017 21:05 - CONCLUSION: 1. Mildly nonspecific, nonobstructive bowel gas pattern 2. The gallbladder is at the upper limits of normal in size but otherwise unremarkable. 3. Areas of parenchymal consolidation again noted in the lung bases. Paul Lou MD Liver Ultrasound 01/17/17 0000 Signed Impressions: Service Date/Time: Tuesday, January 17, 2017 17:05 - CONCLUSION: There is no intrahepatic biliary duct dilatation. Liver is grossly free of focal defects. London Frazier MD FACR Chest CT 01/15/17 0000 Signed Impressions: Service Date/Time: January 10:16 - CONCLUSION: Extensive scattered areas of parenchymal consolidation are seen throughout both lung lucas predominately along the peripheral aspect of both lungs. There are also scattered bilateral interstitial infiltrates. These infiltrates appear to be overlying central lobar emphysema. Madi Marvin MD Objective Remarks Gen: Critically ill elderly female, sedated with Versed, intubated Head: Normal. ALVARO ENT: Orotracheally intubated Neck: Supple, patent. Lungs: Diffuse rhonchi, and crackles good air movement, on PRVC mode of ventilation Heart: NL S1S2, tachycardic Abdomen: Soft, ND, NT, Extremities: No c/c/e Neuro: Intubated sedated. On sedation lightening able to wake up follow commands weakly Date of Insertion: Jan 11, 2017 A/P Assessment and Plan Assessment: Acute hypoxemic respiratory failure. ARDS Septic and cardiogenic shock RV dilation/dysfunction on echo indicating RV volume overload Bilateral multilobar pneumonia Worsening leukocytosis Lactic acidosis COPD exacerbation Anemia requiring transfusion Thrombocytopenia Invasive bladder cancer status post TURBT Plan: Neuro: - On Fentanyl & Versed drip for sedation and ventilator synchrony - Daily sedation vacation. Monitor neuro status. Resp: -Continue with vent support keep sat >92% -On PRVC RR 20, TV 450, IT:1.0, PEEP:10, FIO2 45% - DuoNeb every 6 hours and when necessary . - IV hydrocortisone 50 mg every 6 hours - Ventilator bundle - Pulm Dr. Stafford -s/p bronch with BAL 01/19 follow up on BAL results CVS: - Remains in cardiogenic and septic shock - .Flolan for RV offloading - Jay-Synephrine as needed to keep MAP>65mmHg. Wean off Milrinone drip -Flolan 30,000 ng/ml- 8ml/hr - Echo showed EF 60-65%, normal RV size and function, flattening septum in diastole reflecting RV volume overload. GI: Elevated LFT's - IV famotidine - Jevity 1.5@45ml/hr - Place on Reglan 5mg IV Q8 PRN for high residuals. - 01/18 CT abdomen/pelvis: Mildly nonspecific, nonobstructive bowel gas pattern. Areas of parenchymal consolidation again noted in the lung bases. -01/17 US Liver: There is no intrahepatic biliary duct dilatation. Liver is grossly free of focal defects : - Monitor renal function, I/O's, electrolytes replacement per protocol. -On Bumex drip 0.5mg/hr with good response in UOP-3475mL in 24 hrs HEME: -Monitor CBC, Coags, check INR/PT, Fibrinogen - 2 units PRBC 01/18 - Thrombocytopenia most likely secondary to sepsis- HIT panel is negative - Dr. Corbett Oncologist following for bladder cancer -Doppler US UE: Small amount of occlusive thrombus is seen bilaterally in each of the cephalic veins. -Doppler US LE: No DVT ID: - F/U blood urine and sputum cultures, septic shock most likely from severe pneumonia. - Urine Legionella and pneumococcal antigen, influenza negative - Continue azithromycin, meropenem, Zyvox, Micafungin. Diflucan, C diff negative 01/19. ID is following - Urine culture 01/13 C Glabrata, 01/18 C. Albicans, C. Glabrata - s/p Bronch with BAL 01/19 follow up on BAL results -Monitor for signs of infections ( Fever, WBC) Endo: - Electrolyte replacement per protocol, sliding scale insulin Prophylaxis: - IV Famotidine. Hold Lovenox due to anemia requiring transfusion, and thrombocytopenia Lines: Left subclavian, Right Femoral Art line - placed 01/17 Overall impression: Critically ill with severe sepsis, metabolic acidosis, and hypoxemic respiratory failure. Requiring multiple vasopressors and inotropes. Worsening leukocytosis and thrombocytopenia indicates worsening sepsis. Prognosis remained guarded CCT 30 MIN Aleyda Cabrera MD Jan 21, 2017 08:22
[2017-01-21] MEDS: VASOPRESSIN INJ 40 UNITS in DEXTROSE 5% IN WATER 100ML INJ 98 ML IV SCH ×4 (08:40→17:59)
[2017-01-21] MEDS: BENEPROTEIN POWDER 1 PACK G-TUBE SCH ×3 (09:00→17:20)
[2017-01-21] MEDS ORDERED: CALCIUM GLUCONATE INJ 1 GM in SODIUM CHLORIDE 0.9% INJ 100 ML IV ONE (09:00)
[2017-01-21 09:17] LABS: INTERNATIONAL NORMALIZED RATIO 1.4 RATIO; PROTHROMBIN TIME - PATIENT 15.7 SEC (9.8-11.6)
[2017-01-21] MEDS: DOCUSATE SODIUM 50 MG/SENNA 8.6 MG TAB PO SCH ×2 (09:32→21:33)
[2017-01-21] MEDS: LINEZOLID 600 MG PREMIX 300 ML IV SCH (09:32)
[2017-01-21] MEDS: NYSTATIN SUSP 500,000 U/5 ML CUP SWISH-SWAL SCH ×4 (09:33→21:33)
[2017-01-21] MEDS: CHLORHEXIDINE 0.12% (ORAL KIT) 15 ML CUP MT SCH ×2 (09:33→20:26)
[2017-01-21] MEDS: SODIUM CHLORIDE 0.9% FLUSH 10 ML FLUSH IV FLUSH SCH ×2 (09:33→21:34)
[2017-01-21] MEDS: FAMOTIDINE 20 MG/2 ML VIAL IV PUSH SCH (10:46)
--- NOTE | 2017-01-21 12:03 | HHI.GIFU ---
Subjective Remarks Sedated on vent. No active bleeding. Tolerating TF. Objective Vitals I&O Vital Signs Date Time Temp Pulse Resp B/P Pulse Ox O2 Delivery O2 Flow Rate FiO2 01/21/17 10:52 92 45 01/21/17 10:00 109 01/21/17 08:00 107 90/66 101/62 01/21/17 08:00 98.8 107 20 90/66 94 101/62 01/21/17 08:00 107 01/21/17 08:00 45 01/21/17 07:38 94 45 01/21/17 07:00 94 Mechanical Ventilator 45 01/21/17 06:00 106 01/21/17 04:14 95 45 01/21/17 04:00 45 01/21/17 04:00 98.9 111 20 84/56 93 78/47 01/21/17 04:00 111 01/21/17 04:00 110 119/86 114/71 01/21/17 04:00 111 84/56 78/47 01/21/17 02:00 110 01/21/17 01:13 96 45 01/21/17 00:00 98.9 110 18 119/86 96 114/71 01/21/17 00:00 110 119/86 114/71 01/21/17 00:00 45 01/21/17 00:00 110 01/20/17 22:00 124 01/20/17 20:57 95 45 01/20/17 20:00 45 01/20/17 20:00 99.4 122 20 96 115/70 01/20/17 20:00 122 01/20/17 20:00 130 125/83 115/70 01/20/17 19:00 96 Mechanical Ventilator 45 01/20/17 18:00 122 01/20/17 17:00 128 01/20/17 16:00 100.4 130 34 99/63 95 105/64 01/20/17 16:00 45 01/20/17 16:00 130 99/63 105/64 01/20/17 16:00 130 01/20/17 15:50 94 45 01/20/17 15:30 94 45 01/20/17 15:00 127 01/20/17 14:00 128 01/20/17 12:00 115 108/65 102/61 01/20/17 12:00 115 01/20/17 12:00 55 01/20/17 12:00 99.2 115 32 108/65 95 102/61 I/O 01/20/17 01/20/17 01/20/17 01/21/17 01/21/17 01/21/17 07:00 15:00 23:00 07:00 15:00 23:00 Intake Total 1000 ml 1724 ml 1200 ml 803 ml 319 ml Output Total 400 ml 1600.0 ml 650 ml 1475 ml Balance 600 ml 124.0 ml 550 ml -672 ml 319 ml IV Total 660 ml 1034 ml 1140 ml 753 ml 319 ml Tube Feeding 240 ml 460 ml Albumin 50 ml 50 ml Tube Irrigant 180 ml Other 100 ml 60 ml Output Urine Total 400 ml 1350 ml 650 ml 1475 ml Tube Feeding Residual Discard 250.0 ml # Bowel Movements 1 Laboratory Laboratory Tests Test 01/20/17 01/20/17 01/20/17 01/20/17 13:00 18:48 19:00 20:25 Blood Gas Puncture Site RT FEMORAL RM Blood Gas Patient Temperature 98.6 98.6 Blood Gas HCO3 27 26 Blood Gas Base Excess 2.6 1.6 Blood Gas Oxygen Saturation 91 94 Arterial Blood pH 7.41 7.40 Arterial Blood Partial 43 43 Pressure CO2 Arterial Blood Partial 69 82 Pressure O2 Arterial Blood Oxygen Content 11.7 12.5 Arterial Blood 1.6 1.2 Carboxyhemoglobin Arterial Blood Methemoglobin 1.0 1.0 Blood Gas Hemoglobin 9.2 9.4 Oxygen Delivery Device VENTILATOR VENTILATOR Blood Gas Ventilator Setting PRVC/AC Blood Gas Inspired Oxygen 55 45 Potassium Level 2.9 3.9 3.4 Prothrombin Time 15.2 Prothromb Time International 1.4 Ratio Activated Partial 30.3 Thromboplast Time Fibrinogen 212 Sodium Level 139 Chloride Level 100 Carbon Dioxide Level 30.0 Anion Gap 9 Blood Urea Nitrogen 35 Creatinine 0.88 Estimat Glomerular Filtration 64 Rate Random Glucose 136 Calcium Level 7.0 Protein Corrected Calcium 8.0 Magnesium Level 1.8 Total Protein 5.2 Test 01/21/17 01/21/17 01/21/17 03:00 05:15 08:46 White Blood Count 45.2 Red Blood Count 3.30 Hemoglobin 8.8 Hematocrit 27.4 Mean Corpuscular Volume 82.9 Mean Corpuscular Hemoglobin 26.7 Mean Corpuscular Hemoglobin 32.2 Concent Red Cell Distribution Width 14.9 Platelet Count 23 Mean Platelet Volume 9.2 Neutrophils (%) (Auto) 83.9 Lymphocytes (%) (Auto) 11.2 Monocytes (%) (Auto) 4.5 Eosinophils (%) (Auto) 0.2 Basophils (%) (Auto) 0.2 Neutrophils # (Auto) 37.9 Lymphocytes # (Auto) 5.1 Monocytes # (Auto) 2.0 Eosinophils # (Auto) 0.1 Basophils # (Auto) 0.1 CBC Comment AUTO DIFF Differential Total Cells 100 Counted Neutrophils % (Manual) 65 Band Neutrophils % 18 Lymphocytes % 6 Monocytes % 3 Neutrophils # (Manual) 41.1 Myelocytes 7 Promyelocytes 1 Nucleated Red Blood Cells 13 Differential Comment FINAL DIFF MANUAL Platelet Estimate LOW Platelet Morphology Comment ENLARGED Stomatocytes 1+ Keratocytes OCC Sodium Level 140 Potassium Level 2.9 Chloride Level 99 Carbon Dioxide Level 30.9 Anion Gap 10 Blood Urea Nitrogen 35 Creatinine 0.93 Estimat Glomerular Filtration 60 Rate Random Glucose 141 Calcium Level 7.1 Protein Corrected Calcium 7.9 Phosphorus Level 3.3 Magnesium Level 1.7 Total Bilirubin 1.8 Aspartate Amino Transf 176 (AST/SGOT) Alanine Aminotransferase 93 (ALT/SGPT) Alkaline Phosphatase 225 Total Protein 5.5 Albumin 3.1 Direct Antiglobulin Test NEGATIVE (Jen) Prothrombin Time 15.7 Prothromb Time International 1.4 Ratio Fibrinogen 201 Date/Time Procedure Status Source Growth 01/19/17 10:33 Fungal Smear Received Bronchial Washings Right Lower Lobe Pending 01/19/17 10:33 Fungal Culture Received Bronchial Washings Right Lower Lobe Pending 01/19/17 09:10 Gram Stain - Final Complete Bronchial Washings Right Lower Lobe 01/19/17 09:10 Bronchial Culture - Final Complete Bronchial Washings Right Lower Lobe NO GROWTH IN 48 HOURS. 01/19/17 09:10 Fungal Smear - Final Resulted Bronchial Washings Right Lower Lobe NO FUNGAL ELEMENTS SEEN. 01/19/17 09:10 Fungal Culture Resulted Bronchial Washings Right Lower Lobe Pending 01/19/17 09:10 Acid Fast Stain - Final Resulted Bronchial Washings Right Lower Lobe NO ACID FAST BACILLI SEEN 01/19/17 09:10 Mycobacterial Culture Resulted Bronchial Washings Right Lower Lobe Pending 01/18/17 20:30 Stool Occult Blood (FLORI) - Final Complete Stool Stool HEMOCCULT NEGATIVE 01/18/17 14:59 Aerobic Blood Culture - Preliminary Resulted Blood Peripheral NO GROWTH IN 3 DAYS 01/18/17 14:59 Anaerobic Blood Culture - Preliminary Resulted Blood Peripheral NO GROWTH IN 3 DAYS 01/18/17 11:20 Urine Culture - Final Complete Urine Catheterized Urine Kaity Glabrata Kaity Albicans Imaging Last Impressions Chest X-Ray 01/20/17 0600 Signed Impressions: Service Date/Time: Friday, January 20, 2017 04:29 - CONCLUSION: Diffuse patchy infiltrates are unchanged. Tubes and catheters are in good position. Major John MD Upper Extremity Ultrasound 01/19/17 0000 Signed Impressions: Service Date/Time: Thursday, January 19, 2017 09:53 - CONCLUSION: Small amount of occlusive thrombus is seen bilaterally in each of the cephalic veins. The rest of the deep venous systems are unremarkable. Major John MD Lower Extremity Ultrasound 01/19/17 0000 Signed Impressions: Service Date/Time: Thursday, January 19, 2017 09:35 - CONCLUSION: Normal examination. Major John MD Abdomen/Pelvis CT 01/18/17 0000 Signed Impressions: Service Date/Time: Wednesday, January 18, 2017 21:05 - CONCLUSION: 1. Mildly nonspecific, nonobstructive bowel gas pattern 2. The gallbladder is at the upper limits of normal in size but otherwise unremarkable. 3. Areas of parenchymal consolidation again noted in the lung bases. Paul Lou MD Liver Ultrasound 01/17/17 0000 Signed Impressions: Service Date/Time: Tuesday, January 17, 2017 17:05 - CONCLUSION: There is no intrahepatic biliary duct dilatation. Liver is grossly free of focal defects. London Frazier MD FACR Chest CT 01/15/17 0000 Signed Impressions: Service Date/Time: January 10:16 - CONCLUSION: Extensive scattered areas of parenchymal consolidation are seen throughout both lung lucas predominately along the peripheral aspect of both lungs. There are also scattered bilateral interstitial infiltrates. These infiltrates appear to be overlying central lobar emphysema. Madi Marvin MD Physical Exam HEENT: Normocephalic; atraumatic. OETT in place. CHEST: Resp. crackles and rhonchi, intubated CARDIAC: ST, hypotension ABDOMEN: Decreased BS, soft, nondistended, nontender EXTREMITIES: Generalized edema. SKIN: Normal; no rash; no jaundice. SHEET SEWER: sedated on a vent Assessment and Plan Plan ASSESSMENT: - Dysphagia. GI consulted for dysphagia. Prior to intubation, she reported that she is not eating much, but stated not so much because of dysphagia, but because of her shortness of breath. She also reported a sore throat, but denied painful swallowing. She has kaity in urine. ? Kaity esophagitis. Tolerating TF. Not stable for endoscopic evaluation at this time. Nystatin, Pepcid. - Abnormal LFTs of uncertain significance. LFTs worsening today- although she was hypotensive overnight and is now on two antifungals. Suspect that this worsening LFT may be related to medications. T. Bili 1.8, AST 176, ALT 93, Alk Phosph 225. Will monitor. - VDRF/Bilateral pneumonia/ARDS. Chest CT (01/15/17)----> Extensive scattered areas of parenchymal consolidation are seen throughout both lung lucas predominately along the peripheral aspect of both lungs. There are also scattered bilateral interstitial infiltrates. These infiltrates appear to be overlying central lobar emphysema. Pt was intubated on 01/18/17. Diflucan, Zyvox, Meropenem, Azithromycin. Worsening WBC count 45.2. Pt had bronch on 01/19 with cultures- no growth x 48 hours, mycobacteria, fungal culture pending. ID following. - Hx Bladder cancer. Plan: - Jevity 1.5 @ goal rate 45ml/hr - Cont. Pepcid - Cont. Abx - Monitor H/H - Monitor LFTs- if continue to rise, may need to adjust medications, suspect that the antifungals may be the culprit, but patient has worsening leukocytosis and has kaity glabrata/albicans so do not want to stop these at this point. - ID following - CCM following - Pulmonary following - Transfuse as needed - Patient is critically ill and not stable for EGD at this time, she is on pressors, will consider once medically stable - Pt seen and examined by myself and Dr. Tse and this note was written on his behalf. Noy Schroeder Jan 21, 2017 12:03
[2017-01-21] MEDS: MICAFUNGIN INJ 100 MG in SODIUM CHLORIDE 0.9% INJ 100 ML IV SCH (13:15)
--- NOTE | 2017-01-21 13:31 | PD.ONC.PN ---
Subjective Subjective Remarks Afebrile overnight. Intubated, sedated, on multiple pressors. Tachycardic. No family at bedside. Objective Data Date Time Temp Pulse Resp B/P Pulse Ox O2 Delivery O2 Flow Rate FiO2 01/21/17 12:56 93 55 01/21/17 12:00 99.4 112 19 103/76 92 117/73 01/21/17 10:52 92 45 01/21/17 10:00 109 01/21/17 08:00 107 90/66 101/62 01/21/17 08:00 98.8 107 20 90/66 94 101/62 01/21/17 08:00 107 01/21/17 08:00 45 01/21/17 07:38 94 45 01/21/17 07:00 94 Mechanical Ventilator 45 01/21/17 06:00 106 01/21/17 04:14 95 45 01/21/17 04:00 45 01/21/17 04:00 98.9 111 20 84/56 93 78/47 01/21/17 04:00 111 01/21/17 04:00 110 119/86 114/71 01/21/17 04:00 111 84/56 78/47 01/21/17 02:00 110 01/21/17 01:13 96 45 01/21/17 00:00 98.9 110 18 119/86 96 114/71 01/21/17 00:00 110 119/86 114/71 01/21/17 00:00 45 01/21/17 00:00 110 01/20/17 22:00 124 01/20/17 20:57 95 45 01/20/17 20:00 45 01/20/17 20:00 99.4 122 20 96 115/70 01/20/17 20:00 122 01/20/17 20:00 130 125/83 115/70 01/20/17 19:00 96 Mechanical Ventilator 45 01/20/17 18:00 122 01/20/17 17:00 128 01/20/17 16:00 100.4 130 34 99/63 95 105/64 01/20/17 16:00 45 01/20/17 16:00 130 99/63 105/64 01/20/17 16:00 130 01/20/17 15:50 94 45 7/10/17 15:30 94 45 01/20/17 15:00 127 01/20/17 14:00 128 01/21/17 01/21/17 01/21/17 07:00 15:00 23:00 Intake Total 803 ml 319 ml Output Total 1475 ml Balance -672 ml 319 ml Result Diagram: 01/21/17 0300 01/21/17 0300 Laboratory Results Laboratory Tests Test 01/20/17 01/20/17 01/20/17 01/21/17 18:48 19:00 20:25 03:00 Blood Gas Puncture Site RM Blood Gas Patient Temperature 98.6 Blood Gas HCO3 26 mmol/L Blood Gas Base Excess 1.6 mmol/L Blood Gas Oxygen Saturation 94 % Arterial Blood pH 7.40 Arterial Blood Partial 43 mmHg Pressure CO2 Arterial Blood Partial 82 mmHg Pressure O2 Arterial Blood Oxygen Content 12.5 Vol % Arterial Blood 1.2 % Carboxyhemoglobin Arterial Blood Methemoglobin 1.0 % Blood Gas Hemoglobin 9.4 G/DL Oxygen Delivery Device VENTILATOR Blood Gas Ventilator Setting Blood Gas Inspired Oxygen 45 % Potassium Level 3.9 MEQ/L 3.4 MEQ/L 2.9 MEQ/L Prothrombin Time 15.2 SEC Prothromb Time International 1.4 RATIO Ratio Activated Partial 30.3 SEC Thromboplast Time Fibrinogen 212 mg/dL Sodium Level 139 MEQ/L 140 MEQ/L Chloride Level 100 MEQ/L 99 MEQ/L Carbon Dioxide Level 30.0 MEQ/L 30.9 MEQ/L Anion Gap 9 MEQ/L 10 MEQ/L Blood Urea Nitrogen 35 MG/DL 35 MG/DL Creatinine 0.88 MG/DL 0.93 MG/DL Estimat Glomerular Filtration 64 ML/MIN 60 ML/MIN Rate Random Glucose 136 MG/DL 141 MG/DL Calcium Level 7.0 MG/DL 7.1 MG/DL Protein Corrected Calcium 8.0 MG/DL 7.9 MG/DL Magnesium Level 1.8 MG/DL 1.7 MG/DL Total Protein 5.2 GM/DL 5.5 GM/DL White Blood Count 45.2 TH/MM3 Red Blood Count 3.30 MIL/MM3 Hemoglobin 8.8 GM/DL Hematocrit 27.4 % Mean Corpuscular Volume 82.9 FL Mean Corpuscular Hemoglobin 26.7 PG Mean Corpuscular Hemoglobin 32.2 % Concent Red Cell Distribution Width 14.9 % Platelet Count 23 TH/MM3 Mean Platelet Volume 9.2 FL Neutrophils (%) (Auto) 83.9 % Lymphocytes (%) (Auto) 11.2 % Monocytes (%) (Auto) 4.5 % Eosinophils (%) (Auto) 0.2 % Basophils (%) (Auto) 0.2 % Neutrophils # (Auto) 37.9 TH/MM3 Lymphocytes # (Auto) 5.1 TH/MM3 Monocytes # (Auto) 2.0 TH/MM3 Eosinophils # (Auto) 0.1 TH/MM3 Basophils # (Auto) 0.1 TH/MM3 CBC Comment AUTO DIFF Differential Total Cells 100 Counted Neutrophils % (Manual) 65 % Band Neutrophils % 18 % Lymphocytes % 6 % Monocytes % 3 % Neutrophils # (Manual) 41.1 TH/MM3 Myelocytes 7 % Promyelocytes 1 % Nucleated Red Blood Cells 13 /100 WBC Differential Comment FINAL DIFF MANUAL Platelet Estimate LOW Platelet Morphology Comment ENLARGED Stomatocytes 1+ Keratocytes OCC Phosphorus Level 3.3 MG/DL Total Bilirubin 1.8 MG/DL Aspartate Amino Transf 176 U/L (AST/SGOT) Alanine Aminotransferase 93 U/L (ALT/SGPT) Alkaline Phosphatase 225 U/L Albumin 3.1 GM/DL Test 01/21/17 01/21/17 05:15 08:46 Direct Antiglobulin Test NEGATIVE (Jen) Prothrombin Time 15.7 SEC Prothromb Time International 1.4 RATIO Ratio Fibrinogen 201 mg/dL Culture Results Microbiology Date/Time Procedure Status Source Growth 01/18/17 14:50 Aerobic Blood Culture - Preliminary Resulted Blood Peripheral NO GROWTH IN 3 DAYS 01/18/17 14:50 Anaerobic Blood Culture - Preliminary Resulted Blood Peripheral NO GROWTH IN 3 DAYS 01/18/17 14:59 Aerobic Blood Culture - Preliminary Resulted Blood Peripheral NO GROWTH IN 3 DAYS 01/18/17 14:59 Anaerobic Blood Culture - Preliminary Resulted Blood Peripheral NO GROWTH IN 3 DAYS 01/18/17 20:30 Stool Occult Blood (FLORI) - Final Complete Stool Stool HEMOCCULT NEGATIVE 01/19/17 09:10 Gram Stain - Final Complete Bronchial Washings Left Lower Lobe 01/19/17 09:10 Bronchial Culture - Final Complete Bronchial Washings Left Lower Lobe NO GROWTH IN 48 HOURS. 01/19/17 09:10 Gram Stain - Final Complete Bronchial Washings Right Lower Lobe 01/19/17 09:10 Bronchial Culture - Final Complete Bronchial Washings Right Lower Lobe NO GROWTH IN 48 HOURS. 01/19/17 09:10 Acid Fast Stain - Final Resulted Bronchial Washings Left Lower Lobe NO ACID FAST BACILLI SEEN 01/19/17 09:10 Mycobacterial Culture Resulted Bronchial Washings Left Lower Lobe Pending 01/19/17 09:10 Acid Fast Stain - Final Resulted Bronchial Washings Right Lower Lobe NO ACID FAST BACILLI SEEN 01/19/17 09:10 Mycobacterial Culture Resulted Bronchial Washings Right Lower Lobe Pending 01/19/17 09:10 Fungal Smear - Final Resulted Bronchial Washings Left Lower Lobe NO FUNGAL ELEMENTS SEEN. 01/19/17 09:10 Fungal Culture Resulted Bronchial Washings Left Lower Lobe Pending 01/19/17 09:10 Fungal Smear - Final Resulted Bronchial Washings Right Lower Lobe NO FUNGAL ELEMENTS SEEN. 01/19/17 09:10 Fungal Culture Resulted Bronchial Washings Right Lower Lobe Pending 01/19/17 10:33 Fungal Smear Received Bronchial Washings Right Lower Lobe Pending 01/19/17 10:33 Fungal Culture Received Bronchial Washings Right Lower Lobe Pending Administered Medications Medications (Trade) Dose Ordered Sig/Ed Route PRN Reason Start Time Stop Time Status Last Admin Dose Admin Sodium Chloride (NS Flush) 2 ml UNSCH PRN IV FLUSH FLUSH AFTER USING IV ACCESS 01/13/17 21:00 01/19/17 07:34 Sodium Chloride (NS Flush) 2 ml BID IV FLUSH 01/13/17 21:00 01/21/17 09:33 Ondansetron HCl (Zofran Inj) 4 mg Q6H PRN IVP NAUSEA OR VOMITING 01/13/17 21:00 01/14/17 01:18 Acetaminophen (Tylenol) 650 mg Q6H PRN PO FEVER/PAIN SCALE 1 TO 2 01/13/17 21:00 01/16/17 14:44 Morphine Sulfate (Morphine Inj) 2 mg Q3H PRN IV Pain 6-10 01/13/17 21:00 01/20/17 02:47 Senna/Docusate Sodium (Arianna-Colace) 1 tab BID PO 01/13/17 21:00 01/21/17 09:32 Lorazepam (Ativan) 0.5 mg Q8H PO 01/13/17 22:00 01/21/17 13:15 Nystatin (Mycostatin Liq) 5 ml QID SWISH-SWAL 01/13/17 21:00 01/21/17 13:15 Calcium Carbonate 500 mg 500 mg Q6HR PRN CHEW heartburn 01/15/17 18:15 01/16/17 00:28 Meropenem 1000 mg/ Sodium Chloride 100 ml @ 200 mls/hr Q8H IV 01/15/17 20:00 01/21/17 13:15 Azithromycin/ Sodium Chloride (Zithromax Inj/ NS 250 ml Inj) 250 ml @ 250 mls/hr Q24H IV 01/15/17 18:00 01/20/17 17:49 Lorazepam (Ativan) 0.5 mg Q8H PRN PO anxiety 01/16/17 10:30 01/18/17 09:13 Chlorhexidine Gluconate (Peridex 0.12% Liq) 15 ml BID@08,20 MT 01/17/17 20:00 01/21/17 09:33 Morphine Sulfate 4 mg 4 mg Q3H PRN IV PUSH any pain 01/17/17 19:45 01/17/17 23:51 Linezolid 300 ml @ 300 mls/hr Q12H IV 01/17/17 21:00 01/21/17 09:32 Vasopressin 40 units/Dextrose 100 ml @ 6 mls/hr [id number] IV 01/17/17 21:59 01/20/17 00:10 Phenylephrine HCl/ Dextrose (Neosynephrine Inj/D5W 500 ml Inj) 500 ml @ 0 mls/hr TITRATE IV 01/17/17 22:00 01/21/17 06:37 Hydrocortisone Sodium Succinate (SoluCORTEF INJ) 50 mg Q6HR IV PUSH 01/18/17 00:00 01/21/17 13:15 Famotidine (Pepcid Inj) 20 mg Q12H IV PUSH 01/18/17 11:00 01/21/17 10:46 Insulin Human Regular 1 1 Q4H SQ 01/18/17 10:45 01/21/17 10:45 Milrinone Lactate 20 mg/Sodium Chloride 100 ml @ 17.1 mls/hr Q5H51M IV 01/18/17 12:08 01/21/17 10:37 Micafungin Sodium/ Sodium Chloride (Mycamine Inj/NS Inj) 100 ml @ 100 mls/hr Q24H IV 01/18/17 14:00 01/21/17 13:15 Protein 1 pack 1 pack TID [id number] 01/19/17 09:00 01/21/17 13:00 Midazolam HCl 100 ml @ 0 mls/hr TITRATE IV 01/19/17 08:30 01/20/17 04:53 Epoprostenol Sodium 62.5 ml/ Sodium Chloride 100 ml @ 8 mls/hr Q8H NEB 01/19/17 09:00 01/21/17 03:36 Potassium Chloride 100 ml @ 50 mls/hr Q2H PRN IV For Potassium 2.8 - 3.2 mEq/L 01/20/17 08:00 01/21/17 09:32 Magnesium Sulfate 2 gm/Sodium Chloride 100 ml @ 50 mls/hr UNSCH PRN IV For Magnesium 1.2 - 1.6 mg/dL 01/20/17 08:00 01/20/17 09:04 Sodium Phosphate 30 mmol/Sodium Chloride 250 ml @ 42 mls/hr UNSCH PRN IV For Phosphorus < 2.5 mg/dL 01/20/17 08:00 01/20/17 15:52 Fentanyl Citrate 250 ml @ 0 mls/hr TITRATE IV 01/20/17 13:30 01/20/17 13:20 Fluconazole/ Sodium Chloride (Diflucan 400 Mg Premix Bag) 200 ml @ 100 mls/hr Q24H IV 01/20/17 21:00 01/20/17 22:13 Objective Remarks GENERAL: Intubated, sedated female supine in bed SKIN: Warm and dry. lines without bleeding. HEAD: Normocephalic. EYES: No injection or drainage. NECK: Supple, trachea midline CARDIOVASCULAR: +S1/S2, tachy RESPIRATORY: anterior lucas with scattered rhonchi, on mechanical ventilation GASTROINTESTINAL: Abdomen soft, non-tender, nondistended. EXTREMITIES: No cyanosis +anasarca NEUROLOGICAL: sedated, intubated Assessment/Plan Problem List: (1) Bladder cancer Status: Acute Plan: --Invasive bladder cancer status post TURBT. --PET scan showed no evidence of metastatic disease. --CT abdomen and pelvis with contrast. --Non-metastatic Muscle invasive urothelial cancer is treated with neoadjuvant chemotherapy followed by surgery--> will be addressed in the outpatient setting if/when patient recovers from acute events. (2) PNA (pneumonia) Status: Acute Plan: --Extensive bilateral pneumonia and acute respiratory distress currently being managed by primary team as well as pulmonary. --on multiple antibiotics. (3) Normocytic anemia Status: Acute Plan: --stool Hemoccult negative --LDH elevated, haptoglobin also elevated, no sign of hemolysis --s/p 2 units pRBC on 01/18 --ferritin significantly elevated (4) Transaminitis Status: Acute Plan: --likely due to sepsis but we also need to make sure there is no metastatic disease. --liver ultrasound WNL --CT ab/pelvis: only showed consolidation in lung bases. (5) Malnourished Status: Acute Plan: --low albumin --currently receiving TF--Jevity 1.5 (6) Thrombocytopenia Status: Acute Plan: --d/t sepsis, DIC --transfuse if bleeding or platelet count less than 10K (7) Sepsis Status: Acute Plan: --BC no growth --on multiple pressors Assessment 66y/o female with a history of muscle invasive bladder cancer who is admitted with pneumonia and respiratory distress. h/o muscle invasive bladder cancer. Hypertension. COPD. History of tobacco abuse. Plan 1. continue antibiotics 2. monitor CBC 3. monitor coags Attending Statement The exam, history, and the medical decision-making described in the above note were completed with the assistance of the mid-level provider. I reviewed and agree with the findings presented. I attest that I had a [id number] encounter with the patient on the same day, and personally performed and documented my assessment and findings in the medical record. Critically ill with respiratory failure/hypotension/sepsis Thrombocytopenia due to sepsis/DIC. Transfuse to keep platelets > 20,000. HIT ab negative DIC/Coagulopathy with INR 1.4. PRN Vitamin K 5mg PO. Daily Haptoglobin/ fibrinogen and INR. Anemia due to sepsis/illness. no hemolysis. Keep Hb > 7.5 d/w rn Problem Qualifiers (1) Sepsis: Qualified Code: A41.9 - Sepsis, due to unspecified organism Madeleine Valderrama Jan 21, 2017 13:31 Malik Corbett MD Jan 21, 2017 23:57
[2017-01-21] MEDS: AZITHROMYCIN INJ 500 MG in SODIUM CHLOR 0.9% 250 ML INJ 250 ML IV SCH (17:20)
[2017-01-21] MEDS ORDERED: SODIUM CHLORID 0.9% 500 ML INJ 500 ML IV ONE (17:30)
--- NOTE | 2017-01-21 20:08 | HHI.PR ---
Subjective Remarks 66 YOWF with Bilat ,Pn,RF , No fever CT Chest Bilat extensive parenchymal infilt Desaturates easily, anxious Pt intubated, off sedation, does't respond On Neosyn, Milrinone and Flolan On PRVC, Fi02 55% Objective Vital Signs Vital Signs Date Time Temp Pulse Resp B/P Pulse Ox O2 Delivery O2 Flow Rate FiO2 01/21/17 18:00 118 01/21/17 18:00 118 25 96/63 95 01/21/17 17:00 126 26 90/62 93 95/59 01/21/17 16:00 100.4 125 33 106/75 92 114/72 01/21/17 16:00 125 01/21/17 16:00 125 106/75 114/72 01/21/17 16:00 45 01/21/17 15:42 93 55 01/21/17 15:00 119 21 101/69 92 108/68 01/21/17 14:00 122 45 124/78 94 01/21/17 14:00 122 01/21/17 13:17 97 55 01/21/17 13:00 118 40 102/74 95 111/70 01/21/17 12:56 93 55 01/21/17 12:00 99.4 112 19 103/76 92 117/73 01/21/17 12:00 45 01/21/17 12:00 112 103/76 117/73 01/21/17 12:00 112 01/21/17 11:00 109 18 100/74 93 113/69 01/21/17 10:52 92 45 01/21/17 10:00 109 19 95/66 94 97/60 01/21/17 10:00 109 01/21/17 09:00 105 18 85/60 93 92/56 01/21/17 08:00 107 90/66 101/62 01/21/17 08:00 98.8 107 20 90/66 94 101/62 01/21/17 08:00 107 01/21/17 08:00 45 01/21/17 07:38 94 45 01/21/17 07:00 94 Mechanical Ventilator 45 01/21/17 07:00 107 16 89/57 94 89/56 01/21/17 06:00 106 01/21/17 04:14 95 45 01/21/17 04:00 45 01/21/17 04:00 98.9 111 20 84/56 93 78/47 01/21/17 04:00 111 01/21/17 04:00 110 119/86 114/71 01/21/17 04:00 111 84/56 78/47 01/21/17 02:00 110 01/21/17 01:13 96 45 01/21/17 00:00 98.9 110 18 119/86 96 114/71 01/21/17 00:00 110 119/86 114/71 01/21/17 00:00 45 01/21/17 00:00 110 01/20/17 22:00 124 01/20/17 20:57 95 45 I/O 01/20/17 01/20/17 01/20/17 01/21/17 01/21/17 01/21/17 07:00 15:00 23:00 07:00 15:00 23:00 Intake Total 1000 ml 1724 ml 1200 ml 803 ml 1273 ml 1093 ml Output Total 400 ml 1600.0 ml 650 ml 1475 ml 1400 ml Balance 600 ml 124.0 ml 550 ml -672 ml -127 ml 1093 ml IV Total 660 ml 1034 ml 1140 ml 753 ml 806 ml 1093 ml Tube Feeding 240 ml 460 ml 287 ml Albumin 50 ml 50 ml Tube Irrigant 180 ml 180 ml Other 100 ml 60 ml Output Urine Total 400 ml 1350 ml 650 ml 1475 ml 1325 ml Stool Total 75 ml Tube Feeding Residual Discard 250.0 ml # Bowel Movements 1 Result Diagram: 01/21/17 0300 01/21/17 1645 Objective Remarks GENERAL: MBMN WF, mild sob SKIN: Warm and dry. HEAD: Normocephalic. EYES: No scleral icterus. No injection or drainage. NECK: Supple, trachea midline. No JVD or lymphadenopathy. CARDIOVASCULAR: Regular rate and rhythm without murmurs, gallops, or rubs. RESPIRATORY: Breath sounds equal bilaterally. No accessory muscle use. bilat rales GASTROINTESTINAL: Abdomen soft, non-tender, nondistended. MUSCULOSKELETAL: No cyanosis, or edema. BACK: Nontender without obvious deformity. No CVA tenderness. A/P Assessment and Plan Resp Failure, on Vent septic and cardiogenic shock Hypoxia Bialt extensive Pneumonia leucocytosis PLAN: Vent support, PRCC 55% Aerosol nebs Abx Vanco, Zithro, Meropenam Milrinone and Neosyn to support BP On Flolan Jose Ivory MD Jan 21, 2017 20:08
--- NOTE | 2017-01-21 20:35 | HHI.IDPN ---
Subjective Subjective Remarks + low grade fever on vent on pressors WBC 45 K tolerating TF at 40 cc/hr Antibiotics meropenem azithro zyvox fluconazole micaafungin fluconazole Past Medical History bladder ca Allergies: Coded Allergies: Contrast Media (Verified Allergy, Severe, respiratory distress, 01/13/17) Penicillin (Verified Allergy, Intermediate, rash, 01/13/17) Uncoded Allergies: cefepime (Allergy, Intermediate, Rash, 01/15/17) pruritic rash Objective . Vital Signs Date Time Temp Pulse Resp B/P Pulse Ox O2 Delivery O2 Flow Rate FiO2 01/21/17 18:00 118 01/21/17 18:00 118 25 96/63 95 01/21/17 17:00 126 26 90/62 93 95/59 01/21/17 16:00 100.4 125 33 106/75 92 114/72 01/21/17 16:00 125 01/21/17 16:00 125 106/75 114/72 01/21/17 16:00 45 01/21/17 15:42 93 55 01/21/17 15:00 119 21 101/69 92 108/68 01/21/17 14:00 122 45 124/78 94 01/21/17 14:00 122 01/21/17 13:17 97 55 01/21/17 13:00 118 40 102/74 95 111/70 01/21/17 12:56 93 55 01/21/17 12:00 99.4 112 19 103/76 92 117/73 01/21/17 12:00 45 01/21/17 12:00 112 103/76 117/73 01/21/17 12:00 112 01/21/17 11:00 109 18 100/74 93 113/69 01/21/17 10:52 92 45 01/21/17 10:00 109 19 95/66 94 97/60 01/21/17 10:00 109 01/21/17 09:00 105 18 85/60 93 92/56 01/21/17 08:00 107 90/66 101/62 01/21/17 08:00 98.8 107 20 90/66 94 101/62 01/21/17 08:00 107 01/21/17 08:00 45 01/21/17 07:38 94 45 01/21/17 07:00 94 Mechanical Ventilator 45 01/21/17 07:00 107 16 89/57 94 89/56 01/21/17 06:00 106 01/21/17 04:14 95 45 01/21/17 04:00 45 01/21/17 04:00 98.9 111 20 84/56 93 78/47 01/21/17 04:00 111 01/21/17 04:00 110 119/86 114/71 01/21/17 04:00 111 84/56 78/47 01/21/17 02:00 110 01/21/17 01:13 96 45 01/21/17 00:00 98.9 110 18 119/86 96 114/71 01/21/17 00:00 110 119/86 114/71 01/21/17 00:00 45 01/21/17 00:00 110 01/20/17 22:00 124 01/20/17 20:57 95 45 01/20/17 01/20/17 01/21/17 15:00 23:00 07:00 Intake Total 1724 ml 1200 ml 803 ml Output Total 1600.0 ml 650 ml 1475 ml Balance 124.0 ml 550 ml -672 ml IV Total 1034 ml 1140 ml 753 ml Tube Feeding 460 ml Albumin 50 ml 50 ml Tube Irrigant 180 ml Other 60 ml Output Urine Total 1350 ml 650 ml 1475 ml Tube Feeding Residual Discard 250.0 ml . Laboratory Tests Test 01/20/17 01/21/17 04:46 03:00 White Blood Count 40.4 TH/MM3 45.2 TH/MM3 Red Blood Count 3.44 MIL/MM3 3.30 MIL/MM3 Hemoglobin 9.1 GM/DL 8.8 GM/DL Hematocrit 28.7 % 27.4 % Mean Corpuscular Volume 83.4 FL 82.9 FL Mean Corpuscular Hemoglobin 26.6 PG 26.7 PG Mean Corpuscular Hemoglobin 31.9 % 32.2 % Concent Red Cell Distribution Width 14.8 % 14.9 % Platelet Count 46 TH/MM3 23 TH/MM3 Mean Platelet Volume 11.9 FL 9.2 FL Neutrophils (%) (Auto) 91.3 % 83.9 % Lymphocytes (%) (Auto) 4.9 % 11.2 % Monocytes (%) (Auto) 3.4 % 4.5 % Eosinophils (%) (Auto) 0.2 % 0.2 % Basophils (%) (Auto) 0.2 % 0.2 % Neutrophils # (Auto) 36.9 TH/MM3 37.9 TH/MM3 Lymphocytes # (Auto) 2.0 TH/MM3 5.1 TH/MM3 Monocytes # (Auto) 1.4 TH/MM3 2.0 TH/MM3 Eosinophils # (Auto) 0.1 TH/MM3 0.1 TH/MM3 Basophils # (Auto) 0.1 TH/MM3 0.1 TH/MM3 CBC Comment AUTO DIFF AUTO DIFF Differential Total Cells 100 100 Counted Neutrophils % (Manual) 71 % 65 % Band Neutrophils % 19 % 18 % Lymphocytes % 3 % 6 % Monocytes % 3 % 3 % Neutrophils # (Manual) 38.0 TH/MM3 41.1 TH/MM3 Metamyelocytes 2 % Myelocytes 2 % 7 % Nucleated Red Blood Cells 1 /100 WBC 13 /100 WBC Differential Comment FINAL DIFF FINAL DIFF MANUAL MANUAL Platelet Estimate LOW LOW Platelet Morphology Comment ENLARGED ENLARGED Promyelocytes 1 % Stomatocytes 1+ Keratocytes OCC Laboratory Tests Test 01/20/17 01/20/17 01/20/17 01/20/17 04:46 13:00 19:00 20:25 Sodium Level 140 MEQ/L 139 MEQ/L Potassium Level 3.5 MEQ/L 2.9 MEQ/L 3.9 MEQ/L 3.4 MEQ/L Chloride Level 100 MEQ/L 100 MEQ/L Carbon Dioxide Level 31.3 MEQ/L 30.0 MEQ/L Anion Gap 9 MEQ/L 9 MEQ/L Blood Urea Nitrogen 28 MG/DL 35 MG/DL Creatinine 0.75 MG/DL 0.88 MG/DL Estimat Glomerular Filtration 77 ML/MIN 64 ML/MIN Rate Random Glucose 186 MG/DL 136 MG/DL Calcium Level 7.2 MG/DL 7.0 MG/DL Protein Corrected Calcium 8.3 MG/DL 8.0 MG/DL Phosphorus Level 1.8 MG/DL Magnesium Level 1.5 MG/DL 1.8 MG/DL Total Bilirubin 1.3 MG/DL Aspartate Amino Transf 65 U/L (AST/SGOT) Alanine Aminotransferase 72 U/L (ALT/SGPT) Alkaline Phosphatase 217 U/L Total Protein 5.1 GM/DL 5.2 GM/DL Albumin 2.5 GM/DL Test 01/21/17 01/21/17 01/21/17 03:00 16:45 17:41 Sodium Level 140 MEQ/L Potassium Level 2.9 MEQ/L 3.0 MEQ/L Chloride Level 99 MEQ/L Carbon Dioxide Level 30.9 MEQ/L Anion Gap 10 MEQ/L Blood Urea Nitrogen 35 MG/DL Creatinine 0.93 MG/DL Estimat Glomerular Filtration 60 ML/MIN Rate Random Glucose 141 MG/DL Calcium Level 7.1 MG/DL Protein Corrected Calcium 7.9 MG/DL Phosphorus Level 3.3 MG/DL Magnesium Level 1.7 MG/DL Total Bilirubin 1.8 MG/DL Aspartate Amino Transf 176 U/L (AST/SGOT) Alanine Aminotransferase 93 U/L (ALT/SGPT) Alkaline Phosphatase 225 U/L Total Protein 5.5 GM/DL Albumin 3.1 GM/DL Lactic Acid Level 4.1 mmol/L Microbiology Date/Time Procedure Status Source Growth 01/18/17 20:30 Stool Occult Blood (FLORI) - Final Complete Stool Stool HEMOCCULT NEGATIVE 01/19/17 09:10 Gram Stain - Final Complete Bronchial Washings Left Lower Lobe 01/19/17 09:10 Bronchial Culture - Final Complete Bronchial Washings Left Lower Lobe NO GROWTH IN 48 HOURS. 01/19/17 09:10 Gram Stain - Final Complete Bronchial Washings Right Lower Lobe 01/19/17 09:10 Bronchial Culture - Final Complete Bronchial Washings Right Lower Lobe NO GROWTH IN 48 HOURS. 01/19/17 09:10 Acid Fast Stain - Final Resulted Bronchial Washings Left Lower Lobe NO ACID FAST BACILLI SEEN 01/19/17 09:10 Mycobacterial Culture Resulted Bronchial Washings Left Lower Lobe Pending 01/19/17 09:10 Acid Fast Stain - Final Resulted Bronchial Washings Right Lower Lobe NO ACID FAST BACILLI SEEN 01/19/17 09:10 Mycobacterial Culture Resulted Bronchial Washings Right Lower Lobe Pending 01/19/17 09:10 Fungal Smear - Final Resulted Bronchial Washings Left Lower Lobe NO FUNGAL ELEMENTS SEEN. 01/19/17 09:10 Fungal Culture Resulted Bronchial Washings Left Lower Lobe Pending 01/19/17 09:10 Fungal Smear - Final Resulted Bronchial Washings Right Lower Lobe NO FUNGAL ELEMENTS SEEN. 01/19/17 09:10 Fungal Culture Resulted Bronchial Washings Right Lower Lobe Pending 01/19/17 10:33 Fungal Smear Received Bronchial Washings Right Lower Lobe Pending 01/19/17 10:33 Fungal Culture Received Bronchial Washings Right Lower Lobe Pending Imaging Last Impressions Chest X-Ray 01/20/17 0600 Signed Impressions: Service Date/Time: Friday, January 20, 2017 04:29 - CONCLUSION: Diffuse patchy infiltrates are unchanged. Tubes and catheters are in good position. Major John MD Upper Extremity Ultrasound 01/19/17 0000 Signed Impressions: Service Date/Time: Thursday, January 19, 2017 09:53 - CONCLUSION: Small amount of occlusive thrombus is seen bilaterally in each of the cephalic veins. The rest of the deep venous systems are unremarkable. Major John MD Lower Extremity Ultrasound 01/19/17 0000 Signed Impressions: Service Date/Time: Thursday, January 19, 2017 09:35 - CONCLUSION: Normal examination. Major John MD Abdomen/Pelvis CT 01/18/17 0000 Signed Impressions: Service Date/Time: Wednesday, January 18, 2017 21:05 - CONCLUSION: 1. Mildly nonspecific, nonobstructive bowel gas pattern 2. The gallbladder is at the upper limits of normal in size but otherwise unremarkable. 3. Areas of parenchymal consolidation again noted in the lung bases. Paul Lou MD Liver Ultrasound 01/17/17 0000 Signed Impressions: Service Date/Time: Tuesday, January 17, 2017 17:05 - CONCLUSION: There is no intrahepatic biliary duct dilatation. Liver is grossly free of focal defects. London Frazier MD FACR Chest CT 01/15/17 0000 Signed Impressions: Service Date/Time: January 10:16 - CONCLUSION: Extensive scattered areas of parenchymal consolidation are seen throughout both lung lucas predominately along the peripheral aspect of both lungs. There are also scattered bilateral interstitial infiltrates. These infiltrates appear to be overlying central lobar emphysema. Madi Marvin MD Physical Exam CONSTITUTIONAL/GENERAL: This is an adequately nourished patient, in no apparent distress. TUBES/LINES/DRAINS: SKIN: No jaundice, , or lesions. . Skin temperature appropriate. Not diaphoretic. Diffuse pale macular rash, on abdomen arms and legs, unchanged since y HEAD: Atraumatic. Normocephalic. EYES: No scleral icterus. No injection or drainage. Fundi not examined. ENT: Poor dentition CARDIOVASCULAR: Regular rate and rhythm without murmurs, gallops, or rubs. No JVD. Peripheral pulses symmetric. Well perfused periferey RESPIRATORY/CHEST: Symmetric, labored respirations. Breath sounds equal bilaterally. Clear to auscultation. No rhonchi GASTROINTESTINAL: Abdomen soft, no reaction to palpation ; moderately distended. No hepato-splenomegaly, or palpable masses. No guarding. Bowel sounds present. Incontinent of small amount of greenish mucosy stool GENITOURINARY: Without palpable bladder distension. Mcgee catheter in place with small amount of yellow urine MUSCULOSKELETAL: Extremities without clubbing, cyanosis, + diffuse 2+ edema. 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 intraabdominal : suspect bowel ischemia vs C.diff (less likley - test is negative) Acute throbocytopenia Acute anemia Pt is cricically ill and unstable,touhg clinically better today Abx associated diarrhea, c.diff negative REC'S: -cont Meropenem - dc azithro - dc vancomycin - dc zyvox - cont micafungin; will dc if no fungemia - cont FLuconazole for now - chk UA/clx - follow sputum clx (scant amount of sputum was obtained) blood clx urine clx monitor rash repeat C.diff dw RN Fara Palomares MD Jan 21, 2017 20:34
[2017-01-21] MEDS: FLUCONAZOLE 400 MG PREMIX BAG 200 ML IV SCH (21:33)
[2017-01-21] MEDS: fentaNYL DRIP 250 ML IV SCH (22:37)
[2017-01-22] VITALS (26 sets, daily range): BP systolic 79–131; BP diastolic 57–103; PULSE 76–114; RESP 12–21; TEMP 97.9–99.8; O2SAT 95–100
[2017-01-22] MEDS ORDERED: PHYTONADIONE 5 MG TAB PO ONE
[2017-01-22] MEDS: FAMOTIDINE 20 MG/2 ML VIAL IV PUSH SCH ×2 (00:08→09:32)
[2017-01-22] MEDS: HYDROCORTISONE SOD SUCCINATE 100 MG VIAL IV PUSH SCH ×4 (00:20→17:45)
[2017-01-22] MEDS: EPOPROSTENOL NEB SOLUTION 50 NG/KG/MIN 100 ML NEB SCH ×4 (03:09→09:44)
[2017-01-22] MEDS: INSULIN NovoLIN REGULAR SUPPLEMENTAL SCALE SQ SCH ×6 (03:10→22:45)
[2017-01-22] MEDS: RESP: ALBUTEROL 2.5 MG/IPRATROPIUM 0.5 MG NEB (SCH) NEB ×2 (03:38→07:39)
[2017-01-22] MEDS: MILRINONE INJ 20 MG in SODIUM CHLORIDE 0.9% INJ 80 ML IV SCH ×3 (03:53→17:44)
[2017-01-22] MEDS: MEROPENEM INJ 1,000 MG in SODIUM CHLORIDE 0.9% INJ 100 ML IV SCH ×3 (04:04→19:45)
[2017-01-22 04:31] LABS: AUTOMATED NEUTROPHIL # 39.4 TH/MM3 (1.8-7.7); BASOPHIL # 0.2 TH/MM3 (0-0.2); BASOPHIL % 0.3 % (0.0-2.0); EOSINOPHIL % 0.1 % (0.0-4.0); HEMATOCRIT 27.1 % (35.0-46.0); LYMPH % 14.9 % (9.0-44.0); LYMPHOCYTE # 7.2 TH/MM3 (1.0-4.8); MEAN CORPUSCULAR HEMOGLOBIN 26.8 PG (27.0-34.0); MEAN CORPUSCULAR HGB CONC 31.9 % (32.0-36.0); MONO % 2.9 % (0.0-8.0); NEUT % 81.8 % (16.0-70.0); RED BLOOD COUNT 3.23 MIL/MM3 (4.00-5.30); RED CELL DISTRIBUTION WIDTH 15.7 % (11.6-17.2); WHITE BLOOD COUNT 48.2 TH/MM3 (4.0-11.0)
[2017-01-22 04:36] LABS: INTERNATIONAL NORMALIZED RATIO 1.5 RATIO; PROTHROMBIN TIME - PATIENT 16.7 SEC (9.8-11.6)
[2017-01-22] MEDS: LORazepam 0.5 MG TAB PO SCH ×2 (04:38→13:45)
[2017-01-22 04:39] LABS: HEMO FLAGS AUTO DIFF
[2017-01-22 04:45] LABS: PLATELET COUNT 14 TH/MM3 (150-450)
[2017-01-22 05:05] LABS: CALCIUM-PROTEIN CORRECTED 8.4 MG/DL (8.5-10.1); MAGNESIUM 1.8 MG/DL (1.5-2.5); POTASSIUM 4.6 MEQ/L (3.5-5.1); TOTAL BILIRUBIN ADULT 1.6 MG/DL (0.2-1.0)
--- NOTE | 2017-01-22 05:47 | RADRPT ---
EXAM DATE/TIME: 01/22/2017 04:47 [facility] COMPARISON: CHEST SINGLE AP, January 20, 2017, 4:29. INDICATIONS : Shortness of breath. MEDICAL HISTORY : Hypertension. Carcinoma, breast. Carcinoma, bladder. SURGICAL HISTORY : Mastectomy, bilateral. ENCOUNTER: Subsequent ACUITY: 4 - 6 days PAIN SCORE: Non-responsive. LOCATION: Bilateral chest FINDINGS: Patchy airspace opacities of both lungs again noted, primarily mid and lower lungs. No significant ch velasquez seen. No large effusion demonstrated. No pneumothorax. The Heart size stable, within normal limits. Endotracheal tube tip is about 4 cm above the shahriar. Nasogastric tube with tip in the stomach. Left subclavian central venous catheter with tip in the superior vena cava the slightly bent back on itsel f at the tip. CONCLUSION: No significant change. Sourav Mock MD on January 22, 2017 at 5:44 Board Certified Radiologist. This report was verified electronically.
[2017-01-22 07:15] LABS: BANDS 4 % (0-6); CORRECTED NUCLEATED RBC 23 /100 WBC (0-0); METAMYELOCYTES 5 % (0-1); MYELOCYTES 2 % (0-0); NEUTROPHIL # MANUAL DIFF 43.9 TH/MM3 (1.8-7.7); POLYS (SEG NEUTROPHILS) 80 % (16-70); WBC DIFF SAMPLE 100
[2017-01-22 07:16] LABS: TARGET CELLS 1+ (NORMAL)
[2017-01-22 07:17] LABS: KERATOCYTES 1+ (NORMAL); PLATELET ESTIMATE SMEAR LOW (NORMAL); PLATELET MORPHOLOGY NORMAL (NORMAL); TOXIC GRANULATION 1+ (NORMAL)
[2017-01-22] MEDS: VASOPRESSIN INJ 40 UNITS in DEXTROSE 5% IN WATER 100ML INJ 98 ML IV SCH ×2 (07:17)
[2017-01-22 07:18] LABS: SCAN/DIFF FINAL DIFF MANUAL; SPHEROCYTES 2+ (NORMAL)
[2017-01-22] MEDS: SODIUM CHLORIDE 0.9% FLUSH 10 ML FLUSH IV FLUSH SCH (09:00)
[2017-01-22] MEDS: BENEPROTEIN POWDER 1 PACK G-TUBE SCH ×3 (09:00→18:00)
[2017-01-22] MEDS: CHLORHEXIDINE 0.12% (ORAL KIT) 15 ML CUP MT SCH (09:32)
[2017-01-22] MEDS: NYSTATIN SUSP 500,000 U/5 ML CUP SWISH-SWAL SCH ×3 (09:32→17:45)
[2017-01-22] MEDS: DOCUSATE SODIUM 50 MG/SENNA 8.6 MG TAB PO SCH (09:32)
--- NOTE | 2017-01-22 11:06 | PD.ONC.PN ---
Subjective Subjective Remarks Afebrile overnight. Remains intubated, sedated and critically ill. no family members at bedside. Objective Data Date Time Temp Pulse Resp B/P Pulse Ox O2 Delivery O2 Flow Rate FiO2 01/22/17 09:49 98 55 01/22/17 07:32 95 55 01/22/17 06:00 97 01/22/17 04:08 97 55 01/22/17 04:00 101 01/22/17 04:00 98.1 101 20 80/57 97 94/62 01/22/17 04:00 55 01/22/17 04:00 101 80/57 94/62 01/22/17 02:00 104 01/22/17 01:09 98 55 01/22/17 00:00 108 01/22/17 00:00 108 87/65 97/64 01/22/17 00:00 97.9 108 12 87/65 98 97/64 01/22/17 00:00 45 01/21/17 22:13 98 55 01/21/17 22:00 110 01/21/17 20:07 98 55 01/21/17 20:00 98.5 111 25 96/67 96 112/73 01/21/17 20:00 111 96/67 112/73 01/21/17 20:00 45 01/21/17 20:00 111 01/21/17 19:00 95 Mechanical Ventilator 45 01/21/17 18:00 118 01/21/17 18:00 118 25 96/63 95 01/21/17 17:00 126 26 90/62 93 95/59 01/21/17 16:00 100.4 125 33 106/75 92 114/72 01/21/17 16:00 125 01/21/17 16:00 125 106/75 114/72 01/21/17 16:00 45 01/21/17 15:42 93 55 01/21/17 15:00 119 21 101/69 92 108/68 01/21/17 14:00 122 45 124/78 94 01/21/17 14:00 122 01/21/17 13:17 97 55 01/21/17 13:00 118 40 102/74 95 111/70 01/21/17 12:56 93 55 01/21/17 12:00 99.4 112 19 103/76 92 117/73 01/21/17 12:00 45 01/21/17 12:00 112 103/76 117/73 01/21/17 12:00 112 Result Diagram: 01/22/17 0400 01/22/17 0400 Laboratory Results Laboratory Tests Test 01/21/17 01/21/17 01/22/17 16:45 17:41 04:00 Potassium Level 3.0 MEQ/L 4.6 MEQ/L Lactic Acid Level 4.1 mmol/L White Blood Count 48.2 TH/MM3 Red Blood Count 3.23 MIL/MM3 Hemoglobin 8.6 GM/DL Hematocrit 27.1 % Mean Corpuscular Volume 84.0 FL Mean Corpuscular Hemoglobin 26.8 PG Mean Corpuscular Hemoglobin 31.9 % Concent Red Cell Distribution Width 15.7 % Platelet Count 14 TH/MM3 Mean Platelet Volume 11.5 FL Neutrophils (%) (Auto) 81.8 % Lymphocytes (%) (Auto) 14.9 % Monocytes (%) (Auto) 2.9 % Eosinophils (%) (Auto) 0.1 % Basophils (%) (Auto) 0.3 % Neutrophils # (Auto) 39.4 TH/MM3 Lymphocytes # (Auto) 7.2 TH/MM3 Monocytes # (Auto) 1.4 TH/MM3 Eosinophils # (Auto) 0.0 TH/MM3 Basophils # (Auto) 0.2 TH/MM3 CBC Comment AUTO DIFF Differential Total Cells 100 Counted Neutrophils % (Manual) 80 % Band Neutrophils % 4 % Lymphocytes % 6 % Monocytes % 3 % Neutrophils # (Manual) 43.9 TH/MM3 Metamyelocytes 5 % Myelocytes 2 % Nucleated Red Blood Cells 23 /100 WBC Differential Comment FINAL DIFF MANUAL Toxic Granulation 1+ Platelet Estimate LOW Platelet Morphology Comment NORMAL Spherocytes 2+ Target Cells 1+ Keratocytes 1+ Blood Smear Pathologist Review Haptoglobin LESS THAN 10 MG/DL Prothrombin Time 16.7 SEC Prothromb Time International 1.5 RATIO Ratio Fibrinogen 211 mg/dL Sodium Level 140 MEQ/L Chloride Level 100 MEQ/L Carbon Dioxide Level 29.0 MEQ/L Anion Gap 11 MEQ/L Blood Urea Nitrogen 54 MG/DL Creatinine 1.16 MG/DL Estimat Glomerular Filtration 47 ML/MIN Rate Random Glucose 152 MG/DL Calcium Level 7.1 MG/DL Protein Corrected Calcium 8.4 MG/DL Phosphorus Level 4.6 MG/DL Magnesium Level 1.8 MG/DL Total Bilirubin 1.6 MG/DL Aspartate Amino Transf 454 U/L (AST/SGOT) Alanine Aminotransferase 170 U/L (ALT/SGPT) Alkaline Phosphatase 214 U/L Total Protein 4.8 GM/DL Albumin 2.5 GM/DL Imaging Studies Last 24 hours Impressions Chest X-Ray 01/22/17 0000 Signed Impressions: Service Date/Time: Sunday, January 22, 2017 04:47 - CONCLUSION: No significant change. Sourav Mock MD Administered Medications Medications (Trade) Dose Ordered Sig/Ed Route PRN Reason Start Time Stop Time Status Last Admin Dose Admin Sodium Chloride (NS Flush) 2 ml UNSCH PRN IV FLUSH FLUSH AFTER USING IV ACCESS 01/13/17 21:00 01/19/17 07:34 Sodium Chloride (NS Flush) 2 ml BID IV FLUSH 01/13/17 21:00 01/22/17 09:00 Ondansetron HCl (Zofran Inj) 4 mg Q6H PRN IVP NAUSEA OR VOMITING 01/13/17 21:00 01/14/17 01:18 Acetaminophen (Tylenol) 650 mg Q6H PRN PO FEVER/PAIN SCALE 1 TO 2 01/13/17 21:00 01/16/17 14:44 Morphine Sulfate (Morphine Inj) 2 mg Q3H PRN IV Pain 6-10 01/13/17 21:00 01/20/17 02:47 Senna/Docusate Sodium (Arianna-Colace) 1 tab BID PO 01/13/17 21:00 01/22/17 09:32 Lorazepam (Ativan) 0.5 mg Q8H PO 01/13/17 22:00 01/21/17 13:15 Nystatin (Mycostatin Liq) 5 ml QID SWISH-SWAL 01/13/17 21:00 01/22/17 09:32 Calcium Carbonate 500 mg 500 mg Q6HR PRN CHEW heartburn 01/15/17 18:15 01/16/17 00:28 Meropenem/Sodium Chloride (Merrem Inj/NS Inj) 100 ml @ 200 mls/hr Q8H IV 01/15/17 20:00 01/22/17 04:04 Lorazepam (Ativan) 0.5 mg Q8H PRN PO anxiety 01/16/17 10:30 01/18/17 09:13 Chlorhexidine Gluconate (Peridex 0.12% Liq) 15 ml BID@08,20 MT 01/17/17 20:00 01/22/17 09:32 Morphine Sulfate 4 mg 4 mg Q3H PRN IV PUSH any pain 01/17/17 19:45 01/17/17 23:51 Vasopressin 40 units/Dextrose 100 ml @ 6 mls/hr [id number] IV 01/17/17 21:59 01/22/17 07:17 Phenylephrine HCl/ Dextrose (Neosynephrine Inj/D5W 500 ml Inj) 500 ml @ 0 mls/hr TITRATE IV 01/17/17 22:00 01/21/17 06:37 Hydrocortisone Sodium Succinate (SoluCORTEF INJ) 50 mg Q6HR IV PUSH 01/18/17 00:00 01/22/17 04:38 Famotidine (Pepcid Inj) 20 mg Q12H IV PUSH 01/18/17 11:00 01/22/17 09:32 Insulin Human Regular 1 1 Q4H SQ 01/18/17 10:45 01/22/17 03:10 Milrinone Lactate 20 mg/Sodium Chloride 100 ml @ 17.1 mls/hr [id number] IV 01/18/17 12:08 01/21/17 16:18 Micafungin Sodium/ Sodium Chloride (Mycamine Inj/NS Inj) 100 ml @ 100 mls/hr Q24H IV 01/18/17 14:00 01/21/17 13:15 Protein 1 pack 1 pack TID G-TUBE 01/19/17 09:00 01/22/17 09:00 Midazolam HCl 100 ml @ 0 mls/hr TITRATE IV 01/19/17 08:30 01/20/17 04:53 Epoprostenol Sodium 62.5 ml/ Sodium Chloride 100 ml @ 8 mls/hr Q8H NEB 01/19/17 09:00 01/22/17 09:44 Potassium Chloride 100 ml @ 50 mls/hr Q2H PRN IV For Potassium 2.8 - 3.2 mEq/L 01/20/17 08:00 01/21/17 20:26 Magnesium Sulfate 2 gm/Sodium Chloride 100 ml @ 50 mls/hr UNSCH PRN IV For Magnesium 1.2 - 1.6 mg/dL 01/20/17 08:00 01/20/17 09:04 Sodium Phosphate 30 mmol/Sodium Chloride 250 ml @ 42 mls/hr UNSCH PRN IV For Phosphorus < 2.5 mg/dL 01/20/17 08:00 01/20/17 15:52 Fentanyl Citrate 250 ml @ 0 mls/hr TITRATE IV 01/20/17 13:30 01/21/17 22:37 Fluconazole/ Sodium Chloride (Diflucan 400 Mg Premix Bag) 200 ml @ 100 mls/hr Q24H IV 01/20/17 21:00 01/21/17 21:33 Metoclopramide HCl (Reglan Inj) 5 mg Q8H PRN IV PUSH high residuals 01/21/17 08:15 01/22/17 00:08 Objective Remarks GENERAL: Intubated, sedated female supine in hospital bed. SKIN: Warm and dry. lines without bleeding. HEAD: Normocephalic. EYES: No injection or drainage. NECK: Supple, trachea midline CARDIOVASCULAR: +S1/S2, tachy RESPIRATORY: anterior lucas clear, on mechanical ventilation GASTROINTESTINAL: Abdomen soft, non-tender, nondistended. EXTREMITIES: No cyanosis +anasarca NEUROLOGICAL: sedated, intubated Assessment/Plan Problem List: (1) Bladder cancer Status: Acute Plan: --Invasive bladder cancer status post TURBT. --PET scan showed no evidence of metastatic disease. --CT abdomen and pelvis with contrast. --Non-metastatic Muscle invasive urothelial cancer is treated with neoadjuvant chemotherapy followed by surgery--> will be addressed in the outpatient setting if/when patient recovers from acute events. (2) PNA (pneumonia) Status: Acute Plan: --Extensive bilateral pneumonia and acute respiratory distress currently being managed by primary team as well as pulmonary. --on multiple antibiotics. (3) Normocytic anemia Status: Acute Plan: --stool Hemoccult negative --LDH rising, haptoglobin now less than 10. --s/p 2 units pRBC on 01/18 --ferritin significantly elevated (4) Transaminitis Status: Acute Plan: --likely due to sepsis but we also need to make sure there is no metastatic disease. --liver ultrasound WNL --CT ab/pelvis: only showed consolidation in lung bases. (5) Malnourished Status: Acute Plan: --low albumin --currently receiving TF--Jevity 1.5 (6) Thrombocytopenia Status: Acute Plan: --d/t sepsis, DIC --transfuse if bleeding or platelet count less than 20K (7) Sepsis Status: Acute Plan: --BC no growth --on multiple pressors (8) DIC (disseminated intravascular coagulation) Status: Acute Assessment 66y/o female with a history of muscle invasive bladder cancer who is admitted with pneumonia and respiratory distress. h/o muscle invasive bladder cancer. Hypertension. COPD. History of tobacco abuse. Plan 1. continue antibiotics 2. monitor CBC 3. monitor coags 4. give 1 unit platelets Attending Statement The exam, history, and the medical decision-making described in the above note were completed with the assistance of the mid-level provider. I reviewed and agree with the findings presented. I attest that I had a [id number]-[id number] encounter with the patient on the same day, and personally performed and documented my assessment and findings in the medical record. Thrombocytopenia due to sepsis/DIC. platelet transfusion today Review peripheral smear again in am . Only rare fragmented rbc's seen. Check [id number]. Will give plasma CHRISTINA. Initiate plasma exchange as a cautionary measure. Continue IV Steroids DIC/Coagulopathy with INR 1.5. Vitamin K 5mg PO X 1 today. Daily Haptoglobin/ fibrinogen and INR. Anemia due to sepsis/illness. no hemolysis. Keep Hb > 7.5 d/w RN Problem Qualifiers (1) Sepsis: Qualified Code: A41.9 - Sepsis, due to unspecified organism Madeleine Valderrama Jan 22, 2017 11:06 Malik Corbett MD Jan 22, 2017 23:57
[2017-01-22] MEDS ORDERED: SODIUM CHLOR 0.9% 250 ML INJ 250 ML IV ONE (11:15)
--- NOTE | 2017-01-22 11:52 | HHI.IDPN ---
Subjective Subjective Remarks doing extremely poor not tolerating tube feeds, 600 cc of gastric drainage reported by RN Plts 10 WBC into 48 K BP low, pressors are up unresponsive Antibiotics meropenem fluconazole micaafungin Past Medical History bladder ca Allergies: Coded Allergies: Contrast Media (Verified Allergy, Severe, respiratory distress, 01/13/17) Penicillin (Verified Allergy, Intermediate, rash, 01/13/17) Uncoded Allergies: cefepime (Allergy, Intermediate, Rash, 01/15/17) pruritic rash Objective . Vital Signs Date Time Temp Pulse Resp B/P Pulse Ox O2 Delivery O2 Flow Rate FiO2 01/22/17 09:49 98 55 01/22/17 07:32 95 55 01/22/17 06:00 97 01/22/17 04:08 97 55 01/22/17 04:00 101 01/22/17 04:00 98.1 101 20 80/57 97 94/62 01/22/17 04:00 55 01/22/17 04:00 101 80/57 94/62 01/22/17 02:00 104 01/22/17 01:09 98 55 01/22/17 00:00 108 01/22/17 00:00 108 87/65 97/64 01/22/17 00:00 97.9 108 12 87/65 98 97/64 01/22/17 00:00 45 01/21/17 22:13 98 55 01/21/17 22:00 110 01/21/17 20:07 98 55 01/21/17 20:00 98.5 111 25 96/67 96 112/73 01/21/17 20:00 111 96/67 112/73 01/21/17 20:00 45 01/21/17 20:00 111 01/21/17 19:00 95 Mechanical Ventilator 45 01/21/17 18:00 118 01/21/17 18:00 118 25 96/63 95 01/21/17 17:00 126 26 90/62 93 95/59 01/21/17 16:00 100.4 125 33 106/75 92 114/72 01/21/17 16:00 125 01/21/17 16:00 125 106/75 114/72 01/21/17 16:00 45 01/21/17 15:42 93 55 01/21/17 15:00 119 21 101/69 92 108/68 01/21/17 14:00 122 45 124/78 94 01/21/17 14:00 122 01/21/17 13:17 97 55 01/21/17 13:00 118 40 102/74 95 111/70 01/21/17 12:56 93 55 01/21/17 12:00 99.4 112 19 103/76 92 117/73 01/21/17 12:00 45 01/21/17 12:00 112 103/76 117/73 01/21/17 12:00 112 01/21/17 01/21/17 01/22/17 15:00 23:00 07:00 Intake Total 1273 ml 2157 ml 579 ml Output Total 1400 ml 1350 ml 200 ml Balance -127 ml 807 ml 379 ml IV Total 806 ml 1850 ml 563 ml Tube Feeding 287 ml 307 ml 16 ml Tube Irrigant 180 ml Output Urine Total 1325 ml 1350 ml 200 ml Stool Total 75 ml . Laboratory Tests Test 01/21/17 01/22/17 03:00 04:00 White Blood Count 45.2 TH/MM3 48.2 TH/MM3 Red Blood Count 3.30 MIL/MM3 3.23 MIL/MM3 Hemoglobin 8.8 GM/DL 8.6 GM/DL Hematocrit 27.4 % 27.1 % Mean Corpuscular Volume 82.9 FL 84.0 FL Mean Corpuscular Hemoglobin 26.7 PG 26.8 PG Mean Corpuscular Hemoglobin 32.2 % 31.9 % Concent Red Cell Distribution Width 14.9 % 15.7 % Platelet Count 23 TH/MM3 14 TH/MM3 Mean Platelet Volume 9.2 FL 11.5 FL Neutrophils (%) (Auto) 83.9 % 81.8 % Lymphocytes (%) (Auto) 11.2 % 14.9 % Monocytes (%) (Auto) 4.5 % 2.9 % Eosinophils (%) (Auto) 0.2 % 0.1 % Basophils (%) (Auto) 0.2 % 0.3 % Neutrophils # (Auto) 37.9 TH/MM3 39.4 TH/MM3 Lymphocytes # (Auto) 5.1 TH/MM3 7.2 TH/MM3 Monocytes # (Auto) 2.0 TH/MM3 1.4 TH/MM3 Eosinophils # (Auto) 0.1 TH/MM3 0.0 TH/MM3 Basophils # (Auto) 0.1 TH/MM3 0.2 TH/MM3 CBC Comment AUTO DIFF AUTO DIFF Differential Total Cells 100 100 Counted Neutrophils % (Manual) 65 % 80 % Band Neutrophils % 18 % 4 % Lymphocytes % 6 % 6 % Monocytes % 3 % 3 % Neutrophils # (Manual) 41.1 TH/MM3 43.9 TH/MM3 Myelocytes 7 % 2 % Promyelocytes 1 % Nucleated Red Blood Cells 13 /100 WBC 23 /100 WBC Differential Comment FINAL DIFF FINAL DIFF MANUAL MANUAL Platelet Estimate LOW LOW Platelet Morphology Comment ENLARGED NORMAL Stomatocytes 1+ Keratocytes OCC 1+ Metamyelocytes 5 % Toxic Granulation 1+ Spherocytes 2+ Target Cells 1+ Blood Smear Pathologist Review Haptoglobin LESS THAN 10 MG/DL Laboratory Tests Test 01/20/17 01/20/17 01/20/17 01/21/17 13:00 19:00 20:25 03:00 Potassium Level 2.9 MEQ/L 3.9 MEQ/L 3.4 MEQ/L 2.9 MEQ/L Sodium Level 139 MEQ/L 140 MEQ/L Chloride Level 100 MEQ/L 99 MEQ/L Carbon Dioxide Level 30.0 MEQ/L 30.9 MEQ/L Anion Gap 9 MEQ/L 10 MEQ/L Blood Urea Nitrogen 35 MG/DL 35 MG/DL Creatinine 0.88 MG/DL 0.93 MG/DL Estimat Glomerular Filtration 64 ML/MIN 60 ML/MIN Rate Random Glucose 136 MG/DL 141 MG/DL Calcium Level 7.0 MG/DL 7.1 MG/DL Protein Corrected Calcium 8.0 MG/DL 7.9 MG/DL Magnesium Level 1.8 MG/DL 1.7 MG/DL Total Protein 5.2 GM/DL 5.5 GM/DL Phosphorus Level 3.3 MG/DL Total Bilirubin 1.8 MG/DL Aspartate Amino Transf 176 U/L (AST/SGOT) Alanine Aminotransferase 93 U/L (ALT/SGPT) Alkaline Phosphatase 225 U/L Albumin 3.1 GM/DL Test 01/21/17 01/21/17 01/22/17 16:45 17:41 04:00 Potassium Level 3.0 MEQ/L 4.6 MEQ/L Lactic Acid Level 4.1 mmol/L Sodium Level 140 MEQ/L Chloride Level 100 MEQ/L Carbon Dioxide Level 29.0 MEQ/L Anion Gap 11 MEQ/L Blood Urea Nitrogen 54 MG/DL Creatinine 1.16 MG/DL Estimat Glomerular Filtration 47 ML/MIN Rate Random Glucose 152 MG/DL Calcium Level 7.1 MG/DL Protein Corrected Calcium 8.4 MG/DL Phosphorus Level 4.6 MG/DL Magnesium Level 1.8 MG/DL Total Bilirubin 1.6 MG/DL Aspartate Amino Transf 454 U/L (AST/SGOT) Alanine Aminotransferase 170 U/L (ALT/SGPT) Alkaline Phosphatase 214 U/L Total Protein 4.8 GM/DL Albumin 2.5 GM/DL Imaging Last Impressions Chest X-Ray 01/22/17 Signed Impressions: Service Date/Time: Sunday, January 22, 2017 04:47 - CONCLUSION: No significant change. Sourav Mock MD Upper Extremity Ultrasound 01/19/17 Signed Impressions: Service Date/Time: Thursday, January 19, 2017 09:53 - CONCLUSION: Small amount of occlusive thrombus is seen bilaterally in each of the cephalic veins. The rest of the deep venous systems are unremarkable. Major John MD Lower Extremity Ultrasound 01/19/17 Signed Impressions: Service Date/Time: Thursday, January 19, 2017 09:35 - CONCLUSION: Normal examination. Major John MD Abdomen/Pelvis CT 01/18/17 Signed Impressions: Service Date/Time: Wednesday, January 18, 2017 21:05 - CONCLUSION: 1. Mildly nonspecific, nonobstructive bowel gas pattern 2. The gallbladder is at the upper limits of normal in size but otherwise unremarkable. 3. Areas of parenchymal consolidation again noted in the lung bases. Paul Lou MD Liver Ultrasound 01/17/17 Signed Impressions: Service Date/Time: Tuesday, January 17, 2017 17:05 - CONCLUSION: There is no intrahepatic biliary duct dilatation. Liver is grossly free of focal defects. London Frazier MD FACR Chest CT 01/15/17 Signed Impressions: Service Date/Time: January 10:16 - CONCLUSION: Extensive scattered areas of parenchymal consolidation are seen throughout both lung lucas predominately along the peripheral aspect of both lungs. There are also scattered bilateral interstitial infiltrates. These infiltrates appear to be overlying central lobar emphysema. Madi Marvin MD Physical Exam CONSTITUTIONAL/GENERAL: This is an adequately nourished patient, in no apparent distress. TUBES/LINES/DRAINS: SKIN: + jaundice, , or lesions. . Skin temperature appropriate. Not diaphoretic. Diffuse pale macular rash, on abdomen arms and legs, unchanged since yday HEAD: Atraumatic. Normocephalic. EYES: No scleral icterus. No injection or drainage. Fundi not examined. ENT: Poor dentition CARDIOVASCULAR: Regular rate and rhythm without murmurs, gallops, or rubs. No JVD. Peripheral pulses symmetric. Refill is delaed RESPIRATORY/CHEST: Symmetric, labored respirations. Breath sounds equal bilaterally. Clear to auscultation. No rhonchi GASTROINTESTINAL: Abdomen soft, no reaction to palpation ; mildly distended. No hepato-splenomegaly, or palpable masses. No guarding. Bowel sounds hypo Incontinent of small amount of greenish very mucosy stool GENITOURINARY: Without palpable bladder distension. Mcgee catheter in place with small amount of yellow urine MUSCULOSKELETAL: Extremities without clubbing, + cyanosis, + diffuse 3-4+ edema. no mottling warm to touch NEUROLOGICAL: sedated off sedation weakly follows commasnds PSYCHIATRIC: unable to assess Assessment & Plan Remarks PNA, multilobar, severe, recent hospitalisation - clx negaive Recurrent PNA Acute VDRF ?ARDS hypoxia, severe consolidations but no sputum production clx negative Pruriric rash suspicios for abx reaction (allergic to PCN) - improving after cefepime stopped but not completely resolcved Bladder CA, not on chemo yet Funguria, C.glabrata in chronic mcgee pt, alisaley just colonisation, doubt clin significane - mcgee about 1 wk Severe refractory sepsis, septic shock suspect intraabd source ( not tolerating tube feeds at all, severe leukemoid reactio, negative sputum clx) Pulmonary infilatrates and acute VDRF favoring ARDS ARF DIC (plts 10, fibrinogen low), but haptoglobin cw hemolysis (< 10) critically ill and extremely unstable REC'S: -cont Meropenem -repeat blood clx repeat lactic acid repeat c.diff - cont micafungin; will dc if no fungemia - cont FLuconazole for now - chk UA/clx CT ABD/PEL if feasible LDH fu perif smear chk retics dw Fara Kwok RN, MD Jan 22, 2017 11:52 Fara Palomares MD Jan 22, 2017 11:52
--- NOTE | 2017-01-22 13:00 | HHI.CCPN ---
Subjective Remarks/Hospital Course 66 y/o woman with pneumonia and worsening oxygenation. Now with evidence of marginal peripheral perfusion and deteriorating gas diffusion. She will need aggressive hydration, further impairing gas exchange. Requires intubation at this time. 01/18/17: Patient remains very critically ill. She is currently on milrinone and vasopressin, Mark trac shows cardiac output 4 L cardiac index 2.2 with inotropes. A bedside echo shows RV dilation, with septal flattening in diastole indicating right ventricular fluid overload. This is most likely secondary to multilobar pneumonia/ARDS, PE appears less likely. Patient is oliguric, 100 mL urine output in the last 4 hours. WBC count has increased to 27.8 hemoglobin dropped to 6.8. Receiving 2 units of PRBC. Receiving meropenem and azithromycin. Zyvox added. Also Micafungin added for C Glabrata in urine 01/19/17: Remains intubated sedated, currently on milrinone 0.75 g per KG per minute, vasopressin at 0.04 units and Jay-Synephrine at 60 mcg/m. Urine output approximately 550 mL in 24 hours. Bedside echo shows persistent RV dilation/ dysfunction with septal flattening. Will add inhaled Flolan to improve RV, function and offload RV. WBC count 35.3 today. IV Flagyl added, check C. difficile. Bronchi in BAL today 01/20 Patient is sedated with Versed and intubated. On Neosyn 50mics, Vasopressin , Milrinone and Flolan. Afebrile. 01/21 Patient remains sedated and intubated. On Bumex drip 0.5mg/hr and Neosyn. Off Vasopressin. On Milrinone and Flolan. Tmax 100.4 Subjective 01/22: Currently on Jay-Synephrine at 150 mcg/m and vasopressin 0.04 units an minute for blood pressure support. Unresponsive on the ventilator on fentanyl at 50 mcg/m. Remains on Flolan and currently not tolerating tube feeds. Positive BM. Objective Vital Signs Date Time Temp Pulse Resp B/P Pulse Ox O2 Delivery O2 Flow Rate FiO2 01/22/17 09:49 98 55 01/22/17 06:00 97 01/22/17 04:00 98.1 20 80/57 94/62 01/21/17 19:00 Mechanical Ventilator Intake and Output 01/21/17 01/21/1717 08:00 16:00 00:00 Intake Total 803 ml 1273 ml 2157 ml Output Total 1475 ml 1400 ml 1350 ml Balance -672 ml -127 ml 807 ml Result Diagram: 01/22/17 0400 01/22/17 0400 Other Results Microbiology Date/Time Procedure Status Source Growth 01/19/17 10:33 Fungal Smear Received Bronchial Washings Right Lower Lobe Pending 01/19/17 10:33 Fungal Culture Received Bronchial Washings Right Lower Lobe Pending 01/19/17 09:10 Gram Stain - Final Complete Bronchial Washings Right Lower Lobe 01/19/17 09:10 Bronchial Culture - Final Complete Bronchial Washings Right Lower Lobe NO GROWTH IN 48 HOURS. 01/19/17 09:10 Fungal Smear - Final Resulted Bronchial Washings Right Lower Lobe NO FUNGAL ELEMENTS SEEN. 01/19/17 09:10 Fungal Culture Resulted Bronchial Washings Right Lower Lobe Pending 01/19/17 09:10 Acid Fast Stain - Final Resulted Bronchial Washings Right Lower Lobe NO ACID FAST BACILLI SEEN 01/19/17 09:10 Mycobacterial Culture Resulted Bronchial Washings Right Lower Lobe Pending 01/18/17 20:30 Stool Occult Blood (FLORI) - Final Complete Stool Stool HEMOCCULT NEGATIVE 01/18/17 14:59 Aerobic Blood Culture - Preliminary Resulted Blood Peripheral NO GROWTH IN 4 DAYS 01/18/17 14:59 Anaerobic Blood Culture - Preliminary Resulted Blood Peripheral NO GROWTH IN 4 DAYS 01/18/17 11:20 Urine Culture - Final Complete Urine Catheterized Urine Kajal Glabrata Kajal Albicans Imaging Last 72 hours Impressions Chest X-Ray 01/22/17 0000 Signed Impressions: Service Date/Time: Sunday, January 22, 2017 04:47 - CONCLUSION: No significant change. Sourav Mock MD Chest X-Ray 01/20/17 0600 Signed Impressions: Service Date/Time: Friday, January 20, 2017 04:29 - CONCLUSION: Diffuse patchy infiltrates are unchanged. Tubes and catheters are in good position. Major John MD Objective Remarks GENERAL: 66-year-old female, critically ill currently orotracheally intubated SKIN: Warm and dry. HEAD: Atraumatic. Normocephalic. EYES: Pupils equal and round about 2 mm bilaterally and reactive. No scleral icterus. No injection or drainage. ENT: No nasal bleeding or discharge. Mucous membranes pink and moist. NECK: Trachea midline. No JVD. CARDIOVASCULAR: Regular rate and rhythm. S1, S2. No S4. Without murmur RESPIRATORY: Coarse rhonchorous breath sounds appreciated throughout lung lucas. No wheezing. GASTROINTESTINAL: Abdomen soft, non-tender, obese. Bowel sounds not appreciated MUSCULOSKELETAL: Extremities with 1+ nonpitting lower extremity peripheral edema. No obvious deformities. NEUROLOGICAL: Currently sedated on the ventilator. Withdraws to pain lower extremities. Nonfocal examination. Date of Insertion: Jan 11, 2017 A/P Assessment and Plan Neuro/Psych: Acute toxic metabolic encephalopathy - On Fentanyl drip at 50 mcg/m sedation and ventilator synchrony Goal of RASS -2 Daily sedation vacation Monitor neuro status. Resp: Acute hypoxemic respiratory failure ARDS Bilateral pneumonia COPD -Continue with vent support keep sat >92% -On PRVC RR 20, TV 450, IT:1.0, PEEP:10, FIO2 45% - DuoNeb every 6 hours and when necessary . - IV hydrocortisone 50 mg every 6 hours - Ventilator bundle - Pulm Dr. Stafford -s/p bronch with BAL CVS: Shock likely cardiogenic/septic RV dilation/dysfunction on echo indicating RV volume overload Lactic acidosis - Remains in cardiogenic and septic shock - .Flolan for RV offloading currently at 30,000 ng/mL-- 8ml/hr - Jay-Synephrine currently 150 mcg/m/vasopressin 0.04 units per minute as needed to keep MAP>65mmHg. Wean off Milrinone drip will check venous blood gas first Cardiac index 1.6. SVV 9. CVP 17. - Echo showed EF 60-65%, normal RV size and function, flattening septum in diastole reflecting RV volume overload. Lactic acid until cleared GI: Transaminitis - IV famotidine for GI prophylaxis discontinued with low platelets. Start Protonix - Jevity 1.5@45ml/hr currently on hold - Place on Reglan 5mg IV Q8 PRN for high residuals. - 01/18 CT abdomen/pelvis: Mildly nonspecific, nonobstructive bowel gas pattern. Areas of parenchymal consolidation again noted in the lung bases. -01/17 US Liver: There is no intrahepatic biliary duct dilatation. Liver is grossly free of focal defects Renal/: Invasive bladder cancer status post TURBT Hypernatremia Hypocalcemia - Monitor renal function, I/O's, electrolytes replacement per protocol. Maintain Mercedes HEME: Anemia requiring transfusion Thrombocytopenia Low haptoglobin question hemolysis Superficial bilateral cephalic thrombosis -Monitor CBC, Coags, check INR/PT, Fibrinogen - 2 units PRBC 01/18 - Thrombocytopenia initially thought secondary to sepsis- HIT panel is negative and haptoglobin initially elevated but currently less than 10 - Dr. Corbett Oncologist following for bladder cancer -Doppler US UE: Small amount of occlusive thrombus is seen bilaterally in each of the cephalic veins. -Doppler US LE: No DVT Haptoglobin less than 10. LDH, PTT, and peripheral smear all pending. ID: Candiduria - F/U blood urine and sputum cultures, septic shock most likely from severe pneumonia. - Urine Legionella and pneumococcal antigen, influenza negative - Continue azithromycin, meropenem, Zyvox, Micafungin. Diflucan, C diff negative 01/19. ID is following - Urine culture 01/13 C Glabrata, 01/18 C. Albicans, C. Glabrata - s/p Bronch with BAL 01/19 follow up on BAL results -Monitor for signs of infections ( Fever, WBC) Endo: - Electrolyte replacement per protocol, sliding scale insulin every 4 hours/low Prophylaxis: - IV Protonix. Hold Lovenox due to anemia requiring transfusion, and thrombocytopenia Lines: Left subclavian, Right Femoral Art line - placed 01/17 CCT 30 MIN Christian Bose MD Jan 22, 2017 13:00
[2017-01-22 13:06] LABS: RETIC % 0.8 % (0.4-3.0)
[2017-01-22 13:09] LABS: REVIEW FLAG FINAL
[2017-01-22] MEDS: MICAFUNGIN INJ 100 MG in SODIUM CHLORIDE 0.9% INJ 100 ML IV SCH (13:45)
[2017-01-22 14:14] LABS: INDIRECT BILIRUBIN 0.7 MG/DL (0.0-0.8); TOTAL BILIRUBIN ADULT 1.6 MG/DL (0.2-1.0)
[2017-01-22 14:23] LABS: LDH SERUM 1559 U/L (84-246)
[2017-01-22 14:41] LABS: BLOOD GAS VENOUS BASE EXCESS -0.5 mmol/L (-2-2); BLOOD GAS VENOUS HCO3 26 mmol/L (22-26); BLOOD GAS VENOUS O2 CONTENT 6.1 Vol % (9.0-17.0); BLOOD GAS VENOUS O2 HGB SAT 51 % (70-76); BLOOD GAS VENOUS PCO2 62 mmHg (44-48); BLOOD GAS VENOUS PO2 38 mmHg (35-40); BLOOD GAS VENOUS pH 7.25 (7.360-7.400); TEMP CORR TO 98.6
[2017-01-22] MEDS: PANTOPRAZOLE SODIUM 40 MG VIAL IV PUSH SCH (14:41)
[2017-01-22] MEDS: MAGNESIUM SULFATE 1 GM PREMIX 100 ML IV SCH ×2 (14:41→16:57)
[2017-01-22 14:42] LABS: CRITICAL VALUE YES; OXYGEN DEVICE VENTILATOR
[2017-01-22 14:44] LABS: FIO2 55 %
[2017-01-22 14:45] LABS: DRAW SITE CENTRAL LINE; STAT NO
--- NOTE | 2017-01-22 15:05 | HHI.GIFU ---
Subjective Remarks Resting in bed, sedated on ventilator. Nurse reports GT clamped- having high residuals. + Liquid stool. Abdomen soft. No active bleeding. Objective Vitals I&O Vital Signs Date Time Temp Pulse Resp B/P Pulse Ox O2 Delivery O2 Flow Rate FiO2 01/22/17 12:54 99 55 01/22/17 09:49 98 55 01/22/17 07:32 95 55 01/22/17 06:00 97 01/22/17 04:08 97 55 01/22/17 04:00 101 01/22/17 04:00 98.1 101 20 80/57 97 94/62 01/22/17 04:00 55 01/22/17 04:00 101 80/57 94/62 01/22/17 02:00 104 01/22/17 01:09 98 55 01/22/17 00:00 108 01/22/17 00:00 108 87/65 97/64 01/22/17 00:00 97.9 108 12 87/65 98 97/64 01/22/17 00:00 45 01/21/17 22:13 98 55 01/21/17 22:00 110 01/21/17 20:07 98 55 01/21/17 20:00 98.5 111 25 96/67 96 112/73 01/21/17 20:00 111 96/67 112/73 01/21/17 20:00 45 01/21/17 20:00 111 01/21/17 19:00 95 Mechanical Ventilator 45 01/21/17 18:00 118 01/21/17 18:00 118 25 96/63 95 01/21/17 17:00 126 26 90/62 93 95/59 01/21/17 16:00 100.4 125 33 106/75 92 114/72 01/21/17 16:00 125 01/21/17 16:00 125 106/75 114/72 01/21/17 16:00 45 01/21/17 15:42 93 55 01/21/17 15:00 119 21 101/69 92 108/68 I/O 01/21/17 01/21/17 01/21/17 01/22/17 01/22/17 01/22/17 07:00 15:00 23:00 07:00 15:00 23:00 Intake Total 803 ml 1273 ml 2157 ml 579 ml Output Total 1475 ml 1400 ml 1350 ml 200 ml Balance -672 ml -127 ml 807 ml 379 ml IV Total 753 ml 806 ml 1850 ml 563 ml Tube Feeding 287 ml 307 ml 16 ml Albumin 50 ml Tube Irrigant 180 ml Output Urine Total 1475 ml 1325 ml 1350 ml 200 ml Stool Total 75 ml Laboratory Laboratory Tests Test 01/21/17 01/21/17 01/22/17 01/22/17 16:45 17:41 04:00 11:03 Potassium Level 3.0 4.6 Lactic Acid Level 4.1 White Blood Count 48.2 Red Blood Count 3.23 Hemoglobin 8.6 Hematocrit 27.1 Mean Corpuscular Volume 84.0 Mean Corpuscular Hemoglobin 26.8 Mean Corpuscular Hemoglobin 31.9 Concent Red Cell Distribution Width 15.7 Platelet Count 14 Mean Platelet Volume 11.5 Neutrophils (%) (Auto) 81.8 Lymphocytes (%) (Auto) 14.9 Monocytes (%) (Auto) 2.9 Eosinophils (%) (Auto) 0.1 Basophils (%) (Auto) 0.3 Neutrophils # (Auto) 39.4 Lymphocytes # (Auto) 7.2 Monocytes # (Auto) 1.4 Eosinophils # (Auto) 0.0 Basophils # (Auto) 0.2 CBC Comment AUTO DIFF Differential Total Cells 100 Counted Neutrophils % (Manual) 80 Band Neutrophils % 4 Lymphocytes % 6 Monocytes % 3 Neutrophils # (Manual) 43.9 Metamyelocytes 5 Myelocytes 2 Nucleated Red Blood Cells 23 Differential Comment FINAL DIFF MANUAL Toxic Granulation 1+ Platelet Estimate LOW Platelet Morphology Comment NORMAL Spherocytes 2+ Target Cells 1+ Keratocytes 1+ Blood Smear Pathologist Review Reticulocyte Count 0.8 Absolute Reticulocyte Count 25.8 Haptoglobin LESS THAN 10 Prothrombin Time 16.7 Prothromb Time International 1.5 Ratio Fibrinogen 211 Sodium Level 140 Chloride Level 100 Carbon Dioxide Level 29.0 Anion Gap 11 Blood Urea Nitrogen 54 Creatinine 1.16 Estimat Glomerular Filtration 47 Rate Random Glucose 152 Calcium Level 7.1 Protein Corrected Calcium 8.4 Phosphorus Level 4.6 Magnesium Level 1.8 Total Bilirubin 1.6 Direct Bilirubin 0.9 Indirect Bilirubin 0.7 Aspartate Amino Transf 454 (AST/SGOT) Alanine Aminotransferase 170 (ALT/SGPT) Alkaline Phosphatase 214 Lactate Dehydrogenase 1559 Total Protein 4.8 Albumin 2.5 Lipase 42 Blood Bank Comment Date/Time Procedure Status Source Growth 01/19/17 10:33 Fungal Smear Received Bronchial Washings Right Lower Lobe Pending 01/19/17 10:33 Fungal Culture Received Bronchial Washings Right Lower Lobe Pending 01/19/17 09:10 Gram Stain - Final Complete Bronchial Washings Right Lower Lobe 01/19/17 09:10 Bronchial Culture - Final Complete Bronchial Washings Right Lower Lobe NO GROWTH IN 48 HOURS. 01/19/17 09:10 Fungal Smear - Final Resulted Bronchial Washings Right Lower Lobe NO FUNGAL ELEMENTS SEEN. 01/19/17 09:10 Fungal Culture Resulted Bronchial Washings Right Lower Lobe Pending 01/19/17 09:10 Acid Fast Stain - Final Resulted Bronchial Washings Right Lower Lobe NO ACID FAST BACILLI SEEN 01/19/17 09:10 Mycobacterial Culture Resulted Bronchial Washings Right Lower Lobe Pending 01/18/17 20:30 Stool Occult Blood (FLORI) - Final Complete Stool Stool HEMOCCULT NEGATIVE 01/18/17 14:59 Aerobic Blood Culture - Preliminary Resulted Blood Peripheral NO GROWTH IN 4 DAYS 01/18/17 14:59 Anaerobic Blood Culture - Preliminary Resulted Blood Peripheral NO GROWTH IN 4 DAYS 01/18/17 11:20 Urine Culture - Final Complete Urine Catheterized Urine Kaity Glabrata Kaity Albicans Imaging Last Impressions Chest X-Ray 01/22/17 0000 Signed Impressions: Service Date/Time: Sunday, January 22, 2017 04:47 - CONCLUSION: No significant change. Sourav Mock MD Upper Extremity Ultrasound 01/19/17 0000 Signed Impressions: Service Date/Time: Thursday, January 19, 2017 09:53 - CONCLUSION: Small amount of occlusive thrombus is seen bilaterally in each of the cephalic veins. The rest of the deep venous systems are unremarkable. Major John MD Lower Extremity Ultrasound 01/19/17 0000 Signed Impressions: Service Date/Time: Thursday, January 19, 2017 09:35 - CONCLUSION: Normal examination. Major John MD Abdomen/Pelvis CT 01/18/17 0000 Signed Impressions: Service Date/Time: Wednesday, January 18, 2017 21:05 - CONCLUSION: 1. Mildly nonspecific, nonobstructive bowel gas pattern 2. The gallbladder is at the upper limits of normal in size but otherwise unremarkable. 3. Areas of parenchymal consolidation again noted in the lung bases. Paul Lou MD Liver Ultrasound 01/17/17 0000 Signed Impressions: Service Date/Time: Tuesday, January 17, 2017 17:05 - CONCLUSION: There is no intrahepatic biliary duct dilatation. Liver is grossly free of focal defects. London Frazier MD FACR Chest CT 01/15/17 0000 Signed Impressions: Service Date/Time: January 10:16 - CONCLUSION: Extensive scattered areas of parenchymal consolidation are seen throughout both lung lucas predominately along the peripheral aspect of both lungs. There are also scattered bilateral interstitial infiltrates. These infiltrates appear to be overlying central lobar emphysema. Madi Marvin MD Physical Exam HEENT: Normocephalic; atraumatic. OETT in place. CHEST: Resp. crackles and rhonchi, intubated CARDIAC: ST, hypotension on vasopressors ABDOMEN: Abdomen soft, obese, very mildly distended, bowel sounds hypoactive. High residuals. EXTREMITIES: Generalized edema. SKIN: Normal; no rash; [employer]: sedated on a vent Assessment and Plan Plan ASSESSMENT: - Dysphagia. GI consulted for dysphagia. Prior to intubation, she reported that she is not eating much, but stated not so much because of dysphagia, but because of her shortness of breath. She also reported a sore throat, but denied painful swallowing. She has kaity glabrata and kaity albicans in urine, possible kaity esophagitis. She is on nystatin, micafungin, high dose diflucan. Has ogt- high residuals, clamped. Pepcid changed to Protonix secondary to worsening thrombocytopenia. Not stable at this time for any endoscopic evaluation. - Abnormal LFTs, worsening today. This is likely related to sepsis with worsening related to worsening sepsis and medications- in particular possibly the antifungals as her LFTs seemed to worsen after diflucan was added. T. Bili 1.6, AST 454, ALT 170, 217. May need to adjust meds- will defer to ID, given worsening clinical status and leukocytosis. - Severe thrombocytopenia, Plt 14 with Haptoglobin < 10, LDH 1559, Fibrinogen 211, HIT negative. Bilirubin only 1.6. Per CCM. - High residuals. Nurse reports high gastric residuals. NGT clamped. Abdomen is soft. + BM. Will get KUB. Reglan ordered. - VDRF/Bilateral pneumonia/ARDS. Chest CT (01/15/17)----> Extensive scattered areas of parenchymal consolidation are seen throughout both lung lucas predominately along the peripheral aspect of both lungs. There are also scattered bilateral interstitial infiltrates. These infiltrates appear to be overlying central lobar emphysema. Pt was intubated on 01/18/17. Diflucan, Meropenem, Azithromycin. Worsening WBC count 48.2. Pt had bronch on 01/19 with cultures- no growth x 48 hours, mycobacteria, fungal culture pending. ID following. - Hx Bladder cancer, has not started chemotherapy yet.. Plan: - NPO - NGT to LIWS - KUB - Reglan ordered for high residuals. - Cont. Protonix - Cont. Abx per ID recommendations - Monitor H/H - Transfuse as needed - Monitor LFTs- if continue to rise, may need to adjust medications, suspect that the antifungals may be the culprit, but patient has worsening leukocytosis and has kaity glabrata/albicans- ID checking repeat blood cultures - CDiff toxin PCR - ID following - CCM following - Pulmonary following - Consider CT scan abdomen and pelvis when more stable. - Patient is critically ill and not stable for EGD +/- Sigmoidoscopy at this time, she is on pressors, will consider once medically stable - Pt seen and examined by myself and Dr. Tse and this note was written on his behalf. Noy Schroeder Jan 22, 2017 15:05
[2017-01-22 15:07] LABS: C. DIFF EPI 027 PRESUMPTIVE NEGATIVE (NEGATIVE); C. DIFF TOXIN PCR NEGATIVE (NEGATIVE)
[2017-01-22 15:48] LABS: APTT (PATIENT) 33.8 SEC (24.3-30.1)
--- NOTE | 2017-01-22 16:14 | RADRPT ---
EXAM DATE/TIME: 01/22/2017 15:12 [facility] COMPARISON: No previous studies available for comparison. INDICATIONS : High residuals MEDICAL HISTORY : Carcinoma, bladder. SURGICAL HISTORY : None. ENCOUNTER: Initial ACUITY: 1 week PAIN SCORE: Non-responsive. LOCATION: Bilateral abdomen FINDINGS: The bowel gas is nonspecific. There are no signs of obstruction or free air for technique. No defini te calcified stones are identified for technique. NG tube is present with tip in the stomach. CONCLUSION: Nonspecific abdomen. Phillip Peterson MD on January 22, 2017 at 16:12 Board Certified Radiologist. This report was verified electronically.
--- NOTE | 2017-01-22 16:46 | HHI.PR ---
Subjective Remarks 66 YOWF with Bilat ,Pn,RF , No fever CT Chest Bilat extensive parenchymal infilt Desaturates easily, anxious Pt intubated, off sedation, does't respond On Neosyn, Milrinone and Flolan On PRVC, Fi02 85% Platlets decreased Has increased NGT output Objective Vital Signs Vital Signs Date Time Temp Pulse Resp B/P Pulse Ox O2 Delivery O2 Flow Rate FiO2 01/22/17 15:36 96 45 01/22/17 15:00 92 21 105/80 99 127/80 01/22/17 15:00 92 105/80 127/80 01/22/17 15:00 92 01/22/17 14:00 96 103/73 117/74 01/22/17 14:00 96 01/22/17 14:00 96 14 103/73 99 117/74 01/22/17 13:00 94 85/61 103/65 01/22/17 13:00 94 01/22/17 13:00 94 20 85/61 99 103/65 01/22/17 12:54 99 55 01/22/17 12:00 55 01/22/17 12:00 95 01/22/17 12:00 95 20 81/64 99 100/64 01/22/17 12:00 95 81/64 100/64 01/22/17 11:01 94 80/65 98/63 01/22/17 11:01 94 20 80/65 98 98/63 01/22/17 11:01 94 01/22/17 10:00 96 20 80/61 99 93/60 01/22/17 10:00 96 80/61 93/60 01/22/17 10:00 96 01/22/17 09:49 98 55 01/22/17 09:00 96 20 84/64 97 100/64 01/22/17 09:00 96 84/64 100/64 01/22/17 09:00 96 01/22/17 08:00 99.8 01/22/17 08:00 97 79/61 95/61 01/22/17 08:00 55 01/22/17 08:00 97 20 79/61 96 95/61 01/22/17 08:00 97 01/22/17 07:32 95 55 01/22/17 06:00 97 01/22/17 04:08 97 55 01/22/17 04:00 101 01/22/17 04:00 98.1 101 20 80/57 97 94/62 01/22/17 04:00 55 01/22/17 04:00 101 80/57 94/62 01/22/17 02:00 104 01/22/17 01:09 98 55 01/22/17 00:00 108 01/22/17 00:00 108 87/65 97/64 01/22/17 00:00 97.9 108 12 87/65 98 97/64 01/22/17 00:00 45 01/21/17 22:13 98 55 01/21/17 22:00 110 01/21/17 20:07 98 55 01/21/17 20:00 98.5 111 25 96/67 96 112/73 01/21/17 20:00 111 96/67 112/73 01/21/17 20:00 45 01/21/17 20:00 111 01/21/17 19:00 95 Mechanical Ventilator 45 01/21/17 18:00 118 01/21/17 18:00 118 25 96/63 95 01/21/17 17:00 126 26 90/62 93 95/59 I/O 01/21/17 01/21/17 01/21/17 01/22/17 01/22/17 01/22/17 07:00 15:00 23:00 07:00 15:00 23:00 Intake Total 803 ml 1273 ml 2157 ml 579 ml Output Total 1475 ml 1400 ml 1350 ml 200 ml Balance -672 ml -127 ml 807 ml 379 ml IV Total 753 ml 806 ml 1850 ml 563 ml Tube Feeding 287 ml 307 ml 16 ml Albumin 50 ml Tube Irrigant 180 ml Output Urine Total 1475 ml 1325 ml 1350 ml 200 ml Stool Total 75 ml Result Diagram: 01/22/1739901/22/17 040 Objective Remarks GENERAL: MBMN WF, mild sob SKIN: Warm and dry. HEAD: Normocephalic. EYES: No scleral icterus. No injection or drainage. NECK: Supple, trachea midline. No JVD or lymphadenopathy. CARDIOVASCULAR: Regular rate and rhythm without murmurs, gallops, or rubs. RESPIRATORY: Breath sounds equal bilaterally. No accessory muscle use. bilat rales GASTROINTESTINAL: Abdomen soft, non-tender, nondistended. MUSCULOSKELETAL: No cyanosis, or edema. BACK: Nontender without obvious deformity. No CVA tenderness. A/P Assessment and Plan Resp Failure, on Vent septic and cardiogenic shock Hypoxia Bialt extensive Pneumonia leucocytosis PLAN: Vent support, PRCC 85% Aerosol nebs Abx Vanco, Zithro, Meropenam Milrinone and Neosyn to support BP On Flolan vasopressin 0.04 units per min FFP Jose Ivory MD Jan 22, 2017 16:46
[2017-01-22] MEDS ORDERED: EPOPROSTENOL NEB SOLUTION 40 NG/KG/MIN 100 ML NEB SCH ×2 (18:00)
[2017-01-22 19:10] LABS: BLOOD GAS VENOUS BASE EXCESS -3.3 mmol/L (-2-2); BLOOD GAS VENOUS HCO3 24 mmol/L (22-26); BLOOD GAS VENOUS O2 CONTENT 7.8 Vol % (9.0-17.0); BLOOD GAS VENOUS O2 HGB SAT 65 % (70-76); BLOOD GAS VENOUS PCO2 60 mmHg (44-48); BLOOD GAS VENOUS PO2 46 mmHg (35-40); BLOOD GAS VENOUS pH 7.21 (7.360-7.400); TEMP CORR TO 98.6
[2017-01-22 19:11] LABS: CRITICAL VALUE YES; OXYGEN DEVICE VENTILATOR
[2017-01-22 19:12] LABS: STAT NO; VENT SETTINGS PRVC/AC
[2017-01-22] MEDS ORDERED: DIATRIZOATE MEGLUM/DIATRIZOATE SOD 9 ML CUP PO ONE (19:15)
[2017-01-22] MEDS: FLUCONAZOLE 400 MG PREMIX BAG 200 ML IV SCH (21:00)
[2017-01-22 21:07] LABS: BLOOD GAS BASE EXCESS -4.8 mmol/L (-2-2); BLOOD GAS CARBOXYHEMOGLOBIN 1.3 % (0-4); BLOOD GAS HCO3 21 mmol/L (22-26); BLOOD GAS METHEMOGLOBIN 1.3 % (0-2); BLOOD GAS O2 HGB SATURATION 96 % (90-100); BLOOD GAS OXYGEN CONTENT 11.2 Vol % (12.0-20.0); BLOOD GAS PCO2 50 mmHg (38-42); BLOOD GAS PO2 130 mmHg (61-120); BLOOD GAS TOTAL HGB 8.1 G/DL (12.0-16.0); TEMP CORR TO 98.6
[2017-01-22 21:09] LABS: CRITICAL VALUE YES; OXYGEN DEVICE VENTILATOR
[2017-01-22 21:10] LABS: DRAW SITE ART LINE; FIO2 55 %; STAT NO; VENT SETTINGS PRVC/AC
[2017-01-22 21:42] LABS: HEMATOCRIT 26.5 % (35.0-46.0); MEAN CELL VOLUME 86.6 FL (80.0-100.0); MEAN CORPUSCULAR HEMOGLOBIN 26.3 PG (27.0-34.0); MEAN CORPUSCULAR HGB CONC 30.4 % (32.0-36.0); PLATELET COUNT 26 TH/MM3 (150-450); RED BLOOD COUNT 3.05 MIL/MM3 (4.00-5.30); RED CELL DISTRIBUTION WIDTH 15.6 % (11.6-17.2); WHITE BLOOD COUNT 48.5 TH/MM3 (4.0-11.0)
[2017-01-22 21:43] LABS: REVIEW FLAG FINAL
[2017-01-22 21:59] LABS: BICARBONATE 25.2 MEQ/L (21.0-32.0); POTASSIUM 5.1 MEQ/L (3.5-5.1)
--- NOTE | 2017-01-22 23:37 | RADRPT ---
EXAM DATE/TIME: 01/22/2017 23:00 [facility] COMPARISON: CHEST SINGLE AP, January 22, 2017, 4:47. CT ABDOMEN & PELVIS W/O CONTRAST, January 18, 2017, 21:05. INDICATIONS : Abdominal distention. Evaluate for obstruction. ORAL CONTRAST: Prescribed oral contrast ingested. RADIATION DOSE: 24.86 CTDIvol (mGy) MEDICAL HISTORY : Hypertension. Carcinoma, bladder. SURGICAL HISTORY : Left lumpectomy. ENCOUNTER: Subsequent ACUITY: 1 week PAIN SCALE: Non-responsive LOCATION: Diffuse abdomen. TECHNIQUE: Volumetric scanning of the abdomen and pelvis was performed. Using automated exposure control and ad justment of the mA and/or kV according to patient size, radiation dose was kept as low as reasonably achievable to obtain optimal diagnostic quality images. DICOM format image data is available electro nically for review and comparison. FINDINGS: LOWER LUNGS: Severe bilateral lower lung zone pulmonary opacity is again seen with no significant interval change. LIVER: Small amount of perihepatic fluid is noted. Pericholecystic fluid is again seen and slightly decrease d. Liver is homogeneous with no gross evidence of mass on this noncontrast study. SPLEEN: Normal size without lesion. PANCREAS: Within normal limits. KIDNEYS: Normal in size and shape. There is no mass, stone, or hydronephrosis. ADRENAL GLANDS: Within normal limits. VASCULAR: Diffuse aortic calcification. Aortic diameter within normal limits. BOWEL/MESENTERY: Small amount of ascites in the pelvis and lower quadrants. Contrast is seen in the distal colon with mild diffuse distention of the colon. Small bowel diameter within normal limits. Small bowel air-flui d levels are noted. No free air. ABDOMINAL WALL: Large amount of superficial soft tissue edema in the abdomen and pelvis indicating anasarca. RETROPERITONEUM: No enlarged lymph nodes. BLADDER: Mercedes catheter in place. Prominent amount of gas in the bladder lumen. REPRODUCTIVE: Within normal limits. INGUINAL: There is no lymphadenopathy or hernia. MUSCULOSKELETAL: Within normal limits for patient age. CONCLUSION: 1. Mild ascites but increased from the prior study. 2. Increased symmetric superficial soft tissue edema indicating anasarca. 3. Persistent severe bilateral pulmonary opacity. 4. No evidence of bowel dilatation. 5. New finding of prominent amount of gas in the urinary bladder lumen. May be related to Mercedes priscilla ter in place. Collin Sanchez MD on January 22, 2017 at 23:27 Board Certified Radiologist. This report was verified electronically.
[2017-01-23] VITALS (32 sets, daily range): BP systolic 56–130; BP diastolic 23–80; PULSE 94–118; RESP 16–23; TEMP 100; O2SAT 0–98
[2017-01-23] MEDS ORDERED: PHYTONADIONE 5 MG TAB PO ONE
[2017-01-23] MEDS ORDERED: EPOPROSTENOL NEB SOLUTION 30 NG/KG/MIN 100 ML NEB ONE ×2 (02:00)
[2017-01-23] MEDS: DOCUSATE SODIUM 50 MG/SENNA 8.6 MG TAB PO SCH ×2 (02:09→09:00)
[2017-01-23] MEDS: SODIUM CHLORIDE 0.9% FLUSH 10 ML FLUSH IV FLUSH SCH ×2 (02:09→09:00)
[2017-01-23] MEDS: NYSTATIN SUSP 500,000 U/5 ML CUP SWISH-SWAL SCH ×4 (02:09→15:17)
[2017-01-23] MEDS: HYDROCORTISONE SOD SUCCINATE 100 MG VIAL IV PUSH SCH ×3 (02:09→13:49)
[2017-01-23] MEDS: LORazepam 0.5 MG TAB PO SCH ×2 (02:09→06:00)
[2017-01-23] MEDS: CHLORHEXIDINE 0.12% (ORAL KIT) 15 ML CUP MT SCH ×2 (02:10→08:00)
[2017-01-23 05:52] LABS: AUTOMATED NEUTROPHIL # 39.7 TH/MM3 (1.8-7.7); BASOPHIL # 0.2 TH/MM3 (0-0.2); BASOPHIL % 0.5 % (0.0-2.0); EOSINOPHIL # 0.1 TH/MM3 (0-0.4); EOSINOPHIL % 0.2 % (0.0-4.0); HEMATOCRIT 25.5 % (35.0-46.0); LYMPH % 3.3 % (9.0-44.0); LYMPHOCYTE # 1.4 TH/MM3 (1.0-4.8); MEAN CELL VOLUME 88.3 FL (80.0-100.0); MEAN CORPUSCULAR HEMOGLOBIN 26.9 PG (27.0-34.0); MEAN CORPUSCULAR HGB CONC 30.5 % (32.0-36.0); MONO % 2.4 % (0.0-8.0); NEUT % 93.6 % (16.0-70.0); RED BLOOD COUNT 2.89 MIL/MM3 (4.00-5.30); WHITE BLOOD COUNT 42.4 TH/MM3 (4.0-11.0)
[2017-01-23 06:03] LABS: APTT (PATIENT) 35.4 SEC (24.3-30.1); INTERNATIONAL NORMALIZED RATIO 2.2 RATIO; PROTHROMBIN TIME - PATIENT 25.4 SEC (9.8-11.6)
[2017-01-23 06:07] LABS: HEMO FLAGS AUTO DIFF
[2017-01-23 06:10] LABS: PLATELET COUNT 18 TH/MM3 (150-450)
[2017-01-23] MEDS: MILRINONE INJ 20 MG in SODIUM CHLORIDE 0.9% INJ 80 ML IV SCH ×2 (06:25→13:02)
[2017-01-23] MEDS: MEROPENEM INJ 1,000 MG in SODIUM CHLORIDE 0.9% INJ 100 ML IV SCH ×2 (06:32→13:51)
[2017-01-23 06:39] LABS: ALKALINE PHOSPHATASE 198 U/L (45-117); ALT (GPT) 623 U/L (10-53); ANION GAP 22 MEQ/L (5-15); AST (GOT) 2752 U/L (15-37); BICARBONATE 17.8 MEQ/L (21.0-32.0); BLOOD UREA NITROGEN 75 MG/DL (7-18); CHLORIDE 97 MEQ/L (98-107); CREATINE KINASE 222 U/L (26-192); GLOMERULAR FILTRATION RATE 32 ML/MIN (>89); MAGNESIUM 2.6 MG/DL (1.5-2.5); POTASSIUM 5.6 MEQ/L (3.5-5.1); SODIUM (NA) 137 MEQ/L (136-145); TOTAL BILIRUBIN ADULT 3.7 MG/DL (0.2-1.0)
[2017-01-23] MEDS ORDERED: NOREPINEPHRINE 4 MG/4 ML AMP ONE (07:24)
[2017-01-23] MEDS ORDERED: NOREPINEPHRINE INJ 4 MG in SODIUM CHLOR 0.9% 250 ML INJ 246 ML IV SCH (07:30)
[2017-01-23] MEDS ORDERED: TERBUTALINE INJ 1 MG/ML AMP SQ PRN (07:30)
[2017-01-23 07:34] LABS: CKMB 1.9 NG/ML (0.5-3.6)
--- NOTE | 2017-01-23 07:36 | HHI.CCPN ---
Subjective Remarks/Hospital Course 66 y/o woman with pneumonia and worsening oxygenation. Now with evidence of marginal peripheral perfusion and deteriorating gas diffusion. She will need aggressive hydration, further impairing gas exchange. Requires intubation at this time. 01/18/17: Patient remains very critically ill. She is currently on milrinone and vasopressin, Mark trac shows cardiac output 4 L cardiac index 2.2 with inotropes. A bedside echo shows RV dilation, with septal flattening in diastole indicating right ventricular fluid overload. This is most likely secondary to multilobar pneumonia/ARDS, PE appears less likely. Patient is oliguric, 100 mL urine output in the last 4 hours. WBC count has increased to 27.8 hemoglobin dropped to 6.8. Receiving 2 units of PRBC. Receiving meropenem and azithromycin. Zyvox added. Also Micafungin added for C Glabrata in urine 01/19/17: Remains intubated sedated, currently on milrinone 0.75 g per KG per minute, vasopressin at 0.04 units and Jay-Synephrine at 60 mcg/m. Urine output approximately 550 mL in 24 hours. Bedside echo shows persistent RV dilation/ dysfunction with septal flattening. Will add inhaled Flolan to improve RV, function and offload RV. WBC count 35.3 today. IV Flagyl added, check C. difficile. Bronchi in BAL today 01/20 Patient is sedated with Versed and intubated. On Neosyn 50mics, Vasopressin , Milrinone and Flolan. Afebrile. 01/21 Patient remains sedated and intubated. On Bumex drip 0.5mg/hr and Neosyn. Off Vasopressin. On Milrinone and Flolan. Tmax 100.4 01/22: Currently on Jay-Synephrine at 150 mcg/m and vasopressin 0.04 units an minute for blood pressure support. Unresponsive on the ventilator on fentanyl at 50 mcg/m. Remains on Flolan and currently not tolerating tube feeds. Positive BM. Subjective 01/23: Tmax 100. CT abdomen/pelvis results noted. Some air in the bladder lumen otherwise unremarkable. Dense lower lobe pneumonia persists. Culture negative to date. Worsening coagulopathy and thrombocytopenia noted. Reviewed notes from oncology recommended plasma exchange slightly last night. Will discuss with prior to initiating. Objective Vital Signs Date Time Temp Pulse Resp B/P Pulse Ox O2 Delivery O2 Flow Rate FiO2 01/23/17 04:09 98 55 01/23/17 02:00 114 01/23/17 00:00 100.0 22 130/80 01/21/17 19:00 Mechanical Ventilator Intake and Output 01/22/17 01/22/17 01/23/17 08:00 16:00 00:00 Intake Total 579 ml 728 ml 900 ml Output Total 200 ml 1340 ml 400 ml Balance 379 ml -612 ml 500 ml Result Diagram: 01/23/17 0515 01/23/17 0515 Other Results Microbiology Date/Time Procedure Status Source Growth 01/22/17 15:21 Aerobic Blood Culture Received Blood Peripheral Pending 01/22/17 15:21 Anaerobic Blood Culture Received Blood Peripheral Pending 01/19/17 10:33 Fungal Smear Received Bronchial Washings Right Lower Lobe Pending 01/19/17 10:33 Fungal Culture Received Bronchial Washings Right Lower Lobe Pending 01/19/17 09:10 Gram Stain - Final Complete Bronchial Washings Right Lower Lobe 01/19/17 09:10 Bronchial Culture - Final Complete Bronchial Washings Right Lower Lobe NO GROWTH IN 48 HOURS. 01/19/17 09:10 Fungal Smear - Final Resulted Bronchial Washings Right Lower Lobe NO FUNGAL ELEMENTS SEEN. 01/19/17 09:10 Fungal Culture Resulted Bronchial Washings Right Lower Lobe Pending 01/19/17 09:10 Acid Fast Stain - Final Resulted Bronchial Washings Right Lower Lobe NO ACID FAST BACILLI SEEN 01/19/17 09:10 Mycobacterial Culture Resulted Bronchial Washings Right Lower Lobe Pending 01/18/17 20:30 Stool Occult Blood (FLORI) - Final Complete Stool Stool HEMOCCULT NEGATIVE 01/18/17 14:59 Aerobic Blood Culture - Preliminary Resulted Blood Peripheral NO GROWTH IN 4 DAYS 01/18/17 14:59 Anaerobic Blood Culture - Preliminary Resulted Blood Peripheral NO GROWTH IN 4 DAYS 01/18/17 11:20 Urine Culture - Final Complete Urine Catheterized Urine Kajal Glabrata Kajal Albicans [facility] Last 72 hours Impressions Chest X-Ray 01/22/17 0000 Signed Impressions: Service Date/Time: Sunday, January 22, 2017 04:47 - CONCLUSION: No significant change. Sourav Mock MD Abdomen/Pelvis CT 01/22/17 0000 Signed Impressions: Service Date/Time: Sunday, January 22, 2017 23:00 - CONCLUSION: 1. Mild ascites but increased from the prior study. 2. Increased symmetric superficial soft tissue edema indicating anasarca. 3. Persistent severe bilateral pulmonary opacity. 4. No evidence of bowel dilatation. 5. New finding of prominent amount of gas in the urinary bladder lumen. May be related to Mercedes catheter in place. Collin Sanchez MD Abdomen X-Ray 01/22/17 0000 Signed Impressions: Service Date/Time: Sunday, January 22, 2017 15:12 - CONCLUSION: Nonspecific abdomen. K. Brett Peterson MD Objective Remarks GENERAL: 66-year-old female, critically ill currently orotracheally intubated SKIN: Cool and dry. Mottled bilateral lower extremities up to knees. HEAD: Atraumatic. Normocephalic. EYES: Pupils equal and round about 2 mm bilaterally and reactive. No scleral icterus. No injection or drainage. ENT: No nasal bleeding or discharge. Mucous membranes pink and moist. NECK: Trachea midline. No JVD. CARDIOVASCULAR: Regular rate and rhythm. S1, S2. No S4. Without murmur RESPIRATORY: Coarse rhonchorous breath sounds appreciated throughout lung lucas. No wheezing. GASTROINTESTINAL: Abdomen soft, non-tender, obese. Bowel sounds not appreciated MUSCULOSKELETAL: Extremities with 2+ nonpitting lower extremity peripheral edema. No obvious deformities. NEUROLOGICAL: Currently sedated on the ventilator. Appears to be agonal breathing at the present time. Not withdrawing to pain. Date of Insertion: Jan 11, 2017 A/P Assessment and Plan Neuro/Psych: Acute toxic metabolic encephalopathy - On Fentanyl drip at 50 mcg/m with regards to sedation and ventilator synchrony Goal of RASS -2 Daily sedation vacation Monitor neuro status. Resp: Acute hypoxemic respiratory failure ARDS Bilateral pneumonia COPD -Continue with vent support keep sat >92% -On PRVC RR 20, TV 450, IT:1.0, PEEP:10, FIO2 55% - DuoNeb every 6 hours and when necessary . - IV hydrocortisone 50 mg every 6 hours - Ventilator bundle - Pulm Dr. Stafford -s/p bronch with BAL 01/20 culture negative CVS: Shock likely combination of cardiogenic/septic RV dilation/dysfunction on echo indicating RV volume overload Lactic acidosis - worsening - Remains in cardiogenic and septic shock - .Flolan for RV offloading currently at 50,000 ng/mL-- 8ml/hr - Jay-Synephrine currently 280 mcg/m/vasopressin 0.04 units per minute and norepinephrine at 4 mics grams per minute as needed to keep MAP>65mmHg. Currently on 0.375 mcg/kg/m Milrinone drip will check venous blood gas first Cardiac index 2.4. SVV 19. CVP 19. - Echo showed EF 60-65%, normal RV size and function, flattening septum in diastole reflecting RV volume overload. Lactic acid trending upward. GI: Transaminitis Hyperammonia - IV Protonix 40 mg IV daily - Jevity 1.5@45ml/hr currently on hold in light of high residuals - Place on Reglan 5mg IV Q8 PRN for high residuals. - CT abdomen/pelvis 01/22 revealed increased ascites. Anasarca. Dense bilateral pulmonary lower lobe infiltrates and gas in the bladder lumen. - 01/18 CT abdomen/pelvis: Mildly nonspecific, nonobstructive bowel gas pattern. Areas of parenchymal consolidation again noted in the lung bases. -01/17 US Liver: There is no intrahepatic biliary duct dilatation. Liver is grossly free of focal defects Holding Diflucan in light of worsening LFTs Start on lactulose 30 cc 4 times a day and Xifaxan 550 twice a day for ammonia clearance. Recheck ammonia level in a.m. Renal/: Invasive bladder cancer status post TURBT Hypernatremia Hypocalcemia Hyperkalemia Hyperphosphatemia Hyper-magnesium Acute kidney injury - Monitor renal function, I/O's, electrolytes replacement per protocol. Maintain Mercedes Received calcium gluconate 1 g IV, D50/insulin, Kayexalate and bicarbonate 1. Recheck potassium at 0900. HEME: Anemia requiring transfusion Thrombocytopenia Low haptoglobin question hemolysis Superficial bilateral cephalic thrombosis -Monitor CBC, Coags, check INR/PT, Fibrinogen. Noted elevated INR today of 2.2 and decreased fibrinogen of 178. Pending [id number] - 2 units PRBC 01/18 - Thrombocytopenia initially thought secondary to sepsis- HIT panel is negative and haptoglobin initially elevated but currently less than 10 - Dr. Corbett Oncologist following for bladder cancer. Wrote a note for plasma exchange. Will discuss with prior to initiating Hemoccult as well -Doppler US UE: Small amount of occlusive thrombus is seen bilaterally in each of the cephalic veins. -Doppler US LE: No DVT Haptoglobin less than 10. LDH grade at 1500, PTT elevated, and peripheral smear reviewed some signs of hemolysis ID: Candiduria - F/U blood urine and sputum cultures, septic shock most likely from severe pneumonia. - Urine Legionella and pneumococcal antigen, influenza negative - Continue azithromycin, meropenem, Zyvox, Micafungin. Diflucan - discontinued , C diff negative 01/19. ID is following - Urine culture 01/13 C Glabrata, 01/18 C. Albicans, C. Glabrata - s/p Bronch with BAL 01/19 follow up on BAL results -Monitor for signs of infections ( Fever, WBC) Endo: - Electrolyte replacement per protocol, sliding scale insulin every 4 hours/low Prophylaxis: - IV Protonix. Hold Lovenox due to anemia requiring transfusion, and thrombocytopenia Lines: Left subclavian, Right Femoral Art line - placed 01/17 CCT 30 MIN Christian Bose MD Jan 23, 2017 07:36
[2017-01-23 07:47] LABS: BLOOD GAS BASE EXCESS -14.6 mmol/L (-2-2); BLOOD GAS HCO3 14 mmol/L (22-26); BLOOD GAS METHEMOGLOBIN 1.7 % (0-2); BLOOD GAS O2 HGB SATURATION 92 % (90-100); BLOOD GAS OXYGEN CONTENT 10.3 Vol % (12.0-20.0); BLOOD GAS PCO2 53 mmHg (38-42); BLOOD GAS PO2 111 mmHg (61-120); BLOOD GAS TOTAL HGB 7.8 G/DL (12.0-16.0); CRITICAL VALUE YES; OXYGEN DEVICE VENTILATOR; TEMP CORR TO 98.6
[2017-01-23 07:48] LABS: DRAW SITE ART LINE; FIO2 55 %; STAT NO; VENT SETTINGS PRVC/AC 450/20
[2017-01-23 07:50] LABS: BLOOD GAS VENOUS HCO3 15 mmol/L (22-26); BLOOD GAS VENOUS O2 CONTENT 7.5 Vol % (9.0-17.0); BLOOD GAS VENOUS O2 HGB SAT 69 % (70-76); BLOOD GAS VENOUS PCO2 56 mmHg (44-48); BLOOD GAS VENOUS PO2 58 mmHg (35-40); BLOOD GAS VENOUS pH 7.05 (7.360-7.400); CRITICAL VALUE YES; FIO2 55 %; OXYGEN DEVICE VENTILATOR; TEMP CORR TO 98.6; VENT SETTINGS PRVC/AC 450/20
[2017-01-23 07:51] LABS: DRAW SITE CENTRAL LINE; STAT NO
[2017-01-23 08:03] LABS: INDIRECT BILIRUBIN 1.3 MG/DL (0.0-0.8); TOTAL BILIRUBIN ADULT 3.6 MG/DL (0.2-1.0)
--- NOTE | 2017-01-23 08:10 | HHI.GIFU ---
Subjective Remarks Resting in bed, sedated on ventilator. Respiration labored on ventilator. Hypotensive since 5am per nurse. Objective Vitals I&O Vital Signs Date Time Temp Pulse Resp B/P Pulse Ox O2 Delivery O2 Flow Rate FiO2 01/23/17 06:00 110 01/23/17 04:09 98 55 01/23/17 04:00 01/23/17 04:00 55 01/23/17 04:00 100.0 118 16 92/63 95 101/60 01/23/17 04:00 110 01/23/17 02:00 55 01/23/17 02:00 114 01/23/17 01:08 96 55 01/23/17 00:00 55 01/23/17 00:00 100.0 94 22 130/80 96 01/23/17 00:00 114 01/22/17 22:35 100 100 01/22/17 22:06 98 55 01/22/17 22:00 76 01/22/17 22:00 55 01/22/17 22:00 110 01/22/17 20:00 99.8 114 14 119/86 96 131/78 01/22/17 20:00 114 01/22/17 20:00 55 01/22/17 20:00 110 119/86 131/78 01/22/17 19:18 99 55 01/22/17 18:00 101 115/82 124/103 01/22/17 18:00 101 01/22/17 18:00 101 12 115/82 99 124/103 01/22/17 17:00 99 15 105/82 100 116/72 01/22/17 17:00 99 01/22/17 17:00 99 105/82 116/72 01/22/17 16:00 93 01/22/17 16:00 93 14 100/75 99 117/73 01/22/17 16:00 93 100/75 117/73 01/22/17 16:00 45 01/22/17 15:36 96 45 01/22/17 15:00 92 01/22/17 15:00 92 21 105/80 99 127/80 01/22/17 15:00 92 105/80 127/80 01/22/17 15:00 92 105/80 127/80 01/22/17 15:00 92 21 105/80 99 127/80 01/22/17 15:00 92 01/22/17 14:00 96 01/22/17 14:00 96 103/73 117/74 01/22/17 14:00 96 01/22/17 14:00 96 14 103/73 99 117/74 01/22/17 14:00 96 14 103/73 99 117/74 01/22/17 14:00 96 103/73 117/74 01/22/17 13:00 94 85/61 103/65 01/22/17 13:00 94 01/22/17 13:00 94 20 85/61 99 103/65 01/22/17 13:00 94 85/61 103/65 01/22/17 13:00 94 20 85/61 99 103/65 01/22/17 13:00 94 01/22/17 12:54 99 55 01/22/17 12:00 95 81/64 100/64 01/22/17 12:00 55 01/22/17 12:00 95 01/22/17 12:00 95 20 81/64 99 100/64 01/22/17 12:00 95 01/22/17 12:00 95 20 81/64 99 100/64 01/22/17 12:00 95 81/64 100/64 01/22/17 11:01 94 01/22/17 11:01 94 80/65 98/63 01/22/17 11:01 94 20 80/65 98 98/63 01/22/17 11:01 94 80/65 98/63 01/22/17 11:01 94 20 80/65 98 98/63 01/22/17 11:01 94 01/22/17 10:00 96 20 80/61 99 93/60 01/22/17 10:00 96 80/61 93/60 01/22/17 10:00 96 20 80/61 99 93/60 01/22/17 10:00 96 80/61 93/60 01/22/17 10:00 96 01/22/17 10:00 96 01/22/17 09:49 98 55 01/22/17 09:00 96 01/22/17 09:00 96 84/64 100/64 01/22/17 09:00 96 20 84/64 97 100/64 01/22/17 09:00 96 20 84/64 97 100/64 01/22/17 09:00 96 84/64 100/64 01/22/17 09:00 96 01/22/17 08:00 99.8 01/22/17 08:00 97 79/61 95/61 01/22/17 08:00 97 20 79/61 96 95/61 01/22/17 08:00 97 01/22/17 08:00 55 01/22/17 08:00 97 20 79/61 96 95/61 01/22/17 08:00 97 01/22/17 08:00 97 79/61 95/61 I/O 01/22/17 01/22/17 01/22/17 01/23/17 01/23/17 01/23/17 07:00 15:00 23:00 07:00 15:00 23:00 Intake Total 579 ml 728 ml 900 ml 676 ml Output Total 200 ml 1340 ml 400 ml 200 ml Balance 379 ml -612 ml 500 ml 476 ml IV Total 563 ml 728 ml 650 ml 308 ml Tube Feeding 16 ml 250 ml 368 ml Output Urine Total 200 ml 500 ml 350 ml 200 ml Stool Total 200 ml 50 ml Gastric Drainage Total 640 ml Laboratory Laboratory Tests Test 01/22/17 01/22/17 01/22/17 01/22/17 10:55 11:03 14:00 14:24 Stool C. difficile Toxin (PCR) NEGATIVE Stl C. difficile Toxin PRESUMPTIVE Epiderm 027 NEGATIVE Blood Bank Comment Activated Partial 33.8 Thromboplast Time D-Dimer Quantitative (PE/DVT) 8.86 Lactic Acid Level 7.9 Blood Type O POSITIVE Antibody Screen NEGATIVE Direct Antiglobulin Test NEGATIVE (Jen) Blood Gas Puncture Site CENTRAL LINE Blood Gas Patient Temperature 98.6 Venous Blood pH 7.25 Venous Blood Partial Pressure 62 CO2 Venous Blood Partial Pressure 38 O2 Venous Blood HCO3 26 Venous Blood Oxygen Saturation 51 Venous Blood Oxygen Content 6.1 Venous Blood Base Excess -0.5 Oxygen Delivery Device VENTILATOR Blood Gas Ventilator Setting Blood Gas Inspired Oxygen 55 Test 01/22/17 01/22/17 01/22/17 01/22/17 18:55 20:35 20:53 23:57 Blood Gas Puncture Site ART LINE Blood Gas Patient Temperature 98.6 98.6 Venous Blood pH 7.21 Venous Blood Partial Pressure 60 CO2 Venous Blood Partial Pressure 46 O2 Venous Blood HCO3 24 Venous Blood Oxygen Saturation 65 Venous Blood Oxygen Content 7.8 Venous Blood Base Excess -3.3 Oxygen Delivery Device VENTILATOR VENTILATOR Blood Gas Ventilator Setting PRVC/AC PRVC/AC White Blood Count 48.5 Red Blood Count 3.05 Hemoglobin 8.0 Hematocrit 26.5 Mean Corpuscular Volume 86.6 Mean Corpuscular Hemoglobin 26.3 Mean Corpuscular Hemoglobin 30.4 Concent Red Cell Distribution Width 15.6 Platelet Count 26 Mean Platelet Volume 8.8 Sodium Level 139 Potassium Level 5.1 Chloride Level 98 Carbon Dioxide Level 25.2 Anion Gap 16 Blood Urea Nitrogen 68 Creatinine 1.38 Estimat Glomerular Filtration 38 Rate Random Glucose 113 Calcium Level 7.6 Blood Gas HCO3 21 Blood Gas Base Excess -4.8 Blood Gas Oxygen Saturation 96 Arterial Blood pH 7.25 Arterial Blood Partial 50 Pressure CO2 Arterial Blood Partial 130 Pressure O2 Arterial Blood Oxygen Content 11.2 Arterial Blood 1.3 Carboxyhemoglobin Arterial Blood Methemoglobin 1.3 Blood Gas Hemoglobin 8.1 Blood Gas Inspired Oxygen 55 Blood Bank Comment Test 01/23/17 01/23/17 01/23/17 05:15 05:20 07:40 White Blood Count 42.4 Red Blood Count 2.89 Hemoglobin 7.8 Hematocrit 25.5 Mean Corpuscular Volume 88.3 Mean Corpuscular Hemoglobin 26.9 Mean Corpuscular Hemoglobin 30.5 Concent Red Cell Distribution Width 16.0 Platelet Count 18 Mean Platelet Volume 9.6 Neutrophils (%) (Auto) 93.6 Lymphocytes (%) (Auto) 3.3 Monocytes (%) (Auto) 2.4 Eosinophils (%) (Auto) 0.2 Basophils (%) (Auto) 0.5 Neutrophils # (Auto) 39.7 Lymphocytes # (Auto) 1.4 Monocytes # (Auto) 1.0 Eosinophils # (Auto) 0.1 Basophils # (Auto) 0.2 CBC Comment AUTO DIFF Prothrombin Time 25.4 Prothromb Time International 2.2 Ratio Activated Partial 35.4 Thromboplast Time Fibrinogen 174 Sodium Level 137 Potassium Level 5.6 Chloride Level 97 Carbon Dioxide Level 17.8 Anion Gap 22 Blood Urea Nitrogen 75 Creatinine 1.60 Estimat Glomerular Filtration 32 Rate Random Glucose 76 Calcium Level 7.7 Phosphorus Level 7.7 Magnesium Level 2.6 Total Bilirubin 3.7 Aspartate Amino Transf 2752 (AST/SGOT) Alanine Aminotransferase 623 (ALT/SGPT) Alkaline Phosphatase 198 Total Creatine Kinase 222 Creatine Kinase MB 1.9 Creatine Kinase MB % 0.9 Total Protein 4.5 Albumin 2.5 Lactic Acid Level 16.1 Ammonia 118 Blood Gas Puncture Site CENTRAL LINE Blood Gas Patient Temperature 98.6 Blood Gas HCO3 14 Blood Gas Base Excess -14.6 Blood Gas Oxygen Saturation 92 Arterial Blood pH 7.05 Arterial Blood Partial 53 Pressure CO2 Arterial Blood Partial 111 Pressure O2 Arterial Blood Oxygen Content 10.3 Arterial Blood 1.0 Carboxyhemoglobin Arterial Blood Methemoglobin 1.7 Venous Blood pH 7.05 Venous Blood Partial Pressure 56 CO2 Venous Blood Partial Pressure 58 O2 Venous Blood HCO3 15 Venous Blood Oxygen Saturation 69 Venous Blood Oxygen Content 7.5 Venous Blood Base Excess -14.0 Blood Gas Hemoglobin 7.8 Oxygen Delivery Device VENTILATOR Blood Gas Ventilator Setting PRVC/AC 450/20 Blood Gas Inspired Oxygen 55 Date/Time Procedure Status Source Growth 01/22/17 15:21 Aerobic Blood Culture Received Blood Peripheral Pending 01/22/17 15:21 Anaerobic Blood Culture Received Blood Peripheral Pending 01/19/17 10:33 Fungal Smear Received Bronchial Washings Right Lower Lobe Pending 01/19/17 10:33 Fungal Culture Received Bronchial Washings Right Lower Lobe Pending 01/19/17 09:10 Gram Stain - Final Complete Bronchial Washings Right Lower Lobe 01/19/17 09:10 Bronchial Culture - Final Complete Bronchial Washings Right Lower Lobe NO GROWTH IN 48 HOURS. 01/19/17 09:10 Fungal Smear - Final Resulted Bronchial Washings Right Lower Lobe NO FUNGAL ELEMENTS SEEN. 01/19/17 09:10 Fungal Culture Resulted Bronchial Washings Right Lower Lobe Pending 01/19/17 09:10 Acid Fast Stain - Final Resulted Bronchial Washings Right Lower Lobe NO ACID FAST BACILLI SEEN 01/19/17 09:10 Mycobacterial Culture Resulted Bronchial Washings Right Lower Lobe Pending 01/18/17 20:30 Stool Occult Blood (FLORI) - Final Complete Stool Stool HEMOCCULT NEGATIVE 01/18/17 14:59 Aerobic Blood Culture - Preliminary Resulted Blood Peripheral NO GROWTH IN 4 DAYS 01/18/17 14:59 Anaerobic Blood Culture - Preliminary Resulted Blood Peripheral NO GROWTH IN 4 DAYS 01/18/17 11:20 Urine Culture - Final Complete Urine Catheterized Urine Kaity Glabrata Kaity Albicans Imaging Last Impressions Chest X-Ray 01/22/17 0000 Signed Impressions: Service Date/Time: Sunday, January 22, 2017 04:47 - CONCLUSION: No significant change. Sourav Mock MD Abdomen/Pelvis CT 01/22/17 Signed Impressions: Service Date/Time: Sunday, January 22, 2017 23:00 - CONCLUSION: 1. Mild ascites but increased from the prior study. 2. Increased symmetric superficial soft tissue edema indicating anasarca. 3. Persistent severe bilateral pulmonary opacity. 4. No evidence of bowel dilatation. 5. New finding of prominent amount of gas in the urinary bladder lumen. May be related to Mercedes catheter in place. Collin Sanchez MD Abdomen X-Ray 01/22/17 Signed Impressions: Service Date/Time: Sunday, January 22, 2017 15:12 - CONCLUSION: Nonspecific abdomen. K. Brett Peterson MD Upper Extremity Ultrasound 01/19/17 Signed Impressions: Service Date/Time: Thursday, January 19, 2017 09:53 - CONCLUSION: Small amount of occlusive thrombus is seen bilaterally in each of the cephalic veins. The rest of the deep venous systems are unremarkable. Major John MD Lower Extremity Ultrasound 01/19/17 Signed Impressions: Service Date/Time: Thursday, January 19, 2017 09:35 - CONCLUSION: Normal examination. Major John MD Liver Ultrasound 01/17/17 Signed Impressions: Service Date/Time: Tuesday, January 17, 2017 17:05 - CONCLUSION: There is no intrahepatic biliary duct dilatation. Liver is grossly free of focal defects. London Frazier MD FACR Chest CT 01/15/17 Signed Impressions: Service Date/Time: January 10:16 - CONCLUSION: Extensive scattered areas of parenchymal consolidation are seen throughout both lung lucas predominately along the peripheral aspect of both lungs. There are also scattered bilateral interstitial infiltrates. These infiltrates appear to be overlying central lobar emphysema. Madi Marvin MD Physical Exam HEENT: Normocephalic; atraumatic. OETT in place. CHEST: Resp. crackles and rhonchi, intubated, respirations labored CARDIAC: ST, hypotension on vasopressors ABDOMEN: Abdomen soft, obese, very mildly distended, bowel sounds very hypoactive. 300cc from NGT overnight. EXTREMITIES: Generalized edema. SKIN: Skin cool/dry CAUSTICISER: sedated on a vent Assessment and Plan Plan ASSESSMENT: - Dysphagia. GI consulted for dysphagia. Prior to intubation, she reported that she is not eating much, but stated not so much because of dysphagia, but because of her shortness of breath. She also reported a sore throat, but denied painful swallowing. She has kaity glabrata and kaity albicans in urine, possible kaity esophagitis. She is on nystatin, micafungin, high dose diflucan. Has ogt- 300cc. Protonix. Not stable at this time for any endoscopic evaluation. - Abnormal LFTs, worsening. T. Bili 3.7, AST 2752, ALT 623, Alk Phosph 198. This is multifactorial, likely related to worsening sepsis, medications- in particular possibly the antifungals as her LFTs seemed to worsen after diflucan was added, and shocked liver secondary to hypotension. Antifungals stopped. - ?DIC/Severe thrombocytopenia, Plt 18 with Haptoglobin < 10, LDH 1559, Fibrinogen 211, HIT negative. Bilirubin only 1.6. 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 Consider hematology evaluation. - High residuals. Nurse reports high gastric residuals. Abdomen X-Ray (01/22/17 )----> Nonspecific abdomen Abdomen/Pelvis CT (01/22/17)-----> 1. Mild ascites but increased from the prior study. 2. Increased symmetric superficial soft tissue edema indicating anasarca. 3. Persistent severe bilateral pulmonary opacity. 4. No evidence of bowel dilatation. 5. New finding of prominent amount of gas in the urinary bladder lumen. May be related to Mercedes catheter in place. Reglan. - VDRF/Bilateral pneumonia/ARDS. Chest CT (01/15/17)----> Extensive scattered areas of parenchymal consolidation are seen throughout both lung lucas predominately along the peripheral aspect of both lungs. There are also scattered bilateral interstitial infiltrates. These infiltrates appear to be overlying central lobar emphysema. Pt was intubated on 01/18/17. Bronch on 01/19 with cultures- no growth x 48 hours, mycobacteria, fungal culture pending. Worsening WBC count 48.2. Pt had ID following. - Hx Bladder cancer, has not started chemotherapy yet.. Plan: - NPO - NGT to LIWS - KUB - Reglan ordered for high residuals. - Cont. Protonix - Cont. Abx per ID recommendations - Monitor H/H - Transfuse as needed - Monitor LFTs- Diflucan stopped. Avoid hypotension. If worsening, consider stopping Micafungin as well. Although LFTs started increasing after high dose diflucan was added and I suspect her worsening LFTs are related to this and shocked liver from hypotension. - ID following - CCM following - Pulmonary following - Consider hematology evaluation. - Patient is critically ill and not stable for EGD +/- Sigmoidoscopy at this time, she is on pressors, will consider once medically stable - Pt seen and examined by myself and Dr. Tse and this note was written on his behalf. Noy Schroeder Jan 23, 2017 08:10
[2017-01-23 08:38] LABS: BANDS 6 % (0-6); CORRECTED NUCLEATED RBC 26 /100 WBC (0-0); METAMYELOCYTES 3 % (0-1); MYELOCYTES 12 % (0-0); NEUTROPHIL # MANUAL DIFF 33.5 TH/MM3 (1.8-7.7); POLYS (SEG NEUTROPHILS) 58 % (16-70); SCAN/DIFF FINAL DIFF MANUAL; WBC DIFF SAMPLE 100
[2017-01-23 08:39] LABS: PLATELET ESTIMATE SMEAR RARE (NORMAL)
[2017-01-23] MEDS ORDERED: RIFAXIMIN 550 MG TAB PO SCH (09:00)
[2017-01-23] MEDS: LACTULOSE SYRUP 20 GM/30 ML CUP PO SCH ×2 (09:00→13:00)
[2017-01-23] MEDS: BENEPROTEIN POWDER 1 PACK G-TUBE SCH ×3 (09:00→15:17)
[2017-01-23] MEDS ORDERED: EPOPROSTENOL NEB SOLUTION 20 NG/KG/MIN 100 ML NEB ONE ×2 (10:00)
[2017-01-23] MEDS: INSULIN NovoLIN REGULAR SUPPLEMENTAL SCALE SQ SCH ×2 (10:45→14:45)
--- NOTE | 2017-01-23 11:49 | PD.CONS ---
Consult Service Palliative Care . Consult Requested By Dr. Bose . Primary Care Physician Unknown . Reason for Consultation a. To assist with evaluation and management of symptoms including: dyspnea, tachypnea. b. To assist medical decision maker(s) with: better understanding of current medical conditions; weighing benefits/burdens of medical treatment options; making medical treatment decisions. . HPI History of Present Illness Mrs. Alford is a 66 year old female with past medical history of hypertension, invasive bladder cancer, COPD, anxiety, hyperlipidemia, history of breast cancer s/p mastectomy. 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 She was lost to follow up due to hospitalization. Patient had 2 recent hospitalizations at [facility] each for over a week and then DC to [facility]. She was recently treated for UTI. Chest xray prior to admission showed pneumonia. Patient presented to [facility] emergency department after she developed shortness of breath in rehab. Her oxygen saturation was 84% on room air, she was placed on nonrebreather. Upon arrival to the ER notes indicate patient was so short of breath she was unable to complete a sentence. Her temp was 99.9, tachycardic. Chest xray revealed bilateral patchy areas of consolidative infiltrate. WBC 22.4. Creatinine 1.35. Total bilirubin 0.5. Urinalysis positive leukocyte esterase, bacteria, yeast and mucus, culture later resulted with kaity glabrata. Patient is admitted with UTI, pneumonia, sepsis. Infectious disease, Dr. Palomares was consulted. CT chest revealed extensive scattered areas of parenchymal consolidation throughout both lungs lucas, scattered bilateral interstitial infiltrates that appear to be overlying central lobar emphysema. Pulmonology, Dr. Ivory was consulted. Gastroenterology, Dr. Tse was consulted for evaluation of difficulty swallowing. Patient developed worsening oxygenation was intubated and placed on mechanical ventilation on 01/17/17. Cardiac decompensation with elevated CVP and hypotension requiring pressor support, worsening metabolic acidosis. Due to sustained tachycardia Levophed was tapered, and vasopressin and / or neosynephrine started. Milrinone was added for presumed RV failure (and possible LV dysfunction). On 01/18/17, echocardiogram showed RV dilation, with septal flattening in diastole indicating right ventricular fluid overload. Thought to be secondary to multilobar pneumonia/ARDS, PE appears less likely. Flolan added. Dr. Corbett, oncology/ hematology was consulted with recommendation for CT abdomen and pelvis which revealed mild ascites, increased symmetrical superficial soft tissue edema indicating anasarca, persistent severe bilateral pulmonary opacity , no ricks dilatation, prominent gas in the urinary bladder likely secondary to Mercedes catheter. Patient has had worsening coagulopathy and thrombocytopenia, platelets 18. Hematology recommended plasma exchange, however patient is critically ill, agonal breathing on mechanical vent, hypotensive despite multiple pressor support, does not appear stable enough for plasma exchange at this time. Palliative care is consulted to assist with further clarification of treatment goals. At the time of my visit WBC 42.4, hemoglobin 7.8, platelet 18. Potassium 5.6, carbon dioxide 17.8, BUN 75, creatinine 1.6, GFR 32. Lactic acid 16.1. Total bilirubin 3.6, direct bilirubin 2.3, indirect bilirubin 1.3, AST 2752, ALT 623, alkaline phos 198, ammonia 118. Spoke with patient's via telephone, medical update provided. He understands patient is critically ill, appears to be dying he request that patient to be kept alive until family arrives later today. He indicates that his son is returning from [place] they are hopeful his son can see her again before she dies. Discussed with Dr. Bose who agrees if family elects transition to comfort focused care withdrawal of life support that this would be medically appropriate under the circumstances. . Function/Cognitive Trajectory Patient has had frequent hospitalizations and associated decline requiring rehabilitation prior to this admission. . Review of Systems ROS Limitations: Intubated, Unresponsive Constitutional: COMPLAINS OF: Fatigue, Change in appetite (decreased), Generalized weakness Respiratory: COMPLAINS OF: Cough, Sputum production, Shortness of breath Cardiovascular: COMPLAINS OF: Dyspnea on Exertion, Lower Extremity Edema Gastrointestinal: COMPLAINS OF: Difficulty Swallowing, Anorexia Hematologic/Lymphatics: COMPLAINS OF: Bruising Other ROS: ROS per EMR review and family report. Patient incapacitated. Past Family Social History Coded Allergies: Contrast Media (Verified Allergy, Severe, respiratory distress, 01/13/17) Penicillin (Verified Allergy, Intermediate, rash, 01/13/17) Uncoded Allergies: cefepime (Allergy, Intermediate, Rash, 01/15/17) pruritic rash Past Medical History hypertension, invasive bladder cancer, COPD, GERD, anxiety, hyperlipidemia, history of breast cancer s/p mastectomy, recurrent pneumonia, UTI . Past Surgical History Lumpectomy left Left Elbow Surgery TURBT . Reported Medications Reported Meds & Active Scripts Active Reported Hydroxyzine HCl 25 Mg Tab 25 Mg PO Q6HR PRN 7 Days Nystatin Liq 100,000 unit/ml Susp 5 Ml SWISH-SWAL QID Start: 01/14/2017 x5 days Acidophilus (Lactobacillus Acidophilus) 1 Each Tablet 1 Tab PO BID 5 Days Duoneb (Ipratropium-Albuterol Neb) 0.5-2.5 Mg/3 Ml Neb 3 Ml NEB Q4HR PRN Levaquin (Levofloxacin) 500 Mg Tablet 500 Mg PO DAILY 5 Days Azithromycin 500 Mg Tab 500 Mg PO DAILY Hydrocortisone Topical 1% Cream 1 Applic TOPICAL BID Apply to rash on chest and groin Losartan-Hydrochlorothiazide 50-12.5 Mg Tab 2 Tab PO DAILY Diphenhydramine (Diphenhydramine HCl) 25 Mg Cap 25 Mg PO Q8HR PRN Ativan (Lorazepam) 0.5 Mg Tab 0.5 Mg PO Q8H 7 Days Ventolin Hfa 18 GM Inh (Albuterol Sulfate) 90 Mcg/Act Aer 2 Puff INH Q6H PRN Dulcolax Supp (Bisacodyl) 10 Mg Supp 10 Mg RECTAL IN AM PRN Milk of Magnesia Liq (Magnesium Hydroxide) 400 Mg/5 Ml Susp 30 Ml PO HS PRN Tylenol (Acetaminophen) 325 Mg Tab 650 Mg PO Q4H PRN Enema Disposable (Sodium Phosphates) 1 Ramandeep Ramandeep 1 Applic RECTAL ONCE PRN Citroma Liq (Magnesium Citrate) 300 Ml Liq 296 Ml PO IN AM PRN [place] (Hydrocodone-Acetaminophen) 10-325 Mg Tab 1 Tab PO Q4H PRN 3 Days Pravastatin 40 Mg Tab 40 Mg PO DAILY . Current Medications Medications (Trade) Dose Ordered Sig/Ed Route Start Time Stop Time Status Last Admin (NS Flush) 2 ml UNSCH PRN IV FLUSH 01/13/17 21:00 01/19/17 07:34 (NS Flush) 2 ml BID IV FLUSH 01/13/17 21:00 01/23/17 09:00 (Zofran Inj) 4 mg Q6H PRN IVP 01/13/17 21:00 01/14/17 01:18 (Tylenol) 650 mg Q6H PRN PO 01/13/17 21:00 01/16/17 14:44 (Morphine Inj) 2 mg Q3H PRN IV 01/13/17 21:00 01/20/17 02:47 (Arianna-Colace) 1 tab BID PO 01/13/17 21:00 01/23/17 02:09 (Milk Of Magnesia Liq) 30 ml Q12H PRN PO 01/13/17 21:00 (Senokot) 17.2 mg Q12H PRN PO 01/13/17 21:00 (Dulcolax Supp) 10 mg DAILY PRN RECTAL 01/13/17 21:00 (Mycostatin Liq) 5 ml QID SWISH-SWAL 01/13/17 21:00 01/23/17 02:09 Miscellaneous Information Patient in critical care unit? Ass... [id number] .XX 01/13/17 22:15 Calcium Carbonate 500 mg 500 mg Q6HR PRN CHEW 01/15/17 18:15 01/16/17 00:28 (Merrem Inj/NS Inj) 100 ml @ 200 mls/hr Q8H IV 01/15/17 20:00 01/23/17 06:32 (Peridex 0.12% Liq) 15 ml BID@08,20 MT 01/17/17 20:00 01/23/17 08:00 Morphine Sulfate 4 mg 4 mg Q3H PRN IV PUSH 01/17/17 19:45 01/17/17 23:51 Vasopressin 40 units/Dextrose 100 ml @ 6 mls/hr [id number] IV 01/17/17 21:59 01/22/17 07:17 (Neosynephrine Inj/D5W 500 ml Inj) 500 ml @ 0 mls/hr TITRATE IV 01/17/17 22:00 01/21/17 06:37 (SoluCORTEF INJ) 50 mg Q6HR IV PUSH 01/18/17 00:00 01/23/17 06:32 Insulin Human Regular 1 1 Q4H SQ 01/18/17 10:45 01/22/17 03:10 (Mycamine Inj/NS Inj) 100 ml @ 100 mls/hr Q24H IV 01/18/17 14:00 01/22/17 13:45 Protein 1 pack 1 pack TID G-TUBE 01/19/17 09:00 01/22/17 09:00 Potassium Chloride 100 ml @ 50 mls/hr Q2H PRN IV 01/20/17 08:00 01/21/17 20:26 (KCl 20 Meq Premix Inj) 100 ml @ 50 mls/hr Q2H PRN IV 01/20/17 08:00 Potassium Bicarb/ Potassium Chloride 50 meq 50 meq UNSCH PRN PO 01/20/17 08:00 Potassium Chloride 100 ml @ 25 mls/hr UNSCH PRN IV 01/20/17 08:00 Potassium Chloride 100 ml @ 50 mls/hr Q2H PRN IV 01/20/17 08:00 (Magnesium Sulfate Inj/NS Inj) 100 ml @ 50 mls/hr UNSCH PRN IV 01/20/17 08:00 Magnesium Oxide 800 mg 800 mg UNSCH PRN PO 01/20/17 08:00 (Magnesium Sulfate Inj/NS Inj) 100 ml @ 50 mls/hr UNSCH PRN IV 01/20/17 08:00 01/20/17 09:04 Potassium Phosphate 2000 mg 2,000 mg Q4H PRN PO 01/20/17 08:00 (Sodium Phosphate Inj/NS 250 ml Inj) 250 ml @ 42 mls/hr UNSCH PRN IV 01/20/17 08:00 01/20/17 15:52 Potassium Phosphate 2000 mg 2,000 mg UNSCH PRN PO/TUBE 01/20/17 08:00 Potassium Phosphate 30 mmol/ Sodium Chloride 260 ml @ 42 mls/hr UNSCH PRN IV 01/20/17 08:00 (fentaNYL DRIP) 250 ml @ 0 mls/hr TITRATE IV 01/20/17 13:30 01/21/17 22:37 (Reglan Inj) 5 mg Q8H PRN IV PUSH 01/21/17 08:15 01/22/17 00:08 (Reglan Inj) 10 mg Q8H PRN IV PUSH 01/21/17 23:00 Pantoprazole Sodium 40 mg 40 mg Q24H IV PUSH 01/22/17 14:00 01/22/17 14:41 Milrinone Lactate 20 mg/Sodium Chloride 100 ml @ 10.23 mls/ hr Q9H47M IV 01/22/17 16:54 01/23/17 06:25 Epoprostenol Sodium 37.5 ml/ Sodium Chloride 100 ml @ 8 mls/hr Q8H ONCE NEB 01/23/17 02:00 01/23/17 14:29 01/23/17 02:00 Epoprostenol Sodium 25 ml/ Sodium Chloride 100 ml @ 8 mls/hr Q8H ONCE NEB 01/23/17 10:00 01/23/17 22:29 (Flolan (30,000 Ng/ml) Neb/NS Inj) 100 ml @ 8 mls/hr Q8H ONCE NEB 01/23/17 18:00 01/24/17 06:29 (Xifaxan) 550 mg BID PO 01/23/17 09:00 Lactulose 30 ml 30 ml QID PO 01/23/17 09:00 (Levophed Inj/NS 250 ml Inj) 250 ml @ 0 mls/hr TITRATE IV 01/23/17 07:30 (Brethine Inj) 1 mg UNSCH PRN SQ 01/23/17 07:30 . Family History Patient unable to provide family history due to current clinical condition. . Substance Use Tobacco: former smoker. Alcohol: None Prescription med abuse:None Illicits:None . Psychosocial History . Has one son. Lives in [place]. . Spiritual/Cultural Factors Unknown. Living Will: Never completed Health Care Surrogate: Never completed Durable Power of Feather Curling Machine Operator: Never completed Health Care Surrogate(s): Patient incapacitated, will not regain capacity. According to [place] statutes , health care proxy decision-making falls to the patient's spouse. Today's verbally stated goals: Patient incapacitated, will not regain capacity. . Family/friends goals: Family desires continued aggressive care short of NO CODE until they are able to arrive later this afternoon, awaiting the arrival of son from [place]. Ethical and Legal Issues Patient incapacitated, will not regain capacity. According to [place] statutes , health care proxy decision-making falls to the patient's spouse. Physical Exam Vital Signs Date Time Temp Pulse Resp B/P Pulse Ox O2 Delivery O2 Flow Rate FiO2 01/23/17 08:55 0 55 01/23/17 06:00 110 01/23/17 04:09 98 55 01/23/17 04:00 01/23/17 04:00 55 01/23/17 04:00 100.0 118 16 92/63 95 101/60 01/23/17 04:00 110 01/23/17 02:00 55 01/23/17 02:00 114 01/23/17 01:08 96 55 01/23/17 00:00 55 01/23/17 00:00 100.0 94 22 130/80 96 01/23/17 00:00 114 01/22/17 22:35 100 100 01/22/17 22:06 98 55 01/22/17 22:00 76 01/22/17 22:00 55 01/22/17 22:00 110 01/22/17 20:00 99.8 114 14 119/86 96 131/78 01/22/17 20:00 114 01/22/17 20:00 55 01/22/17 20:00 110 119/86 131/78 01/22/17 19:18 99 55 01/22/17 18:00 101 115/82 124/103 01/22/17 18:00 101 01/22/17 18:00 101 12 115/82 99 124/103 01/22/17 17:00 99 15 105/82 100 116/72 01/22/17 17:00 99 01/22/17 17:00 99 105/82 116/72 01/22/17 16:00 93 01/22/17 16:00 93 14 100/75 99 117/73 01/22/17 16:00 93 100/75 117/73 01/22/17 16:00 45 01/22/17 15:36 96 45 01/22/17 15:00 92 01/22/17 15:00 92 21 105/80 99 127/80 01/22/17 15:00 92 105/80 127/80 01/22/17 15:00 92 105/80 127/80 01/22/17 15:00 92 21 105/80 99 127/80 01/22/17 15:00 92 01/22/17 14:00 96 01/22/17 14:00 96 103/73 117/74 01/22/17 14:00 96 01/22/17 14:00 96 14 103/73 99 117/74 01/22/17 14:00 96 14 103/73 99 117/74 01/22/17 14:00 96 103/73 117/74 01/22/17 13:00 94 85/61 103/65 01/22/17 13:00 94 01/22/17 13:00 94 20 85/61 99 103/65 01/22/17 13:00 94 85/61 103/65 01/22/17 13:00 94 20 85/61 99 103/65 01/22/17 13:00 94 01/22/17 12:54 99 55 01/22/17 12:00 95 81/64 100/64 01/22/17 12:00 55 01/22/17 12:00 95 01/22/17 12:00 95 20 81/64 99 100/64 01/22/17 12:00 95 01/22/17 12:00 95 20 81/64 99 100/64 01/22/17 12:00 95 81/64 100/64 01/22/17 01/23/17 19:00 07:00 Intake Total 728 ml 1576 ml Output Total 1340 ml 600 ml Balance -612 ml 976 ml IV Total 728 ml 958 ml Tube Feeding 618 ml Output Urine Total 500 ml 550 ml Stool Total 200 ml 50 ml Gastric Drainage Total 640 ml Exam CONSTITUTIONAL/GENERAL: This is a critically ill patient, on mech vent with agonal respirations. TUBES/LINES/DRAINS: ETT, OG, left subclavian central line, PIV x 2 left, right femoral A-line, Mercedes, SCDs, podus boots. SKIN: + jaundice. Ecchymoses on upper extremities and torso. Right ear purple with skin breakdown noted. Skin temperature cool to touch. Mottling bilateral LE toes to knees and left breast. HEAD: Atraumatic. Normocephalic. EYES: Pupils equal nonreactive. ENT: Unable to assess hearing. Throat difficult to visualize due to tubes. NECK: Trachea midline. CARDIOVASCULAR: Irregular, tachycardic. RESPIRATORY/CHEST: Labored respirations on mech vent, agonal respirations. Minimal air exchange noted except upper lungs. GASTROINTESTINAL: Abdomen soft, distended. Palpable liver margins. No bowel sounds audible. GENITOURINARY: Without palpable bladder distension. Mercedes catheter in place. MUSCULOSKELETAL: Extremities with edema. + mottling bilateral LE toes to knees and left breast. LYMPHATICS: Not palpated. NEUROLOGICAL: Unresponsive. PSYCHIATRIC: Unresponsive. . Diagnostic Tests Laboratory Laboratory Tests Test 01/20/17 01/20/17 01/20/17 01/20/17 13:00 18:48 19:00 20:25 Blood Gas Puncture Site RT FEMORAL RM Blood Gas Patient Temperature 98.6 98.6 Blood Gas HCO3 27 mmol/L 26 mmol/L (22-26) (22-26) Blood Gas Base Excess 2.6 mmol/L 1.6 mmol/L (-2-2) (-2-2) Blood Gas Oxygen Saturation 91 % (90-100) 94 % (90-100) Arterial Blood pH 7.41 7.40 (7.380-7.420) (7.380-7.420) Arterial Blood Partial 43 mmHg (38-42) 43 mmHg (38-42) Pressure CO2 Arterial Blood Partial 69 mmHg 82 mmHg Pressure O2 (61-120) (61-120) Arterial Blood Oxygen Content 11.7 Vol % 12.5 Vol % (12.0-20.0) (12.0-20.0) Arterial Blood 1.6 % (0-4) 1.2 % (0-4) Carboxyhemoglobin Arterial Blood Methemoglobin 1.0 % (0-2) 1.0 % (0-2) Blood Gas Hemoglobin 9.2 G/DL 9.4 G/DL (12.0-16.0) (12.0-16.0) Oxygen Delivery Device VENTILATOR VENTILATOR Blood Gas Ventilator Setting PRVC/AC Blood Gas Inspired Oxygen 55 % 45 % Potassium Level 2.9 MEQ/L 3.9 MEQ/L 3.4 MEQ/L (3.5-5.1) (3.5-5.1) (3.5-5.1) Prothrombin Time 15.2 SEC (9.8-11.6) Prothromb Time International 1.4 RATIO Ratio Activated Partial 30.3 SEC Thromboplast Time (24.3-30.1) Fibrinogen 212 mg/dL (227-377) Sodium Level 139 MEQ/L (136-145) Chloride Level 100 MEQ/L (98-107) Carbon Dioxide Level 30.0 MEQ/L (21.0-32.0) Anion Gap 9 MEQ/L (5-15) Blood Urea Nitrogen 35 MG/DL (7-18) Creatinine 0.88 MG/DL (0.50-1.00) Estimat Glomerular Filtration 64 ML/MIN (>89) Rate Random Glucose 136 MG/DL (74-106) Calcium Level 7.0 MG/DL (8.5-10.1) Protein Corrected Calcium 8.0 MG/DL (8.5-10.1) Magnesium Level 1.8 MG/DL (1.5-2.5) Total Protein 5.2 GM/DL (6.4-8.2) Test 01/21/17 01/21/17 01/21/17 01/21/17 03:00 05:15 08:46 16:45 White Blood Count 45.2 TH/MM3 (4.0-11.0) Red Blood Count 3.30 MIL/MM3 (4.00-5.30) Hemoglobin 8.8 GM/DL (11.6-15.3) Hematocrit 27.4 % (35.0-46.0) Mean Corpuscular Volume 82.9 FL (80.0-100.0) Mean Corpuscular Hemoglobin 26.7 PG (27.0-34.0) Mean Corpuscular Hemoglobin 32.2 % Concent (32.0-36.0) Red Cell Distribution Width 14.9 % (11.6-17.2) Platelet Count 23 TH/MM3 (150-450) Mean Platelet Volume 9.2 FL (7.0-11.0) Neutrophils (%) (Auto) 83.9 % (16.0-70.0) Lymphocytes (%) (Auto) 11.2 % (9.0-44.0) Monocytes (%) (Auto) 4.5 % (0.0-8.0) Eosinophils (%) (Auto) 0.2 % (0.0-4.0) Basophils (%) (Auto) 0.2 % (0.0-2.0) Neutrophils # (Auto) 37.9 TH/MM3 (1.8-7.7) Lymphocytes # (Auto) 5.1 TH/MM3 (1.0-4.8) Monocytes # (Auto) 2.0 TH/MM3 (0-0.9) Eosinophils # (Auto) 0.1 TH/MM3 (0-0.4) Basophils # (Auto) 0.1 TH/MM3 (0-0.2) CBC Comment AUTO DIFF Differential Total Cells 100 Counted Neutrophils % (Manual) 65 % (16-70) Band Neutrophils % 18 % (0-6) Lymphocytes % 6 % (9-44) Monocytes % 3 % (0-8) Neutrophils # (Manual) 41.1 TH/MM3 (1.8-7.7) Myelocytes 7 % (0-0) Promyelocytes 1 % (0-0) Nucleated Red Blood Cells 13 /100 WBC (0-0) Differential Comment FINAL DIFF MANUAL Platelet Estimate LOW (NORMAL) Platelet Morphology Comment ENLARGED (NORMAL) Stomatocytes 1+ (NORMAL) Keratocytes OCC (NORMAL) Sodium Level 140 MEQ/L (136-145) Potassium Level 2.9 MEQ/L 3.0 MEQ/L (3.5-5.1) (3.5-5.1) Chloride Level 99 MEQ/L (98-107) Carbon Dioxide Level 30.9 MEQ/L (21.0-32.0) Anion Gap 10 MEQ/L (5-15) Blood Urea Nitrogen 35 MG/DL (7-18) Creatinine 0.93 MG/DL (0.50-1.00) Estimat Glomerular Filtration 60 ML/MIN (>89) Rate Random Glucose 141 MG/DL (74-106) Calcium Level 7.1 MG/DL (8.5-10.1) Protein Corrected Calcium 7.9 MG/DL (8.5-10.1) Phosphorus Level 3.3 MG/DL (2.5-4.9) Magnesium Level 1.7 MG/DL (1.5-2.5) Total Bilirubin 1.8 MG/DL (0.2-1.0) Aspartate Amino Transf 176 U/L (15-37) (AST/SGOT) Alanine Aminotransferase 93 U/L (10-53) (ALT/SGPT) Alkaline Phosphatase 225 U/L (45-117) Total Protein 5.5 GM/DL (6.4-8.2) Albumin 3.1 GM/DL (3.4-5.0) Direct Antiglobulin Test NEGATIVE (Jen) (NEGATIVE) Prothrombin Time 15.7 SEC (9.8-11.6) Prothromb Time International 1.4 RATIO Ratio Fibrinogen 201 mg/dL (227-377) Test 01/21/17 01/22/17 01/22/17 01/22/17 17:41 04:00 10:55 11:03 Lactic Acid Level 4.1 mmol/L (0.4-2.0) White Blood Count 48.2 TH/MM3 (4.0-11.0) Red Blood Count 3.23 MIL/MM3 (4.00-5.30) Hemoglobin 8.6 GM/DL (11.6-15.3) Hematocrit 27.1 % (35.0-46.0) Mean Corpuscular Volume 84.0 FL (80.0-100.0) Mean Corpuscular Hemoglobin 26.8 PG (27.0-34.0) Mean Corpuscular Hemoglobin 31.9 % Concent (32.0-36.0) Red Cell Distribution Width 15.7 % (11.6-17.2) Platelet Count 14 TH/MM3 (150-450) Mean Platelet Volume 11.5 FL (7.0-11.0) Neutrophils (%) (Auto) 81.8 % (16.0-70.0) Lymphocytes (%) (Auto) 14.9 % (9.0-44.0) Monocytes (%) (Auto) 2.9 % (0.0-8.0) Eosinophils (%) (Auto) 0.1 % (0.0-4.0) Basophils (%) (Auto) 0.3 % (0.0-2.0) Neutrophils # (Auto) 39.4 TH/MM3 (1.8-7.7) Lymphocytes # (Auto) 7.2 TH/MM3 (1.0-4.8) Monocytes # (Auto) 1.4 TH/MM3 (0-0.9) Eosinophils # (Auto) 0.0 TH/MM3 (0-0.4) Basophils # (Auto) 0.2 TH/MM3 (0-0.2) CBC Comment AUTO DIFF Differential Total Cells 100 Counted Neutrophils % (Manual) 80 % (16-70) Band Neutrophils % 4 % (0-6) Lymphocytes % 6 % (9-44) Monocytes % 3 % (0-8) Neutrophils # (Manual) 43.9 TH/MM3 (1.8-7.7) Metamyelocytes 5 % (0-1) Myelocytes 2 % (0-0) Nucleated Red Blood Cells 23 /100 WBC (0-0) Differential Comment FINAL DIFF MANUAL Toxic Granulation 1+ (NORMAL) Platelet Estimate LOW (NORMAL) Platelet Morphology Comment NORMAL (NORMAL) Spherocytes 2+ (NORMAL) Target Cells 1+ (NORMAL) Keratocytes 1+ (NORMAL) Blood Smear Pathologist Review Reticulocyte Count 0.8 % (0.4-3.0) Absolute Reticulocyte Count 25.8 MIL/L (20.0-150.0) Haptoglobin LESS THAN 10 MG/DL (30-200) Prothrombin Time 16.7 SEC (9.8-11.6) Prothromb Time International 1.5 RATIO Ratio Fibrinogen 211 mg/dL (227-377) Sodium Level 140 MEQ/L (136-145) Potassium Level 4.6 MEQ/L (3.5-5.1) Chloride Level 100 MEQ/L (98-107) Carbon Dioxide Level 29.0 MEQ/L (21.0-32.0) Anion Gap 11 MEQ/L (5-15) Blood Urea Nitrogen 54 MG/DL (7-18) Creatinine 1.16 MG/DL (0.50-1.00) Estimat Glomerular Filtration 47 ML/MIN (>89) Rate Random Glucose 152 MG/DL (74-106) Calcium Level 7.1 MG/DL (8.5-10.1) Protein Corrected Calcium 8.4 MG/DL (8.5-10.1) Phosphorus Level 4.6 MG/DL (2.5-4.9) Magnesium Level 1.8 MG/DL (1.5-2.5) Total Bilirubin 1.6 MG/DL (0.2-1.0) Direct Bilirubin 0.9 MG/DL (0.0-0.2) Indirect Bilirubin 0.7 MG/DL (0.0-0.8) Aspartate Amino Transf 454 U/L (15-37) (AST/SGOT) Alanine Aminotransferase 170 U/L (10-53) (ALT/SGPT) Alkaline Phosphatase 214 U/L (45-117) Lactate Dehydrogenase 1559 U/L (84-246) Total Protein 4.8 GM/DL (6.4-8.2) Albumin 2.5 GM/DL (3.4-5.0) Lipase 42 U/L (73-393) Stool C. difficile Toxin (PCR) NEGATIVE (NEGATIVE) Stl C. difficile Toxin PRESUMPTIVE Epiderm 027 NEGATIVE (NEGATIVE) Blood Bank Comment Test 01/22/17 01/22/17 01/22/1701/22/17 14:00 14:24 18:55 20:35 Activated Partial 33.8 SEC Thromboplast Time (24.3-30.1) D-Dimer Quantitative (PE/DVT) 8.86 MG/L FEU (0.00-0.50) Lactic Acid Level 7.9 mmol/L (0.4-2.0) Blood Type O POSITIVE Antibody Screen NEGATIVE Direct Antiglobulin Test NEGATIVE (Jen) (NEGATIVE) Blood Gas Puncture Site CENTRAL LINE Blood Gas Patient Temperature 98.6 98.6 Venous Blood pH 7.25 7.21 (7.360-7.400) (7.360-7.400) Venous Blood Partial Pressure 62 mmHg (44-48) 60 mmHg (44-48) CO2 Venous Blood Partial Pressure 38 mmHg (35-40) 46 mmHg (35-40) O2 Venous Blood HCO3 26 mmol/L 24 mmol/L (22-26) (22-26) Venous Blood Oxygen Saturation 51 % (70-76) 65 % (70-76) Venous Blood Oxygen Content 6.1 Vol % 7.8 Vol % (9.0-17.0) (9.0-17.0) Venous Blood Base Excess -0.5 mmol/L -3.3 mmol/L (-2-2) (-2-2) Oxygen Delivery Device VENTILATOR VENTILATOR Blood [facility] Blood Gas Inspired Oxygen 55 % White Blood Count 48.5 TH/MM3 (4.0-11.0) Red Blood Count 3.05 MIL/MM3 (4.00-5.30) Hemoglobin 8.0 GM/DL (11.6-15.3) Hematocrit 26.5 % (35.0-46.0) Mean Corpuscular Volume 86.6 FL (80.0-100.0) Mean Corpuscular Hemoglobin 26.3 PG (27.0-34.0) Mean Corpuscular Hemoglobin 30.4 % Concent (32.0-36.0) Red Cell Distribution Width 15.6 % (11.6-17.2) Platelet Count 26 TH/MM3 (150-450) Mean Platelet Volume 8.8 FL (7.0-11.0) Sodium Level 139 MEQ/L (136-145) Potassium Level 5.1 MEQ/L (3.5-5.1) Chloride Level 98 MEQ/L (98-107) Carbon Dioxide Level 25.2 MEQ/L (21.0-32.0) Anion Gap 16 MEQ/L (5-15) Blood Urea Nitrogen 68 MG/DL (7-18) Creatinine 1.38 MG/DL (0.50-1.00) Estimat Glomerular Filtration 38 ML/MIN (>89) Rate Random Glucose 113 MG/DL (74-106) Calcium Level 7.6 MG/DL (8.5-10.1) Test 01/22/17 01/22/17 01/23/17 01/23/17 20:53 23:57 05:15 05:20 Blood Gas Puncture Site ART LINE Blood Gas Patient Temperature 98.6 Blood Gas HCO3 21 mmol/L (22-26) Blood Gas Base Excess -4.8 mmol/L (-2-2) Blood Gas Oxygen Saturation 96 % (90-100) Arterial Blood pH 7.25 (7.380-7.420) Arterial Blood Partial 50 mmHg (38-42) Pressure CO2 Arterial Blood Partial 130 mmHg Pressure O2 (61-120) Arterial Blood Oxygen Content 11.2 Vol % (12.0-20.0) Arterial Blood 1.3 % (0-4) Carboxyhemoglobin Arterial Blood Methemoglobin 1.3 % (0-2) Blood Gas Hemoglobin 8.1 G/DL (12.0-16.0) Oxygen Delivery Device VENTILATOR [facility] Inspired Oxygen 55 % Blood Bank Comment White Blood Count 42.4 TH/MM3 (4.0-11.0) Red Blood Count 2.89 MIL/MM3 (4.00-5.30) Hemoglobin 7.8 GM/DL (11.6-15.3) Hematocrit 25.5 % (35.0-46.0) Mean Corpuscular Volume 88.3 FL (80.0-100.0) Mean Corpuscular Hemoglobin 26.9 PG (27.0-34.0) Mean Corpuscular Hemoglobin 30.5 % Concent (32.0-36.0) Red Cell Distribution Width 16.0 % (11.6-17.2) Platelet Count 18 TH/MM3 (150-450) Mean Platelet Volume 9.6 FL (7.0-11.0) Neutrophils (%) (Auto) 93.6 % (16.0-70.0) Lymphocytes (%) (Auto) 3.3 % (9.0-44.0) Monocytes (%) (Auto) 2.4 % (0.0-8.0) Eosinophils (%) (Auto) 0.2 % (0.0-4.0) Basophils (%) (Auto) 0.5 % (0.0-2.0) Neutrophils # (Auto) 39.7 TH/MM3 (1.8-7.7) Lymphocytes # (Auto) 1.4 TH/MM3 (1.0-4.8) Monocytes # (Auto) 1.0 TH/MM3 (0-0.9) Eosinophils # (Auto) 0.1 TH/MM3 (0-0.4) Basophils # (Auto) 0.2 TH/MM3 (0-0.2) CBC Comment AUTO DIFF Differential Total Cells 100 Counted Neutrophils % (Manual) 58 % (16-70) Band Neutrophils % 6 % (0-6) Lymphocytes % 17 % (9-44) Monocytes % 4 % (0-8) Neutrophils # (Manual) 33.5 TH/MM3 (1.8-7.7) Metamyelocytes 3 % (0-1) Myelocytes 12 % (0-0) Nucleated Red Blood Cells 26 /100 WBC (0-0) Differential Comment FINAL DIFF MANUAL Platelet Estimate RARE (NORMAL) Haptoglobin LESS THAN 10 MG/DL (30-200) Prothrombin Time 25.4 SEC (9.8-11.6) Prothromb Time International 2.2 RATIO Ratio Activated Partial 35.4 SEC Thromboplast Time (24.3-30.1) Fibrinogen 174 mg/dL (227-377) Sodium Level 137 MEQ/L (136-145) Potassium Level 5.6 MEQ/L (3.5-5.1) Chloride Level 97 MEQ/L (98-107) Carbon Dioxide Level 17.8 MEQ/L (21.0-32.0) Anion Gap 22 MEQ/L (5-15) Blood Urea Nitrogen 75 MG/DL (7-18) Creatinine 1.60 MG/DL (0.50-1.00) Estimat Glomerular Filtration 32 ML/MIN (>89) Rate Random Glucose 76 MG/DL (74-106) Calcium Level 7.7 MG/DL (8.5-10.1) Phosphorus Level 7.7 MG/DL (2.5-4.9) Magnesium Level 2.6 MG/DL (1.5-2.5) Total Bilirubin 3.6 MG/DL (0.2-1.0) Direct Bilirubin 2.3 MG/DL (0.0-0.2) Indirect Bilirubin 1.3 MG/DL (0.0-0.8) Aspartate Amino Transf 2752 U/L (AST/SGOT) (15-37) Alanine Aminotransferase 623 U/L (10-53) (ALT/SGPT) Alkaline Phosphatase 198 U/L (45-117) Lactate Dehydrogenase 5057 U/L (84-246) Total Creatine Kinase 222 U/L (26-192) Creatine Kinase MB 1.9 NG/ML (0.5-3.6) Creatine Kinase MB % 0.9 % (0.0-4.0) Total Protein 4.5 GM/DL (6.4-8.2) Albumin 2.5 GM/DL (3.4-5.0) Lactic Acid Level 16.1 mmol/L (0.4-2.0) Ammonia 118 MCMOL/L (11-32) Test 01/23/17 07:40 Blood Gas Puncture Site CENTRAL LINE Blood Gas Patient Temperature 98.6 Blood Gas HCO3 14 mmol/L (22-26) Blood Gas Base Excess -14.6 mmol/L (-2-2) Blood Gas Oxygen Saturation 92 % (90-100) Arterial Blood pH 7.05 (7.380-7.420) Arterial Blood Partial 53 mmHg (38-42) Pressure CO2 Arterial Blood Partial 111 mmHg Pressure O2 (61-120) Arterial Blood Oxygen Content 10.3 Vol % (12.0-20.0) Arterial Blood 1.0 % (0-4) Carboxyhemoglobin Arterial Blood Methemoglobin 1.7 % (0-2) Venous Blood pH 7.05 (7.360-7.400) Venous Blood Partial Pressure 56 mmHg (44-48) CO2 Venous Blood Partial Pressure 58 mmHg (35-40) O2 Venous Blood HCO3 15 mmol/L (22-26) Venous Blood Oxygen Saturation 69 % (70-76) Venous Blood Oxygen Content 7.5 Vol % (9.0-17.0) Venous Blood Base Excess -14.0 mmol/L (-2-2) Blood Gas Hemoglobin 7.8 G/DL (12.0-16.0) Oxygen Delivery Device VENTILATOR Blood Gas Ventilator Setting PRVC/AC 450/20 Blood Gas Inspired Oxygen 55 % Result Diagram: 01/23/1751401/23/17514 Microbiology Microbiology Date/Time Procedure Status Source Growth 01/22/17 15:15 Aerobic Blood Culture - Preliminary Resulted Blood Peripheral NO GROWTH IN 1 DAY 01/22/17 15:15 Anaerobic Blood Culture - Preliminary Resulted Blood Peripheral NO GROWTH IN 1 DAY 01/22/17 15:21 Aerobic Blood Culture - Preliminary Resulted Blood Peripheral NO GROWTH IN 1 DAY 01/22/17 15:21 Anaerobic Blood Culture - Preliminary Resulted Blood Peripheral NO GROWTH IN 1 DAY Imaging Last Impressions Chest X-Ray 01/22/17 0000 Signed Impressions: Service Date/Time: Sunday, January 22, 2017 04:47 - CONCLUSION: No significant change. Sourav Mock MD Abdomen/Pelvis CT 01/22/17 0000 Signed Impressions: Service Date/Time: Sunday, January 22, 2017 23:00 - CONCLUSION: 1. Mild ascites but increased from the prior study. 2. Increased symmetric superficial soft tissue edema indicating anasarca. 3. Persistent severe bilateral pulmonary opacity. 4. No evidence of bowel dilatation. 5. New finding of prominent amount of gas in the urinary bladder lumen. May be related to Mercedes catheter in place. Collin Sanchez MD Abdomen X-Ray 01/22/17 0000 Signed Impressions: Service Date/Time: Sunday, January 22, 2017 15:12 - CONCLUSION: Nonspecific abdomen. K. Brett Peterson MD Upper Extremity Ultrasound 01/19/17 0000 Signed Impressions: Service Date/Time: Thursday, January 19, 2017 09:53 - CONCLUSION: Small amount of occlusive thrombus is seen bilaterally in each of the cephalic veins. The rest of the deep venous systems are unremarkable. Major John MD Lower Extremity Ultrasound 01/19/17 0000 Signed Impressions: Service Date/Time: Thursday, January 19, 2017 09:35 - CONCLUSION: Normal examination. Major John MD Liver Ultrasound 01/17/17 0000 Signed Impressions: Service Date/Time: Tuesday, January 17, 2017 17:05 - CONCLUSION: There is no intrahepatic biliary duct dilatation. Liver is grossly free of focal defects. London Frazier MD FACR Chest CT 01/15/17 0000 Signed Impressions: Service Date/Time: January 10:16 - CONCLUSION: Extensive scattered areas of parenchymal consolidation are seen throughout both lung lucas predominately along the peripheral aspect of both lungs. There are also scattered bilateral interstitial infiltrates. These infiltrates appear to be overlying central lobar emphysema. Madi Marvin MD Procedures * * 01/19/17 bronchoscopy * 01/17/17 intubation Patient/Family Conference Present at Family Conference: : Ashu Alford Son: Ashu Alford ("BJ") . Family Conference Time (mins): 45 Family Conference Location: Bedside (Met with and son) Issues Discussed: * Palliative care role, purpose, approach * Additional medical, psychosocial, and spiritual history * Patients general health, functional status, and cognitive changes in the months leading up to the current hospitalization * Patient/family understanding of the current medical problems * Patient/family understanding of prognosis * Patients goals of care as best understood from advance directives and/or conversations and/or values * Current medical treatment options and benefits/burdens of those options * Likely scenarios comparing ongoing aggressive care with a transition to comfort measures only * Questions answered to the best of my ability * Palliative care contact information provided * Met with family, desires comfort focused care and withdraw of life support. Assessment and Plan Disease Oriented Problem List: (1) Sepsis (2) DIC (disseminated intravascular coagulation) (3) Thrombocytopenia (4) Transaminitis (5) Bladder cancer (6) Malnourished (7) UTI (urinary tract infection) (8) Renal insufficiency (9) Pneumonia Symptom Scale: (1) Dyspnea 0-10 Scale: Unable to quantify Comment: Agonal breathing on mechanical ventilation, hypoxic oxygen saturation 70s 80s . Pertinent Non-Medical Issues Psychosocial: . Son lives in [place]. Spiritual: Unknown. Legal: Patient is incapacitated, will not regain capacity. According to [place] statutes, health care proxy decision-making falls to the patient's spouse. Ethical issues impacting care: Important Contacts * Ashu Alford, spouse/HCP: [phone]. . Prognosis Patient with ARDS/pneumonia, COPD, respiratory failure on mechanical ventilation , septic/cardiogenic shock, worsening lactic acidosis, anemia and thrombocytopenia, overall prognosis poor, patient appears to be dying. . Code Status: No Code Plan * Decision Maker: Patient is incapacitated, will not regain capacity. According to [place] statutes, health care proxy decision-making falls to the patient's spouse. * NO CODE * Palliative care awaiting arrival of family further clarify treatment goals. * SYMPTOMS: Dyspnea: agonal breathing on mechanical ventilation, hypoxic. Appears to be imminently dying. * Palliative care number provided. * Palliative care will continue to follow throughout hospital course to assist with symptom management and clarification of goals as needed. * 1730: Met with and son who has arrived from [facility]. Family has elected to withdraw of life support. Exhibits signed. Orders written. 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 . Thank you for the opportunity to participate in the care of Ms. Alford. Attestation To help prompt me to consider important information that might be impacting today's encounter and assessment, information from prior notes written by myself or my colleagues may have been "brought forward" into today's note. My signature on this note, however, is an attestation that I personally performed the exam, history, and/or decision-making noted today, and, unless otherwise indicated, the interactions with patient, family, and staff as well as the review of records all occurred today. I also attest that the listed assessment and stated plan reflect my best clinical judgment today based on the combination of historical information, prior notes, and today's exam/ interactions. When time spent is documented, it refers only to time spent today by the signer, or if indicated, combined time spent today by collaborating physician/nurse practitioner. Noni Mckee Jan 23, 2017 11:49
[2017-01-23] MEDS: VASOPRESSIN INJ 40 UNITS in DEXTROSE 5% IN WATER 100ML INJ 98 ML IV SCH ×2 (13:02)
--- NOTE | 2017-01-23 13:03 | PD.ONC.PN ---
Subjective Subjective Remarks Tmax 100F overnight. Patient intubated, sedated and on multiple pressors. Agonal breathing over vent. Patient now DNR. Objective Data Date Time Temp Pulse Resp B/P Pulse Ox O2 Delivery O2 Flow Rate FiO2 01/23/17 08:55 0 55 01/23/17 06:00 110 01/23/17 04:09 98 55 01/23/17 04:00 01/23/17 04:00 55 01/23/17 04:00 100.0 118 16 92/63 95 101/60 01/23/17 04:00 110 01/23/17 02:00 55 01/23/17 02:00 114 01/23/17 01:08 96 55 01/23/17 00:00 55 01/23/17 00:00 100.0 94 22 130/80 96 01/23/17 00:00 114 01/22/17 22:35 100 100 01/22/17 22:06 98 55 01/22/17 22:00 76 01/22/17 22:00 55 01/22/17 22:00 110 01/22/17 20:00 99.8 114 14 119/86 96 131/78 01/22/17 20:00 114 01/22/17 20:00 55 01/22/17 20:00 110 119/86 131/78 01/22/17 19:18 99 55 01/22/17 18:00 101 115/82 124/103 01/22/17 18:00 101 01/22/17 18:00 101 12 115/82 99 124/103 01/22/17 17:00 99 15 105/82 100 116/72 01/22/17 17:00 99 01/22/17 17:00 99 105/82 116/72 01/22/17 16:00 93 01/22/17 16:00 93 14 100/75 99 117/73 01/22/17 16:00 93 100/75 117/73 01/22/17 16:00 45 01/22/17 15:36 96 45 01/22/17 15:00 92 01/22/17 15:00 92 21 105/80 99 127/80 01/22/17 15:00 92 105/80 127/80 01/22/17 15:00 92 105/80 127/80 01/22/17 15:00 92 21 105/80 99 127/80 01/22/17 15:00 92 01/22/17 14:00 96 01/22/17 14:00 96 103/73 117/74 01/22/17 14:00 96 01/22/17 14:00 96 14 103/73 99 117/74 01/22/17 14:00 96 14 103/73 99 117/74 01/22/17 14:00 96 103/73 117/74 Result Diagram: 01/23/17 0515 01/23/17 0515 Laboratory Results Laboratory Tests Test 01/22/17 01/22/17 01/22/17 01/22/17 14:00 14:24 18:55 20:35 Activated Partial 33.8 SEC Thromboplast Time D-Dimer Quantitative (PE/DVT) 8.86 MG/L FEU Lactic Acid Level 7.9 mmol/L Blood Type O POSITIVE Antibody Screen NEGATIVE Direct Antiglobulin Test NEGATIVE (Jen) Blood Gas Puncture Site CENTRAL LINE Blood Gas Patient Temperature 98.6 98.6 Venous Blood pH 7.25 7.21 Venous Blood Partial Pressure 62 mmHg 60 mmHg CO2 Venous Blood Partial Pressure 38 mmHg 46 mmHg O2 Venous Blood HCO3 26 mmol/L 24 mmol/L Venous Blood Oxygen Saturation 51 % 65 % Venous Blood Oxygen Content 6.1 Vol % 7.8 Vol % Venous Blood Base Excess -0.5 mmol/L -3.3 mmol/L Oxygen Delivery Device VENTILATOR VENTILATOR Blood Gas Ventilator Setting PRVC/AC Blood Gas Inspired Oxygen 55 % White Blood Count 48.5 TH/MM3 Red Blood Count 3.05 MIL/MM3 Hemoglobin 8.0 GM/DL Hematocrit 26.5 % Mean Corpuscular Volume 86.6 FL Mean Corpuscular Hemoglobin 26.3 PG Mean Corpuscular Hemoglobin 30.4 % Concent Red Cell Distribution Width 15.6 % Platelet Count 26 TH/MM3 Mean Platelet Volume 8.8 FL Sodium Level 139 MEQ/L Potassium Level 5.1 MEQ/L Chloride Level 98 MEQ/L Carbon Dioxide Level 25.2 MEQ/L Anion Gap 16 MEQ/L Blood Urea Nitrogen 68 MG/DL Creatinine 1.38 MG/DL Estimat Glomerular Filtration 38 ML/MIN Rate Random Glucose 113 MG/DL Calcium Level 7.6 MG/DL Test 7/12/17 7/12/17 7/13/17 7/13/17 20:53 23:57 05:15 05:20 Blood Gas Puncture Site ART LINE Blood Gas Patient Temperature 98.6 Blood Gas HCO3 21 mmol/L Blood Gas Base Excess -4.8 mmol/L Blood Gas Oxygen Saturation 96 % Arterial Blood pH 7.25 Arterial Blood Partial 50 mmHg Pressure CO2 Arterial Blood Partial 130 mmHg Pressure O2 Arterial Blood Oxygen Content 11.2 Vol % Arterial Blood 1.3 % Carboxyhemoglobin Arterial Blood Methemoglobin 1.3 % Blood Gas Hemoglobin 8.1 G/DL Oxygen Delivery Device VENTILATOR Blood Gas Ventilator Setting PRVC/AC Blood Gas Inspired Oxygen 55 % Blood Bank Comment White Blood Count 42.4 TH/MM3 Red Blood Count 2.89 MIL/MM3 Hemoglobin 7.8 GM/DL Hematocrit 25.5 % Mean Corpuscular Volume 88.3 FL Mean Corpuscular Hemoglobin 26.9 PG Mean Corpuscular Hemoglobin 30.5 % Concent Red Cell Distribution Width 16.0 % Platelet Count 18 TH/MM3 Mean Platelet Volume 9.6 FL Neutrophils (%) (Auto) 93.6 % Lymphocytes (%) (Auto) 3.3 % Monocytes (%) (Auto) 2.4 % Eosinophils (%) (Auto) 0.2 % Basophils (%) (Auto) 0.5 % Neutrophils # (Auto) 39.7 TH/MM3 Lymphocytes # (Auto) 1.4 TH/MM3 Monocytes # (Auto) 1.0 TH/MM3 Eosinophils # (Auto) 0.1 TH/MM3 Basophils # (Auto) 0.2 TH/MM3 CBC Comment AUTO DIFF Differential Total Cells 100 Counted Neutrophils % (Manual) 58 % Band Neutrophils % 6 % Lymphocytes % 17 % Monocytes % 4 % Neutrophils # (Manual) 33.5 TH/MM3 Metamyelocytes 3 % Myelocytes 12 % Nucleated Red Blood Cells 26 /100 WBC Differential Comment FINAL DIFF MANUAL Platelet Estimate RARE Haptoglobin LESS THAN 10 MG/DL Prothrombin Time 25.4 SEC Prothromb Time International 2.2 RATIO Ratio Activated Partial 35.4 SEC Thromboplast Time Fibrinogen 174 mg/dL Sodium Level 137 MEQ/L Potassium Level 5.6 MEQ/L Chloride Level 97 MEQ/L Carbon Dioxide Level 17.8 MEQ/L Anion Gap 22 MEQ/L Blood Urea Nitrogen 75 MG/DL Creatinine 1.60 MG/DL Estimat Glomerular Filtration 32 ML/MIN Rate Random Glucose 76 MG/DL Calcium Level 7.7 MG/DL Phosphorus Level 7.7 MG/DL Magnesium Level 2.6 MG/DL Total Bilirubin 3.6 MG/DL Direct Bilirubin 2.3 MG/DL Indirect Bilirubin 1.3 MG/DL Aspartate Amino Transf 2752 U/L (AST/SGOT) Alanine Aminotransferase 623 U/L (ALT/SGPT) Alkaline Phosphatase 198 U/L Lactate Dehydrogenase 5057 U/L Total Creatine Kinase 222 U/L Creatine Kinase MB 1.9 NG/ML Creatine Kinase MB % 0.9 % Total Protein 4.5 GM/DL Albumin 2.5 GM/DL Lactic Acid Level 16.1 mmol/L Ammonia 118 MCMOL/L Test 01/23/17 07:40 Blood Gas Puncture Site CENTRAL LINE Blood Gas Patient Temperature 98.6 Blood Gas HCO3 14 mmol/L Blood Gas Base Excess -14.6 mmol/L Blood Gas Oxygen Saturation 92 % Arterial Blood pH 7.05 Arterial Blood Partial 53 mmHg Pressure CO2 Arterial Blood Partial 111 mmHg Pressure O2 Arterial Blood Oxygen Content 10.3 Vol % Arterial Blood 1.0 % Carboxyhemoglobin Arterial Blood Methemoglobin 1.7 % Venous Blood pH 7.05 Venous Blood Partial Pressure 56 mmHg CO2 Venous Blood Partial Pressure 58 mmHg O2 Venous Blood HCO3 15 mmol/L Venous Blood Oxygen Saturation 69 % Venous Blood Oxygen Content 7.5 Vol % Venous Blood Base Excess -14.0 mmol/L Blood Gas Hemoglobin 7.8 G/DL Oxygen Delivery Device VENTILATOR Blood Gas Ventilator Setting PRVC/AC 450/20 Blood Gas Inspired Oxygen 55 % Culture Results Microbiology Date/Time Procedure Status Source Growth 01/22/17 15:15 Aerobic Blood Culture - Preliminary Resulted Blood Peripheral NO GROWTH IN 1 DAY 01/22/17 15:15 Anaerobic Blood Culture - Preliminary Resulted Blood Peripheral NO GROWTH IN 1 DAY 01/22/17 15:21 Aerobic Blood Culture - Preliminary Resulted Blood Peripheral NO GROWTH IN 1 DAY 01/22/17 15:21 Anaerobic Blood Culture - Preliminary Resulted Blood Peripheral NO GROWTH IN 1 DAY Administered Medications Medications (Trade) Dose Ordered Sig/Ed Route PRN Reason Start Time Stop Time Status Last Admin Dose Admin Sodium Chloride (NS Flush) 2 ml UNSCH PRN IV FLUSH FLUSH AFTER USING IV ACCESS 01/13/17 21:00 01/19/17 07:34 Sodium Chloride (NS Flush) 2 ml BID IV FLUSH 01/13/17 21:00 01/23/17 09:00 Ondansetron HCl (Zofran Inj) 4 mg Q6H PRN IVP NAUSEA OR VOMITING 01/13/17 21:00 01/14/17 01:18 Acetaminophen (Tylenol) 650 mg Q6H PRN PO FEVER/PAIN SCALE 1 TO 2 01/13/17 21:00 01/16/17 14:44 Morphine Sulfate (Morphine Inj) 2 mg Q3H PRN IV Pain 6-10 01/13/17 21:00 01/20/17 02:47 Senna/Docusate Sodium (Arianna-Colace) 1 tab BID PO 01/13/17 21:00 01/23/17 02:09 Nystatin (Mycostatin Liq) 5 ml QID SWISH-SWAL 01/13/17 21:00 01/23/17 02:09 Calcium Carbonate 500 mg 500 mg Q6HR PRN CHEW heartburn 01/15/17 18:15 01/16/17 00:28 Meropenem/Sodium Chloride (Merrem Inj/NS Inj) 100 ml @ 200 mls/hr Q8H IV 01/15/17 20:00 01/23/17 06:32 Chlorhexidine Gluconate (Peridex 0.12% Liq) 15 ml BID@08,20 MT 01/17/17 20:00 01/23/17 08:00 Morphine Sulfate 4 mg 4 mg Q3H PRN IV PUSH any pain 01/17/17 19:45 01/17/17 23:51 Vasopressin 40 units/Dextrose 100 ml @ 6 mls/hr [id number] IV 01/17/17 21:59 01/22/17 07:17 Phenylephrine HCl/ Dextrose (Neosynephrine Inj/D5W 500 ml Inj) 500 ml @ 0 mls/hr TITRATE IV 01/17/17 22:00 01/21/17 06:37 Hydrocortisone Sodium Succinate (SoluCORTEF INJ) 50 mg Q6HR IV PUSH 01/18/17 00:00 01/23/17 06:32 Insulin Human Regular 1 1 Q4H SQ 01/18/17 10:45 01/22/17 03:10 Micafungin Sodium/ Sodium Chloride (Mycamine Inj/NS Inj) 100 ml @ 100 mls/hr Q24H IV 01/18/17 14:00 01/22/17 13:45 Protein 1 pack 1 pack TID G-TUBE 01/19/17 09:00 01/22/17 09:00 Potassium Chloride 100 ml @ 50 mls/hr Q2H PRN IV For Potassium 2.8 - 3.2 mEq/L 01/20/17 08:00 01/21/17 20:26 Magnesium Sulfate 2 gm/Sodium Chloride 100 ml @ 50 mls/hr UNSCH PRN IV For Magnesium 1.2 - 1.6 mg/dL 01/20/17 08:00 01/20/17 09:04 Sodium Phosphate 30 mmol/Sodium Chloride 250 ml @ 42 mls/hr UNSCH PRN IV For Phosphorus < 2.5 mg/dL 01/20/17 08:00 01/20/17 15:52 Fentanyl Citrate (fentaNYL DRIP) 250 ml @ 0 mls/hr TITRATE IV 01/20/17 13:30 01/21/17 22:37 Metoclopramide HCl (Reglan Inj) 5 mg Q8H PRN IV PUSH high residuals 01/21/17 08:15 01/22/17 00:08 Pantoprazole Sodium 40 mg 40 mg Q24H IV PUSH 01/22/17 14:00 01/22/17 14:41 Milrinone Lactate 20 mg/Sodium Chloride 100 ml @ 10.23 mls/ hr [id number] IV 01/22/17 16:54 01/23/17 06:25 Epoprostenol Sodium/Sodium Chloride (Flolan (30,000 Ng/ml) Neb/NS Inj) 100 ml @ 8 mls/hr Q8H ONCE NEB 01/23/17 02:00 01/23/17 14:29 01/23/17 02:00 Objective Remarks GENERAL: Intubated, edematous sedated female supine in bed SKIN: Warm and dry. lines without bleeding. HEAD: Normocephalic. EYES: No injection or drainage. NECK: Supple, trachea midline CARDIOVASCULAR: +S1/S2, tachy RESPIRATORY: anterior lucas with ronchi, on mechanical ventilation GASTROINTESTINAL: Abdomen soft, non-tender, nondistended. EXTREMITIES: No cyanosis +anasarca NEUROLOGICAL: sedated, intubated Assessment/Plan Problem List: (1) Thrombocytopenia Status: Acute Plan: --d/t sepsis, DIC. (2) Normocytic anemia Status: Acute Plan: --stool Hemoccult negative --LDH rising, haptoglobin now less than 10. --s/p 2 units pRBC on 01/18 --ferritin significantly elevated (3) Transaminitis Status: Acute Plan: --likely due to sepsis but we also need to make sure there is no metastatic disease. --liver ultrasound WNL --CT ab/pelvis: only showed consolidation in lung bases. (4) Malnourished Status: Acute Plan: --low albumin --currently receiving TF--Jevity 1.5 (5) Sepsis Status: Acute Plan: --BC no growth --on multiple pressors (6) DIC (disseminated intravascular coagulation) Status: Acute (7) Bladder cancer Status: Acute Plan: --Invasive bladder cancer status post TURBT. --PET scan showed no evidence of metastatic disease. --CT abdomen and pelvis with contrast. --Non-metastatic muscle invasive urothelial cancer is treated with neoadjuvant chemotherapy followed by surgery--> will be addressed in the outpatient setting if/when patient recovers from acute events. (8) PNA (pneumonia) Status: Acute Plan: --Extensive bilateral pneumonia and acute respiratory distress currently being managed by primary team as well as pulmonary. --on multiple antibiotics. Assessment 66y/o female with a history of muscle invasive bladder cancer who is admitted with pneumonia and respiratory distress. h/o muscle invasive bladder cancer. Hypertension. COPD. History of tobacco abuse. Plan 1. continue antibiotics 2. monitor CBC 3. give 2 units FFP daily Attending Statement The exam, history, and the medical decision-making described in the above note were completed with the assistance of the mid-level provider. I reviewed and agree with the findings presented. I attest that I had a [id number] encounter with the patient on the same day, and personally performed and documented my assessment and findings in the medical record. CLINICAL WORSENING ON MAXIMUM PRESSOR SUPPORT GETTING FFP FAMILY CONSIDERING WITHDRAWING SUPPORT DISCUSSED WITH DR. CHEN D/W RN LABS REVIEWED OTHER SPECIALTY NOTES REVIEWED Problem Qualifiers (1) Sepsis: Qualified Code: A41.9 - Sepsis, due to unspecified organism Madeleine Valderrama Jan 23, 2017 13:03 Malik Corbett MD Jan 24, 2017 00:02
[2017-01-23] MEDS: PANTOPRAZOLE SODIUM 40 MG VIAL IV PUSH SCH (13:49)
[2017-01-23] MEDS: MICAFUNGIN INJ 100 MG in SODIUM CHLORIDE 0.9% INJ 100 ML IV SCH (13:50)
--- NOTE | 2017-01-23 17:35 | HHI.PR ---
Subjective Remarks 66 YOWF with Bilat ,Pn,RF , No fever CT Chest Bilat extensive parenchymal infilt Desaturates easily, anxious Pt intubated, off sedation, does't respond On Neosyn, Milrinone and Flolan On PRVC, Fi02 85% On 4 pressors and son at BS Objective Vital Signs Vital Signs Date Time Temp Pulse Resp B/P Pulse Ox O2 Delivery O2 Flow Rate FiO2 01/23/17 16:01 106 01/23/17 16:01 106 71/49 83/39 01/23/17 16:01 106 21 71/49 81 83/39 01/23/17 16:00 65 01/23/17 16:00 106 21 83/40 82 01/23/17 16:00 106 01/23/17 16:00 106 83/40 01/23/17 15:46 106 96/49 83/40 01/23/17 15:46 106 01/23/17 15:46 106 21 96/49 81 83/40 01/23/17 15:30 107 01/23/17 15:30 107 21 62/30 81 84/41 01/23/17 15:30 107 62/30 84/41 01/23/17 15:15 107 66/51 83/41 01/23/17 15:15 107 21 66/51 84 83/41 01/23/17 15:15 107 01/23/17 15:00 108 78/48 83/40 01/23/17 15:00 108 01/23/17 15:00 108 22 78/48 83 83/40 01/23/17 15:00 108 22 78/48 83 83/40 01/23/17 15:00 108 78/48 83/40 01/23/17 14:50 88 65 01/23/17 14:46 108 82/53 81/39 01/23/17 14:46 108 01/23/17 14:46 108 22 82/53 80 81/39 01/23/17 14:46 108 22 82/53 80 81/39 01/23/17 14:46 108 22 82/53 80 81/39 17 14:46 108 82/53 81/39 01/23/17 14:15 108 01/23/17 14:15 108 21 63/44 77 85/42 01/23/17 14:15 108 21 63/44 77 85/42 7/13/17 14:15 108 63/44 85/42 7/13/17 14:15 108 7//17 14:15 108 63/44 85/42 7/13/17 14:15 108 21 63/44 77 85/42 7/13/17 14:15 108 63/44 85/42 7/13/17 14:01 109 22 71/50 76 82/39 7/13/17 14:01 109 71/50 82/39 7/13/17 14:01 109 71/50 82/39 7/13/17 14:01 109 01/23/17 14:01 109 71/50 82/39 7/13/17 14:01 109 01/23/17 14:01 109 22 71/50 76 82/39 7/13/17 14:01 109 22 71/50 76 82/39 7/13/17 14:00 109 22 83/40 76 7/13/17 14:00 109 01/23/17 14:00 109 22 83/40 76 713/17 14:00 109 83/40 7//17 14:00 109 22 83/40 76 7/13/17 14:00 109 01/23/17 14:00 109 83/40 7//17 14:00 109 83/40 7/17 13:30 110 22 68/48 75 88/44 7/13/17 13:30 110 22 68/48 75 88/44 7/13/17 13:30 110 68/48 88/44 713/17 13:30 110 68/48 88/44 7/13/17 13:30 110 13/17 13:16 110 22 80/51 76 91/45 7/13/17 13:16 110 80/51 91/45 7/13/17 13:16 110 13/17 13:16 110 80/51 91/45 7/13/17 13:16 110 22 80/51 76 91/45 7/13/17 12:46 112 13/17 12:46 112 56/23 101/53 7/13/17 12:46 112 56/23 101/53 7/13/17 12:46 112 23 56/23 92 101/53 7/13/17 12:46 112 23 56/23 92 101/53 / 12:30 110 70/41 108/58 7/ 12:30 110 21 70/41 98 108/58 /17 12:30 110 01/23/17 12:30 110 21 70/41 98 108/58 /17 12:30 110 70/41 108/58 /17 12:15 111 80/57 98/52 717 12:15 111 80/57 98/52 7// 12:15 111 20 80/57 98 98/52 7 12:15 111 01/23/17 12:15 111 20 80/57 98 98/52 7// 12:08 112 21 82/48 81 90/47 01/23/17 12:08 112 01/23/17 12:08 112 82/48 90/47 01/23/17 12:08 112 82/48 90/47 01/23/17 12:08 112 21 82/48 81 90/47 01/23/17 12:01 112 21 77/49 80 87/44 01/23/17 12:01 112 21 77/49 80 87/44 01/23/17 12:01 112 01/23/17 12:01 112 77/49 87/44 01/23/17 12:01 112 77/49 87/44 01/23/17 12:00 112 21 88/45 80 01/23/17 12:00 55 01/23/17 12:00 112 01/23/17 12:00 112 88/45 01/23/17 12:00 112 21 88/45 80 01/23/17 12:00 112 88/45 01/23/17 11:00 114 21 82/51 77 90/47 17 11:00 114 21 82/51 77 90/47 717 11:00 114 17 11:00 114 82/51 90/47 01/23/17 11:00 114 82/51 90/47 01/23/17 10:01 112 96/55 89/47 //17 10:01 112 01/23/17 10:01 112 23 96/55 86 89/47 //17 10:01 112 23 96/55 86 89/47 7/13/17 10:01 112 96/55 89/47 01/23/17 10:00 112 01/23/17 10:00 112 23 90/47 86 01/23/17 10:00 112 23 90/47 86 01/23/17 10:00 112 90/47 01/23/17 10:00 112 90/47 01/23/17 09:01 112 23 77/50 82 84/44 01/23/17 09:01 112 23 77/50 82 84/44 01/23/17 09:01 112 01/23/17 09:01 112 77/50 84/44 01/23/17 09:01 112 77/50 84/44 01/23/17 08:55 0 55 01/23/17 08:01 112 23 90/53 60 84/45 01/23/17 08:01 112 01/23/17 08:01 112 90/53 84/45 01/23/17 08:01 112 23 90/53 60 84/45 01/23/17 08:01 112 90/53 84/45 01/23/17 08:00 112 22 85/46 59 01/23/17 08:00 112 85/46 01/23/17 08:00 112 22 85/46 59 01/23/17 08:00 112 85/46 01/23/17 08:00 112 01/23/17 08:00 55 01/23/17 06:00 110 01/23/17 04:09 98 55 01/23/17 04:00 01/23/17 04:00 55 01/23/17 04:00 100.0 118 16 92/63 95 101/60 01/23/17 04:00 110 01/23/17 02:00 55 01/23/17 02:00 114 01/23/17 01:08 96 55 01/23/17 00:00 55 01/23/17 00:00 100.0 94 22 130/80 96 01/23/17 00:00 114 01/22/17 22:35 100 100 01/22/17 22:06 98 55 01/22/17 22:00 76 01/22/17 22:00 55 01/22/17 22:00 110 01/22/17 20:00 99.8 114 14 119/86 96 131/78 01/22/17 20:00 114 01/22/17 20:00 55 01/22/17 20:00 110 119/86 131/78 01/22/17 19:18 99 55 01/22/17 18:00 101 115/82 124/103 01/22/17 18:00 101 01/22/17 18:00 101 12 115/82 99 124/103 I/O 01/22/17 01/22/17 01/22/17 01/23/17 01/23/17 01/23/17 07:00 15:00 23:00 07:00 15:00 23:00 Intake Total 579 ml 728 ml 900 ml 676 ml 1749 ml Output Total 200 ml 1340 ml 400 ml 200 ml 250 ml Balance 379 ml -612 ml 500 ml 476 ml 1499 ml IV Total 563 ml 728 ml 650 ml 308 ml 1749 ml Tube Feeding 16 ml 250 ml 368 ml Output Urine Total 200 ml 500 ml 350 ml 200 ml 50 ml Stool Total 200 ml 50 ml Gastric Drainage Total 640 ml 200 ml Result Diagram: 01/23/1751401/23/17514 Objective Remarks GENERAL: MBMN WF, mild sob SKIN: Warm and dry. HEAD: Normocephalic. EYES: No scleral icterus. No injection or drainage. NECK: Supple, trachea midline. No JVD or lymphadenopathy. CARDIOVASCULAR: Regular rate and rhythm without murmurs, gallops, or rubs. RESPIRATORY: Breath sounds equal bilaterally. No accessory muscle use. bilat rales GASTROINTESTINAL: Abdomen soft, non-tender, nondistended. MUSCULOSKELETAL: No cyanosis, or edema. BACK: Nontender without obvious deformity. No CVA tenderness. A/P Assessment and Plan Resp Failure, on Vent septic and cardiogenic shock Hypoxia Bialt extensive Pneumonia leucocytosis PLAN: Vent support, PRCC 85% Aerosol nebs Abx Vanco, Zithro, Meropenam Milrinone and Neosyn to support BP On Flolan and son at Decided to withdraw care Palliative following Prognosis poor Jose Ivory MD Jan 23, 2017 17:35
[2017-01-23] MEDS ORDERED: MORPHINE SULFATE 10 MG/ML INJ IV PUSH ONE (17:45)
[2017-01-23] MEDS ORDERED: HYOSCYAMINE 0.5 MG/ML AMP IV ONE (17:45)
[2017-01-23] MEDS ORDERED: LORazepam 2 MG/ML VIAL IV ONE ×2 (17:45→18:15)
[2017-01-23] MEDS ORDERED: EPOPROSTENOL NEB SOLUTION 10 NG/KG/MIN 100 ML NEB ONE ×2 (18:00)
[2017-01-23] MEDS ORDERED: MORPHINE SULFATE 8 MG/ML INJ IV PUSH PRN ×2 (18:15)
[2017-01-23] MEDS ORDERED: ACETAMINOPHEN 650 MG SUPP RECTAL PRN (18:15)
[2017-01-23] MEDS ORDERED: BISACODYL 10 MG SUPP RECTAL PRN (18:15)
[2017-01-23] MEDS ORDERED: FUROSEMIDE 20 MG/2 ML VIAL IV PRN (18:15)
[2017-01-23] MEDS ORDERED: LORazepam 2 MG/ML VIAL IVS PRN (18:15)
[2017-01-23] MEDS ORDERED: MORPHINE SULFATE 4 MG/ML INJ IV ONE (18:15)
[2017-01-23] MEDS ORDERED: LORazepam 2 MG/ML VIAL IV PRN ×2 (18:15)
[2017-01-23] MEDS ORDERED: HYOSCYAMINE 0.5 MG/ML AMP IV PRN (18:15)
[2017-01-23] MEDS ORDERED: LORazepam 2 MG/ML VIAL IV SCH (20:00)
[2017-01-23] MEDS ORDERED: MORPHINE SULFATE 8 MG/ML INJ IV PUSH SCH (20:00)
[2017-01-24] MEDS ORDERED: MEROPENEM INJ 1,000 MG in SODIUM CHLORIDE 0.9% INJ 100 ML IV SCH ×2
== END 2017-01-23 18:14 | disposition expired | DRG 853 ==
LOC: NEPC 18:08 → NEDA 20:58 → HIME 21:45
PROVIDERS: ADMIT Surgery Surgical Critical Care; ATTEND Surgery Surgical Critical Care
PROC: 5A1955Z Respiratory Ventilation, Greater than 96 Consecutive Hours (ICD-10-PCS; principal; 2017-01-17)
PROC: 03HY32Z Insertion of Monitoring Device into Upper Artery, Percutaneous Approach (ICD-10-PCS; 2017-01-17)
PROC: 0BH17EZ Insertion of Endotracheal Airway into Trachea, Via Natural or Artificial Opening (ICD-10-PCS; 2017-01-17)
PROC: 05H633Z Insertion of Infusion Device into Left Subclavian Vein, Percutaneous Approach (ICD-10-PCS; 2017-01-17)
PROC: 30233N1 Transfusion of Nonautologous Red Blood Cells into Peripheral Vein, Percutaneous Approach (ICD-10-PCS; 2017-01-18)
PROC: 0B9J8ZX Drainage of Left Lower Lung Lobe, Via Natural or Artificial Opening Endoscopic, Diagnostic (ICD-10-PCS; 2017-01-19)
PROC: 0B9F8ZX Drainage of Right Lower Lung Lobe, Via Natural or Artificial Opening Endoscopic, Diagnostic (ICD-10-PCS; 2017-01-19)
PROC: 30233K1 Transfusion of Nonautologous Frozen Plasma into Peripheral Vein, Percutaneous Approach (ICD-10-PCS; 2017-01-22)
PROC: 30233R1 Transfusion of Nonautologous Platelets into Peripheral Vein, Percutaneous Approach (ICD-10-PCS; 2017-01-22)
DX: A41.9 Sepsis, unspecified organism (principal); D65 Disseminated intravascular coagulation [defibrination syndrome]; K72.00 Acute and subacute hepatic failure without coma; Z51.5 Encounter for palliative care; J96.01 Acute respiratory failure with hypoxia; E43 Unspecified severe protein-calorie malnutrition; G92 Toxic encephalopathy; J18.9 Pneumonia, unspecified organism; R65.21 Severe sepsis with septic shock; R57.0 Cardiogenic shock; N17.9 Acute kidney failure, unspecified; J44.0 Chronic obstructive pulmonary disease with (acute) lower respiratory infection; B37.81 Candidal esophagitis; E87.2 Acidosis; R18.8 Other ascites; B37.49 Other urogenital candidiasis; J44.1 Chronic obstructive pulmonary disease with (acute) exacerbation; I82.613 Acute embolism and thrombosis of superficial veins of upper extremity, bilateral; E87.0 Hyperosmolality and hypernatremia; C67.9 Malignant neoplasm of bladder, unspecified; R13.10 Dysphagia, unspecified; N28.9 Disorder of kidney and ureter, unspecified; R91.1 Solitary pulmonary nodule; I10 Essential (primary) hypertension; L27.0 Generalized skin eruption due to drugs and medicaments taken internally; T36.95XA Adverse effect of unspecified systemic antibiotic, initial encounter; D64.9 Anemia, unspecified; E86.0 Dehydration; I51.9 Heart disease, unspecified; E78.5 Hyperlipidemia, unspecified; E87.70 Fluid overload, unspecified; R74.0 Nonspecific elevation of levels of transaminase and lactic acid dehydrogenase [LDH]; E83.51 Hypocalcemia; E83.39 Other disorders of phosphorus metabolism; E87.5 Hyperkalemia; F41.9 Anxiety disorder, unspecified; Z66 Do not resuscitate; Z85.3 Personal history of malignant neoplasm of breast; Z87.891 Personal history of nicotine dependence; Z88.0 Allergy status to penicillin; Z88.1 Allergy status to other antibiotic agents; Z90.10 Acquired absence of unspecified breast and nipple; Z91.041 Radiographic dye allergy status
CPT/HCPCS: 31500; 36430; 36556; 36600; 71010; 71250; 74000; 74176; 76705; 76937; 80048; 80053; 80076; 80202; 81001; 82140; 82247; 82248; 82272; 82550; 82552; 82607; 82728; 82747; 82805; 82948; 83010; 83540; 83550; 83605; 83615; 83690; 83735; 83880; 84100; 84132; 84155; 84484; 85007; 85025; 85027; 85044; 85060; 85379; 85384; 85397; 85610; 85730; 86022; 86850; 86880; 86900; 86901; 86920; 86927; 87015; 87040; 87070; 87086; 87102; 87116; 87205; 87206; 87252; 87449; 87493; 87641; 87804; 93306; 93970; 94003; 94640; 94664; 94799; 96365; 96367; C9113; J0456; J0610; J0692; J1325; J1450; J1650; J1652; J1720; J2020; J2060; J2185; J2248; J2250; J2260; J2270; J2370; J2405; J2765; J3010; J3370; J3475; J3480; J7030; J7040; J7042; J7050; J7060; J7070; P9016; P9017; P9035; P9047; Q9963